=== PATIENT | female | born 1935 | race Hispanic/Latino ===

== ENCOUNTER 2020-07-29 17:46 | Emergency (ER) | payer MEDICARE, BC ==
[~2020-07-29] VITALS: Ht 172.7 cm; Wt 98.9 kg
[~2020-07-29 17:46] MED LIST: AMLODIPINE; ASPIR 8181 MG PO; AVALIDE 300-121 EACH PO; AVAPRO; CALTRATE 600 +1 EACH PO; CARAFATE1 GM PO; CLONIDINE HCL0.1 MG PO; HUMULIN 70-30 V10 ML; HUMULIN 70100 UNIT/2 SQ; LASIX40 MG PO; LIPITOR40 MG PO; METOPROLOL PO; METOPROLOL TART50 MG PO; NIFEDIPINE ER60 MG PO; PANTOPRAZOLE SO40 MG; TYLENOL; VITAMIN D3 1,01 EACH PO; VYTORIN; Z.0.CENTRUM COMPLE1
--- OUTSIDE RECORDS SUMMARY | 2020-07-29 17:56 | XMS REPORT | Clinical Summary ---
Author Author TATIANA [employer] [facility] Center[facility]anch[facility] CallahanPhysicians Reference LaboratoryLeg[facility] Address Unknown Phone Unavailable Care Team Providers Care Group Insurance Specialist Name Role Phone Pcp, No PCP Unavailable Allergies No Known Allergies Medications End Date Status Medication Sig Dispensed Refills Start Date Active aspirin 81 MG EC tablet Take 81 mg by 0 mouth daily. Active carvedilol (COREG) 25 MG Take 25 mg by 0 tablet mouth 2 (two) times daily with breakfast and dinner. Active losartan (COZAAR) 50 MG Take 50 mg by 0 tablet mouth 2 (two) times daily. Active atorvastatin (LIPITOR) 40 Take 40 mg by 0 MG tablet mouth daily. Active pantoprazole (PROTONIX) Take 40 mg by 0 40 MG tablet mouth daily. Active insulin glargine (LANTUS) Inject 10 0 100 unit/mL injection Units subcutaneousl y nightly Use as directed . Active Problems Problem Noted Date ESRD (end stage renal disease) on dialysis 8 Social History Date Tobacco Use Types Packs/Day Years Used Never Smoker Smokeless Tobacco: Never Used Drinks/Week oz/Week Comments Alcohol Use No Sex Assigned at Date Recorded Not on file Last Filed Vital Signs Not on file Plan of Treatment Health Maintenance Due Date Last Done Comments MEDICARE ANNUAL WELLNESS 06/29/2002 (YEAR 2 or FIRST YEAR if no IPPE) INFLUENZA VACCINE (#1) 2020 06/09/2016, 06/23/2015 PNEUMOCOCCAL 65+ YRS Completed 07/26/2016, 04/07/2015, 08/28/2006 Results Not on fileafter 07/29/2019 Insurance Type Payer Benefit Subscriber ID Effective Phone Address Plan / Dates Group Medicare MEDICARE MEDICARE A [id number] 2001- B Present PPO BLUE CROSS/BLUE SHIELD BCBS [id number] 2012-P [phone] [id number] [place] [phone] Advance Directives For more information, please contact: [phone] Date Inactivated Comments Code Status Date Activated 02/27/2018 1:53 PM Full Code 02/27/2018 6:10 AM This code status was determined by: Patient
--- OUTSIDE RECORDS SUMMARY | 2020-07-29 17:56 | XMS REPORT | Clinical Summary ---
Author Author [facility] Address Unknown Phone Unavailable Care Team Providers Care Rehabilitation Services Coordinator Name Role Phone Marcie Lara MD PCP Allergies Comments Active Allergy Reactions Severity Noted Date Told to not take ibuprofen containing medication per kidney specialist Ibuprofen 11/12/2016 HYPERKALEMIA- STOPPED BY RENAL Irbesartan-Hydrochlorothi Other (See 10/03/2015 azide Comments) Medications End Date Status Medication Sig Dispensed Refills Start Date Active insulin GLARGINE (LANTUS) Inject 10 0 100 unit/mL injection Units under (vial) the skin every morning. May use lower dose per sliding scale Active MULTIVIT-MIN/IRON/FOLIC/L Take by 0 UTEIN (CENTRUM SILVER mouth. WOMEN ORAL) Active CALCIUM CARBONATE Take by 0 (CALTRATE 600 ORAL) mouth. 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 10/03/2015 Mixed hyperlipidemia 10/03/2015 Morbid obesity 10/03/2015 Multiple pulmonary nodules 10/03/2015 Overview: 3mm RLL, 5 mm LLL- ground glass- 3-15 C T chest w/o contrast Multiple-type hyperlipidemia 10/03/2015 Kidney stone 07/08/2014 Retinopathy due to secondary diabetes sabrina ortiz 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 aman itus Osteoporosis Obesity Insomnia Hepatic abscess Coronary artery disease Overview: NSTEMI ON 09/16/15 CHF (congestive heart failure) Overview: diastolic Rheumatoid arthritis Overview: RA Adrenal mass Overview: benign adrenal myelolipoma- CT 2014- un changed on imaging since 2004 Alopecia Visual impairment Overview: diabetic retinopathy and vitreal hemorr tiffany right eye- last optho exam 2015 Immunizations Name Administration Dates Next Due FLUZONE HIGH-DOSE PF 06/09/2016, 06/23/2015 Pneumococcal Conjugate 04/07/2015 13-Valent Pneumococcal 07/26/2016, 08/28/2006 Polysaccharide Surgical History Surgery Date Site/Laterality Comments BACK SURGERY 08/28/2013 - and 2011 - discecto my and fusion- has metal 08/27/2014 CORRECTION HAMMER TOE Right R d/t infection ; hammertoe surgery TOTAL KNEE ARTHROPLASTY Right COLONOSCOPY 08/28/2005 - normal except polyp s 08/27/2006 APPENDECTOMY SPINE SURGERY 2003, 2011 discectomy, fusi on- has metal hardware EYE SURGERY Bilateral B retina repair- di abetic retinopathy, cataract extraction HYSTERECTOMY INSERTION, TUNNELED 11/14/2016 Chest/Right Procedure: Insertion right IJ tunneled CENTRAL VENOUS CATHETER hemodialysis catheter unde r c-arm; Surgeon: WITH PORT, WITHOUT Helene Stiles MD; L ocation: [facility] OR; FLUOROSCOPIC GUIDANCE Service: Cardiovascular; L aterality: Right; Medical devices from this surgery are i n the Implants section. ARTHROPLASTY, HIP, TOTAL 11/28/2016 Hip/Right Proce dure: ARTHROPLASTY, HIP, TOTAL; Surgeon: Jeff Mosher MD; Location: [facility] OR; Service: Orthopedics; Laterality: Righ t; Medical devices from this surgery are i n the Implants section. JOINT REPLACEMENT Right TKR JOINT REPLACEMENT Bilateral hips AMPUTATION, TOE 01/09/2019 Toes/Right Procedure: AMP UTATION, TOE RIGHT FOOT 2ND TOE; Surgeon: Lakhwinder Sorenson DPM; Locatio n: [facility] OR; Service: Podiatry; Laterality: Ri ght; Medical History Medical History Date Comments Essential hypertension 10/03/2015 Multiple pulmonary nodules 10/03/2015 3mm RLL, 5 mm LLL- ground glass- 3- CT chest w/o contrast-subcentimeter- followed by Dr Chaudhary Diabetes mellitus (HCC) 10/03/2015 A1C 5.6% 06/12 Diabetic neuropathy (HCC) 10/03/2015 Multiple-type hyperlipidemia 10/03/2015 Anemia Retinopathy due to secondary diabetes mellitus (HCC) CHF (congestive heart failure) (HCC) diastolic Obesity Osteoporosis Insomnia Visual impairment diabetic retinopathy and vi treal hemorrhage right eye- last optho exam 2015 Adrenal mass (HCC) benign adrenal myelolipoma- CT 2014- unchanged on imaging since 2004 Alopecia Hepatic abscess Rheumatoid arthritis (HCC) RA Coronary artery disease NSTEMI ON 09/16/15 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 on HD after ICU 09/12 dialysis t- th- sat mellitus (HCC) Kidney stone 07/08/2014 Family History Medical History Relation Name Comments Kidney disease Father Cancer Mother breast Relation Name Status Comments Father Mother Social History Date Tobacco Use Types Packs/Day Years Used Never Smoker Smokeless Tobacco: Never Used Drinks/Week oz/Week Comments Alcohol Use No Sex Assigned at Date Recorded Not on file Last Filed Vital Signs Not on file Plan of Treatment Health Maintenance Due Date Last Done Comments DIABETES: RETINAL EYE 1945 EXAM DIABETIC FOOT EXAM 1945 SHINGLES VACCINES (#2) 10/27/2007 08/28/2007 INFLUENZA VACCINE 03/28/2020 06/09/2016, 06/23/2015 65+ PNEUMOCOCCAL VACCINE Completed 07/26/2016, 04/07/2015, 08/28/2006 Implants Device Identifier Shelf Expiration Date Model / Serial / L ot Implanted Type Area Manufactur er 10/13/2026 11 [id number] / / [id number] Head Fml Tpr I Modlr W/O Skirt Hip Joint Right: Hip [employer] Co-Cr 36x-3mm - [id number] Implants Implanted: Qty: 1 on 11/28/2016 by Jeff Mosher MD at [facility] 08/30/2026 [id number] / / [id number] [place] 4 Hole Shell 56mm F - IPM Right: Hip BIOMET, [id number] [employer] Implanted: Qty: 1 on 11/28/2016 by DEVICES Jeff Mosher MD at [facility] 10/08/2021 [id number] / / [id number] Neutral E1 Liner 36mm F - IPM Right: Hip B IOMET, [id number] [employer] Implanted: Qty: 1 on 11/28/2016 by DEVICES Jeff Mosher MD at [facility] 10/04/2026 [id number] / / [id number] Screw G7 6.5x20 - [id number] IPM Right: Hip BI OMET, Implanted: Qty: 1 on 11/28/2016 by [employer] Jeff Mosher MD at [facility] 09/12/2026 [id number] / / [id number] Screw G7 6.5x20 - [id number] IPM Right: Hip BI OMET, Implanted: Qty: 1 on 11/28/2016 by [employer] Jeff Mosher MD at [facility] 09/27/2026 [id number] / / [id number] Screw G7 6.5x15 - [id number] IPM Right: Hip BI OMET, Implanted: Qty: 1 on 11/28/2016 by [employer] Jeff Mosher MD at [facility] 01/22/2026 [id number] / / [id number] Tprlc 133 Type1 Pps Ho 11.0, IPM Right: Hip B IOMET, [place] Complete Stem - [id number] [employer] Implanted: Qty: 1 on 11/28/2016 by Jeff Miramontes MD at [facility] 04/27/2018 [id number] / / [id number] Catheter Dialysis Glidepath Implantabl Right: Chest BA RD [id number] Symmetric Tip - e Infusion PERIPHERAL [id number] Ports or VASCULAR Implanted: 11/14/2016 at [facility] (Quantity not on file) s Results Not on fileafter 07/29/2019 Insurance Type Payer Benefit Subscriber ID Effective Phone Address Plan / Dates Group Medicare MEDICARE MEDICARE [id number] 2001- [place], PART A AND Present [place] B PPO BCBS BCBS [id number] 2012-P CHOICE resent PPO/AMBREEN MENDEZ PPO Advance Directives For more information, please contact: [phone] 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
--- OUTSIDE RECORDS SUMMARY | 2020-07-29 17:57 | XMS REPORT | Continuity of Care Document ---
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 Role Phone [facility] [employer] Information [employer] Unavailable Un available Problems Problem Status Onset Date Classification Date Reported Comments Source OTHER MECHANICAL COMPLICATION OF OTHER I Active 07/18/2019 [facility] FALL Active 07/17/2019 [facility] RIGHT FEMUR FRACTURE Active 07/17/2019 [facility] RIGHT PERUIPROSTHETIC FEMUR FX AND RIGHT Active 07/17/2019 [facility] BROKEN FEMUR Active 07/17/2019 [facility] Unspecified trochanteric fracture of lef t femur, initial encounter for closed fracture 10/28/2017 01/27/2018 [facility] [id number],PERIPROSTHETIC FRACTURE A Active 10/12/2017 [facility] Unilateral post-traumatic osteoarthritis, left hip 10/05/2017 01/03/2018 [facility] [id number]- UNILATERAL POST-TRAUMATIC O Active 09/07/2017 [facility] TRANSFER---FALL Active 06/23/2017 [facility] CLOSED FX OF BOTH ANTERIOR POSTERIOR C Active 06/23/2017 [facility] Fracture of bone of hip region (disorder) Resolved 05/28/2017 Problem 09/18/2019 [facility] [id number] Ac tive 10/29/2014 [facility] APNEA Active 08/28/2000 [facility] End stage renal disease 01/27/2018 [facility] Type 2 diabetes mellitus with diabetic c hronic kidney disease 01/27/2018 [facility] Hypertensive chronic kidney disease with stage 5 chronic kidney disease or end stage renal disease 01/27/2018 [facility] Idiopathic aseptic necrosis of left femur 01/03/2018 [facility] Unspecified fracture of left acetabulum, subsequent encounter for fracture with nonunion 01/03/2018 [facility] Unspecified fall, subsequent encounter 01/03/2018 [facility] Dependence on renal dialysis 01/27/2018 [facility] Hyperlipidemia, unspecified 01/03/2018 [facility] long-term (current) use of insulin 01/03/2018 [facility] Acute kidney failure, unspecified 01/27/2018 [facility] Other hypotension 01/27/2018 [facility] Periprosthetic fracture around internal prosthetic left hip joint, initial encounter 01/27/2018 [facility] Anemia in chronic kidney disease 01/27/2018 [facility] Overexertion from prolonged static or aw kward postures, initial encounter 01/27/2018 [facility] Diabetes mellitus (disorder) A ctive Problem [facility], [facility] End stage renal disease (disorder) Active Problem dialysis Tu,Th, Sat per pt fistula left arm [facility] [place] Hypercholesterolemia (disorder) Active Problem [facility], [facility], [facility] [place] Hypertensive disorder, systemic arterial (disorder) Active Problem 09/18/2019 [facility], [facility], [facility] [place] Arthritis (disorder) Active Problem 09/18/2019 [facility], [facility], [facility] [place] Arthritis of pelvis (disorder) Active Problem left hip [facility], [facility], [facility] [place] Diabetic neuropathy (disorder) Active Problem [facility], [facility], [facility] [place] Disease of cardiovascular system (disorder) Active Problem 09/18/2019 lower extremities [facility], [facility], [facility] [place] Fracture of bone (disorder) Ac tive Problem left femur periprosthetic fracture. [facility], [facility], [facility] [place] Gastroesophageal reflux disease (disorder) Active Problem 09/18/2019 [facility], [facility] OBSTRUCTIVE SLEEP APNEA Active [facility] SHORTNESS OF BREATH Active [facility] DISP FX OF ANTERIOR COLUMN OF UNSP ACETA Active [facility] ILLNESS, UNSPECIFIED Active [facility] UNSP FRACTURE OF UNSP FEMUR, INIT ENCNTR Active [facility] Medications Medication Details Route Status Patient Instructions Ordering Provider Order Date Source carvedilol 25 mg oral tablet 2 5 mg = 1 tab, PO, Q12H, 0 Refill(s) Active 09/16/2019 [facility] Oxycodone Hydrochloride 5 MG Oral Tablet 5 mg = 1 tab, PO, Q4H, PRN Pain Score 7-10, 0 Refill(s) Active 09/16/2019 [facility] heparin sodium, porcine 2500 UNT/ML Injectable Solutio n SUB-Q, Q12H, 0 Refill(s) Activ e 09/16/2019 [facility] Coreg Notes: Give with food. ( Same As: Coreg) Inactive 09/16/2019 [facility] heparin sodium, porcine 2500 UNT/ML Injectable Solutio n Notes: porcine heparin Inactiv e 09/16/2019 [facility] Norvasc Notes: (Same as: Norva sc) No Longer Active 09/15/2019 [facility] Ancef 2 gm, 20 mL, Route: IVP, Drug form: SOLN, [id number], Dosing Weight 80, kg, Start date: 09/13/19 22:00:00 RN REVIEW, Duration: 3 doses or times, Stop date: 09/14/19 14:00:00 RN REVIEW, ABX Indication: Surgical Prophylaxis, 0 No Longer Active 09/14/2019 [facility] Hydralazine Notes: (Same as: A presoline) Push over 5 minutes Inactive 09/13/2019 [facility] Labetalol 10 mg, 2 mL, Route: IVP, Drug form: INJ, Q5Min, Dosing Weight 80, kg, PRN Elevated BP, Start date: 09/13/19 12:48:00 RN REVIEW, Duration: 5 doses or times, Stop date: Limited # of times, 0 Inactive 09/13/2019 [facility] Acetaminophen Notes: Max aceta minophen 4000 mg/day (4 gm/day). (Same as: Tylenol Extra Strength) Inactive 09/13/2019 [facility] Oxycodone Hydrochloride 5 MG Oral Tablet Notes: (Same as: Roxicodone) Inactive 09/13/2019 [facility] Hydromorphone Notes: Same as D ilaudid Inactive 09/13/2019 [facility] Flumazenil Notes: (Same as: Ro mazicon) Inactive 09/13/2019 [facility] Naloxone Notes: Same as Narcan Inactive 09/13/2019 [facility] Ondansetron Notes: (Same as: Ricky mathews) MEDICATION WASTE Product Size: 4 mg Product Wasted: ___ mg Inactive 09/13/2019 [facility] Promethazine Notes: Do not giv e IV push. (Same as: Phenergan) Inactive 09/13/2019 [facility] neostigmine (ANES) Route: IV, Drug form: INJ, ONCE, Stop date: 09/13/19 12:47:00 RN REVIEW Inactive 09/13/2019 [facility] ondansetron (ANES) Route: IV, Drug form: INJ, ONCE, Stop date: 09/13/19 12:41:00 RN REVIEW Inactive 09/13/2019 [facility] dexamethasone (ANES) Route: IV , Drug form: INJ, ONCE, Stop date: 09/13/19 12:29:00 RN REVIEW Inactive 09/13/2019 [facility] glycopyrrolate (ANES) Route: I V, Drug form: INJ, ONCE, Stop date: 09/13/19 12:29:00 RN REVIEW Inactive 09/13/2019 [facility] lidocaine (ANES) Route: IV, Dr ug form: INJ, ONCE, Stop date: 09/13/19 12:19:00 RN REVIEW Inactive 09/13/2019 [facility] propofol (ANES) Route: IV, Cyrus g form: INJ, ONCE, Stop date: 09/13/19 12:19:00 RN REVIEW Inactive 09/13/2019 [facility] fentaNYL (ANES) Route: IV, Cyrus g form: INJ, ONCE, Stop date: 09/13/19 12:19:00 RN REVIEW Inactive 09/13/2019 [facility] ceFAZolin (ANES) Route: IV, Dr madden form: INJ, ONCE, Stop date: 09/13/19 12:19:00 RN REVIEW Inactive 09/13/2019 [facility] phenylephrine (ANES) Route: IV , Drug form: INJ, ONCE, Stop date: 09/13/19 12:19:00 RN REVIEW Inactive 09/13/2019 [facility] ePHEDrine (ANES) Route: IV, Dr madden form: INJ, ONCE, Stop date: 09/13/19 12:19:00 RN REVIEW Inactive 09/13/2019 [facility] cisatracurium (ANES) Route: IV , Drug form: INJ, ONCE, Stop date: 09/13/19 12:19:00 RN REVIEW Inactive 09/13/2019 [facility] Lactated Ringers Injection IV (ANES) 1000 mL Route: IV, Total Volume: 1,000, Start date: 09/13/19 11:04:00 RN REVIEW, Stop date: 09/13/19 12:04:00 RN REVIEW Inactive 09/13/2019 [facility] atorvastatin Notes: (Same as: Lipitor) No Longer Active 09/13/2019 [facility] Dextrose 50% Syringe (D50W) 12 .5 gm, 25 mL, Route: IVP, Drug Form: INJ, Dosing Weight 80, kg, PRN, PRN Blood Glucose Results, Start date: 09/12/19 18:31:00 RN REVIEW, Duration: 30 day, Stop date: 10/12/19 18:30:00 RN REVIEW, 0 No Longer Active 09/13/2019 [facility] Glucagon 1 mg, Route: IM, Drug form: PDR/INJ, PRN, Dosing Weight 80, kg, PRN Blood Glucose Results, Start date: 09/12/19 18:31:00 RN REVIEW, Duration: 30 day, Stop date: 10/12/19 18:30:00 RN REVIEW, 0 No Longer Active 09/13/2019 [facility] Insulin Lispro Notes: (Same as : Humalog) Roll in palms of hands gently; Do not shake vigorously. WASTE: F/P - Black; E - Municipal Trash Bin Stable for 28 days at room temperature. Expires in days from Date No Longer Active 09/13/2019 [facility] Oxycodone Hydrochloride 5 MG Oral Tablet Notes: (Same as: Roxicodone) No Longer Active 09/13/2019 [facility] Norvasc Notes: (Same as: Norva sc) No Longer Active 09/12/2019 [facility] Cetirizine Notes: (Same As: Zy rtec) No Longer Active 09/12/2019 [facility] ferrous sulfate Notes: Give wi th food. "Do Not Crush" No Longer Active 09/12/2019 [facility] Insulin Glargine 100 UNT/ML Injectable Solution 10 unit, 0.1 mL, Route: SUB-Q, Drug form: SOLN, Daily, Dosing Weight 80, kg, Start date: 09/12/19 9:00:00 RN REVIEW, Duration: 30 day, Stop date: 10/11/19 9:00:00 RN REVIEW, 0 No Longer Active 09/12/2019 [facility] POLYETHYLENE GLYCOL 3350 Notes : Dissolve in 8 oz of water or juice. (Same as: Miralax) No Longer Active 09/12/2019 [facility] sennosides, LONGTERM 8.6 MG Oral Tablet Notes: (Same as: Senokot) No Longer Active 09/12/2019 [facility] heparin Notes: porcine heparin No Longer Active 09/12/2019 [facility] gabapentin 100 MG Oral Capsule Notes: (Same as: Neurontin) No Longer Active 09/12/2019 [facility] Clonidine Hydrochloride 0.1 MG Oral Tablet Notes: (Same As: Catapres) No Longer Active 09/12/2019 [facility] Dextrose 50% Syringe (D50W) 12 .5 gm, 25 mL, Route: IVP, Drug Form: INJ, Dosing Weight 80, kg, PRN, PRN Blood Glucose Results, Start date: 09/11/19 23:01:00 RN REVIEW, Duration: 30 day, Stop date: 10/11/19 23:00:00 RN REVIEW, 0 No Longer Active 09/12/2019 [facility] Glucagon 1 mg, Route: IM, Drug form: PDR/INJ, PRN, Dosing Weight 80, kg, PRN Blood Glucose Results, Start date: 09/11/19 23:01:00 RN REVIEW, Duration: 30 day, Stop date: 10/11/19 23:00:00 RN REVIEW, 0 No Longer Active 09/12/2019 [facility] Ondansetron Notes: (Same as: Ricky mathews) MEDICATION WASTE Product Size: 4 mg Product Wasted: ___ mg No Longer Active 09/12/2019 [facility] Melatonin Notes: (Same as: Mildred atonin) No Longer Active 09/12/2019 [facility] Acetaminophen Notes: Do not ex ceed 4 gm/day. (Same as: Tylenol) No Longer Active 09/12/2019 [facility] ceFAZolin Notes: (Same as Ance f) No Longer Active 09/11/2019 [facility] Exparel Notes: (Same as: Expar el) NOT FOR IV use Postoperative analgesia: Infiltration (local): Dose is based on surgical site and volume required to cover the area (in general, the maximum total dose is 266 mg). Bunionectomy: 7 mL into the tissues surrounding the osteotomy and 1 mL into the subcutaneous tissue of the surgical site (total dose = 8 mL [106 mg]) Hemorrhoidectomy: 30 mL (20 mL vial diluted with 10 mL NS) divided and administered as 6 injections of 5 mL each (total dose = 30 mL [266 mg]) Interscalene brachial plexus nerve block: Single dose: Total shoulder arthroplasty or rotator cuff repair: 133 mg (10 mL) Inactive 09/11/2019 [facility] Acetaminophen Notes: Max aceta minophen 4000 mg/day (4 gm/day). (Same as: Tylenol Extra Strength) No Longer Active 09/11/2019 [facility] Tramadol Notes: Not to exceed 400mg/day. (Same As: Ultram) No Longer Active 09/11/2019 [facility] Ondansetron Notes: (Same as: Ricky mathews) MEDICATION WASTE Product Size: 4 mg Product Wasted: ___ mg No Longer Active 09/11/2019 [facility] Magnesium Sulfate Notes: WASTE : F/P - Sink; E - Municipal Trash Bin Inactive 09/11/2019 [facility] labetalol (ANES) Route: IV, Dr maddne form: INJ, ONCE, Stop date: 09/11/19 12:24:00 RN REVIEW Inactive 09/11/2019 [facility] ondansetron (ANES) Route: IV, Drug form: INJ, ONCE, Stop date: 09/11/19 12:08:00 RN REVIEW Inactive 09/11/2019 [facility] neostigmine (ANES) Route: IV, Drug form: INJ, ONCE, Stop date: 09/11/19 12:08:00 RN REVIEW Inactive 09/11/2019 [facility] Cefazolin 2 gm, Route: IVPB, D rug form: INJ, [id number], Dosing Weight 79, kg, (for patients weighing 70kg or greater), Start date: 09/11/19 12:00:00 RN REVIEW, Duration: 3 doses or times, Stop date: 09/12/19 4:00:00 RN REVIEW, ABX Indication: Surgical Prophylaxis Inactive 09/11/2019 [facility] Hydromorphone Notes: Same as D ilaudid Inactive 09/11/2019 [facility] Flumazenil Notes: (Same as: Ro mazicon) Inactive 09/11/2019 [facility] Naloxone Notes: Same as Narcan Inactive 09/11/2019 [facility] Ondansetron Notes: (Same as: Ricky mathews) MEDICATION WASTE Product Size: 4 mg Product Wasted: ___ mg Inactive 09/11/2019 [facility] glycopyrrolate (ANES) Route: I V, Drug form: INJ, ONCE, Stop date: 09/11/19 9:15:00 RN REVIEW Inactive 09/11/2019 [facility] lidocaine (ANES) Route: IV, Dr ug form: INJ, ONCE, Stop date: 09/11/19 9:00:00 RN REVIEW Inactive 09/11/2019 [facility] propofol (ANES) Route: IV, Cyrus g form: INJ, ONCE, Stop date: 09/11/19 9:00:00 RN REVIEW Inactive 09/11/2019 [facility] fentaNYL (ANES) Route: IV, Cyrus g form: INJ, ONCE, Stop date: 09/11/19 9:00:00 RN REVIEW Inactive 09/11/2019 [facility] cisatracurium (ANES) Route: IV , Drug form: INJ, ONCE, Stop date: 09/11/19 9:00:00 RN REVIEW Inactive 09/11/2019 [facility] norepinephrine (ANES) Route: I V, Drug form: INJ, ONCE, Stop date: 09/11/19 9:00:00 RN REVIEW Inactive 09/11/2019 [facility] ceFAZolin (ANES) Route: IV, Dr ug form: INJ, ONCE, Stop date: 09/11/19 8:48:00 RN REVIEW Inactive 09/11/2019 [facility] norepinephrine (ANES) 10 microgram Route: IV, Drug form: INJ, Start date: 09/11/19 8:39:00 RN REVIEW, Stop date: 09/11/19 9:39:00 RN REVIEW Inactive 09/11/2019 [facility] Sodium Chloride 0.9% (titrate) 250 mL 250 mL, Rate: To prime line and flush remaining blood products., Dosing Weight 79, kg, Route: IV, Total Volume: 250, Start Date: 09/11/19 8:23:00 RN REVIEW, Duration: 1 day, Stop date: 09/12/19 8:22:00 RN REVIEW, Replace Every: 24 hr, 0 No Longer Active 09/11/2019 [facility] Sodium Chloride 0.9% IV (ANES) 500 mL Route: IV, Total Volume: 500, Start date: 09/11/19 7:30:00 RN REVIEW, Stop date: 09/11/19 8:30:00 RN REVIEW Inactive 09/11/2019 [facility] ceFAZolin Notes: (Same as Juliano cleaning) No Longer Active 09/11/2019 [facility] Amlodipine 5 MG Oral Tablet [Norvasc] 5 mg = 1 tab, PO, Daily, 0 Refill(s) Active 09/09/2019 [facility] Clonidine Hydrochloride 0.1 MG Oral Tablet 0.1 mg = 1 tab, PO, Q8H, PRN Hypertension, 0 Refill(s) No Longer Active 09/09/2019 [facility] Diphenhydramine Hydrochloride 25 MG Oral Capsule [Benadryl] 25 mg = 1 cap, PO, Q12H, PRN as needed f or allergy symptoms, 0 Refill(s) No Longer Active 09/09/2019 [facility] Menthol 0.04 MG/MG Topical Gel [Biofreeze] TOP, Daily, apply to R shoulder, 0 Refill(s) No Longer Active 09/09/2019 [facility] 3 ML Insulin Glargine 100 UNT/ML Pen Inj mai [Basaglar] 10 unit, SUB-Q, Daily, 0 Refill(s) No Longer Active 09/09/2019 [facility] Insulin Lispro 100 UNT/ML Injectable Solution [Admelog ] SUB-Q, PRN Before Meals, 0 Refill(s) No Longer Active 09/09/2019 [facility] Acetaminophen 500 MG Oral Tablet 1,000 mg = 2 tab, PO, Q6Hnow, 0 Refill(s) Active 07/26/2019 [facility] ferrous sulfate 325 mg oral enteric coated tablet 325 mg = 1 tab, PO, Daily, 0 Refill(s) Active 07/26/2019 [facility] cetirizine 5 mg oral tablet 5 mg = 1 tab, PO, Daily, 0 Refill(s) Active 07/26/2019 [facility] Docusate Sodium 100 MG Oral Capsule 100 mg = 1 cap, PO, BID, 0 Refill(s) Active 07/26/2019 [facility] dronabinol 5 mg oral capsule 5 mg = 1 cap, PO, Q12H, 0 Refill(s) Active 07/26/2019 [facility] gabapentin 100 MG Oral Capsule 100 mg = 1 cap, PO, Q8H- 06, 0 Refill(s) Active 07/26/2019 [facility] heparin 5,000 unit = 1 mL, SUB -Q, Q8H, 0 Refill(s) Active 07/26/2019 [facility] melatonin 3 mg oral tablet 3 m g = 1 tab, PO, Bedtime, PRN Insomnia, 0 Refill(s) Active 07/26/2019 [facility] minocycline 100 mg oral capsule 100 mg = 1 cap, PO, [id number], 0 Refill(s) Active 07/26/2019 [facility] POLYETHYLENE GLYCOL 3350 17 gm = 1 pkt, PO, Daily, 0 Refill(s) Active 07/26/2019 [facility] sennosides, LONGTERM 8.6 MG Oral Tablet 17.2 mg = 2 tab, PO, Daily, 0 Refill(s) Active 07/26/2019 [facility] Sodium Chloride 0.9% (titrate) 250 mL 250 mL, Rate: To prime line and flush remaining blood products., Dosing Weight 75, kg, Route: IV, Total Volume: 250, Priority: Routine, Start Date: 07/25/19 6:41:00 RN REVIEW, Duration: 1 day, Stop date: 07/26/19 6:40:00 RN REVIEW, Replace Every: 24 hr, 0 No Longer Active 07/25/2019 [facility] phenol Notes: Chloraseptic Spr ay (Same as: Chloraseptic, Sore Throat [place]) WASTE: F/P - Black; E - Municipal Trash Bin No Longer Active 07/25/2019 [facility] ceFAZolin Notes: (Same As: Anc ef, Kefzol) MEDICATION WASTE Product Size: 1000 mg Product Wasted: ___ mg Inactive 07/25/2019 [facility] propofol (ANES) Route: IV, Cyrus g form: INJ, ONCE, Stop date: 07/24/19 18:11:00 RN REVIEW Inactive 07/25/2019 [facility] glycopyrrolate (ANES) Route: I V, Drug form: INJ, ONCE, Stop date: 07/24/19 18:06:00 RN REVIEW Inactive 07/25/2019 [facility] neostigmine (ANES) Route: IV, Drug form: INJ, ONCE, Stop date: 07/24/19 18:06:00 RN REVIEW Inactive 07/25/2019 [facility] Cefazolin Notes: (Same As: [facility], Kefzol) MEDICATION WASTE Product Size: 1000 mg Product Wasted: ___ mg Inactive 07/25/2019 [facility] ondansetron (ANES) Route: IV, Drug form: INJ, ONCE, Stop date: 07/24/19 17:35:00 RN REVIEW Inactive 07/24/2019 [facility] esmolol 10 mg, Route: IVP, Q5M in, Dosing Weight 75, kg, PRN Other -See Comment, Start date: 07/24/19 17:23:00 RN REVIEW, Duration: 5 doses or times, Stop date: Limited # of times Inactive 07/24/2019 [facility] Metoprolol 1 mg, Route: IVP, Q 5Min, Dosing Weight 75, kg, PRN Other -See Comment, Start date: 07/24/19 17:23:00 RN REVIEW, Duration: 5 doses or times, Stop date: Limited # of times Inactive 07/24/2019 [facility] fentaNYL (ANES) Route: IV, Cyrus g form: INJ, ONCE, Stop date: 07/24/19 16:44:00 RN REVIEW Inactive 07/24/2019 [facility] ceFAZolin (ANES) Route: IV, Dr ug form: INJ, ONCE, Stop date: 07/24/19 16:14:00 RN REVIEW Inactive 07/24/2019 [facility] norepinephrine (ANES) Route: I V, Drug form: INJ, ONCE, Stop date: 07/24/19 15:07:00 RN REVIEW Inactive 07/24/2019 [facility] Hydralazine Notes: (Same as: A presoline) Push over 5 minutes Inactive 07/24/2019 [facility] Labetalol 10 mg, 2 mL, Route: IVP, Drug form: INJ, Q5Min, Dosing Weight 75, kg, PRN Elevated BP, Start date: 07/24/19 14:50:00 RN REVIEW, Duration: 5 doses or times, Stop date: 07/25/19 0:00:00 RN REVIEW, 0 Inactive 07/24/2019 [facility] Acetaminophen Notes: Max aceta minophen 4000 mg/day (4 gm/day). (Same as: Tylenol Extra Strength) Inactive 07/24/2019 [facility] Oxycodone Hydrochloride 5 MG Oral Tablet Notes: (Same as: Roxicodone) Inactive 07/24/2019 [facility] Hydromorphone Notes: Same as D ilaudid Inactive 07/24/2019 [facility] Flumazenil Notes: (Same as: Ro mazicon) Inactive 07/24/2019 [facility] Naloxone Notes: Same as Narcan Inactive 07/24/2019 [facility] Ondansetron Notes: (Same as: Ricky mathews) MEDICATION WASTE Product Size: 4 mg Product Wasted: ___ mg Inactive 07/24/2019 [facility] dexamethasone (ANES) Route: IV , Drug form: INJ, ONCE, Stop date: 07/24/19 14:37:00 RN REVIEW Inactive 07/24/2019 [facility] lidocaine (ANES) Route: IV, Dr ug form: INJ, ONCE, Stop date: 07/24/19 14:32:00 RN REVIEW Inactive 07/24/2019 [facility] propofol (ANES) Route: IV, Cyrus g form: INJ, ONCE, Stop date: 07/24/19 14:32:00 RN REVIEW Inactive 07/24/2019 [facility] rocuronium (ANES) Route: IV, D rug form: INJ, ONCE, Stop date: 07/24/19 14:32:00 RN REVIEW Inactive 07/24/2019 [facility] fentaNYL (ANES) Route: IV, Cyrus g form: INJ, ONCE, Stop date: 07/24/19 14:32:00 RN REVIEW Inactive 07/24/2019 [facility] ceFAZolin (ANES) Route: IV, Dr ug form: INJ, ONCE, Stop date: 07/24/19 13:45:00 RN REVIEW Inactive 07/24/2019 [facility] norepinephrine (ANES) Route: I V, Drug form: INJ, ONCE, Stop date: 07/24/19 13:40:00 RN REVIEW Inactive 07/24/2019 [facility] norepinephrine (ANES) 10 microgram Route: IV, Drug form: INJ, Start date: 07/24/19 13:31:00 RN REVIEW, Stop date: 07/24/19 14:31:00 RN REVIEW Inactive 07/24/2019 [facility] Sodium Chloride 0.9% IV (ANES) 500 mL Route: IV, Total Volume: 500, Start date: 07/24/19 12:45:00 RN REVIEW, Stop date: 07/24/19 13:45:00 RN REVIEW Inactive 07/24/2019 [facility] Lactated Ringers Injection IV (ANES) 1000 mL Route: IV, Total Volume: 1,000, Start date: 07/24/19 12:17:00 RN REVIEW, Stop date: 07/24/19 13:17:00 RN REVIEW Inactive 07/24/2019 [facility] Bisacodyl Notes: (Same As: Dul colax, Bisco-Lax) No Longer Active 07/22/2019 [facility] Cetirizine Notes: (Same As: Rodrigo rtec) No Longer Active 07/21/2019 [facility] Dextrose 50% Syringe (D50W) 12 .5 gm, 25 mL, Route: IVP, Drug Form: INJ, Dosing Weight 75, kg, PRN, PRN Blood Glucose Results, Start date: 07/21/19 11:24:00 RN REVIEW, Duration: 30 day, Stop date: 08/20/19 11:23:00 RN REVIEW, 0 No Longer Active 07/21/2019 [facility] Glucagon 1 mg, Route: IM, Drug form: PDR/INJ, PRN, Dosing Weight 75, kg, PRN Blood Glucose Results, Start date: 07/21/19 11:24:00 RN REVIEW, Duration: 30 day, Stop date: 08/20/19 11:23:00 RN REVIEW, 0 No Longer Active 07/21/2019 [facility] Insulin Lispro Notes: (Same as : Humalog) Roll in palms of hands gently; Do not shake vigorously. WASTE: F/P - Black; E - Municipal Trash Bin Stable for 28 days at room temperature. Expires in days from Date No Longer Active 07/21/2019 [facility] Tetrahydrocannabinol Notes: (S davon as: Marinol) No Longer Active 07/21/2019 [facility] Allantoin 0.01 MG/MG / Camphor 0.005 MG/ MG / phenol 0.005 MG/MG Topical Ointment [Blistex] Notes: Same as: Blistex No Longer Active 07/20/2019 [facility] remove patch Notes: Remove pat ch 12 hours after application each day. No Longe r Active 07/20/2019 [facility] Albumin Human, LONGTERM 250 MG/ML Injection [Albuked] Notes: Lot #: Mfg: (Same as: Plasbumin-25) "blood product derivative" WASTE: F/P - Red; E -Red MEDICATION WASTE Product Size: 25 gm Product Wasted: ___ gm Inactive 07/20/2019 [facility] Tramadol Notes: (Same As: Ultr am) No Longer Active 07/20/2019 [facility] Midodrine Notes: (Same as:Proa matine) Inactive 07/20/2019 [facility] 250 ML Albumin Human, LONGTERM 50 MG/ML Injection [Albuked] Notes: Lot #: Mfg: (Same as: Plasbumin-25) "blood product derivative" WASTE: F/P - Red; E -Red MEDICATION WASTE Product Size: 25 gm Product Wasted: ___ gm Inactive 07/20/2019 [facility] Lidocaine Hydrochloride 0.05 MG/MG Trans dermal Patch [Lidoderm] 1 patch, Route: TOP, Daily, Start date: 07/20/19 9:00:00 RN REVIEW, Duration: 30 day, Stop date: 08/18/19 9:00:00 RN REVIEW, Remove after 12 hours Inactive 07/20/2019 [facility] pantoprazole Notes: Tablet herber uld not be chewed or crushed. (Same as: Protonix) N o Longer Active 07/20/2019 [facility] sennosides, LONGTERM Notes: (Same a s: Senokot) No Longer Active 07/20/2019 [facility] albumin human 5% intravenous solution Notes: LOT#: Mfg: WASTE: F/P - Red; E -Red (Same as: Albuminar) "blood product derivative" Inactive 07/20/2019 [facility] Lidocaine Hydrochloride 0.05 MG/MG Trans dermal Patch [Lidoderm] Notes: Apply only once for up to 12 hour s in a 24-hour period (12 hours on and 12 hours off). (Same as: Lidoderm) "Remove old patch before application of new patch" No Longer Active 07/20/2019 [facility] ceFAZolin Notes: (Same as Ance f) No Longer Active 07/20/2019 [facility] tramadol hydrochloride 50 MG Oral Tablet 50 mg, 1 tab, Route: PO, Drug form: TAB, Q12H, Dosing Weight 75, kg, Start date: 07/19/19 21:00:00 RN REVIEW, Duration: 30 day, Stop date: 08/18/19 9:00:00 RN REVIEW Inactive 07/20/2019 [facility] gabapentin 100 MG Oral Capsule 100 mg, Route: PO, Drug form: CAP, Q8H, Dosing Weight 75, kg, Start date: 07/19/19 16:00:00 RN REVIEW, Duration: 30 day, Stop date: 08/18/19 8:00:00 RN REVIEW Inactive 07/19/2019 [facility] Robaxin 1,000 mg, Route: IV, Q 8H, Dosing Weight 75, kg, Start date: 07/19/19 16:00:00 RN REVIEW, Duration: 30 day, Stop date: 08/18/19 8:00:00 RN REVIEW Inactive 07/19/2019 [facility] Hydromorphone Notes: Same as D ilaudid Inactive 07/19/2019 [facility] Robaxin Notes: (Same as:Robaxi n) No Longer Active 07/19/2019 [facility] gabapentin 100 MG Oral Capsule Notes: (Same as: Neurontin) No Longer Active 07/19/2019 [facility] tramadol hydrochloride 50 MG Oral Tablet Notes: Not to exceed 400mg/day. (Same As: Ultram) No Longer Active 07/19/2019 [facility] Insulin regular Notes: (Same a s: Humulin R) Roll in palms of hands gently; Do not shake vigorously. WASTE: F/P - Black; E - Municipal Trash Bin Stable for 31 days at room temperature Expires in days from Date No Longer Active 07/19/2019 [facility] Dextrose 50% Syringe (D50W) 12 .5 gm, 25 mL, Route: IVP, Drug Form: INJ, Dosing Weight 75, kg, PRN, PRN Abnormal Lab Result, Start date: 07/19/19 11:16:00 RN REVIEW, Duration: 30 day, Stop date: 08/18/19 11:15:00 RN REVIEW, For FSBG 40 mg/dL - 60 mg/dL, 0 No Longer Active 07/19/2019 [facility] Fentanyl 25 microgram, Route: IV, ONCE, Dosing Weight 75, kg, Start date: 07/19/19 4:16:00 RN REVIEW, Stop date: 07/19/19 4:16:00 RN REVIEW Inactive 07/19/2019 [facility] propofol 10 mg/mL (Titrate.) IV 1,000 mg Notes: If Diprivan - change bottle & tubing every 12 hr Per state nursing law propofol can only be given by a nurse if patient is intubated or being intubated (unless the nurse is a GAS BLENDER). Same as: Diprivan Inactive 07/19/2019 [facility] ondansetron (ANES) Route: IV, Drug form: INJ, ONCE, Stop date: 07/19/19 2:11:00 RN REVIEW Inactive 07/19/2019 [facility] Ancef 2 gm, Route: IVPB, ABXQ8 H, Dosing Weight 75, kg, Start date: 07/19/19 2:00:00 RN REVIEW, Duration: 3 day, Stop date: 07/21/19 18:00:00 RN REVIEW, ABX Indication: Surgical Prophylaxis Inactive 07/19/2019 [facility] Minocycline Notes: (Same as:Bernie cruz) No milk/antacids/iron. No Longer Active 07/19/2019 [facility] norepinephrine (ANES) + Sodium Chloride 0.9% IV (ANES) 99 mL Route: IV, Drug form: INJ, ONCE, Stop da te: 07/19/19 1:36:00 RN REVIEW Inactive 07/19/2019 [facility] vasopressin (ANES) Route: IV, Drug form: INJ, ONCE, Stop date: 07/19/19 1:36:00 RN REVIEW Inactive 07/19/2019 [facility] phenylephrine (ANES) Route: IV , Drug form: INJ, ONCE, Stop date: 07/19/19 1:05:00 RN REVIEW Inactive 07/19/2019 [facility] calcium chloride (ANES) Route: IV, Drug form: INJ, ONCE, Stop date: 07/19/19 1:00:00 RN REVIEW Inactive 07/19/2019 [facility] Fentanyl 25 microgram, Route: IVP, Q5Min, Dosing Weight 75, kg, PRN Pain Score 4-6, Priority: Routine, Start date: 07/19/19 0:29:00 RN REVIEW, Duration: 4 doses or times, Stop date: Limited # of times Inactive 07/19/2019 [facility] Hydromorphone 0.5 mg, Route: I [employer] [employer], Q5Min, Dosing Weight 75, kg, PRN Pain Score 7-10, Start date: 07/19/19 0:29:00 RN REVIEW, Duration: 4 doses or times, Stop date: Limited # of times Inactive 07/19/2019 [facility] Flumazenil 0.2 mg, Route: IVP, PRN, Dosing Weight 75, kg, PRN Benzodiazepine Reversal, Initial dose, Start date: 07/19/19 0:29:00 RN REVIEW, Duration: 30 day, Stop date: 08/18/19 0:28:00 RN REVIEW Inactive 07/19/2019 [facility] Naloxone 0.4 mg, Route: IVP, Q 2MIN, Dosing Weight 75, kg, PRN Narcotic Reversal, Start date: 07/19/19 0:29:00 RN REVIEW, Duration: 8 doses or times, Stop date: Limited # of times Inactive 07/19/2019 [facility] Ondansetron 4 mg, Route: IVP, ONCE, Dosing Weight 75, kg, PRN Nausea & Vomiting, Start date: 07/19/19 0:29:00 RN REVIEW Inactive 07/19/2019 [facility] norepinephrine (ANES) Route: I V, Drug form: INJ, ONCE, Stop date: 07/19/19 0:24:00 RN REVIEW Inactive 07/19/2019 [facility] Sodium Chloride 0.9% IV (ANES) 99 mL + n orepinephrine (ANES) 10 microgram Route: IV, Drug form: INJ, Start date: 09/17/18 23:59:00 RN REVIEW, Stop date: 07/19/19 0:59:00 RN REVIEW No Longer Active 07/19/2019 [facility] nt lidocaine (ANES) Route: IV, Dr ug form: INJ, ONCE, Stop date: 07/18/19 23:54:00 RN REVIEW Inactive 07/19/2019 [facility] propofol (ANES) Route: IV, Cyrus g form: INJ, ONCE, Stop date: 07/18/19 23:54:00 RN REVIEW Inactive 07/19/2019 [facility] fentaNYL (ANES) Route: IV, Cyrus g form: INJ, ONCE, Stop date: 07/18/19 23:54:00 RN REVIEW Inactive 07/19/2019 [facility] cisatracurium (ANES) Route: IV , Drug form: INJ, ONCE, Stop date: 07/18/19 23:49:00 RN REVIEW Inactive 07/19/2019 [facility] dexamethasone (ANES) Route: IV , Drug form: INJ, ONCE, Stop date: 07/18/19 23:43:00 RN REVIEW Inactive 07/19/2019 [facility] nt tranexamic acid (ANES) Route: IV, Drug form: INJ, ONCE, Stop date: 07/18/19 23:38:00 RN REVIEW Inactive 07/19/2019 [facility] nt ceFAZolin (ANES) Route: IV, Dr ug form: INJ, ONCE, Stop date: 07/18/19 23:18:00 RN REVIEW Inactive 07/19/2019 [facility] ketAMINE (ANES) Route: IV, Cyrus g form: INJ, ONCE, Stop date: 07/18/19 22:47:00 RN REVIEW Inactive 07/19/2019 [facility] Sodium Chloride 0.9% IV (ANES) 90 mL + v ancomycin (ANES) 1000 mg Route: IV, Drug form: INJ, Start date: 09/17/18 22:45:00 RN REVIEW, Stop date: 07/18/19 23:45:00 RN REVIEW Inactive 07/19/2019 [facility] Lactated Ringers Injection IV (ANES) 1000 mL Route: IV, Total Volume: 1,000, Start date: 07/18/19 21:30:00 RN REVIEW, Stop date: 07/18/19 22:30:00 RN REVIEW Inactive 07/19/2019 [facility] atorvastatin Notes: (Same as: Lipitor) No Longer Active 07/19/2019 [facility] ropivacaine Notes: NOT FOR IV use Ropivacaine 5 mg/mL (49.25 mL) Epinephrine 1 mg/mL (0.5 mL) Clonidine 0.1 mg/mL (0.8 mL) Ketorolac 30 mg/mL (1 mL) Normal Saline 48.45 mL No Longer Active 07/19/2019 [facility] heparin Notes: porcine heparin No Longer Active 07/18/2019 [facility] 3 ML Insulin Glargine 100 UNT/ML Prefill ed Syringe [Lantus] 10 unit, SUB-Q, Daily, 0 Refill(s) No Longer Active 07/18/2019 [facility] losartan 50 mg oral tablet 50 mg = 1 tab, PO, BID, 0 Refill(s) No Longer Active 07/18/2019 [facility] carvedilol 25 mg oral tablet 2 5 mg = 1 tab, PO, BID, # 180 tab, 0 Refill(s) No Longer Active 07/18/2019 [facility] Dextrose 50% Syringe (D50W) 12 .5 gm, 25 mL, Route: IVP, Drug Form: INJ, Dosing Weight 75, kg, PRN, PRN Blood Glucose Results, Start date: 07/18/19 12:24:00 RN REVIEW, Duration: 30 day, Stop date: 08/17/19 12:23:00 RN REVIEW, 0 No Longer Active 07/18/2019 [facility] Glucagon 1 mg, Route: IM, Drug form: PDR/INJ, PRN, Dosing Weight 75, kg, PRN Blood Glucose Results, Start date: 07/18/19 12:24:00 RN REVIEW, Duration: 30 day, Stop date: 08/17/19 12:23:00 RN REVIEW, 0 No Longer Active 07/18/2019 [facility] Insulin Lispro Notes: (Same as : Humalog) Roll in palms of hands gently; Do not shake vigorously. WASTE: F/P - Black; E - Municipal Trash Bin Stable for 28 days at room temperature. Expires in days from Date No Longer Active 07/18/2019 [facility] Docusate Notes: (Same as: Cola ce) (Do Not Crush) No Longer Active 07/18/2019 [facility] POLYETHYLENE GLYCOL 3350 Notes : Dissolve in 8 oz of water or juice. (Same as: Miralax) No Longer Active 07/18/2019 [facility] carvedilol Notes: Give with fo od. (Same As: Coreg) No Longer Active 07/18/2019 [facility] ferrous sulfate Notes: Give wi th food. "Do Not Crush" No Longer Active 07/18/2019 [facility] Hydroxychloroquine Sulfate 200 MG Oral Tablet Notes: (Same as: Plaquenil) Hydroxychloroquine sulfate 200 mg = 155 mg hydroxychloroquine base. If treating malaria, verify dose as salt vs. base per CDC guideline Inactive 07/18/2019 [facility] Losartan Notes: (Same as: Coza ar) No Longer Active 07/18/2019 [facility] pantoprazole Notes: Tablet herber uld not be chewed or crushed. (Same as: Protonix) N o Longer Active 07/18/2019 [facility] Sodium Chloride 0.9% (titrate) 250 mL 250 mL, Rate: To prime line and flush remaining blood products., Dosing Weight 75, kg, Route: IV, Total Volume: 250, Start Date: 07/18/19 8:39:00 RN REVIEW, Duration: 1 day, Stop date: 07/19/19 8:38:00 RN REVIEW, Replace Every: 24 hr, 0 No Longer Active 07/18/2019 [facility] Acetaminophen Notes: Max aceta minophen 4000 mg/day (4 gm/day). (Same as: Tylenol Extra Strength) No Longer Active 07/18/2019 [facility] Oxycodone Hydrochloride 5 MG Oral Tablet Notes: (Same as: Roxicodone) No Longer Active 07/18/2019 [facility] Morphine Notes: (Same as:MORPh ine Sulfate) No Longer Active 07/18/2019 [facility] tizanidine Notes: (Same As: Za naflex) No Longer Active 07/18/2019 [facility] Dextrose 50% Syringe (D50W) 12 .5 gm, 25 mL, Route: IVP, Drug Form: INJ, Dosing Weight 74.545, kg, PRN, PRN Blood Glucose Results, Start date: 07/18/19 3:09:00 RN REVIEW, Duration: 30 day, Stop date: 08/17/19 3:08:00 RN REVIEW, 0 No Longer Active 07/18/2019 [facility] Glucagon 1 mg, Route: IM, Drug form: PDR/INJ, PRN, Dosing Weight 74.545, kg, PRN Blood Glucose Results, Start date: 07/18/19 3:09:00 RN REVIEW, Duration: 30 day, Stop date: 08/17/19 3:08:00 RN REVIEW, 0 No Longer Active 07/18/2019 [facility] Ondansetron Notes: (Same as: Ricky mathews) MEDICATION WASTE Product Size: 4 mg Product Wasted: ___ mg No Longer Active 07/18/2019 [facility] Melatonin Notes: (Same as: Mildred atonin) No Longer Active 07/18/2019 [facility] Prochlorperazine Notes: (Same as: Compazine) No Longer Active 07/18/2019 [facility] Zofran 4 mg, Route: IVP, Drug form: INJ, ONCE, Dosing Weight 74.545, kg, Priority: STAT, Start date: 07/18/19 1:59:00 RN REVIEW, Stop date: 07/18/19 1:59:00 RN REVIEW Inactive 07/18/2019 [facility] Dilaudid Notes: Same as Dilaud id Inactive 07/18/2019 [facility] Fentanyl 50 microgram, Route: IVP, ONCE, Dosing Weight 74.545, kg, Priority: STAT, Start date: 07/18/19 0:25:00 RN REVIEW, Stop date: 07/18/19 0:25:00 RN REVIEW Inactive 07/18/2019 [facility] Fentanyl Notes: (Same as: Subl imaze) Preservative free. Inactive 07/18/2019 [facility] Morphine Notes: (Same as:MORPh ine Sulfate) Inactive 07/18/2019 [facility] Dilaudid Notes: Same as: Dilau did Inactive 07/18/2019 [facility] Dilaudid Notes: (Same as: Dila udid) Inactive 07/17/2019 [facility] Zofran 4 mg, Route: IVP, Drug form: INJ, ONCE, Dosing Weight 74.545, kg, Priority: STAT, Start date: 07/17/19 16:56:00 RN REVIEW, Stop date: 07/17/19 16:56:00 RN REVIEW Inactiv e 07/17/2019 [facility] Morphine Notes: (Same as:MORPh ine Sulfate) Inactive 07/17/2019 [facility] Sodium Chloride 0.9% (titrate) 250 mL 250 mL, Rate: To prime line and flush remaining blood products., Dosing Weight 77.273, kg, Route: IV, Total Volume: 250, Start Date: 10/21/17 9:01:00 RN REVIEW, Duration: 30 day, Stop date: 11/20/17 9:00:00 CDT, Replace Every: 24 hr Inactive 10/21/2017 [facility] Procrit Notes: (Same as: Procr it) epoetin lisa 45190 unit/1 ml VL. For dialysis use only. (Procrit) WASTE: F/P - Red; E -Red MEDICATION WASTE Product Size: 72760 unit Product Wasted: ___ unit No Longer Active 10/20/2017 [facility] pantoprazole 40 mg, 1 tab, Rou te: PO, Drug form: ECTAB, Before Dinner, Dosing Weight 77.273, kg, Start date: 10/19/17 16:30:00 RN REVIEW, Duration: 30 day, Stop date: 11/17/17 16:30:00 CDT No Longer Active 10/19/2017 [facility] Losartan Notes: (Same as: Coza ar) No Longer Active 10/19/2017 [facility] Hydroxychloroquine Sulfate 200 MG Oral T ablet [Plaquenil] Notes: (Same as: Plaquenil) Hydroxychlor oquine sulfate 200 mg = 155 mg hydroxychloroquine base. If treating malaria, verify dose as salt vs. base per CDC guideline No Longer Active 10/19/2017 [facility] carvedilol Notes: Give with fo od. (Same As: Coreg) No Longer Active 10/19/2017 [facility] ferrous sulfate Notes: Give wi th food. iron elemental [id number] as ferrous sulfate Dose=___mg elemental iron No Longer Active 10/19/2017 [facility] heparin Notes: porcine heparin No Longer Active 10/19/2017 [facility] atorvastatin Notes: (Same as: Lipitor) No Longer Active 10/19/2017 [facility] Insulin Glargine 100 UNT/ML Injectable S olution [Lantus] Notes: (Same as: Lantus) Do not hold ins ulin without contacting prescriber WASTE: F/P - Black; E - Municipal Trash Bin "single patient use only" No Longer Active 10/19/2017 [facility] Zofran Notes: (Same as: Zofran ) MEDICATION WASTE Product Size: 4 mg Product Wasted: ___ mg No Longer Active 10/19/2017 [facility] Tranexamic Acid Notes: (Same A s: Cyklokapron) No Longer Active 10/18/2017 [facility] Docusate 100 mg, 1 cap, Route: PO, Drug form: CAP, BID, Dosing Weight 77.273, kg, Start date: 10/18/17 17:00:00 RN REVIEW, Duration: 30 day, Stop date: 11/17/17 9:00:00 CDT No Longer Active 10/18/2017 [facility] Zofran 4 mg, Route: IV, Q8H, D osing Weight 77.273, kg, Start date: 10/18/17 16:00:00 RN REVIEW, Duration: 3 doses or times, Stop date: 10/19/17 8:00:00 RN REVIEW Inactive 10/18/2017 [facility] acetaminophen-codeine #3 Notes : Do not exceed 4gm/day of acetaminophen. (Same as: Tylenol with Codeine # 3) No Longer Active 10/18/2017 [facility] bupivacaine (ANES) Route: INTR ATHECAL, Drug Form: INJ, ONCE, Stop date: 10/18/17 14:08:00 RN REVIEW Inactive 10/18/2017 [facility] morphine Sulfate (ANES) Route: INTRATHECAL, Drug form: SOLN, ONCE, Stop date: 10/18/17 14:08:00 RN REVIEW Inactive 10/18/2017 [facility] Cefazolin Notes: (Same As: Anc ef, Kefzol) MEDICATION WASTE Product Size: 1000 mg Product Wasted: ___ mg No Longer Active 10/18/2017 [facility] acetaminophen-codeine #3 1 tab , PO, Q6H, PRN pain, # 30 tab, 0 Refill(s) Active 10/18/2017 [facility] losartan 50 mg oral tablet 100 mg = 2 tab, PO, Daily, 0 Refill(s) Active 10/18/2017 [facility] pantoprazole 40 mg, PO, Daily, # 30 tab, 0 Refill(s) Active 10/18/2017 [facility] Ferrousal 325 mg oral tablet 3 25 mg = 1 tab, PO, Daily, 0 Refill(s) Active 10/18/2017 [facility] carvedilol 25 mg oral tablet 5 0 mg = 2 tab, PO, Daily, 0 Refill(s) Active 10/18/2017 [facility] Ondansetron Notes: (Same as: Ricky mathews) MEDICATION WASTE Product Size: 4 mg Product Wasted: ___ mg No Longer Active 10/18/2017 [facility] Bisacodyl Notes: (Same As: Dul colax, Bisco-Lax) No Longer Active 10/18/2017 [facility] Diphenhydramine Notes: (Same a s: Benadryl) No Longer Active 10/18/2017 [facility] POLYETHYLENE GLYCOL 3350 Notes : Dissolve in 8 oz of water or juice. (Same as: Miralax) No Longer Active 10/18/2017 [facility] Oxycodone Hydrochloride 5 MG Oral Tablet Notes: (Same as: Roxicodone) No Longer Active 10/18/2017 [facility] Phenergan Notes: (Same as: Phe nergan) No Longer Active 10/18/2017 [facility] NS 1,000 mL 1,000 mL, Rate: 85 ml/hr, Infuse over: 11.8 hr, Route: IV, Dosing Weight 77.273 kg, Total Volume: 1,000, When PO intake adequate, okay to saline lock, Start date: 10/18/17 11:12:00 RN REVIEW, Duration: 30 day, Stop date: 11/17/17 11:11:00 CDT, 1.94, m2 No Longer Active 10/18/2017 [facility] Famotidine Notes: (Same as: Pe pcid) No Longer Active 10/18/2017 [facility] Tylenol Notes: Do not exceed 4 gm/day. (Same as: Tylenol) No Longer Active 10/18/2017 [facility] Acetaminophen 325 MG / Hydrocodone Live trate 10 MG Oral Tablet Notes: Do not exceed 4gm/day of acetamin ophen. (Same as: Bernice 325/10) No Longer Active 10/18/2017 [facility] neostigmine (ANES) Route: IV, Drug form: INJ, ONCE, Stop date: 10/18/17 11:01:00 RN REVIEW Inactive 10/18/2017 [facility] ondansetron (ANES) Route: IV, Drug form: INJ, ONCE, Stop date: 10/18/17 10:51:00 RN REVIEW Inactive 10/18/2017 [facility] Sodium Chloride 0.9% IV (ANES) 50 mL + t ranexamic acid (ANES) 700 mg Route: IV Central, Drug form: INJ, Start date: 10/18/17 9:58:00 RN REVIEW, Stop date: 10/18/17 10:58:00 RN REVIEW Inactive 10/18/2017 [facility] propofol (ANES) Route: IV, Cyrus g form: INJ, ONCE, Stop date: 10/18/17 9:12:00 RN REVIEW Inactive 10/18/2017 [facility] Ondansetron 4 mg, Route: IVP, ONCE, Dosing Weight 77.273, kg, PRN Nausea & Vomiting, Start date: 10/18/17 8:51:00 RN REVIEW Inactive 10/18/2017 [facility] Glycopyrrolate 0.2 mg, Route: IVP, Q5Min, Dosing Weight 77.273, kg, PRN Bradycardia, Start date: 10/18/17 8:51:00 RN REVIEW, Duration: 3 doses or times, Stop date: Limited # of times Inactive 10/18/2017 [facility] Diphenhydramine 12.5 mg, Route : IVP, Drug form: INJ, Q6H, Dosing Weight 77.273, kg, PRN Itching, Start date: 10/18/17 8:51:00 RN REVIEW, Duration: 30 day, Stop date: 11/17/17 8:50:00 CDT Inactive 10/18/2017 [facility] Atropine 0.2 mg, Route: IVP, Q 5Min, Dosing Weight 77.273, kg, PRN Other -See Comment, as needed; for symptomatic pulse rate < 80% of mean 50 BPM, Start date: 10/18/17 8:51:00 RN REVIEW, Duration: 30 day, Stop date: 11/17/17 9:50:00 CDT Inactive 10/18/2017 [facility] Naloxone 0.4 mg, Route: IVP, Q 2MIN, Dosing Weight 77.273, kg, PRN Narcotic Reversal, Start date: 10/18/17 8:51:00 RN REVIEW, Duration: 8 doses or times, Stop date: Limited # of times Inactive 10/18/2017 [facility] Flumazenil 0.2 mg, Route: IVP, PRN, Dosing Weight 77.273, kg, PRN Benzodiazepine Reversal, Initial dose, Start date: 10/18/17 8:51:00 RN REVIEW, Duration: 30 day, Stop date: 11/17/17 9:50:00 CDT Inactive 10/18/2017 [facility] Hydromorphone 0.2 mg, Route: I SP[place]AL [place]ER, Q5Min, Dosing Weight 77.273, kg, PRN Pain Score 7-10, Start date: 10/18/17 8:51:00 RN REVIEW, Duration: 5 doses or times, Stop date: Limited # of times Inactive 10/18/2017 [facility] Morphine 2 mg, Route: IVP, Q5M in, Dosing Weight 77.273, kg, PRN Pain Score 4-6, Start date: 10/18/17 8:51:00 RN REVIEW, Duration: 5 doses or times, Stop date: Limited # of times Inactive 10/18/2017 [facility] Metoprolol 1 mg, Route: IVP, Q 5Min, Dosing Weight 77.273, kg, PRN Other -See Comment, Start date: 10/18/17 8:51:00 RN REVIEW, Duration: 5 doses or times, Stop date: Limited # of times Inactive 10/18/2017 [facility] Hydralazine 10 mg, Route: IVP, Q20Min, Dosing Weight 77.273, kg, PRN Elevated BP, Start date: 10/18/17 8:51:00 RN REVIEW, Duration: 2 doses or times, Stop date: Limited # of times Inactive 10/18/2017 [facility] Periactin Notes: (Same As: Per iactin) No Longer Active 10/18/2017 [facility] Naloxone Notes: Same as Narcan No Longer Active 10/18/2017 [facility] famotidine (ANES) Route: IV, D rug form: INJ, ONCE, Stop date: 10/18/17 8:32:00 RN REVIEW Inactive 10/18/2017 [facility] cisatracurium (ANES) Route: IV , Drug form: INJ, ONCE, Stop date: 10/18/17 8:22:00 RN REVIEW Inactive 10/18/2017 [facility] ePHEDrine (ANES) Route: IV, Dr ug form: INJ, ONCE, Stop date: 10/18/17 8:22:00 RN REVIEW Inactive 10/18/2017 [facility] glycopyrrolate (ANES) Route: I V, Drug form: INJ, ONCE, Stop date: 10/18/17 8:22:00 RN REVIEW Inactive 10/18/2017 [facility] acetaminophen (ANES) 10 mg Rou te: IV, Drug form: INJ, Start date: 10/18/17 7:54:00 RN REVIEW, Stop date: 10/18/17 8:54:00 RN REVIEW Inactive 10/18/2017 [facility] Sodium Chloride 0.9% IV (ANES) 50 mL + t ranexamic acid (ANES) 700 mg Route: IV, Drug form: INJ, Start date: 0 10/18/17 7:38:00 RN REVIEW, Stop date: 10/18/17 8:38:00 RN REVIEW Inactive 10/18/2017 [facility] ceFAZolin (ANES) 2000 mg Route : IV, Drug form: INJ, Start date: 10/18/17 7:33:00 RN REVIEW, Stop date: 10/18/17 8:33:00 RN REVIEW Inactive 10/18/2017 [facility] fentaNYL (ANES) Route: IV, Cyrus g form: INJ, ONCE, Stop date: 10/18/17 7:32:00 RN REVIEW Inactive 10/18/2017 [facility] propofol (ANES) 10 mg Route: I V, Drug form: INJ, Start date: 10/18/17 7:16:00 RN REVIEW, Stop date: 10/18/17 8:16:00 RN REVIEW Inactive 10/18/2017 [facility] Sodium Chloride 0.9% IV (ANES) 500 mL Route: IV, Total Volume: 500, Start date: 10/18/17 6:58:00 RN REVIEW, Stop date: 10/18/17 7:58:00 RN REVIEW Inactive 10/18/2017 [facility] vancomycin (ANES) 1000 mg Rout e: IV, Drug form: INJ, Start date: 10/18/17 6:58:00 RN REVIEW, Stop date: 10/18/17 7:58:00 RN REVIEW Inactive 10/18/2017 [facility] Vancomycin 2001 mg: infuse ov er 2.5 hours Inactive 10/18/2017 [facility] Ofirmev Notes: Infuse over 15 minutes Do not exceed 4gm/day of acetaminophen MEDICATION WASTE Product Size: 1000 mg Product Wasted: ___ mg Inactive 10/18/2017 [facility] scopolamine Notes: Change patc h every 72 hours (Same as: Transderm-Scop) No Longer Active 10/18/2017 [facility] ceFAZolin + sterile water 20 mL Notes: (Same As: Ancef, Kefzol) MEDICATION WASTE Product Size: 1000 mg Product Wasted: ___ mg Inactive 10/18/2017 [facility] Zofran Notes: (Same as: Zofran ) MEDICATION WASTE Product Size: 4 mg Product Wasted: ___ mg Inactive 10/18/2017 [facility] dexamethasone Notes: Concentra tion: 4mg/ml No Longer Active 10/18/2017 [facility] Phenergan 25 mg oral tablet 25 mg = 1 tab, PO, Q6H, PRN Nausea, # 15 tab, 0 Refill(s) No Longer Active 09/27/2017 [facility] Acetaminophen 300 MG / Codeine Phosphate 30 MG Oral Tablet [Tylenol with Codeine #3] 1 tab, PO, Q6H, PRN Pain, X 15 day, # 60 tab, 0 Refill(s) No Longer Active 09/27/2017 [facility] losartan 50 mg oral tablet 50 mg = 1 tab, PO, Daily, 0 Refill(s) Inactive 09/27/2017 [facility] hydrochlorothiazide 12.5 mg oral tablet 12.5 mg = 1 tab, PO, Daily, 0 Refill(s) Inactiv e 09/27/2017 [facility] Aspirin 81 MG Enteric Coated Tablet 81 mg = 1 tab, PO, BID, # 42 tab, 0 Refill(s) Active 09/27/2017 [facility] Procrit Notes: (Same as: Procr it) epoetin lisa 38121 unit/1 ml VL. For dialysis use only. (Procrit) WASTE: F/P - Red; E -Red MEDICATION WASTE Product Size: 25876 unit Product Wasted: ___ unit No Longer Active 09/26/2017 [facility] heparin 10,000 unit, 10 mL, Ro jasson: DIALYSIS, Drug form: INJ, ONCALL, Dosing Weight 72.727, kg, Start date: 09/26/17 11:00:00 RN REVIEW, Duration: 1 doses or times No Longer Active 09/26/2017 [facility] sodium chloride 0.9% (Priming and Maintenance) 2,000 mL, 0 ml/hr, Infuse Over: 0 hr, Route: IV, 2,000, Drug form: INJ, PRN, Dosing Weight 72.727 kg, Start date: 09/26/17 10:15:00 RN REVIEW, Duration: 24 hr, Stop date: 09/27/17 10:14:00 RN REVIEW, For Use by Dialysis Nurse ONLY, PRN Dialysis No Longer Active 09/26/2017 [facility] Insulin Glargine 100 UNT/ML Injectable S olution [Lantus] Notes: (Same as: Lantus) Do not hold ins ulin without contacting prescriber WASTE: F/P - Black; E - Municipal Trash Bin "single patient use only" No Longer Active 09/26/2017 [facility] hydrochlorothiazide Notes: (Sa me as: Hydrodiuril). Give with food. No Longer Active 09/26/2017 [facility] Cozaar Notes: (Same as: Cozaar) No Longer Active 09/26/2017 [facility] Hydrochlorothiazide 12.5 MG / Losartan P otassium 50 MG Oral Tablet 1 tab, Route: PO, Drug Form: TAB, Dosing Weight 72.727, kg, Daily, Start date: 09/26/17 9:00:00 RN REVIEW, Duration: 30 day, Stop date: 10/25/17 9:00:00 RN REVIEW No Longer Active 09/26/2017 [facility] Celebrex 400 mg, Route: PO, Dr ug form: CAP, Daily, Dosing Weight 72.727, kg, Start date: 09/26/17 9:00:00 RN REVIEW, Duration: 30 day, Stop date: 10/25/17 9:00:00 RN REVIEW No Longer Active 09/26/2017 [facility] heparin Notes: porcine heparin No Longer Active 09/26/2017 [facility] Zofran Notes: (Same as: Zofran ) MEDICATION WASTE Product Size: 4 mg Product Wasted: ___ mg Inactive 09/26/2017 [facility] atorvastatin Notes: (Same as: Lipitor) No Longer Active 09/26/2017 [facility] Acetaminophen 300 MG / Codeine Phosphate 30 MG Oral Tablet [Tylenol with Codeine #3] Notes: Do not exceed 4gm/day of acetamin ophen. (Same as: Tylenol with Codeine # 3) No Longer Active 09/26/2017 [facility] Cefazolin Notes: (Same As: Anc ef, Kefzol) MEDICATION WASTE Product Size: 1000 mg Product Wasted: ___ mg No Longer Active 09/26/2017 [facility] Dextrose 50% Syringe 25 gm, 50 mL, Route: IVP, Drug Form: INJ, Dosing Weight 72.727, kg, PRN, PRN Blood Glucose Results, Start date: 09/25/17 17:17:00 RN REVIEW, Duration: 30 day, Stop date: 10/25/17 17:16:00 RN REVIEW No Longer Active 09/25/2017 [facility] Glucagon 1 mg, Route: IM, Drug form: PDR/INJ, PRN, Dosing Weight 72.727, kg, PRN Blood Glucose Results, Start date: 09/25/17 17:17:00 RN REVIEW, Duration: 30 day, Stop date: 10/25/17 17:16:00 RN REVIEW No Longer Active 09/25/2017 [facility] Insulin Lispro Notes: (Same as : Humalog ) Roll in palms of hands gently; Do not shake `vigorously. "Single Patient Use Only " WASTE: F/P - Black; E - Municipal Trash Bin Stable for 28 days at room temp erature. Expires in days from Date No Longer Active 09/25/2017 [facility] Celebrex 400 mg, Route: PO, Dr ug form: CAP, BID, Dosing Weight 72.727, kg, Start date: 09/25/17 17:00:00 RN REVIEW, Duration: 30 day, Stop date: 10/25/17 9:00:00 RN REVIEW Inactive 09/25/2017 [facility] Docusate Notes: (Same as: Cola ce) (Do Not Crush) No Longer Active 09/25/2017 [facility] ondansetron (ANES) Route: IV, Drug form: INJ, ONCE, Stop date: 09/25/17 15:59:00 RN REVIEW Inactive 09/25/2017 [facility] neostigmine (ANES) Route: IV, Drug form: INJ, ONCE, Stop date: 09/25/17 15:59:00 RN REVIEW Inactive 09/25/2017 [facility] glycopyrrolate (ANES) Route: I V, Drug form: INJ, ONCE, Stop date: 09/25/17 15:59:00 RN REVIEW Inactive 09/25/2017 [facility] Diphenhydramine Notes: (Same a s: Benadryl) No Longer Active 09/25/2017 [facility] Ondansetron Notes: (Same as: Ricky mathews) MEDICATION WASTE Product Size: 4 mg Product Wasted: ___ mg No Longer Active 09/25/2017 [facility] Morphine Notes: (Same as:MORPh ine Sulfate) No Longer Active 09/25/2017 [facility] POLYETHYLENE GLYCOL 3350 Notes : Dissolve in 8 oz of water or juice. (Same as: Miralax) No Longer Active 09/25/2017 [facility] Bisacodyl Notes: (Same As: Dul colax, Bisco-Lax) No Longer Active 09/25/2017 [facility] Acetaminophen 325 MG / Hydrocodone Live trate 10 MG Oral Tablet 1 tab, Route: PO, Drug Form: TAB, Dosing Weight 72.727, kg, Q4H, PRN Pain Score 1-3, Start date: 09/25/17 15:19:00 RN REVIEW, Duration: 30 day, Stop date: 10/25/17 15:18:00 RN REVIEW Inactive 09/25/2017 [facility] NS 1,000 mL 1,000 mL, Rate: 30 ml/hr, Infuse over: 33.3 hr, Route: IV, Dosing Weight 72.727 kg, Total Volume: 1,000, When PO intake adequate, okay to saline lock, Start date: 09/25/17 15:19:00 RN REVIEW, Duration: 30 day, Stop date: 10/25/17 15:18:00 RN REVIEW, 1.88, m2 No Longer Active 09/25/2017 [facility] Tylenol Notes: Do not exceed 4 gm/day. (Same as: Tylenol) No Longer Active 09/25/2017 [facility] Phenergan Notes: (Same as: Phe nergan) No Longer Active 09/25/2017 [facility] Oxycodone Hydrochloride 5 MG Oral Tablet Notes: (Same as: Roxicodone) No Longer Active 09/25/2017 [facility] fentaNYL (ANES) Route: IV, Cyrus g form: INJ, ONCE, Stop date: 09/25/17 13:19:00 RN REVIEW Inactive 09/25/2017 [facility] acetaminophen (ANES) 10 mg Rou te: IV, Drug form: INJ, Start date: 09/25/17 12:55:00 RN REVIEW, Stop date: 09/25/17 13:55:00 RN REVIEW Inactive 09/25/2017 [facility] ePHEDrine (ANES) Route: IV, Dr ug form: INJ, ONCE, Stop date: 09/25/17 12:34:00 RN REVIEW Inactive 09/25/2017 [facility] lidocaine (ANES) Route: IV, Dr ug form: INJ, ONCE, Stop date: 09/25/17 12:24:00 RN REVIEW Inactive 09/25/2017 [facility] rocuronium (ANES) Route: IV, D rug form: INJ, ONCE, Stop date: 09/25/17 12:24:00 RN REVIEW Inactive 09/25/2017 [facility] propofol (ANES) Route: IV, Cyrus g form: INJ, ONCE, Stop date: 09/25/17 12:24:00 RN REVIEW Inactive 09/25/2017 [facility] tranexamic acid (ANES) 100 mg Route: IV, Drug form: INJ, Start date: 09/25/17 12:23:00 RN REVIEW, Stop date: 09/25/17 13:23:00 RN REVIEW Inactive 09/25/2017 [facility] ceFAZolin (ANES) 2000 mg Route : IV, Drug form: INJ, Start date: 09/25/17 11:57:00 RN REVIEW, Stop date: 09/25/17 12:57:00 RN REVIEW Inactive 09/25/2017 [facility] vancomycin (ANES) 1000 mg Rout e: IV, Drug form: INJ, Start date: 09/25/17 11:57:00 RN REVIEW, Stop date: 09/25/17 12:57:00 RN REVIEW Inactive 09/25/2017 [facility] Sodium Chloride 0.9% IV (ANES) 1000 mL Route: IV, Total Volume: 1,000, Start date: 09/25/17 11:41:00 RN REVIEW, Stop date: 09/25/17 12:41:00 RN REVIEW Inactive 09/25/2017 [facility] Ondansetron 4 mg, Route: IVP, ONCE, Dosing Weight 72.727, kg, PRN Nausea & Vomiting, Start date: 09/25/17 11:24:00 RN REVIEW Inactive 09/25/2017 [facility] Sodium Chloride 0.9% IV 1000 mL 1,000 mL, Rate: 125 ml/hr, Infuse over: 8 hr, Route: IV, Dosing Weight 72.727 kg, Total Volume: 1,000, Start date: 09/25/17 11:24:00 RN REVIEW, Duration: 30 day, Stop date: 10/25/17 11:23:00 RN REVIEW, 1.88, m2 Inactiv e 09/25/2017 [facility] Hydralazine 10 mg, Route: IVP, Q20Min, Dosing Weight 72.727, kg, PRN Elevated BP, Start date: 09/25/17 11:24:00 RN REVIEW, Duration: 2 doses or times, Stop date: Limited # of times Inactive 09/25/2017 [facility] Morphine 2 mg, Route: IVP, Q5M in, Dosing Weight 72.727, kg, PRN Pain Score 4-6, Start date: 09/25/17 11:24:00 RN REVIEW, Duration: 5 doses or times, Stop date: Limited # of times Inactive 09/25/2017 [facility] Metoprolol 1 mg, Route: IVP, Q 5Min, Dosing Weight 72.727, kg, PRN Other -See Comment, Start date: 09/25/17 11:24:00 RN REVIEW, Duration: 5 doses or times, Stop date: Limited # of times Inactive 09/25/2017 [facility] Naloxone 0.4 mg, Route: IVP, Q 2MIN, Dosing Weight 72.727, kg, PRN Narcotic Reversal, Start date: 09/25/17 11:24:00 RN REVIEW, Duration: 8 doses or times, Stop date: Limited # of times Inactive 09/25/2017 [facility] Flumazenil 0.2 mg, Route: IVP, PRN, Dosing Weight 72.727, kg, PRN Benzodiazepine Reversal, Initial dose, Start date: 09/25/17 11:24:00 RN REVIEW, Duration: 30 day, Stop date: 10/25/17 11:23:00 RN REVIEW Inactive 09/25/2017 [facility] Celebrex 400 mg, Route: PO, Dr maryanne form: CAP, PRE OP, Dosing Weight 72.727, kg, Start date: 09/25/17 11:00:00 RN REVIEW, Duration: 30 day, Stop date: 10/25/17 10:59:00 RN REVIEW Inactive 09/25/2017 [facility] scopolamine Notes: Change patc h every 72 hours (Same as: Transderm-Scop) No Longer Active 09/25/2017 [facility] Zofran Notes: (Same as: Zofran ) MEDICATION WASTE Product Size: 4 mg Product Wasted: ___ mg Inactive 09/25/2017 [facility] Ofirmev Notes: Infuse over 15 minutes Do not exceed 4gm/day of acetaminophen MEDICATION WASTE Product Size: 1000 mg Product Wasted: ___ mg No Longer Active 09/25/2017 [facility] ceFAZolin + sterile water 20 mL Notes: (Same As: Thomas Campos) MEDICATION WASTE Product Size: 1000 mg Product Wasted: ___ mg No Longer Active 09/25/2017 [facility] vancomycin + Sodium Chloride 0.9% IV 250 mL 2001 mg: infuse over 2.5 hours For adult patients only: Round to nearest 250 mg per Medical Staff approval MEDICATION WASTE Product Size: 1000 mg Product Wasted: ___ mg No Longer Active 09/25/2017 [facility] Hydrochlorothiazide 12.5 MG / Losartan P otassium 50 MG Oral Tablet 1 tab, PO, Daily, 0 Refill(s) No Longer Active 09/20/2017 [facility] Lantus 100 units/mL 10 unit, S UB-Q, QAM, 0 Refill(s) Active 07/03/2017 [facility] acetaminophen-hydrocodone 325 mg-5 mg oral tablet 2 tab, PO, Q4H, PRN Pain Score 7-10, 0 Refill(s) Active 07/03/2017 [facility] nter heparin 5,000 unit = 1 mL, SUB -Q, Q8H, 0 Refill(s) Active 07/03/2017 [facility] acetaminophen 325 mg oral tablet 650 mg = 2 tab, PO, Q6H, PRN Pain Score 1-3, 0 Refill(s) Active 07/03/2017 [facility] nt docusate sodium 100 mg oral capsule 100 mg = 1 cap, PO, BID, 0 Refill(s) Active 07/03/2017 [facility] ergocalciferol 50,000 intl units oral capsule 50,000 IntlUnit = 1 cap, PO, Q7D, 0 Refill(s) Active 07/03/2017 [facility] nt sevelamer 1.6 gm = 2 tab, PO, TID-Meals, 0 Refill(s) Active 07/03/2017 [facility] bisacodyl 10 mg rectal suppository 10 mg = 1 supp, [place], Daily, PRN Constipation, 0 Refill(s) Active 07/03/2017 [facility] nter molasses Notes: (Same as:Molas ses) Inactive 07/03/2017 [facility] sodium chloride 0.9% 500 ml INJ 250 mL 250 mL, Rate: director call for use with blood product administration, Dosing Weight 81.364, kg, Route: IV, Total Volume: 250, Start Date: 07/03/17 8:53:00 RN REVIEW, Duration: 30 day, Stop date: 08/02/17 8:52:00 RN REVIEW, Replace Every: 24 hr Inactive 07/03/2017 [facility] nt mineral oil Notes: (Same as:Fl eet Mineral Oil Enema) Inactive 07/02/2017 [facility] Levaquin 500 mg, 1 tab, Route: PO, Drug form: TAB, [id number], Start date: 06/30/17 16:00:00 CDT, Duration: 3 day, Stop date: 07/02/17 16:00:00 RN REVIEW, ABX Indication: Urinary Tract Infection No Longer Active 06/30/2017 [facility] sodium chloride 0.9% INJ 250 mL 250 mL, Rate: director call for use with blood product administration, Dosing Weight 81.364, kg, Route: IV, Total Volume: 250, Start Date: 06/30/17 7:39:00 CDT, Duration: 30 day, Stop date: 07/30/17 7:38:00 RN REVIEW, Replace Every: 24 hr No Longer Active 06/30/2017 [facility] Lantus 100 units/mL Notes: (Sa me as: Lantus) Do not hold insulin without contacting prescriber WASTE: F/P - Black; E - Municipal Trash Bin "single patient use only" No Longer Active 06/29/2017 [facility] ntdeborah Ancef Notes: Same as: Ancef Inactive 06/29/2017 [facility] nter Levaquin Notes: Do not give w/ antacids, dairy pdt & minerals Take 1 hr before or 2 hr after dairy products No Longer Active 06/28/2017 [facility] calcium (as carbonate)-vitamin D 500 mg- 400 intl units oral tablet Notes: (calcium carbonate-vit D 500mg-40 0unit TAB) Same as: Oyster-D, OsCal-D No Longer Active 06/28/2017 [facility] sevelamer Notes: Non-Formulary Drug Give Renagel (sevelamer) 1 hour before or 3 hours after other meds "Do Not Crush" (Same as: Renagel) No Longer Active 06/28/2017 [facility] sevelamer Notes: Non-Formulary Drug Give Renagel (sevelamer) 1 hour before or 3 hours after other meds "Do Not Crush" (Same as: Renagel) Inactive 06/28/2017 [facility] Tylenol Notes: Do not exceed 4 gm/day. (Same as: Tylenol) No Longer Active 06/28/2017 [facility] NS (Bolus) IV 250 mL, 250 ml/h r, Infuse Over: 1 hr, Route: IV, 250, Drug form: INJ, ONCE, Priority: STAT, Dosing Weight 81.364 kg, Start date: 06/27/17 16:35:00 CDT, Duration: 1 doses or times, Stop date: 06/27/17 16:35:00 CDT Inactive 06/27/2017 [facility] ceFAZolin (SCIP) + sodium chloride 0.9% INJ 100 mL Notes: (Same As: Ancef, Kefzol) MEDICATION WASTE Product Size: 1000 mg Product Wasted: ___ mg Inactive 06/27/2017 [facility] nter ceFAZolin (SCIP) 2 gm, Route: IVPB, Drug form: INJ, Q8H, Dosing Weight 81.364, kg, Start date: 06/27/17 16:00:00 CDT, Duration: 3 doses or times, Stop date: 06/28/17 8:00:00 CDT, ABX Indication: Surgical Prophylaxis Inactive 06/27/2017 [facility] ANES ondansetron 4 mg, Route: IVP, ONCE, Dosing Weight 81.364, kg, PRN Nausea & Vomiting, Start date: 06/27/17 15:31:00 CDT Inactive 06/27/2017 [facility] ANES flumazenil 0.2 mg, Route: IVP, PRN, Dosing Weight 81.364, kg, PRN Benzodiazepine Reversal, Initial dose, Start date: 06/27/17 15:31:00 CDT, Duration: 30 day, Stop date: 07/27/17 14:30:00 RN REVIEW Inactive 06/27/2017 [facility] ANES naloxone 0.4 mg, Route: I SPIRAL [place]ER, Q2MIN, Dosing Weight 81.364, kg, PRN Narcotic Reversal, Start date: 06/27/17 15:31:00 CDT, Duration: 8 doses or times, Stop date: Limited # of times Inactive 06/27/2017 [facility] nt ANEYosvany HYDROmorphone 0.2 mg, Rou te: IVP, Q5Min, Dosing Weight 81.364, kg, PRN Pain Score 7-10, Start date: 06/27/17 15:31:00 CDT, Duration: 4 doses or times, Stop date: Limited # of times Inactive 06/27/2017 [facility] Insulin regular 5 unit, Route: IV, ONCE, Dosing Weight 81.364, kg, Priority: STAT, Start date: 06/27/17 12:15:00 CDT, Stop date: 06/27/17 12:15:00 CDT Inactive 06/27/2017 [facility] glycopyrrolate (ANES) Route: I V, Drug form: INJ, ONCE, Stop date: 06/27/17 11:46:00 CDT Inactive 06/27/2017 [facility] nter ondansetron (ANES) Route: IV, Drug form: INJ, ONCE, Stop date: 06/27/17 11:46:00 CDT Inactive 06/27/2017 [facility] nter dexmedetomidine + sodium chloride 0.9% 1 00 ml INJ (ANES) (ANES) Route: IV, Drug form: INJ, ONCE, Stop da te: 06/27/17 11:46:00 CDT Inactive 06/27/2017 [facility] neostigmine (ANES) Route: IV, Drug form: INJ, ONCE, Stop date: 06/27/17 11:46:00 CDT Inactive 06/27/2017 [facility] nter acetaminophen (ANES) Route: IV , Drug form: INJ, ONCE, Stop date: 06/27/17 11:13:00 CDT Inactive 06/27/2017 [facility] nter calcium chloride (ANES) Route: IV, Drug form: INJ, ONCE, Stop date: 06/27/17 10:28:00 CDT Inactive 06/27/2017 [facility] nter vasopressin (ANES) Route: IV, Drug form: INJ, ONCE, Stop date: 06/27/17 9:33:00 CDT Inactive 06/27/2017 [facility] nter succinylcholine (ANES) Route: IV, Drug form: INJ, ONCE, Stop date: 06/27/17 9:03:00 CDT Inactive 06/27/2017 [facility] nter propofol (ANES) Route: IV, Cyrus g form: INJ, ONCE, Stop date: 06/27/17 8:47:00 CDT Inactive 06/27/2017 [facility] nter fentaNYL (ANES) Route: IV, Cyrus g form: INJ, ONCE, Stop date: 06/27/17 8:47:00 CDT Inactive 06/27/2017 [facility] nter lidocaine (ANES) Route: IV, Dr ug form: INJ, ONCE, Stop date: 06/27/17 8:47:00 CDT Inactive 06/27/2017 [facility] nter cisatracurium (ANES) Route: IV , Drug form: INJ, ONCE, Stop date: 06/27/17 8:41:00 CDT Inactive 06/27/2017 [facility] nter norepinephrine (ANES) Route: I V, Drug form: INJ, ONCE, Stop date: 06/27/17 8:31:00 CDT Inactive 06/27/2017 [facility] nt ceFAZolin (ANES) Route: IV, ug form: INJ, ONCE, Stop date: 06/27/17 8:15:00 CDT Inactive 06/27/2017 [facility] nter ePHEDrine (ANES) Route: IV, ug form: INJ, ONCE, Stop date: 06/27/17 8:10:00 CDT Inactive 06/27/2017 [facility] nter sodium chloride 0.9% 1000 ml INJ (ANES) Route: IV, Total Volume: 1,000, Start date: 06/27/17 7:25:00 CDT, Stop date: 06/27/17 8:25:00 CDT Inactive 06/27/2017 [facility] sevelamer Notes: Same as: Errol hidalgo No Longer Active 06/26/2017 [facility] Coreg Notes: Give with food. ( Same As: Coreg) No Longer Active 06/26/2017 [facility] Lasix 80 mg, Route: IV, Daily, Dosing Weight 81.364, kg, Start date: 06/26/17 9:00:00 CDT, Duration: 30 day, Stop date: 07/25/17 9:00:00 RN REVIEW No Longer Active 06/26/2017 [facility] Electrolyte Solution 1000 mL 1 ,000 mL, Rate: 75 ml/hr, Infuse over: 13.3 hr, Route: IV, Dosing Weight 81.364 kg, Total Volume: 1,000, Start date: 06/26/17 0:01:00 CDT, Duration: 30 day, Stop date: 07/26/17 0:00:00 RN REVIEW No Longer Active 06/26/2017 [facility] ergocalciferol 50,000 intl units oral capsule Notes: (Same as: Vitamin D) "Do Not Crush" No Longer Active 06/25/2017 [facility] nter Lasix Notes: (Same as: Lasix) MEDICATION WASTE Product Size: 40 mg Product Wasted: ___ mg Inactive 06/25/2017 [facility] nter bisacodyl Notes: (Same As: Dul colax, Bisco-Lax) No Longer Active 06/25/2017 [facility] Lantus 100 units/mL Notes: Ramin e as: Lantus) Do not hold insulin without contacting prescriber WASTE: F/P - Black; E - Municipal Trash Bin No Longer Active 06/25/2017 [facility] Plaquenil Sulfate 200 mg oral tablet Notes: (Same as: Plaquenil) Hydroxychloroquine sulfate 200 mg = 155 mg hydroxychloroquine base. If treating malaria, verify dose as salt vs. base per CDC guideline No Longer Active 06/25/2017 [facility] ferrous sulfate Notes: Give wi th food. "Do Not Crush" No Longer Active 06/25/2017 [facility] losartan Notes: (Same as: Jasmin cruz) No Longer Active 06/25/2017 [facility] Dextrose 50% Syringe 25 gm, 50 mL, Route: IVP, Drug Form: INJ, Dosing Weight 81.364, kg, ONCE, Start date: 06/25/17 8:27:00 CDT, Stop date: 06/25/17 8:27:00 CDT Inactive 06/25/2017 [facility] nter Insulin regular 60 units) W ASTE: F/P - Black; E - Municipal Trash Bin Stable for 28 days at room temperature Expires in days from Date Inactive 06/25/2017 [facility] nter pantoprazole Notes: Tablet herber uld not be chewed or crushed. (Same as: Protonix) N o Longer Active 06/25/2017 [facility] nt Dextrose 50% Syringe 25 gm, 50 mL, Route: IVP, Drug Form: INJ, Dosing Weight 81.364, kg, ONCE, Start date: 06/25/17 5:08:00 CDT, Stop date: 06/25/17 5:08:00 CDT Inactive 06/25/2017 [facility] nter Insulin regular 60 units) W ASTE: F/P - Black; E - Municipal Trash Bin Stable for 28 days at room temperature Expires in days from Date Inactive 06/25/2017 [facility] nter Kayexalate Notes: (sodium poly styrene sulfonate 15 gm/60 ml SHARRI) Shake well before use. (Same as: Kayexalate, SPS) Inactive 06/25/2017 [facility] Zocor Notes: (Same as: Zocor) Inactive 06/25/2017 [facility] ezetimibe Notes: (Same as: Zet ia) Inactive 06/25/2017 [facility] ezetimibe-simvastatin 1040 1 tab, Route: PO, Dosing Weight 81, kg, Bedtime, Start date: 06/24/17 21:00:00 CDT, Duration: 30 day, Stop date: 07/23/17 21:00:00 RN REVIEW Inactive 06/25/2017 [facility] nter atorvastatin Notes: (Same as: Lipitor) No Longer Active 06/25/2017 [facility] Coreg Notes: Give with food. ( Same As: Coreg) No Longer Active 06/25/2017 [facility] Decara 50,000 intl units oral capsule 50,000 IntlUnit = 1 cap, PO, QTue, 0 Refill(s) N o Longer Active 06/24/2017 [facility] nter Lantus 100 units/mL 5 unit, [place] B-Q, 0 Refill(s) No Longer Active 06/24/2017 [facility] Plaquenil 200 mg oral tablet 2 00 mg = 1 tab, PO, Daily, 0 Refill(s) Active 06/24/2017 [facility] pantoprazole 40 mg oral enteric coated tablet 40 mg = 1 tab, PO, Daily, 0 Refill(s) Active 06/24/2017 [facility] nter ergocalciferol 50,000 intl units oral capsule 50,000 IntlUnit = 1 cap, PO, Daily, 0 Refill(s) No Longer Active 06/24/2017 [facility] nter ferrous sulfate 325 mg oral enteric coated tablet 325 mg = 1 tab, PO, Daily, 0 Refill(s) Active 06/24/2017 [facility] nter atorvastatin 40 mg oral tablet 40 mg = 1 tab, PO, Daily, 0 Refill(s) Active 06/24/2017 [facility] losartan 50 mg oral tablet 50 mg = 1 tab, PO, BID, 0 Refill(s) No Longer Active 06/24/2017 [facility] Coreg 25 mg, PO, BID, 0 Refill (s) No Longer Active 06/24/2017 [facility] insulin lispro 60 units) WA DANIEL: F/P - Black; E - Municipal Trash Bin Stable for 28 days at room temperature. Expires in days from Date N o Longer Active 06/24/2017 [facility] nt Dextrose 50% Syringe 12.5 gm, 25 mL, Route: IVP, Drug Form: INJ, Dosing Weight 81.364, kg, PRN, PRN Blood Glucose Results, Start date: 06/24/17 12:49:00 CDT, Duration: 30 day, Stop date: 07/24/17 11:48:00 RN REVIEW No Longer Active 06/24/2017 [facility] glucagon 1 mg, Route: IM, Drug form: PDR/INJ, PRN, Dosing Weight 81.364, kg, PRN Blood Glucose Results, Start date: 06/24/17 12:49:00 CDT, Duration: 30 day, Stop date: 07/24/17 11:48:00 RN REVIEW No Longer Active 06/24/2017 [facility] Norvasc Notes: (Same as: Norva sc) Inactive 06/24/2017 [facility] metoprolol tartrate Route: PO, Drug form: TAB, Daily, Dosing Weight 81, kg, Start date: 06/24/17 9:00:00 CDT, Duration: 30 day, Stop date: 07/23/17 9:00:00 RN REVIEW Inactive 06/24/2017 [facility] nter Vitamin D3 1000 intl units oral tablet Notes: Same as : Vitamin D3 Inactive 06/24/2017 [facility] calcium (as carbonate)-vitamin D 500 mg- 400 intl units oral tablet Notes: (calcium carbonate-vit D 500mg-40 0unit TAB) Same as: Oyster-D, OsCal-D Inactive 06/24/2017 [facility] aspirin 81 mg tablet, enteric coated 81 mg, 1 tab, Route: PO, Drug form: ECTAB, Daily, Dosing Weight 81, kg, Start date: 06/24/17 9:00:00 CDT, Duration: 30 day, Stop date: 07/23/17 9:00:00 RN REVIEW No Longer Active 06/24/2017 [facility] docusate Notes: (Same as: Cola ce) (Do Not Crush) No Longer Active 06/24/2017 [facility] Lantus 100 units/mL Notes: Ramin e as: Lantus) Do not hold insulin without contacting prescriber WASTE: F/P - Black; E - Municipal Trash Bin No Longer Active 06/24/2017 [facility] heparin Notes: porcine heparin No Longer Active 06/24/2017 [facility] gabapentin 100 mg oral capsule Notes: (Same as: Neurontin) No Longer Active 06/24/2017 [facility] Zofran Notes: (Same as: Zofrreena ) MEDICATION WASTE Product Size: 4 mg Product Wasted: ___ mg Inactive 06/24/2017 [facility] nter ondansetron Notes: (Same as: Ricky mathews) MEDICATION WASTE Product Size: 4 mg Product Wasted: ___ mg No Longer Active 06/24/2017 [facility] acetaminophen-hydrocodone 325 mg-5 mg oral tablet Notes: (Same as: Bernice 325/5) Do not exceed 4gm/day of acetaminophen. No Longer Active 06/24/2017 [facility] morphine Sulfate 2 mg, Route: IVP, Q4H, Dosing Weight 81, kg, PRN Pain Score 7-10, Start date: 06/24/17 1:51:00 CDT, Duration: 30 day, Stop date: 07/24/17 1:50:00 RN REVIEW Inactive 06/24/2017 [facility] ntdeborah Zofran Notes: (Same as: Zofran ) MEDICATION WASTE Product Size: 4 mg Product Wasted: ___ mg No Longer Active 06/24/2017 [facility] hydromorphone Notes: Same as: Dilaudid No Longer Active 06/24/2017 [facility] Dilaudid 0.5 mg, Route: IVP, O NCE, Dosing Weight 81.364, kg, Priority: STAT, Start date: 06/23/17 19:33:00 CDT, Stop date: 06/23/17 19:33:00 CDT Inactive 06/24/2017 [facility] Sodium Chloride 0.9% (Bolus) IV 500 mL, 500 ml/hr, Infuse Over: 1 hr, Route: IV, 500, Drug form: INJ, ONCE, Priority: STAT, Dosing Weight 81.364 kg, Start date: 06/23/17 17:33:00 CDT, Duration: 1 doses or times, Stop date: 06/23/17 17:33:00 CDT Inactive 06/23/2017 [facility] Zofran Notes: (Same as: Zofran ) MEDICATION WASTE Product Size: 4 mg Product Wasted: ___ mg Inactive 06/23/2017 [facility] morphine Sulfate Notes: (Same as:MORPhine Sulfate) Inactive 06/23/2017 [facility] Allergies, Adverse Reactions, Alerts Substance Category Reaction Severity Reaction type Status Date Reported Comments Source ibuprofen Assertion Drug allergy Active [facility] Immunizations No Data Provided for This Section Results Order Name Results Value Reference Range Date Interpretation Comments Source CHEM PANEL Glucose Lvl 81 70 - 99 09/15/2019 [facility] CHEM PANEL BUN 19 7 - 22 09/15/2019 [facility] CHEM PANEL Creatinine Lvl 2.52 0.50 - 1.40 09/15/2019 [facility] CHEM PANEL Sodium Lvl 137 135 - 145 09/15/2019 [facility] CHEM PANEL Potassium Lvl 4.2 3.5 - 5.1 09/15/2019 [facility] CHEM PANEL Chloride Lvl 105 95 - 109 09/15/2019 [facility] CHEM PANEL CO2 27 24 - 32 09/15/2019 [facility] CHEM PANEL AGAP 9.2 10.0 - 20.0 09/15/2019 [facility] CHEM PANEL Calcium Lvl 8.5 8.5 - 10.5 09/15/2019 [facility] CHEM PANEL eGFR 17 09/15/2019 Result Comment: The eGFR is calculated using the CKD-EPI formula. In most young, healthy individuals the eGFR will be >90 mL/min/1.73m2. The eGFR declines with age. An eGFR of 60-89 may be normal in some populations, particularly the elderly, for whom the CKD-EPI formula has not been extensively validated. Use of the eGFR is not recommended in the following populations:

Individuals with unstable creatinine concentrations, including patients and those with serious co-morbid conditions.

Patients with extremes in muscle mass or diet.

The data above are obtained from the National Kidney Disease Education Program (NKDEP) which additionally recommends that when the eGFR is used in patients with extremes of body mass index for purposes of drug dosing, the eGFR should be multiplied by the estimated BMI. [facility] HEMATOLOGY Segs 62.7 45.0 - 75.0 09/15/2019 [facility] HEMATOLOGY Lymphocytes 19.7 20.0 - 40.0 09/15/2019 [facility] HEMATOLOGY Monocytes 12.8 2.0 - 12.0 09/15/2019 [facility] HEMATOLOGY Eosinophils 3.8 0.0 - 4.0 09/15/2019 [facility] HEMATOLOGY Basophils 1.0 0.0 - 1.0 09/15/2019 [facility] HEMATOLOGY Neutrophils # 3.4 1.5 - 8.1 09/15/2019 [facility] HEMATOLOGY Lymphocytes # 1.1 1.0 - 5.5 09/15/2019 [facility] HEMATOLOGY Monocytes # 0.7 0.0 - 0.8 09/15/2019 [facility] HEMATOLOGY Eosinophils # 0.2 0.0 - 0.5 09/15/2019 [facility] HEMATOLOGY Basophils # 0.1 0.0 - 0.2 09/15/2019 [facility] HEMATOLOGY WBC 5.4 3.7 - 10.4 09/15/2019 [facility] HEMATOLOGY RBC 3.02 4.20 - 5.40 09/15/2019 [facility] HEMATOLOGY Hgb 9.7 12.0 - 16.0 09/15/2019 [facility] HEMATOLOGY Hct 29.7 36.0 - 48.0 09/15/2019 [facility] HEMATOLOGY MCV 98.3 80.0 - 98.0 09/15/2019 [facility] HEMATOLOGY MCH 32.2 27.0 - 31.0 09/15/2019 [facility] HEMATOLOGY MCHC 32.8 32.0 - 36.0 09/15/2019 [facility] HEMATOLOGY RDW 18.9 11.5 - 14.5 09/15/2019 [facility] HEMATOLOGY Platelet 289 133 - 450 09/15/2019 [facility] HEMATOLOGY MPV 7.2 7.4 - 10.4 09/15/2019 [facility] CHEM PANEL Glucose Lvl 98 70 - 99 09/14/2019 [facility] CHEM PANEL BUN 35 7 - 22 09/14/2019 [facility] CHEM PANEL Creatinine Lvl 3.59 0.50 - 1.40 09/14/2019 [facility] CHEM PANEL Sodium Lvl 135 135 - 145 09/14/2019 [facility] CHEM PANEL Potassium Lvl 4.3 3.5 - 5.1 09/14/2019 [facility] CHEM PANEL Chloride Lvl 102 95 - 109 09/14/2019 [facility] CHEM PANEL CO2 25 24 - 32 09/14/2019 [facility] CHEM PANEL Calcium Lvl 8.6 8.5 - 10.5 09/14/2019 [facility] CHEM PANEL AGAP 12.3 10.0 - 20.0 09/14/2019 [facility] CHEM PANEL eGFR 11 09/14/2019 Result Comment: The eGFR is calculated using the CKD-EPI formula. In most young, healthy individuals the eGFR will be >90 mL/min/1.73m2. The eGFR declines with age. An eGFR of 60-89 may be normal in some populations, particularly the elderly, for whom the CKD-EPI formula has not been extensively validated. Use of the eGFR is not recommended in the following populations:

Individuals with unstable creatinine concentrations, including patients and those with serious co-morbid conditions.

Patients with extremes in muscle mass or diet.

The data above are obtained from the National Kidney Disease Education Program (NKDEP) which additionally recommends that when the eGFR is used in patients with extremes of body mass index for purposes of drug dosing, the eGFR should be multiplied by the estimated BMI. [facility] HEMATOLOGY Hgb 9.6 12.0 - 16.0 09/14/2019 [facility] HEMATOLOGY Hct 29.1 36.0 - 48.0 09/14/2019 [facility] CHEM PANEL Glucose Lvl 80 70 - 99 09/13/2019 [facility] CHEM PANEL BUN 18 7 - 22 09/13/2019 [facility] CHEM PANEL Creatinine Lvl 2.55 0.50 - 1.40 09/13/2019 [facility] CHEM PANEL Sodium Lvl 135 135 - 145 09/13/2019 [facility] CHEM PANEL Potassium Lvl 4.4 3.5 - 5.1 09/13/2019 [facility] CHEM PANEL Chloride Lvl 106 95 - 109 09/13/2019 [facility] CHEM PANEL CO2 25 24 - 32 09/13/2019 [facility] CHEM PANEL AGAP 8.4 10.0 - 20.0 09/13/2019 [facility] CHEM PANEL Calcium Lvl 8.4 8.5 - 10.5 09/13/2019 [facility] CHEM PANEL eGFR 17 09/13/2019 Result Comment: The eGFR is calculated using the CKD-EPI formula. In most young, healthy individuals the eGFR will be >90 mL/min/1.73m2. The eGFR declines with age. An eGFR of 60-89 may be normal in some populations, particularly the elderly, for whom the CKD-EPI formula has not been extensively validated. Use of the eGFR is not recommended in the following populations:

Individuals with unstable creatinine concentrations, including patients and those with serious co-morbid conditions.

Patients with extremes in muscle mass or diet.

The data above are obtained from the National Kidney Disease Education Program (NKDEP) which additionally recommends that when the eGFR is used in patients with extremes of body mass index for purposes of drug dosing, the eGFR should be multiplied by the estimated BMI. [facility] HEMATOLOGY WBC 5.8 3.7 - 10.4 09/13/2019 [facility] HEMATOLOGY RBC 2.92 4.20 - 5.40 09/13/2019 [facility] HEMATOLOGY Hgb 9.6 12.0 - 16.0 09/13/2019 [facility] HEMATOLOGY Hct 29.4 36.0 - 48.0 09/13/2019 [facility] HEMATOLOGY MCV 100.8 80.0 - 98.0 09/13/2019 [facility] HEMATOLOGY MCH 32.7 27.0 - 31.0 09/13/2019 [facility] HEMATOLOGY MCHC 32.5 32.0 - 36.0 09/13/2019 [facility] HEMATOLOGY RDW 20.0 11.5 - 14.5 09/13/2019 [facility] HEMATOLOGY Platelet 194 133 - 450 09/13/2019 [facility] HEMATOLOGY MPV 8.2 7.4 - 10.4 09/13/2019 [facility] HEMATOLOGY Segs 66.8 45.0 - 75.0 09/13/2019 [facility] HEMATOLOGY Lymphocytes 14.7 20.0 - 40.0 09/13/2019 [facility] HEMATOLOGY Monocytes 13.7 2.0 - 12.0 09/13/2019 [facility] HEMATOLOGY Eosinophils 3.0 0.0 - 4.0 09/13/2019 [facility] HEMATOLOGY Basophils 1.8 0.0 - 1.0 09/13/2019 [facility] HEMATOLOGY Neutrophils # 3.9 1.5 - 8.1 09/13/2019 [facility] HEMATOLOGY Lymphocytes # 0.9 1.0 - 5.5 09/13/2019 [facility] HEMATOLOGY Monocytes # 0.8 0.0 - 0.8 09/13/2019 [facility] HEMATOLOGY Eosinophils # 0.2 0.0 - 0.5 09/13/2019 [facility] HEMATOLOGY Basophils # 0.1 0.0 - 0.2 09/13/2019 [facility] HEMATOLOGY Macrocyte 1+ *ABN* (09/13/19 4:09 AM) None Seen 09/13/2019 [facility] IMMUNOLOGY Hep Bs Ag Negat sven *NA* (09/12/19 2:47 PM) Negative 09/12/2019 [facility] IMMUNOLOGY Hep B Core Ab Negat sven *NA* (09/12/19 2:47 PM) Negative 09/12/2019 [facility] IMMUNOLOGY Hep B Core IgM Negat sven *NA* (09/12/19 2:47 PM) Negative 09/12/2019 [facility] IMMUNOLOGY Hep Bs Ab 48.4 <=7.4 mIU/mL 09/12/2019 [facility] IMMUNOLOGY Hep C Ab Negat sven *NA* (09/12/19 2:47 PM) Negative 09/12/2019 [facility] HEMATOLOGY WBC 8.0 3.7 - 10.4 09/12/2019 [facility] HEMATOLOGY RBC 3.05 4.20 - 5.40 09/12/2019 [facility] HEMATOLOGY MCV 98.7 80.0 - 98.0 09/12/2019 [facility] HEMATOLOGY MCH 32.4 27.0 - 31.0 09/12/2019 [facility] HEMATOLOGY MCHC 32.9 32.0 - 36.0 09/12/2019 [facility] HEMATOLOGY RDW 19.7 11.5 - 14.5 09/12/2019 [facility] HEMATOLOGY Platelet 288 133 - 450 09/12/2019 [facility] HEMATOLOGY MPV 7.0 7.4 - 10.4 09/12/2019 [facility] HEMATOLOGY Segs 75.5 45.0 - 75.0 09/12/2019 [facility] HEMATOLOGY Lymphocytes 11.8 20.0 - 40.0 09/12/2019 [facility] HEMATOLOGY Monocytes 10.4 2.0 - 12.0 09/12/2019 [facility] HEMATOLOGY Eosinophils 1.1 0.0 - 4.0 09/12/2019 [facility] HEMATOLOGY Basophils 1.2 0.0 - 1.0 09/12/2019 [facility] HEMATOLOGY Neutrophils # 6.0 1.5 - 8.1 09/12/2019 [facility] HEMATOLOGY Lymphocytes # 0.9 1.0 - 5.5 09/12/2019 [facility] HEMATOLOGY Monocytes # 0.8 0.0 - 0.8 09/12/2019 [facility] HEMATOLOGY Eosinophils # 0.1 0.0 - 0.5 09/12/2019 [facility] HEMATOLOGY Basophils # 0.1 0.0 - 0.2 09/12/2019 [facility] CHEM PANEL B/C Ratio 9 6 - 25 09/12/2019 [facility] CHEM PANEL Total Protein 6.2 6.4 - 8.4 09/12/2019 [facility] CHEM PANEL Albumin Lvl 2.9 3.5 - 5.0 09/12/2019 [facility] CHEM PANEL Globulin 3.3 2.7 - 4.2 09/12/2019 [facility] CHEM PANEL A/G Ratio 0.9 0.7 - 1.6 09/12/2019 [facility] CHEM PANEL ALT <6 0 - 65 09/12/2019 [facility] CHEM PANEL AST 18 0 - 37 09/12/2019 [facility] CHEM PANEL Alk Phos 198 39 - 136 09/12/2019 [facility] CHEM PANEL Bili Total 0.3 0.2 - 1.3 09/12/2019 [facility] CHEM PANEL Magnesium Lvl 2.4 1.8 - 2.4 09/12/2019 [facility] CHEM PANEL Phosphorus 3.0 2.5 - 4.5 09/12/2019 [facility] BLOOD BANK RESULTS RBC product Product available (09/11/19 8:23 AM) 09/11/2019 [facility] BLOOD BANK RESULTS FFP product Product available (09/11/19 8:23 AM) 09/11/2019 [facility] BLOOD BANK RESULTS ABO/Rh O POS 09/11/2019 [facility] BLOOD BANK RESULTS Antibody Scrn Negative (09/11/19 8:15 AM) 09/11/2019 [facility] CHEM PANEL Phosphorus 5.3 2.5 - 4.5 07/26/2019 [facility] CHEM PANEL Glucose Lvl 139 70 - 99 07/26/2019 [facility] CHEM PANEL BUN 50 7 - 22 07/26/2019 [facility] CHEM PANEL Creatinine Lvl 3.53 0.50 - 1.40 07/26/2019 [facility] CHEM PANEL Sodium Lvl 138 135 - 145 07/26/2019 [facility] CHEM PANEL Potassium Lvl 4.3 3.5 - 5.1 07/26/2019 [facility] CHEM PANEL Chloride Lvl 106 95 - 109 07/26/2019 [facility] CHEM PANEL CO2 24 24 - 32 07/26/2019 [facility] CHEM PANEL AGAP 12.3 10.0 - 20.0 07/26/2019 [facility] CHEM PANEL Calcium Lvl 7.9 8.5 - 10.5 07/26/2019 [facility] CHEM PANEL eGFR 11 07/26/2019 Result Comment: The eGFR is calculated using the CKD-EPI formula. In most young, healthy individuals the eGFR will be >90 mL/min/1.73m2. The eGFR declines with age. An eGFR of 60-89 may be normal in some populations, particularly the elderly, for whom the CKD-EPI formula has not been extensively validated. Use of the eGFR is not recommended in the following populations:

Individuals with unstable creatinine concentrations, including patients and those with serious co-morbid conditions.

Patients with extremes in muscle mass or diet.

The data above are obtained from the National Kidney Disease Education Program (NKDEP) which additionally recommends that when the eGFR is used in patients with extremes of body mass index for purposes of drug dosing, the eGFR should be multiplied by the estimated BMI. [facility] CHEM PANEL Magnesium Lvl 2.1 1.8 - 2.4 07/26/2019 [facility] HEMATOLOGY Segs 60.2 45.0 - 75.0 07/26/2019 [facility] HEMATOLOGY Lymphocytes 17.8 20.0 - 40.0 07/26/2019 [facility] HEMATOLOGY Monocytes 16.9 2.0 - 12.0 07/26/2019 [facility] HEMATOLOGY Eosinophils 4.1 0.0 - 4.0 07/26/2019 [facility] HEMATOLOGY Basophils 1.0 0.0 - 1.0 07/26/2019 [facility] HEMATOLOGY Neutrophils # 4.3 1.5 - 8.1 07/26/2019 [facility] HEMATOLOGY Lymphocytes # 1.3 1.0 - 5.5 07/26/2019 [facility] HEMATOLOGY Monocytes # 1.2 0.0 - 0.8 07/26/2019 [facility] HEMATOLOGY Eosinophils # 0.3 0.0 - 0.5 07/26/2019 [facility] HEMATOLOGY Basophils # 0.1 0.0 - 0.2 07/26/2019 [facility] HEMATOLOGY WBC 7.2 3.7 - 10.4 07/26/2019 [facility] HEMATOLOGY RBC 2.82 4.20 - 5.40 07/26/2019 [facility] HEMATOLOGY Hgb 9.3 12.0 - 16.0 07/26/2019 [facility] HEMATOLOGY Hct 27.2 36.0 - 48.0 07/26/2019 [facility] HEMATOLOGY MCV 96.5 80.0 - 98.0 07/26/2019 [facility] HEMATOLOGY MCH 33.0 27.0 - 31.0 07/26/2019 [facility] HEMATOLOGY MCHC 34.2 32.0 - 36.0 07/26/2019 [facility] HEMATOLOGY RDW 16.6 11.5 - 14.5 07/26/2019 [facility] HEMATOLOGY Platelet 293 133 - 450 07/26/2019 [facility] HEMATOLOGY MPV 7.8 7.4 - 10.4 07/26/2019 [facility] BLOOD BANK RESULTS RBC product Product available (07/25/19 6:41 AM) 07/25/2019 [facility] CARDIAC ENZYMES Troponin-I 0.02 0.00 - 0.40 07/25/2019 [facility] CHEM PANEL Phosphorus 7.3 2.5 - 4.5 07/25/2019 [facility] CHEM PANEL Magnesium Lvl 2.1 1.8 - 2.4 07/25/2019 [facility] CHEM PANEL Glucose Lvl 109 70 - 99 07/25/2019 [facility] CHEM PANEL BUN 71 7 - 22 07/25/2019 [facility] CHEM PANEL Creatinine Lvl 4.48 0.50 - 1.40 07/25/2019 [facility] CHEM PANEL Sodium Lvl 135 135 - 145 07/25/2019 [facility] CHEM PANEL Potassium Lvl 4.8 3.5 - 5.1 07/25/2019 [facility] CHEM PANEL Chloride Lvl 103 95 - 109 07/25/2019 [facility] CHEM PANEL CO2 19 24 - 32 07/25/2019 [facility] CHEM PANEL Calcium Lvl 7.9 8.5 - 10.5 07/25/2019 [facility] CHEM PANEL eGFR 9 07/25/2019 Result Comment: The eGFR is calculated using the CKD-EPI formula. In most young, healthy individuals the eGFR will be >90 mL/min/1.73m2. The eGFR declines with age. An eGFR of 60-89 may be normal in some populations, particularly the elderly, for whom the CKD-EPI formula has not been extensively validated. Use of the eGFR is not recommended in the following populations:

Individuals with unstable creatinine concentrations, including patients and those with serious co-morbid conditions.

Patients with extremes in muscle mass or diet.

The data above are obtained from the National Kidney Disease Education Program (NKDEP) which additionally recommends that when the eGFR is used in patients with extremes of body mass index for purposes of drug dosing, the eGFR should be multiplied by the estimated BMI. [facility] CHEM PANEL AGAP 17.8 10.0 - 20.0 07/25/2019 [facility] HEMATOLOGY WBC 8.9 3.7 - 10.4 07/25/2019 [facility] HEMATOLOGY RBC 2.27 4.20 - 5.40 07/25/2019 [facility] HEMATOLOGY Hgb 7.4 12.0 - 16.0 07/25/2019 [facility] HEMATOLOGY Hct 22.0 36.0 - 48.0 07/25/2019 [facility] HEMATOLOGY MCV 97.2 80.0 - 98.0 07/25/2019 [facility] HEMATOLOGY MCH 32.7 27.0 - 31.0 07/25/2019 [facility] HEMATOLOGY MCHC 33.6 32.0 - 36.0 07/25/2019 [facility] HEMATOLOGY RDW 16.9 11.5 - 14.5 07/25/2019 [facility] HEMATOLOGY Platelet 277 133 - 450 07/25/2019 [facility] HEMATOLOGY MPV 8.1 7.4 - 10.4 07/25/2019 [facility] HEMATOLOGY Neutrophils # 7.2 1.5 - 8.1 07/25/2019 [facility] HEMATOLOGY Lymphocytes # 0.6 1.0 - 5.5 07/25/2019 [facility] HEMATOLOGY Monocytes # 0.5 0.0 - 0.8 07/25/2019 [facility] HEMATOLOGY Segs 80.0 45.0 - 75.0 07/25/2019 [facility] HEMATOLOGY Bands 1.0 0.0 - 11.0 07/25/2019 [facility] HEMATOLOGY Lymphocytes 7.0 20.0 - 40.0 07/25/2019 [facility] HEMATOLOGY Monocytes 6.0 2.0 - 12.0 07/25/2019 [facility] HEMATOLOGY Metamyelocytes 2.0 0.0 - 1.0 07/25/2019 [facility] HEMATOLOGY Myelocytes 4.0 <=0.0 % 07/25/2019 [facility] HEMATOLOGY Atypical Lymphs 0.0 <=0.0 % 07/25/2019 [facility] CARDIAC ENZYMES Troponin-I 0.02 0.00 - 0.40 07/25/2019 [facility] CARDIAC ENZYMES Troponin-I <0.02 0.00 - 0.40 07/25/2019 [facility] ELECTROLYTES AGAP 19.5 10.0 - 20.0 07/25/2019 [facility] ELECTROLYTES Glucose Lvl 153 70 - 99 07/25/2019 [facility] ELECTROLYTES BUN 66 7 - 22 07/25/2019 [facility] ELECTROLYTES Creatinine Lvl 4.1 4 0.50 - 1.40 07/25/2019 [facility] ELECTROLYTES Sodium Lvl 134 135 - 145 07/25/2019 [facility] ELECTROLYTES Potassium Lvl 4.5 3.5 - 5.1 07/25/2019 [facility] ELECTROLYTES Chloride Lvl 102 95 - 109 07/25/2019 [facility] ELECTROLYTES CO2 17 24 - 32 07/25/2019 [facility] ELECTROLYTES Calcium Lvl 8.4 8.5 - 10.5 07/25/2019 [facility] ELECTROLYTES eGFR 9 07/25/2019 Result Comment: The eGFR is calculated using the CKD-EPI formula. In most young, healthy individuals the eGFR will be >90 mL/min/1.73m2. The eGFR declines with age. An eGFR of 60-89 may be normal in some populations, particularly the elderly, for whom the CKD-EPI formula has not been extensively validated. Use of the eGFR is not recommended in the following populations:

Individuals with unstable creatinine concentrations, including patients and those with serious co-morbid conditions.

Patients with extremes in muscle mass or diet.

The data above are obtained from the National Kidney Disease Education Program (NKDEP) which additionally recommends that when the eGFR is used in patients with extremes of body mass index for purposes of drug dosing, the eGFR should be multiplied by the estimated BMI. [facility] HEMATOLOGY WBC 10.8 3.7 - 10.4 07/25/2019 [facility] HEMATOLOGY RBC 2.62 4.20 - 5.40 07/25/2019 [facility] HEMATOLOGY Hgb 8.6 12.0 - 16.0 07/25/2019 [facility] HEMATOLOGY Hct 25.5 36.0 - 48.0 07/25/2019 [facility] HEMATOLOGY MCV 97.5 80.0 - 98.0 07/25/2019 [facility] HEMATOLOGY MCH 33.0 27.0 - 31.0 07/25/2019 [facility] HEMATOLOGY MCHC 33.9 32.0 - 36.0 07/25/2019 [facility] HEMATOLOGY RDW 17.2 11.5 - 14.5 07/25/2019 [facility] HEMATOLOGY Platelet 289 133 - 450 07/25/2019 [facility] HEMATOLOGY MPV 8.1 7.4 - 10.4 07/25/2019 [facility] HEMATOLOGY Segs 89.0 45.0 - 75.0 07/25/2019 [facility] HEMATOLOGY Lymphocytes 6.2 20.0 - 40.0 07/25/2019 [facility] HEMATOLOGY Monocytes 3.2 2.0 - 12.0 07/25/2019 [facility] HEMATOLOGY Eosinophils 0.9 0.0 - 4.0 07/25/2019 [facility] HEMATOLOGY Basophils 0.7 0.0 - 1.0 07/25/2019 [facility] HEMATOLOGY Neutrophils # 9.6 1.5 - 8.1 07/25/2019 [facility] HEMATOLOGY Lymphocytes # 0.7 1.0 - 5.5 07/25/2019 [facility] HEMATOLOGY Monocytes # 0.4 0.0 - 0.8 07/25/2019 [facility] HEMATOLOGY Eosinophils # 0.1 0.0 - 0.5 07/25/2019 [facility] HEMATOLOGY Basophils # 0.1 0.0 - 0.2 07/25/2019 [facility] CHEM PANEL Phosphorus 5.0 2.5 - 4.5 07/23/2019 [facility] CHEM PANEL Magnesium Lvl 2.2 1.8 - 2.4 07/23/2019 [facility] HEMATOLOGY Eosinophils 4.3 0.0 - 4.0 07/23/2019 [facility] HEMATOLOGY Basophils 0.8 0.0 - 1.0 07/23/2019 [facility] HEMATOLOGY Eosinophils # 0.2 0.0 - 0.5 07/23/2019 [facility] IMMUNOLOGY Hep Bs Ag Negat sven *NA* (07/23/19 7:02 AM) Negative 07/23/2019 [facility] IMMUNOLOGY Hep B Core IgM Negat sven *NA* (07/23/19 7:02 AM) Negative 07/23/2019 [facility] IMMUNOLOGY Hep C Ab Negat svne *NA* (07/23/19 7:02 AM) Negative 07/23/2019 [facility] IMMUNOLOGY Hep A IgM Negat sven *NA* (07/23/19 7:02 AM) Negative 07/23/2019 [facility] CARDIAC ENZYMES Troponin-T 0.032 0.000 - 0.100 07/23/2019 [facility] BLOOD BANK RESULTS ABO/Rh O POS 07/22/2019 [facility] BLOOD BANK RESULTS Antibody Scrn Negative (07/22/19 9:59 AM) 07/22/2019 [facility] CHEM PANEL Total Protein 6.0 6.4 - 8.4 07/21/2019 [facility] CHEM PANEL Albumin Lvl 2.9 3.5 - 5.0 07/21/2019 [facility] CHEM PANEL ALT 9 0 - 65 07/21/2019 [facility] CHEM PANEL AST 53 0 - 37 07/21/2019 [facility] CHEM PANEL Alk Phos 123 39 - 136 07/21/2019 [facility] CHEM PANEL Bili Total 0.6 0.2 - 1.3 07/21/2019 [facility] CHEM PANEL B/C Ratio 11 6 - 25 07/21/2019 [facility] CHEM PANEL Globulin 3.1 2.7 - 4.2 07/21/2019 [facility] CHEM PANEL A/G Ratio 0.9 0.7 - 1.6 07/21/2019 [facility] HEMATOLOGY Basophils # 0.1 0.0 - 0.2 07/20/2019 [facility] CARDIAC ENZYMES Troponin-T 0.035 0.000 - 0.100 07/19/2019 [facility] Culture: Anaerobic No Anaerobes Is olated After 5 Days 07/19/2019 [facility] Culture: Anaerobic No Anaerobes Is olated After 5 Days 07/19/2019 [facility] Gram Stain Report Rare Wbc'S; No Organisms Seen 07/19/2019 [facility] Culture: Aspirate/Body Fluid/Tissue No Growth 07/19/2019 [facility] Gram Stain Report Moderate WBC's No Organisms Seen 07/19/2019 [facility] Culture: Aspirate/Body Fluid/Tissue No Growth 07/19/2019 [facility] CARDIAC ENZYMES Troponin-T 0.026 0.000 - 0.100 07/19/2019 [facility] BLOOD BANK RESULTS RBC product Product available (07/18/19 10:03 AM) 07/18/2019 [facility] BLOOD BANK RESULTS ABO/Rh O POS 07/18/2019 [facility] BLOOD BANK RESULTS Antibody Scrn Negative (07/18/19 9:58 AM) 07/18/2019 [facility] IMMUNOLOGY Hep Bs Ag Negat sven *NA* (07/18/19 9:58 AM) Negative 07/18/2019 [facility] BLOOD BANK RESULTS RBC product Product available (07/18/19 8:39 AM) 07/18/2019 [facility] BLOOD BANK RESULTS ABO/Rh O POS 07/17/2019 [facility] BLOOD BANK RESULTS Antibody Scrn Negative (07/17/19 5:01 PM) 07/17/2019 [facility] CARDIAC ENZYMES Troponin-I <0.02 0.00 - 0.40 07/17/2019 [facility] ELECTROLYTES AGAP 14.3 10.0 - 20.0 07/17/2019 [facility] ELECTROLYTES B/C Ratio 12 6 - 25 07/17/2019 [facility] ELECTROLYTES Globulin 3.0 2.7 - 4.2 07/17/2019 [facility] ELECTROLYTES A/G Ratio 1.1 0.7 - 1.6 07/17/2019 [facility] ELECTROLYTES Glucose Lvl 144 70 - 99 07/17/2019 [facility] ELECTROLYTES BUN 52 7 - 22 07/17/2019 [facility] ELECTROLYTES Creatinine Lvl 4.2 9 0.50 - 1.40 07/17/2019 [facility] ELECTROLYTES Sodium Lvl 139 135 - 145 07/17/2019 [facility] ELECTROLYTES Potassium Lvl 4.3 3.5 - 5.1 07/17/2019 [facility] ELECTROLYTES Chloride Lvl 102 95 - 109 07/17/2019 [facility] ELECTROLYTES CO2 27 24 - 32 07/17/2019 [facility] ELECTROLYTES Calcium Lvl 8.8 8.5 - 10.5 07/17/2019 [facility] ELECTROLYTES Total Protein 6.3 6.4 - 8.4 07/17/2019 [facility] ELECTROLYTES Albumin Lvl 3.3 3.5 - 5.0 07/17/2019 [facility] ELECTROLYTES ALT 22 0 - 65 07/17/2019 [facility] ELECTROLYTES AST 20 0 - 37 07/17/2019 [facility] ELECTROLYTES Alk Phos 140 39 - 136 07/17/2019 [facility] ELECTROLYTES Bili Total 0.4 0.2 - 1.3 07/17/2019 [facility] ELECTROLYTES eGFR 9 07/17/2019 Result Comment: The eGFR is calculated using the CKD-EPI formula. In most young, healthy individuals the eGFR will be >90 mL/min/1.73m2. The eGFR declines with age. An eGFR of 60-89 may be normal in some populations, particularly the elderly, for whom the CKD-EPI formula has not been extensively validated. Use of the eGFR is not recommended in the following populations:

Individuals with unstable creatinine concentrations, including patients and those with serious co-morbid conditions.

Patients with extremes in muscle mass or diet.

The data above are obtained from the National Kidney Disease Education Program (NKDEP) which additionally recommends that when the eGFR is used in patients with extremes of body mass index for purposes of drug dosing, the eGFR should be multiplied by the estimated BMI. [facility] HEMATOLOGY WBC 9.0 3.7 - 10.4 07/17/2019 [facility] HEMATOLOGY RBC 2.67 4.20 - 5.40 07/17/2019 [facility] Hgb 9.4 12.0 - 16.0 07/17/2019 [facility] Hct 27.9 36.0 - 48.0 07/17/2019 [facility] MCV 104.3 80.0 - 98.0 07/17/2019 [facility] MCH 35.3 27.0 - 31.0 07/17/2019 [facility] MCHC 33.8 32.0 - 36.0 07/17/2019 [facility] RDW 13.7 11.5 - 14.5 07/17/2019 [facility] Platelet 220 133 - 450 07/17/2019 [facility] MPV 8.2 7.4 - 10.4 07/17/2019 [facility] INR 1.02 0.85 - 1.17 07/17/2019 [facility] PT 13.2 12.0 - 14.7 07/17/2019 [facility] PTT 33.5 22.9 - 35.8 07/17/2019 [facility] Segs 79.0 45.0 - 75.0 07/17/2019 [facility] Lymphocytes 12.0 20.0 - 40.0 07/17/2019 [facility] Monocytes 7.4 2.0 - 12.0 07/17/2019 [facility] HEMATOLOGY Eosinophils 0.8 0.0 - 4.0 07/17/2019 [facility] HEMATOLOGY Basophils 0.8 0.0 - 1.0 07/17/2019 [facility] HEMATOLOGY Neutrophils # 7.1 1.5 - 8.1 07/17/2019 [facility] Lymphocytes # 1.1 1.0 - 5.5 07/17/2019 [facility] Monocytes # 0.7 0.0 - 0.8 07/17/2019 [facility] HEMATOLOGY Eosinophils # 0.1 0.0 - 0.5 07/17/2019 [facility] HEMATOLOGY Basophils # 0.1 0.0 - 0.2 07/17/2019 [facility] HEMATOLOGY Macrocyte 2+ *ABN* (07/17/19 5:01 PM) None Seen 07/17/2019 [facility] BLOOD BANK RESULTS RBC product Product available (10/21/17 9:01 AM) 10/21/2017 [facility] CHEM PANEL eGFR 13 10/21/2017 Result Comment: The eGFR is calculated using the CKD-EPI formula. In most young, healthy individuals the eGFR will be >90 mL/min/1.73m2. The eGFR declines with age. An eGFR of 60-89 may be normal in some populations, particularly the elderly, for whom the CKD-EPI formula has not been extensively validated. Use of the eGFR is not recommended in the following populations:

Individuals with unstable creatinine concentrations, including patients and those with serious co-morbid conditions.

Patients with extremes in muscle mass or diet.

The data above are obtained from the National Kidney Disease Education Program (NKDEP) which additionally recommends that when the eGFR is used in patients with extremes of body mass index for purposes of drug dosing, the eGFR should be multiplied by the estimated BMI. [facility] CHEM PANEL Sodium Lvl 137 135 - 145 10/21/2017 [facility] CHEM PANEL Calcium Lvl 7.9 8.5 - 10.5 10/21/2017 [facility] CHEM PANEL Potassium Lvl 4.6 3.5 - 5.1 10/21/2017 [facility] CHEM PANEL Chloride Lvl 99 95 - 109 10/21/2017 [facility] CHEM PANEL CO2 29 24 - 32 10/21/2017 [facility] CHEM PANEL Creatinine Lvl 3.18 0.50 - 1.40 10/21/2017 [facility] CHEM PANEL Glucose Lvl 79 70 - 99 10/21/2017 [facility] CHEM PANEL BUN 32 7 - 22 10/21/2017 [facility] CHEM PANEL AGAP 13.6 10.0 - 20.0 10/21/2017 [facility] HEMATOLOGY MPV 8.1 7.4 - 10.4 10/21/2017 [facility] HEMATOLOGY Platelet 237 133 - 450 10/21/2017 [facility] HEMATOLOGY Hgb 7.5 12.0 - 16.0 10/21/2017 [facility] HEMATOLOGY WBC 6.9 3.7 - 10.4 10/21/2017 [facility] HEMATOLOGY RBC 2.23 4.20 - 5.40 10/21/2017 [facility] HEMATOLOGY MCHC 34.0 32.0 - 36.0 10/21/2017 [facility] HEMATOLOGY RDW 18.2 11.5 - 14.5 10/21/2017 [facility] HEMATOLOGY MCV 98.5 80.0 - 98.0 10/21/2017 [facility] HEMATOLOGY MCH 33.4 27.0 - 31.0 10/21/2017 [facility] HEMATOLOGY Hct 21.9 36.0 - 48.0 10/21/2017 [facility] HEMATOLOGY Basophils # 0.1 0.0 - 0.2 10/21/2017 [facility] HEMATOLOGY Monocytes # 0.8 0.0 - 0.8 10/21/2017 [facility] HEMATOLOGY Eosinophils # 0.4 0.0 - 0.5 10/21/2017 [facility] HEMATOLOGY Segs-Bands # 4.4 1.5 - 8.1 10/21/2017 [facility] HEMATOLOGY Lymphocytes # 1.1 1.0 - 5.5 10/21/2017 [facility] HEMATOLOGY Eosinophils 5.8 0.0 - 4.0 10/21/2017 [facility] HEMATOLOGY Lymphocytes 16.4 20.0 - 40.0 10/21/2017 [facility] HEMATOLOGY Monocytes 12.2 2.0 - 12.0 10/21/2017 [facility] HEMATOLOGY Segs 64.7 45.0 - 75.0 10/21/2017 [facility] HEMATOLOGY Basophils 0.9 0.0 - 1.0 10/21/2017 [facility] HEMATOLOGY Hct 23.2 36.0 - 48.0 10/21/2017 [facility] HEMATOLOGY Hgb 7.9 12.0 - 16.0 10/21/2017 [facility] CHEM PANEL Calcium Lvl 8.4 8.5 - 10.5 10/20/2017 [facility] CHEM PANEL Glucose Lvl 124 70 - 99 10/20/2017 [facility] CHEM PANEL BUN 23 7 - 22 10/20/2017 [facility] CHEM PANEL Potassium Lvl 4.2 3.5 - 5.1 10/20/2017 [facility] CHEM PANEL Sodium Lvl 137 135 - 145 10/20/2017 [facility] CHEM PANEL Chloride Lvl 99 95 - 109 10/20/2017 [facility] CHEM PANEL CO2 31 24 - 32 10/20/2017 [facility] CHEM PANEL eGFR 16 10/20/2017 Result Comment: The eGFR is calculated using the CKD-EPI formula. In most young, healthy individuals the eGFR will be >90 mL/min/1.73m2. The eGFR declines with age. An eGFR of 60-89 may be normal in some populations, particularly the elderly, for whom the CKD-EPI formula has not been extensively validated. Use of the eGFR is not recommended in the following populations:

Individuals with unstable creatinine concentrations, including patients and those with serious co-morbid conditions.

Patients with extremes in muscle mass or diet.

The data above are obtained from the National Kidney Disease Education Program (NKDEP) which additionally recommends that when the eGFR is used in patients with extremes of body mass index for purposes of drug dosing, the eGFR should be multiplied by the estimated BMI. [facility] CHEM PANEL Creatinine Lvl 2.67 0.50 - 1.40 10/20/2017 [facility] CHEM PANEL AGAP 11.2 10.0 - 20.0 10/20/2017 [facility] HEMATOLOGY Hgb 8.6 12.0 - 16.0 10/20/2017 [facility] HEMATOLOGY Hct 26.0 36.0 - 48.0 10/20/2017 [facility] ELECTROLYTES AGAP 14.3 10.0 - 20.0 10/19/2017 [facility] ELECTROLYTES Calcium Lvl 7.9 8.5 - 10.5 10/19/2017 [facility] ELECTROLYTES Albumin Lvl 2.4 3.5 - 5.0 10/19/2017 [facility] ELECTROLYTES Potassium Lvl 4.3 3.5 - 5.1 10/19/2017 [facility] ELECTROLYTES CO2 31 24 - 32 10/19/2017 [facility] ELECTROLYTES Chloride Lvl 100 95 - 109 10/19/2017 [facility] ELECTROLYTES Sodium Lvl 141 135 - 145 10/19/2017 [facility] ELECTROLYTES BUN 30 7 - 22 10/19/2017 [facility] ELECTROLYTES Glucose Lvl 75 70 - 99 10/19/2017 [facility] ELECTROLYTES eGFR 13 10/19/2017 Result Comment: The eGFR is calculated using the CKD-EPI formula. In most young, healthy individuals the eGFR will be >90 mL/min/1.73m2. The eGFR declines with age. An eGFR of 60-89 may be normal in some populations, particularly the elderly, for whom the CKD-EPI formula has not been extensively validated. Use of the eGFR is not recommended in the following populations:

Individuals with unstable creatinine concentrations, including patients and those with serious co-morbid conditions.

Patients with extremes in muscle mass or diet.

The data above are obtained from the National Kidney Disease Education Program (NKDEP) which additionally recommends that when the eGFR is used in patients with extremes of body mass index for purposes of drug dosing, the eGFR should be multiplied by the estimated BMI. [facility] ELECTROLYTES Phosphorus 3.5 2.5 - 4.5 10/19/2017 [facility] ELECTROLYTES Creatinine Lvl 3.1 9 0.50 - 1.40 10/19/2017 [facility] HEMATOLOGY Segs-Bands # 5.6 1.5 - 8.1 10/19/2017 [facility] HEMATOLOGY Basophils 1.0 0.0 - 1.0 10/19/2017 [facility] HEMATOLOGY Eosinophils 0.6 0.0 - 4.0 10/19/2017 [facility] HEMATOLOGY Lymphocytes # 0.8 1.0 - 5.5 10/19/2017 [facility] HEMATOLOGY Basophils # 0.1 0.0 - 0.2 10/19/2017 [facility] HEMATOLOGY Monocytes # 0.8 0.0 - 0.8 10/19/2017 [facility] HEMATOLOGY Segs 76.5 45.0 - 75.0 10/19/2017 [facility] HEMATOLOGY Lymphocytes 10.6 20.0 - 40.0 10/19/2017 [facility] HEMATOLOGY Monocytes 11.3 2.0 - 12.0 10/19/2017 [facility] HEMATOLOGY Platelet 243 133 - 450 10/19/2017 [facility] HEMATOLOGY MPV 7.9 7.4 - 10.4 10/19/2017 [facility] HEMATOLOGY WBC 7.4 3.7 - 10.4 10/19/2017 [facility] HEMATOLOGY RBC 2.52 4.20 - 5.40 10/19/2017 [facility] HEMATOLOGY MCV 97.7 80.0 - 98.0 10/19/2017 [facility] HEMATOLOGY MCHC 34.1 32.0 - 36.0 10/19/2017 [facility] HEMATOLOGY RDW 20.2 11.5 - 14.5 10/19/2017 [facility] HEMATOLOGY MCH 33.3 27.0 - 31.0 10/19/2017 [facility] CHEM PANEL POC Creatinine 2.4 0.5 - 1.4 10/18/2017 [facility] CHEM PANEL POC Ion Ca 1.13 1.05 - 1.25 10/18/2017 [facility] CHEM PANEL POC Hemoglobin 7.8 12.0 - 16.0 10/18/2017 [facility] CHEM PANEL POC Glucose 112 70 - 99 10/18/2017 [facility] CHEM PANEL POC AGAP 18.0 10.0 - 20.0 10/18/2017 [facility] CHEM PANEL POC Hematocrit 23.0 36.0 - 48.0 10/18/2017 [facility] CHEM PANEL POC Sodium 138 135 - 145 10/18/2017 [facility] CHEM PANEL POC BUN 25 7 - 22 10/18/2017 [facility] CHEM PANEL POC Potassium 3.6 3.5 - 5.1 10/18/2017 [facility] CHEM PANEL POC Carbon Dioxide 31 24 - 32 10/18/2017 [facility] CHEM PANEL POC Chloride 94 95 - 109 10/18/2017 [facility] BLOOD BANK RESULTS Antibody Scrn Negative (10/18/17 7:16 AM) 10/18/2017 [facility] BLOOD BANK RESULTS ABO/Rh O POS 10/18/2017 [facility] BLOOD BANK RESULTS RBC product Product available 1 (10/18/17 6:54 AM) 10/18/2017 Result Comment: 10/18/2017 0 8:27 [id number]
Blood available, notified shoaib at 10/18/2017 08:26 by pt. [facility] HEMATOLOGY POC Hemoglobin 8.8 12.0 - 16.0 10/18/2017 [facility] HEMATOLOGY POC Creatinine 2.5 0.5 - 1.4 10/18/2017 [facility] HEMATOLOGY POC BUN 25 7 - 22 10/18/2017 [facility] HEMATOLOGY POC Carbon Dioxide 36 24 - 32 10/18/2017 [facility] HEMATOLOGY POC Glucose 129 70 - 99 10/18/2017 [facility] HEMATOLOGY POC AGAP 14.0 10.0 - 20.0 10/18/2017 [facility] HEMATOLOGY POC Hematocrit 26.0 36.0 - 48.0 10/18/2017 [facility] HEMATOLOGY POC Sodium 139 135 - 145 10/18/2017 [facility] HEMATOLOGY POC Chloride 93 95 - 109 10/18/2017 [facility] HEMATOLOGY POC Potassium 3.8 3.5 - 5.1 10/18/2017 [facility] HEMATOLOGY POC Ion Ca 1.13 1.05 - 1.25 10/18/2017 [facility] ELECTROLYTES POC AGAP 12.0 10.0 - 20.0 10/18/2017 [facility] ELECTROLYTES POC Carbon Dioxide 37 24 - 32 10/18/2017 [facility] ELECTROLYTES POC Creatinine 2.4 0.5 - 1.4 10/18/2017 [facility] ELECTROLYTES POC BUN 39 7 - 22 10/18/2017 [facility] ELECTROLYTES POC Chloride 95 95 - 109 10/18/2017 [facility] ELECTROLYTES POC Potassium 5.9 3.5 - 5.1 10/18/2017 [facility] ELECTROLYTES POC Sodium 137 135 - 145 10/18/2017 [facility] ELECTROLYTES POC Ion Ca 1.10 1.05 - 1.25 10/18/2017 [facility] ELECTROLYTES POC Hemoglobin 9.9 12.0 - 16.0 10/18/2017 [facility] ELECTROLYTES POC Hematocrit 29. 0 36.0 - 48.0 10/18/2017 [facility] ELECTROLYTES POC Glucose 134 70 - 99 10/18/2017 [facility] HEMATOLOGY Hgb 8.4 12.0 - 16.0 09/27/2017 [facility] HEMATOLOGY Hct 25.0 36.0 - 48.0 09/27/2017 [facility] IMMUNOLOGY Hep Bs Ag Negat sven *NA* (09/26/17 11:44 AM) Negative 09/26/2017 [facility] IMMUNOLOGY Hep Bs Ab 70.3 <=7.4 mIU/mL 09/26/2017 [facility] CHEM PANEL BUN 41 7 - 22 09/26/2017 [facility] CHEM PANEL CO2 28 24 - 32 09/26/2017 [facility] CHEM PANEL Calcium Lvl 7.9 8.5 - 10.5 09/26/2017 [facility] CHEM PANEL Chloride Lvl 101 95 - 109 09/26/2017 [facility] CHEM PANEL Sodium Lvl 140 135 - 145 09/26/2017 [facility] CHEM PANEL Potassium Lvl 4.4 3.5 - 5.1 09/26/2017 [facility] CHEM PANEL eGFR 8 09/26/2017 Result Comment: The eGFR is calculated using the CKD-EPI formula. In most young, healthy individuals the eGFR will be >90 mL/min/1.73m2. The eGFR declines with age. An eGFR of 60-89 may be normal in some populations, particularly the elderly, for whom the CKD-EPI formula has not been extensively validated. Use of the eGFR is not recommended in the following populations:

Individuals with unstable creatinine concentrations, including patients and those with serious co-morbid conditions.

Patients with extremes in muscle mass or diet.

The data above are obtained from the National Kidney Disease Education Program (NKDEP) which additionally recommends that when the eGFR is used in patients with extremes of body mass index for purposes of drug dosing, the eGFR should be multiplied by the estimated BMI. [employer] CHEM PANEL Creatinine Lvl 4.93 0.50 - 1.40 09/26/2017 [employer] [facility] CHEM PANEL Glucose Lvl 88 70 - 99 09/26/2017 [employer] CHEM PANEL AGAP 15.4 10.0 - 20.0 09/26/2017 [employer] [facility] CHEM PANEL B/C Ratio 8 6 - 25 09/26/2017 [employer] [facility] CHEM PANEL Total Protein 5.4 6.4 - 8.4 09/26/2017 [employer] [facility] CHEM PANEL Alk Phos 91 39 - 136 09/26/2017 [employer] CHEM PANEL Bili Total 1.0 0.2 - 1.3 09/26/2017 [employer] [facility] CHEM PANEL CO2 28 24 - 32 09/26/2017 [employer] [facility] CHEM PANEL Albumin Lvl 3.1 3.5 - 5.0 09/26/2017 [employer] CHEM PANEL Calcium Lvl 7.9 8.5 - 10.5 09/26/2017 [employer] CHEM PANEL Potassium Lvl 4.4 3.5 - 5.1 09/26/2017 [employer] CHEM PANEL Sodium Lvl 140 135 - 145 09/26/2017 [employer] CHEM PANEL BUN 41 7 - 22 09/26/2017 [employer] CHEM PANEL Chloride Lvl 101 95 - 109 09/26/2017 [employer] [facility] CHEM PANEL eGFR 8 09/26/2017 Result Comment: The eGFR is calculated using the CKD-EPI formula. In most young, healthy individuals the eGFR will be >90 mL/min/1.73m2. The eGFR declines with age. An eGFR of 60-89 may be normal in some populations, particularly the elderly, for whom the CKD-EPI formula has not been extensively validated. Use of the eGFR is not recommended in the following populations:

Individuals with unstable creatinine concentrations, including patients and those with serious co-morbid conditions.

Patients with extremes in muscle mass or diet.

The data above are obtained from the National Kidney Disease Education Program (NKDEP) which additionally recommends that when the eGFR is used in patients with extremes of body mass index for purposes of drug dosing, the eGFR should be multiplied by the estimated BMI. [facility] CHEM PANEL ALT 11 0 - 65 09/26/2017 [facility] CHEM PANEL AST 20 0 - 37 09/26/2017 [facility] CHEM PANEL Glucose Lvl 88 70 - 99 09/26/2017 [facility] CHEM PANEL Creatinine Lvl 4.93 0.50 - 1.40 09/26/2017 [facility] CHEM PANEL Globulin 2.3 2.7 - 4.2 09/26/2017 [facility] CHEM PANEL A/G Ratio 1.3 0.7 - 1.6 09/26/2017 [facility] CHEM PANEL AGAP 15.4 10.0 - 20.0 09/26/2017 [facility] HEMATOLOGY Hgb 8.6 12.0 - 16.0 09/26/2017 [facility] HEMATOLOGY Hct 25.7 36.0 - 48.0 09/26/2017 [facility] HEMATOLOGY Hgb 8.6 12.0 - 16.0 09/26/2017 [facility] HEMATOLOGY RBC 2.53 4.20 - 5.40 09/26/2017 [facility] HEMATOLOGY Hct 25.7 36.0 - 48.0 09/26/2017 [facility] HEMATOLOGY MCH 34.0 27.0 - 31.0 09/26/2017 [facility] HEMATOLOGY MCV 101.4 80.0 - 98.0 09/26/2017 [facility] HEMATOLOGY MCHC 33.6 32.0 - 36.0 09/26/2017 [facility] HEMATOLOGY Platelet 224 133 - 450 09/26/2017 [facility] HEMATOLOGY RDW 15.7 11.5 - 14.5 09/26/2017 [facility] HEMATOLOGY MPV 7.9 7.4 - 10.4 09/26/2017 [facility] HEMATOLOGY WBC 9.7 3.7 - 10.4 09/26/2017 [facility] HEMATOLOGY Eosinophils # 0.1 0.0 - 0.5 09/26/2017 [facility] HEMATOLOGY Basophils # 0.1 0.0 - 0.2 09/26/2017 [facility] HEMATOLOGY Segs 84.2 45.0 - 75.0 09/26/2017 [facility] HEMATOLOGY Monocytes # 0.6 0.0 - 0.8 09/26/2017 [facility] HEMATOLOGY Basophils 0.6 0.0 - 1.0 09/26/2017 [facility] HEMATOLOGY Lymphocytes # 0.8 1.0 - 5.5 09/26/2017 [facility] HEMATOLOGY Eosinophils 0.6 0.0 - 4.0 09/26/2017 [facility] Segs-Bands # 8.2 1.5 - 8.1 09/26/2017 [facility] Monocytes 6.2 2.0 - 12.0 09/26/2017 [facility] Lymphocytes 8.4 20.0 - 40.0 09/26/2017 [facility] CHEM PANEL eGFR 9 09/25/2017 Result Comment: The eGFR is calculated using the CKD-EPI formula. In most young, healthy individuals the eGFR will be >90 mL/min/1.73m2. The eGFR declines with age. An eGFR of 60-89 may be normal in some populations, particularly the elderly, for whom the CKD-EPI formula has not been extensively validated. Use of the eGFR is not recommended in the following populations:

Individuals with unstable creatinine concentrations, including patients and those with serious co-morbid conditions.

Patients with extremes in muscle mass or diet.

The data above are obtained from the National Kidney Disease Education Program (NKDEP) which additionally recommends that when the eGFR is used in patients with extremes of body mass index for purposes of drug dosing, the eGFR should be multiplied by the estimated BMI. [facility] CHEM PANEL POC Hematocrit 37.0 36.0 - 48.0 09/25/2017 [facility] CHEM PANEL POC Hemoglobin 12.6 12.0 - 16.0 09/25/2017 [facility] CHEM PANEL POC AGAP 17.0 10.0 - 20.0 09/25/2017 [facility] CHEM PANEL POC Creatinine 4.3 0.5 - 1.4 09/25/2017 [facility] CHEM PANEL POC Ion Ca 1.22 1.05 - 1.25 09/25/2017 [facility] CHEM PANEL POC Glucose 99 70 - 99 09/25/2017 [facility] CHEM PANEL POC Chloride 94 95 - 109 09/25/2017 [facility] CHEM PANEL POC Carbon Dioxide 34 24 - 32 09/25/2017 [facility] CHEM PANEL POC BUN 34 7 - 22 09/25/2017 [facility] CHEM PANEL POC Potassium 4.4 3.5 - 5.1 09/25/2017 [facility] CHEM PANEL POC Sodium 140 135 - 145 09/25/2017 [facility] HEMATOLOGY PT 12.9 12.0 - 14.7 09/25/2017 [facility] HEMATOLOGY INR 0.97 0.85 - 1.17 09/25/2017 [facility] HEMATOLOGY PTT 32.6 22.9 - 35.8 09/25/2017 [facility] BLOOD BANK RESULTS ABO/Rh O POS 09/25/2017 [facility] BLOOD BANK RESULTS Antibody Scrn Negative (09/25/17 10:20 AM) 09/25/2017 [facility] BACTERIAL - SEROLOGY MRSA by PCR Negative (09/20/17 12:20 PM) 09/20/2017 [facility] BLOOD BANK RESULTS RBC product Product available (07/03/17 8:53 AM) 07/03/2017 [facility] ELECTROLYTES AGAP 15.6 10.0 - 20.0 07/03/2017 [facility] ELECTROLYTES eGFR 9 07/03/2017 Result Comment: The eGFR is calculated using the CKD-EPI formula. In most young, healthy individuals the eGFR will be >90 mL/min/1.73m2. The eGFR declines with age. An eGFR of 60-89 may be normal in some populations, particularly the elderly, for whom the CKD-EPI formula has not been extensively validated. Use of the eGFR is not recommended in the following populations:

Individuals with unstable creatinine concentrations, including patients and those with serious co-morbid conditions.

Patients with extremes in muscle mass or diet.

The data above are obtained from the National Kidney Disease Education Program (NKDEP) which additionally recommends that when the eGFR is used in patients with extremes of body mass index for purposes of drug dosing, the eGFR should be multiplied by the estimated BMI. [facility] ELECTROLYTES Potassium Lvl 4.6 3.5 - 5.1 07/03/2017 [facility] ELECTROLYTES CO2 21 24 - 32 07/03/2017 [facility] ELECTROLYTES Chloride Lvl 101 95 - 109 07/03/2017 [facility] ELECTROLYTES Calcium Lvl 8.7 8.5 - 10.5 07/03/2017 [facility] ELECTROLYTES Sodium Lvl 133 135 - 145 07/03/2017 [facility] ELECTROLYTES Creatinine Lvl 4.5 6 0.50 - 1.40 07/03/2017 [facility] ELECTROLYTES BUN 79 7 - 22 07/03/2017 [facility] ELECTROLYTES Glucose Lvl 91 70 - 99 07/03/2017 [facility] HEMATOLOGY Basophils 0.7 0.0 - 1.0 07/03/2017 [facility] HEMATOLOGY Basophils # 0.1 0.0 - 0.2 07/03/2017 [facility] HEMATOLOGY Segs-Bands # 4.9 1.5 - 8.1 07/03/2017 [facility] HEMATOLOGY Monocytes # 0.9 0.0 - 0.8 07/03/2017 [facility] HEMATOLOGY Lymphocytes # 1.1 1.0 - 5.5 07/03/2017 [facility] HEMATOLOGY Eosinophils # 0.3 0.0 - 0.5 07/03/2017 [facility] HEMATOLOGY Lymphocytes 15.2 20.0 - 40.0 07/03/2017 [facility] HEMATOLOGY Segs 67.9 45.0 - 75.0 07/03/2017 [facility] HEMATOLOGY Monocytes 12.5 2.0 - 12.0 07/03/2017 [facility] HEMATOLOGY Eosinophils 3.7 0.0 - 4.0 07/03/2017 [facility] HEMATOLOGY MPV 7.4 7.4 - 10.4 07/03/2017 [facility] HEMATOLOGY Platelet 301 133 - 450 07/03/2017 [facility] HEMATOLOGY MCV 92.0 80.0 - 98.0 07/03/2017 [facility] HEMATOLOGY Hgb 6.9 12.0 - 16.0 07/03/2017 Result Comment: Critical Result(s) archuleta d to Lisa Lund at109/02/2016 08:40 _ by_[email or web address]. Read back OK. [facility] HEMATOLOGY RBC 2.19 4.20 - 5.40 07/03/2017 [facility] HEMATOLOGY WBC 7.3 3.7 - 10.4 07/03/2017 [facility] HEMATOLOGY RDW 18.7 11.5 - 14.5 07/03/2017 [facility] HEMATOLOGY MCHC 34.2 32.0 - 36.0 07/03/2017 [facility] HEMATOLOGY MCH 31.5 27.0 - 31.0 07/03/2017 [facility] HEMATOLOGY Hct 20.2 36.0 - 48.0 07/03/2017 [facility] CHEM PANEL eGFR 9 07/02/2017 Result Comment: The eGFR is calculated using the CKD-EPI formula. In most young, healthy individuals the eGFR will be >90 mL/min/1.73m2. The eGFR declines with age. An eGFR of 60-89 may be normal in some populations, particularly the elderly, for whom the CKD-EPI formula has not been extensively validated. Use of the eGFR is not recommended in the following populations:

Individuals with unstable creatinine concentrations, including patients and those with serious co-morbid conditions.

Patients with extremes in muscle mass or diet.

The data above are obtained from the National Kidney Disease Education Program (NKDEP) which additionally recommends that when the eGFR is used in patients with extremes of body mass index for purposes of drug dosing, the eGFR should be multiplied by the estimated BMI. [facility] CHEM PANEL Calcium Lvl 8.5 8.5 - 10.5 07/02/2017 [facility] CHEM PANEL Potassium Lvl 4.3 3.5 - 5.1 07/02/2017 [facility] CHEM PANEL Sodium Lvl 136 135 - 145 07/02/2017 [facility] CHEM PANEL Creatinine Lvl 4.23 0.50 - 1.40 07/02/2017 [facility] CHEM PANEL BUN 64 7 - 22 07/02/2017 [facility] CHEM PANEL Glucose Lvl 105 70 - 99 07/02/2017 [facility] CHEM PANEL Chloride Lvl 101 95 - 109 07/02/2017 [facility] CHEM PANEL CO2 20 24 - 32 07/02/2017 [facility] CHEM PANEL AGAP 19.3 10.0 - 20.0 07/02/2017 [facility] HEMATOLOGY RDW 19.3 11.5 - 14.5 07/02/2017 [facility] HEMATOLOGY Platelet 259 133 - 450 07/02/2017 [facility] HEMATOLOGY MPV 8.0 7.4 - 10.4 07/02/2017 [facility] HEMATOLOGY MCV 91.7 80.0 - 98.0 07/02/2017 [facility] HEMATOLOGY MCH 31.3 27.0 - 31.0 07/02/2017 [facility] HEMATOLOGY MCHC 34.1 32.0 - 36.0 07/02/2017 [facility] HEMATOLOGY Hct 21.1 36.0 - 48.0 07/02/2017 [facility] HEMATOLOGY WBC 7.8 3.7 - 10.4 07/02/2017 [facility] HEMATOLOGY RBC 2.30 4.20 - 5.40 07/02/2017 [facility] HEMATOLOGY Hgb 7.2 12.0 - 16.0 07/02/2017 [facility] HEMATOLOGY Lymphocytes 15.0 20.0 - 40.0 07/02/2017 [facility] HEMATOLOGY Monocytes 11.9 2.0 - 12.0 07/02/2017 [facility] HEMATOLOGY Eosinophils 3.3 0.0 - 4.0 07/02/2017 [facility] HEMATOLOGY Segs 69.3 45.0 - 75.0 07/02/2017 [facility] HEMATOLOGY Basophils 0.5 0.0 - 1.0 07/02/2017 [facility] HEMATOLOGY Segs-Bands # 5.4 1.5 - 8.1 07/02/2017 [facility] HEMATOLOGY Monocytes # 0.9 0.0 - 0.8 07/02/2017 [facility] HEMATOLOGY Eosinophils # 0.3 0.0 - 0.5 07/02/2017 [facility] HEMATOLOGY Lymphocytes # 1.2 1.0 - 5.5 07/02/2017 [facility] CHEM PANEL eGFR 12 07/01/2017 Result Comment: The eGFR is calculated using the CKD-EPI formula. In most young, healthy individuals the eGFR will be >90 mL/min/1.73m2. The eGFR declines with age. An eGFR of 60-89 may be normal in some populations, particularly the elderly, for whom the CKD-EPI formula has not been extensively validated. Use of the eGFR is not recommended in the following populations:

Individuals with unstable creatinine concentrations, including patients and those with serious co-morbid conditions.

Patients with extremes in muscle mass or diet.

The data above are obtained from the National Kidney Disease Education Program (NKDEP) which additionally recommends that when the eGFR is used in patients with extremes of body mass index for purposes of drug dosing, the eGFR should be multiplied by the estimated BMI. [facility] CHEM PANEL Sodium Lvl 136 135 - 145 07/01/2017 [facility] CHEM PANEL BUN 43 7 - 22 07/01/2017 [facility] CHEM PANEL Glucose Lvl 119 70 - 99 07/01/2017 [facility] CHEM PANEL Potassium Lvl 3.9 3.5 - 5.1 07/01/2017 [facility] CHEM PANEL CO2 26 24 - 32 07/01/2017 [facility] CHEM PANEL AGAP 11.9 10.0 - 20.0 07/01/2017 [facility] CHEM PANEL Chloride Lvl 102 95 - 109 07/01/2017 [facility] CHEM PANEL Calcium Lvl 8.6 8.5 - 10.5 07/01/2017 [facility] CHEM PANEL Creatinine Lvl 3.32 0.50 - 1.40 07/01/2017 [facility] HEMATOLOGY Segs-Bands # 4.5 1.5 - 8.1 07/01/2017 [facility] HEMATOLOGY Monocytes # 1.0 0.0 - 0.8 07/01/2017 [facility] HEMATOLOGY Eosinophils # 0.2 0.0 - 0.5 07/01/2017 [facility] HEMATOLOGY Basophils 0.7 0.0 - 1.0 07/01/2017 [facility] HEMATOLOGY Lymphocytes # 1.2 1.0 - 5.5 07/01/2017 [facility] HEMATOLOGY Lymphocytes 17.2 20.0 - 40.0 07/01/2017 [facility] HEMATOLOGY Eosinophils 3.1 0.0 - 4.0 07/01/2017 [facility] HEMATOLOGY Segs 64.3 45.0 - 75.0 07/01/2017 [facility] HEMATOLOGY Monocytes 14.7 2.0 - 12.0 07/01/2017 [facility] HEMATOLOGY Basophils # 0.1 0.0 - 0.2 07/01/2017 [facility] HEMATOLOGY RDW 20.6 11.5 - 14.5 07/01/2017 [facility] HEMATOLOGY Platelet 212 133 - 450 07/01/2017 [facility] HEMATOLOGY MPV 8.4 7.4 - 10.4 07/01/2017 [facility] HEMATOLOGY MCHC 34.7 32.0 - 36.0 07/01/2017 [facility] HEMATOLOGY MCH 32.0 27.0 - 31.0 07/01/2017 [facility] HEMATOLOGY MCV 92.0 80.0 - 98.0 07/01/2017 [facility] HEMATOLOGY Hct 22.8 36.0 - 48.0 07/01/2017 [facility] HEMATOLOGY WBC 6.9 3.7 - 10.4 07/01/2017 [facility] HEMATOLOGY RBC 2.47 4.20 - 5.40 07/01/2017 [facility] HEMATOLOGY Hgb 7.9 12.0 - 16.0 07/01/2017 [facility] BLOOD BANK RESULTS Antibody Scrn Negative (06/30/17 7:53 AM) 06/30/2017 [facility] BLOOD BANK RESULTS ABO/Rh O POS 06/30/2017 [facility] BLOOD BANK RESULTS RBC product Product available (06/30/17 7:39 AM) 06/30/2017 [facility] BLOOD BANK RESULTS Antibody Scrn Negative (06/30/17 6:20 AM) 06/30/2017 [facility] BLOOD BANK RESULTS ABO/Rh O POS 06/30/2017 [facility] ANEMIA STUDY % [place] 31 12 - 57 06/29/2017 [facility] ANEMIA STUDY UIBC 57 110 - 370 06/29/2017 [facility] ANEMIA STUDY TIBC 83 228 - 428 06/29/2017 [facility] ANEMIA STUDY Iron 26 30 - 160 06/29/2017 [facility] ANEMIA STUDY Ferritin Lvl 1448 5 - 204 06/29/2017 [facility] CHEM PANEL Phosphorus 7.1 2.5 - 4.5 06/28/2017 [facility] CHEM PANEL Magnesium Lvl 2.0 1.8 - 2.4 06/28/2017 [facility] CHEM PANEL Phosphorus 5.6 2.5 - 4.5 06/27/2017 [facility] CHEM PANEL Magnesium Lvl 2.1 1.8 - 2.4 06/27/2017 [facility] HEMATOLOGY INR 1.06 0.85 - 1.17 06/27/2017 [facility] HEMATOLOGY PT 13.8 12.0 - 14.7 06/27/2017 [facility] HEMATOLOGY PTT 49.6 22.9 - 35.8 06/27/2017 [facility] HEMATOLOGY Macrocyte 1+ *ABN* (06/27/17 1:26 AM) None Seen 06/27/2017 [facility] HEMATOLOGY Basophils # 0.1 0.0 - 0.2 06/27/2017 [facility] PARATHYROID PROFILE Ca Ion WB 0.98 1.05 - 1.25 06/27/2017 [facility] PARATHYROID PROFILE Ca Norm WB 0.98 1.05 - 1.25 06/27/2017 [facility] BLOOD BANK RESULTS RBC product Product available (06/26/17 10:14 AM) 06/26/2017 [facility] BLOOD BANK RESULTS FFP product Product available (06/26/17 10:14 AM) 06/26/2017 [facility] BLOOD BANK RESULTS Antibody Scrn Negative (06/26/17 1:23 AM) 06/26/2017 [facility] BLOOD BANK RESULTS ABO/Rh O POS 06/26/2017 [facility] CHEM PANEL Phosphorus 5.6 2.5 - 4.5 06/26/2017 [facility] CHEM PANEL Magnesium Lvl 2.2 1.8 - 2.4 06/26/2017 [facility] CHEM PANEL A/G Ratio 0.9 0.7 - 1.6 06/26/2017 [facility] CHEM PANEL AST 21 0 - 37 06/26/2017 [facility] CHEM PANEL ALT 20 0 - 65 06/26/2017 [facility] CHEM PANEL Bili Total 0.5 0.2 - 1.3 06/26/2017 [facility] CHEM PANEL Alk Phos 88 39 - 136 06/26/2017 [facility] CHEM PANEL Globulin 3.2 2.7 - 4.2 06/26/2017 [facility] CHEM PANEL B/C Ratio 10 6 - 25 06/26/2017 [facility] CHEM PANEL Albumin Lvl 2.8 3.5 - 5.0 06/26/2017 [facility] CHEM PANEL Total Protein 6.0 6.4 - 8.4 06/26/2017 [facility] HEMATOLOGY Macrocyte 1+ *ABN* (06/26/17 1:23 AM) None Seen 06/26/2017 [facility] HEMATOLOGY PTT 45.8 22.9 - 35.8 06/26/2017 [facility] HEMATOLOGY INR 1.09 0.85 - 1.17 06/26/2017 [facility] HEMATOLOGY PT 14.1 12.0 - 14.7 06/26/2017 [facility] PARATHYROID PROFILE Ca Norm WB 1.05 1.05 - 1.25 06/26/2017 [facility] PARATHYROID PROFILE Ca Ion WB 1.09 1.05 - 1.25 06/26/2017 [facility] BLOOD BANK RESULTS FFP product Product available (06/25/17 7:31 AM) 06/25/2017 [facility] HEMATOLOGY Macrocyte 1+ *ABN* (06/25/17 3:00 AM) None Seen 06/25/2017 [facility] IMMUNOLOGY Hep C Ab Negat sven *NA* (06/24/17 9:21 AM) 06/24/2017 [facility] IMMUNOLOGY Hep B Core IgM Negat sven *NA* (06/24/17 9:21 AM) Negative 06/24/2017 [facility] IMMUNOLOGY Hep Bs Ab 111.8 <=7.4 mIU/mL 06/24/2017 [facility] IMMUNOLOGY Hep B Core Ab Negat sven *NA* (06/24/17 9:21 AM) Negative 06/24/2017 [facility] IMMUNOLOGY Hep Bs Ag Negat sven *NA* (06/24/17 9:21 AM) Negative 06/24/2017 [facility] IMMUNOLOGY Hep C Ab Negat sven *NA* (06/24/17 9:21 AM) 06/24/2017 [facility] IMMUNOLOGY Hep A IgM Negat sven *NA* (06/24/17 9:21 AM) Negative 06/24/2017 [facility] IMMUNOLOGY Hep B Core IgM Negat sven *NA* (06/24/17 9:21 AM) Negative 06/24/2017 [facility] IMMUNOLOGY Hep Bs Ag Negat sven *NA* (06/24/17 9:21 AM) Negative 06/24/2017 [facility] SPECIAL CHEMISTRY Hgb A1C 5.5 <=5.6 % 06/24/2017 [facility] BLOOD BANK RESULTS Antibody Scrn Negative (06/23/17 5:47 PM) 06/23/2017 [facility] BLOOD BANK RESULTS ABO/Rh O POS 06/23/2017 [facility] CHEM PANEL eGFR 10 06/23/2017 Result Comment: The eGFR is calculated using the CKD-EPI formula. In most young, healthy individuals the eGFR will be >90 mL/min/1.73m2. The eGFR declines with age. An eGFR of 60-89 may be normal in some populations, particularly the elderly, for whom the CKD-EPI formula has not been extensively validated. Use of the eGFR is not recommended in the following populations:

Individuals with unstable creatinine concentrations, including patients and those with serious co-morbid conditions.

Patients with extremes in muscle mass or diet.

The data above are obtained from the National Kid[employer] Disease Education Program (NKDEP) which additionally recommends that when the eGFR is used in patients with extremes of body mass index for purposes of drug dosing, the eGFR should be multiplied by the estimated BMI. [facility] CHEM PANEL Chloride Lvl 98 95 - 109 06/23/2017 [facility] CHEM PANEL CO2 33 24 - 32 06/23/2017 [facility] CHEM PANEL Bili Total 0.5 0.2 - 1.3 06/23/2017 [facility] CHEM PANEL Alk Phos 143 39 - 136 06/23/2017 [facility] CHEM PANEL ALT 30 0 - 65 06/23/2017 [facility] CHEM PANEL AST 29 0 - 37 06/23/2017 [facility] CHEM PANEL Sodium Lvl 138 135 - 145 06/23/2017 [facility] CHEM PANEL Potassium Lvl 4.6 3.5 - 5.1 06/23/2017 [facility] CHEM PANEL Albumin Lvl 4.2 3.5 - 5.0 06/23/2017 [facility] CHEM PANEL Calcium Lvl 9.2 8.5 - 10.5 06/23/2017 [facility] CHEM PANEL Total Protein 8.1 6.4 - 8.4 06/23/2017 [facility] CHEM PANEL Glucose Lvl 162 70 - 99 06/23/2017 [facility] CHEM PANEL Creatinine Lvl 4.12 0.50 - 1.40 06/23/2017 [facility] CHEM PANEL BUN 45 7 - 22 06/23/2017 [facility] CHEM PANEL Globulin 3.9 2.7 - 4.2 06/23/2017 [facility] CHEM PANEL B/C Ratio 11 6 - 25 06/23/2017 [facility] CHEM PANEL A/G Ratio 1.1 0.7 - 1.6 06/23/2017 [facility] CHEM PANEL AGAP 11.6 10.0 - 20.0 06/23/2017 [facility] HEMATOLOGY Monocytes # 0.9 0.0 - 0.8 06/23/2017 [facility] HEMATOLOGY Segs-Bands # 13.2 1.5 - 8.1 06/23/2017 [facility] HEMATOLOGY Lymphocytes # 1.3 1.0 - 5.5 06/23/2017 [facility] HEMATOLOGY Monocytes 5.9 2.0 - 12.0 06/23/2017 [facility] HEMATOLOGY Eosinophils 0.6 0.0 - 4.0 06/23/2017 [facility] HEMATOLOGY Basophils 0.5 0.0 - 1.0 06/23/2017 [facility] HEMATOLOGY Segs 84.6 45.0 - 75.0 06/23/2017 [facility] HEMATOLOGY Lymphocytes 8.4 20.0 - 40.0 06/23/2017 [facility] HEMATOLOGY Macrocyte 2+ *ABN* (06/23/17 5:47 PM) None Seen 06/23/2017 [facility] HEMATOLOGY Eosinophils # 0.1 0.0 - 0.5 06/23/2017 [facility] HEMATOLOGY Basophils # 0.1 0.0 - 0.2 06/23/2017 [facility] HEMATOLOGY PT 13.4 12.0 - 14.7 06/23/2017 [facility] HEMATOLOGY PTT 32.9 22.9 - 35.8 06/23/2017 [facility] HEMATOLOGY INR 1.02 0.85 - 1.17 06/23/2017 [facility] HEMATOLOGY Platelet 235 133 - 450 06/23/2017 [facility] HEMATOLOGY RDW 15.2 11.5 - 14.5 06/23/2017 [facility] HEMATOLOGY MCH 36.0 27.0 - 31.0 06/23/2017 [facility] HEMATOLOGY MCV 105.7 80.0 - 98.0 06/23/2017 [facility] HEMATOLOGY MCHC 34.0 32.0 - 36.0 06/23/2017 [facility] HEMATOLOGY Hct 34.9 36.0 - 48.0 06/23/2017 [facility] HEMATOLOGY Hgb 11.9 12.0 - 16.0 06/23/2017 [facility] HEMATOLOGY WBC 15.7 3.7 - 10.4 06/23/2017 [facility] HEMATOLOGY RBC 3.31 4.20 - 5.40 06/23/2017 [facility] HEMATOLOGY MPV 8.1 7.4 - 10.4 06/23/2017 [facility] URINE AND STOOL UA Color Tomasa 06/23/2017 [facility] URINE AND STOOL UA Urobilinogen <=1.0 mg/dL 0.1 - 1.0 06/23/2017 [facility] URINE AND STOOL UA Bacteria Many /HPF None Seen /HPF 06/23/2017 [facility] URINE AND STOOL UA RBC 146 0 - 2 06/23/2017 [facility] URINE AND STOOL UA WBC >182 0 - 5 06/23/2017 [facility] URINE AND STOOL UA Sq Epi Occasional /LPF Few /LPF 06/23/2017 [facility] URINE AND STOOL UA Leuk Est Large *ABN* (06/23/17 5:47 PM) Negative 06/23/2017 [facility] URINE AND STOOL UA Blood Moderate *ABN* (06/23/17 5:47 PM) Negative 06/23/2017 [facility] URINE AND STOOL UA Nitrite Negative (06/23/17 5:47 PM) Negative 06/23/2017 [facility] URINE AND STOOL UA Protein 100 mg/dL Negative mg/dL 06/23/2017 [facility] URINE AND STOOL UA pH 7.0 5.0 - 8.0 06/23/2017 [facility] URINE AND STOOL UA Ketones Negative mg/dL Negative mg/dL 06/23/2017 [facility] URINE AND STOOL UA Glucose Negative mg/dL Negative mg/dL 06/23/2017 [facility] URINE AND STOOL UA Bili Negative *NA* (06/23/17 5:47 PM) Negative 06/23/2017 [facility] URINE AND STOOL UA Spec Grav 1.013 <=1.030 06/23/2017 [facility] URINE AND STOOL UA Turbidity Marked *ABN* (06/23/17 5:47 PM) Clear 06/23/2017 [facility] Pathology Reports No Data Provided for This Section Diagnostic Reports Report Value Date Source Humerus wo contrast CT EXAM: C T RIGHT HUMERUS WITHOUT CONTRAST DATE: 09/13/2019 5:58 RN REVIEW INDICATION: - acute RUE weakness postop, r/o hematoma, please get from shoulder to elbow COMPARISON: Right shoulder radiographs 09/11/2019 TECHNIQUE: Noncontrast helical CT imaging of the right humerus with multiplanar reformats. Additional 3-D volume rendered images were obtained scanner workstation. DLP: 605 mGy*cm DISCUSSION: Clavicle: Visualized portion of the clavicles intact. Scapula: Visualized portion of scapula is intact. Humerus: Open reduction internal fixation of comminuted humeral head fracture using long lateral locking plate and screws and intramedullary fibular bone graft is again noted. Satisfactory alignment of fracture fragments. No hardware malalignment identified. No additional fracture identified. Satisfactory alignment of the glenohumeral joint. Soft tissues: Soft tissue swelling throughout the right arm. Mild soft tissue gas from recent surgery noted in the lateral shoulder. No large hematoma identified. IMPRESSION: Expected postsurgical changes from open reduction and internal fixation of comminuted humeral head fracture. Mild soft tissue gas and hemorrhage along the lateral arm. No large hematoma. 09/13/2019 [facility] Shoulder series DX EXAM: XR RI T SHOULDER 3 VIEWS DATE: 09/11/2019 8:38 RN REVIEW INDICATION: POST OP - ALIGNMENT COMPARISON: Right shoulder radiograph dated 09/04/2019. TECHNIQUE: AP views in internal and external rotation, and an axillary view of the shoulder FINDINGS: Status post open reduction and internal fixation of comminuted proximal humeral metadiaphyseal fracture using lateral locking plate and screws and intramedullary bone graft. There is satisfactory alignment of the reduced fracture. The previously reduced humeral head fracture also is in satisfactory alignment. Diffuse osteopenia noted. The glenohumeral and acromioclavicular joints are in satisfactory alignment. Soft tissue emphysema is noted in the arm. The imaged right hemithorax is unremarkable. IMPRESSION: 1. Status post open reduction and inter nal fixation of comminuted proximal humeral metadiaphyseal fracture using lateral locking plate and screws and intramedullary bone graft. There is satisfactory alignment of the reduced fracture. 2. The previously reduced humeral head fracture also is in satisfactory alignment. 3. Diffuse osteopenia noted 09/11/2019 [facility] Shoulder series DX EXAM: XR SH OULDER 2 VIEWS DATE: 07/24/2019 11:18 RN REVIEW INDICATION: Post-Reduction - POST OP COMPARISON: Right shoulder series 07/18/2019 TECHNIQUE: 2 views of the shoulder Laterality: Right FINDINGS: Generalized diminished bone mineral density. Satisfactory alignment of the comminuted humeral head fracture post open reduction and internal fixation using lateral locking plate and screws as well as intramedullary bone graft. Satisfactory alignment of glenohumeral joint. Shoulder soft tissue swelling and gas. IMPRESSION: Satisfactory appearance of comminuted humeral head fracture post internal fixation. 07/24/2019 [facility] Chest 1view DX EXAM: XR CHEST 1 VIEW DATE: 07/19/2019 4:20 RN REVIEW INDICATION: - intubated in OR COMPARISON: 07/17/2019 TECHNIQUE: AP chest IMPRESSION: 1. Endotracheal tube placement with tip terminates approximately 3 cm above the shereen. 2. Interval development of small to mod erate layering left pleural effusion with compression of the related lung segments. Otherwise, lungs are clear. 3. Cardiomediastinal silhouette is norm al for technique. Aortic atherosclerotic disease. 4. Osseous structures are stable. 07/19/2019 [facility] Femur series DX EXAM: XR RIGHT FEMUR 2 VIEWS DATE: 07/19/2019 2:31 RN REVIEW INDICATION: - POST OP COMPARISON: Radiograph right femur on 07/18/2019. TECHNIQUE: AP and lateral radiographs of the femur FINDINGS: Interval right proximal femoral hook plate placement in satisfactory anatomic alignment. Improved alignment of the periprosthetic fracture of the proximal shaft of the right femur. Right total hip arthroplasty and right medial knee arthroplasty. No dafne-hardware fracture, lucency, or loosening at the right femoral mid shaft. Expected postsurgical subcutaneous emphysema. Prominent peripheral vascular calcifications. IMPRESSION: Postsurgical right proximal femoral hook plate placement with improved alignment of the periprosthetic fracture of the proximal shaft of the right femur. 07/19/2019 [facility] Pelvis AP DX EXAM: XR PELVIS 1 VIEW DATE: 07/19/2019 2:30 RN REVIEW INDICATION: - POST OP COMPARISON: Pelvic radiographs on July 18, 2019 and July 19, 2019. TECHNIQUE: Frontal pelvis FINDINGS: There has been revision of a right proximal femoral periprosthetic fracture realignment with hook plate placement and cerclage wires, which is in satisfactory anatomical alignment on this frontal view. Multiple radiodense antibiotic beads are seen at the right hip. No complication is identified. Expected post-operative subcutaneous emphysema is present. IMPRESSION: Satisfactory appearance following right proximal femoral periprosthetic fracture realignment and hook plate placement. No complication identified. 07/19/2019 [facility] Pelvis AP DX EXAM: XR PELVIS 1 VIEW DATE: 07/19/2019 0:40 RN REVIEW INDICATION: - Hardware placement COMPARISON: Radiograph of pelvis on July 18, 2019. TECHNIQUE: Frontal pelvis FINDINGS: The examination is limited by portable technique and overlying artifact. There has been right proximal femoral hook plate placement with satisfactory periprosthetic fracture realignment. No complication is identified. Expected ongoing operative changes such as subcutaneous emphysema is present. IMPRESSION: Intraoperative radiograph of right proximal femoral hook plate placement and realignment of the right femoral periprosthetic fracture in satisfactory anatomical alignment. 07/19/2019 [facility] Pelvis AP DX EXAM: XR PELVIS 1 VIEW DATE: 07/19/2019 0:01 RN REVIEW INDICATION: HARDWARE PLACEMENT - ALIGNMENT COMPARISON: None. TECHNIQUE: Frontal pelvis FINDINGS: The examination is limited by portable technique and overlying artifact. There has been realignment of the right femoral periprosthetic fracture with cerclage wires encircling the proximal femoral shaft component. No complication is identified. Expected postoperative changes from ongoing revision of right hip periprosthetic fracture. IMPRESSION: Intraoperative radiograph demonstrating ongoing right femoral periprosthetic fracture realignment with cerclage wire encircling the proximal femoral shaft component. 07/19/2019 [facility] Femur 1 View uni DX EXAM: RIGH T Femur 1 View uni DX DATE: 07/18/2019 1:25 RN REVIEW INDICATION: - traction view with ORS ADDITIONAL INFORMATION: None. COMPARISON: Right femur 07/17/2019 at 1704 hours TECHNIQUE: A single AP supine view of the right femur labeled 'with traction 'that excludes the extreme distal aspect. FINDINGS: There has been improved alignment of the periprosthetic fracture of the proximal shaft of the right femur with improvement in angulation and fracture overriding. The appearance of the right hip prosthesis is unchanged. IMPRESSION: 1. Improved alignment of the periprosth etic fracture of the proximal right femoral shaft with traction. 07/18/2019 [facility] Shoulder wo contrast w/3D CT E XAM: CT LEFT SHOULDER WITHOUT CONTRAST DATE: 07/18/2019 0:42 RN REVIEW INDICATION: - s/p ortho reduction COMPARISON: Shoulder radiographs 07/17/2019 TECHNIQUE: Volumetric CT of the left shoulder is acquired without contrast. Axial, sagittal and coronal images are provided. IV contrast: None. DLP: 297 mGy-cm FINDINGS: There is generalized bony demineralization. CLAVICLE: No acute fracture in the visualized clavicle. SCAPULA: No acute fracture or malalignment. No acromioclavicular injury. HUMERUS: Markedly comminuted and medially displaced fracture at the surgical neck of humerus, extensive comminuted fracture within the humeral head extending to glenohumeral articular surface. Multiple minimally displaced fracture fragments originate from the humeral head, without bony fragments within the glenohumeral joint space. The humeral diaphysis is displaced medially one full shaft width and cephalad up to the inferior aspect of the glenoid. VISUALIZED THORAX AND MEDIASTINUM: Small dependent pleural effusion, without consolidation or other acute abnormality. Soft tissues: Hemarthrosis in the glenohumeral joint. Soft tissue swelling surrounding the proximal humerus and shoulder, nonorganized fluid collection in the retropectoral space extending into the right axilla likely comminution of edema and blood. No radiopaque foreign body or pneumarthrosis identified. IMPRESSION: 1. Comminuted four-part greater tuberos ity and surgical neck humerus fracture. 2. The dominant distal humerus fragment is displaced medially by one full shaft width and is also cephalad displaced by several centimeters. 3. The scapula is intact. 4. Glenohumeral joint hemarthrosis. 5. Moderate amount of soft tissue swell ing and blood in the retropectoral space extending into the right axilla. 6. Pleural fluid collection. 07/18/2019 [facility] Pelvis wo IV contrast/w 3D CT EXAM: CT PELVIS WITHOUT CONTRAST DATE: 07/18/2019 0:08 RN REVIEW INDICATION: - preop planning, please inlude entire R femur implant stem COMPARISON: Radiograph performed earlier same day TECHNIQUE: Volumetric CT acquisition of the pelvis without contrast. Axial, sagittal and coronal reformats. 3-D volume rendered images were reconstr ucted and sent to PACS IV contrast: None. DLP: 631 mGy-cm FINDINGS: There is evidence of bilateral hip arthroplasties as well as fixation hardware placed across the left pelvic ring and left acetabulum. There is comminuted perihilar fracture on the right femoral rasp with one shaft width lateral displacement. Fracture extends from the intratrochanteric region to the subtrochanteric region as well as another oblique diaphyseal fracture seen along the distal margin of the femoral rasp . There is secondary foreshortening of the right femur. Left hip hardware as well as a left pelvic ring and left acetabulum hardware showing no complications with good alignment. Hardware in the lower lumbar spine also visualized without complications. Severe facet arthropathy seen at L5-S1. SI joints are intact and normal. 3-D volume rendered images again show th e displaced dfane-hardware fracture with anterolateral displacement and foreshortening. Soft tissue swelling along the upper thigh visualized with hematomas in the vastus lateralis and vastus intermedius muscles. IMPRESSION: Displaced right dafne-hardware fracture with foreshortening of the right femur. 07/18/2019 [facility] Shoulder 1 view DX EXAM: RIGHT Shoulder 1 view DX DATE: 07/18/2019 at 0116 hours INDICATION: - AP shoulder with traction by ORS ADDITIONAL INFORMATION: Humerus fracture. COMPARISON: Right shoulder 07/17/2019 at 2311 hours TECHNIQUE: AP views of the right shoulder obtained during application of traction with a total of 4 images. FINDINGS: There has been improvement in fracture overriding at the surgical neck of the distal humerus component with respect to the humeral head with gross alignment of the humeral head. There is improved alignment of the humeral head with respect to the adjacent glenoid. Again seen is a comminuted fracture of the humeral head extending to the tuberosities. IMPRESSION: 1. Improved alignment of the right henry ral surgical neck fracture and comminuted humeral head fracture during application of traction. 07/18/2019 [facility] Shoulder series DX EXAM: XR RI GHT ELBOW 3 VIEWS EXAM: XR RIGHT HUMERUS 2 VIEWS EXAM: XR RIGHT SHOULDER 3 VIEWS DATE: 07/17/2019 at 2311 hours INDICATION: - pain ADDITIONAL INFORMATION: 'pt transfer from [facility] for right femur fx s/p fall, accepted Dr Laura. Hx ESRD, angel hip replacement' COMPARISON: Shoulder radiographs from earlier today. TECHNIQUE: 3 views of the elbow, 2 views of the humerus, 3 views of the shoulder FINDINGS: There is a complete, transverse fracture through the surgical neck of the right humerus. There is also a comminuted fracture of the humeral head with fracture planes extending into the greater tuberosity. The humeral head is dislocated inferiorly. The distal humeral fracture component is displaced inferiorly and demonstrates apex medial angulation and at least 5 cm of foreshortening. The right elbow is grossly aligned on these nonstandard views. Diffuse soft tissue swelling surrounds the right shoulder. IMPRESSION: 1. Complete, transverse fracture throug h surgical neck of the right humerus with inferior displacement and apex medial angulation. 2. Comminuted fractures of the humeral head with fracture planes extending into the greater tuberosity. 3. Inferiorly dislocated humeral head. 4. Intact right elbow. [place] SECTION: ER 07/17/2019 [facility] Humerus 2 views DX EXAM: XR RI GHT ELBOW 3 VIEWS EXAM: XR RIGHT HUMERUS 2 VIEWS EXAM: XR RIGHT SHOULDER 3 VIEWS DATE: 07/17/2019 at 2311 hours INDICATION: - pain ADDITIONAL INFORMATION: 'pt transfer from [facility] for right femur fx s/p fall, accepted Dr Laura. Hx ESRD, angel hip replacement' COMPARISON: Shoulder radiographs from earlier today. TECHNIQUE: 3 views of the elbow, 2 views of the humerus, 3 views of the shoulder FINDINGS: There is a complete, transverse fracture through the surgical neck of the right humerus. There is also a comminuted fracture of the humeral head with fracture planes extending into the greater tuberosity. The humeral head is dislocated inferiorly. The distal humeral fracture component is displaced inferiorly and demonstrates apex medial angulation and at least 5 cm of foreshortening. The right elbow is grossly aligned on these nonstandard views. Diffuse soft tissue swelling surrounds the right shoulder. IMPRESSION: 1. Complete, transverse fracture throug h surgical neck of the right humerus with inferior displacement and apex medial angulation. 2. Comminuted fractures of the humeral head with fracture planes extending into the greater tuberosity. 3. Inferiorly dislocated humeral head. 4. Intact right elbow. [place] SECTION: ER 07/17/2019 [facility] Elbow 3 views DX EXAM: XR RIGH T ELBOW 3 VIEWS EXAM: XR RIGHT HUMERUS 2 VIEWS EXAM: XR RIGHT SHOULDER 3 VIEWS DATE: 07/17/2019 at 2311 hours INDICATION: - pain ADDITIONAL INFORMATION: 'pt transfer from [facility] for right femur fx s/p fall, accepted Dr Laura. Hx ESRD, angel hip replacement' COMPARISON: Shoulder radiographs from earlier today. TECHNIQUE: 3 views of the elbow, 2 views of the humerus, 3 views of the shoulder FINDINGS: There is a complete, transverse fracture through the surgical neck of the right humerus. There is also a comminuted fracture of the humeral head with fracture planes extending into the greater tuberosity. The humeral head is dislocated inferiorly. The distal humeral fracture component is displaced inferiorly and demonstrates apex medial angulation and at least 5 cm of foreshortening. The right elbow is grossly aligned on these nonstandard views. Diffuse soft tissue swelling surrounds the right shoulder. IMPRESSION: 1. Complete, transverse fracture throug h surgical neck of the right humerus with inferior displacement and apex medial angulation. 2. Comminuted fractures of the humeral head with fracture planes extending into the greater tuberosity. 3. Inferiorly dislocated humeral head. 4. Intact right elbow. UT SECTION: ER 07/17/2019 [facility] Knee 3 views DX EXAM: XR RIGHT KNEE 3 VIEWS DATE: 07/17/2019 at 2311 hours INDICATION: - fracture ADDITIONAL INFORMATION: 'pt transfer from [facility] for right femur fx s/p fall, accepted Dr Laura. Hx ESRD, angel hip replacement' COMPARISON: Right femur 07/17/2019 at 1704 hours TECHNIQUE: 3 views of the knee FINDINGS: There are postoperative changes of a hemiarthroplasty in the medial tibiofemoral compartment. The hardware appears intact without abnormal perihardware lucency. Overlying casting/splinting material is noted. No acute fracture is identified. No knee joint effusion is present. Vascular calcifications noted. IMPRESSION: 1. Intact postoperative changes of a he miarthroplasty in the right knee medial tibiofemoral compartment. 2. No acute fractures. UT SECTION: ER 07/17/2019 [facility] Femur series DX PROCEDURE INFO RMATION: Exam: XR Right Femur Exam date and time: 07/17/2019 5:09 PM Age: 84 years old Clinical history: Injury or trauma; Fall; Additional info: /fall TECHNIQUE: Imaging protocol: XR Right femur. Views: 2 views. COMPARISON: No relevant prior studies available. FINDINGS: Oblique fracture of the proximal femoral metaphysis alongside existing right hip prosthesis. The distal femur appears intact without a fracture. IMPRESSION: Proximal femur fracture Steven Bean MD On 07/17/2019 17:33:50; [id number] 07/17/2019 [facility] Shoulder series DX PROCEDURE I NFORMATION: Exam: XR Right Shoulder Exam date and time: 07/17/2019 5:16 PM Age: 84 years old Clinical history: Injury or trauma; Fall; Additional info: /fall TECHNIQUE: Imaging protocol: XR Right shoulder. Views: 2 or more views. AP INT/ EXT ROTATION, SCAPULAR Y COMPARISON: No relevant prior studies available. FINDINGS: Complete, displaced fracture of the right humeral neck with comminuted fracture of the humeral head. Normal alignment of glenohumeral joint is maintained. IMPRESSION: Fracture right humeral head and proximal humeral neck Steven Bean MD On 07/17/2019 17:34:58; [id number] 07/17/2019 [facility] Hip 2/3 views uni w pelvis DX PROCEDURE INFORMATION: Exam: XR Right Hip with Pelvis when Performed Exam date and time: 07/17/2019 5:03 PM Age: 84 years old Clinical history: Injury or trauma; Fall; Additional info: /fall TECHNIQUE: Imaging protocol: XR Right hip with pelvis when performed. Views: 2 or 3 views. AP 1 view pelvis with 2 views hip COMPARISON: CR PELVIS AP DX 06/23/2017 4:42 PM FINDINGS: The patient has undergone left hip replacement and ORIF of a comminuted left acetabular fracture since prior study. There is a new fracture through the proximal right femur around the femoral stem component of existing right hip prosthesis. Hardware in the lower lumbar spine appears stable. No other acute pelvic fracture is seen. IMPRESSION: Proximal right femur fracture Steven Bean MD On 07/17/2019 17:46:40; [id number] 07/17/2019 [facility] Chest 1view DX PROCEDURE INFOR MATION: Exam: XR Chest, 1 View Exam date and time: 07/17/2019 5:15 PM Age: 84 years old Clinical history: Injury or trauma; Fall; Additional info: /fall TECHNIQUE: Imaging protocol: XR of the chest Views: 1 view. Portable AP view COMPARISON: CR CHEST 1VIEW DX 06/27/2017 6:13 PM FINDINGS: Lungs: Mild decreased lung volumes. No consolidation. Pleural space: Unremarkable. No pleural effusion. No pneumothorax. Heart/Mediastinum: Heart size is within normal limits. Vasculature is unremarkable. Bones/joints: Comminuted fracture right humeral head and proximal humerus. IMPRESSION: No acute cardiopulmonary findings. Steven Bean MD On 07/17/2019 17:48:17; [id number] 07/17/2019 [facility] Hand 3 views Bilateral DX EXAM : XR BILATERAL HAND 3 VIEWS DATE: 06/24/2019 14:09 CDT INDICATION: - hand arthritis COMPARISON: None TECHNIQUE: PA, lateral and oblique radiographs of the bilateral hands. FINDINGS: No acute fracture or malalignment is identified. Generalized diminished bone mineral density. Joint space narrowing throughout the interphalangeal joints with central erosions and osteophytes of the DIP joints, greatest at the right second, left fourth, and bilateral fifth DIP joints. Small osteophytes throughout the MCP joints with minimal joint space narrowing. Joint space narrowing and osteophytes of the left first CMC joint. Moderate arterial calcification. IMPRESSION: 1. 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 2. Additional osteoarthrosis of the bila teral PIP, MCP, and left first CMC joints. 06/24/2019 [facility] Pelvis AP DX CLINICAL HISTORY: - post op AGE: 82 years GENDER: Female TECHNIQUE: Pelvis radiograph, 1 views. COMPARISON: 10/18/2017 FINDINGS: Postoperative changes from revised left total hip arthroplasty are noted. The femoral stem and acetabular components are in place. The femoral head component is now in place. A side plate is seen along the proximal femur with cerclage wires encircling the proximal femur and sideplate. There is up to 5 mm of lucency between the lateral femoral cortex and this sideplate. There is no evidence of periprosthetic fracture.. IMPRESSION: Postoperative changes from revised left total hip arthroplasty as described above. 10/18/2017 [facility] Pelvis AP DX CLINICAL HISTORY: - left total hip revision replacement-intra op AGE: 82 years GENDER: Female TECHNIQUE: Pelvis radiograph, 1 views. COMPARISON: None FINDINGS: Postoperative changes from ongoing revision left hip arthroplasty is noted with femoral and acetabular components in place. Femoral head component is not in place at this time. Cerclage wires encircle the proximal femoral component. No evidence of periprosthetic fracture or lucency. Postoperative changes from right hip arthroplasty with stable horizontal orientation of the acetabular cup. Postoperative changes from internal fixation of left acetabular fracture again noted. IMPRESSION: Postoperative changes from ongoing revision left total hip arthroplasty without evidence of complication. 10/18/2017 [facility] Pelvis AP DX Pelvis AP DX , 09/25/2017 3:19 PM RN REVIEW. CLINICAL INDICATION: 82 years Female - post operative Comparison: Intraoperative exam from today at 13:42. FINDINGS: AP view of the pelvis demonstrate, a new left hip arthroplasty with trial femoral fitting component in place. Intra-articular and soft tissue gas is in keeping with the patient's intraoperative status. Open reduction and internal fixation of a comminuted anterior and posterior column left acetabular fracture is redemonstrated transfixed with reconstruction plates and multiple screws. A right total hip arthroplasty projects in expected position. Partially visualized fixation of normal lower lumbar spine. IMPRESSION: 1. Interval placement of final hardware for left total hip arthroplasty. Otherwise, no significant change. 09/25/2017 [facility] Pelvis AP DX EXAMINATION: Pelv is AP HISTORY: Left acetabular fracture FINDINGS: Single portable intraoperative frontal view of the pelvis excluding the iliac crests is performed and compared to radiographs dated 06/24/[address] dated 09/23/2017. There is ongoing placement of a new left hip arthroplasty with trial femoral fitting component in place. Intra-articular and soft tissue gas is in keeping with the patient's intraoperative status. Open reduction and internal fixation of a comminuted anterior and posterior column left acetabular fracture is redemonstrated transfixed with reconstruction plates and multiple screws. A right total hip arthroplasty projects in expected position. IMPRESSION: 1. Intraoperative radiograph demonstrati ng ongoing placement of a new left hip arthroplasty with trial femoral fitting component in place. 2. Open reduction and internal fixation of a comminuted anterior and posterior column left acetabular fracture. 3. Right total hip arthroplasty projecti ng in expected position. 09/25/2017 [facility] Pelvis wo IV contrast/w 3D CT EXAM: CT PELVIS WITHOUT CONTRAST DATE: 06/27/2017 12:25 PM CDT INDICATION: eval post op hardware placement. COMPARISON: CT pelvis without contrast on 06/24/2017. TECHNIQUE: Volumetric CT acquisition of the pelvis without contrast. Axial, sagittal and coronal reconstructions. 3D reconstructions are created at the acquisition workstation. IV contrast: None. DLP: 743 mGy-cm. UT SECTION: MSK FINDINGS: Postsurgical changes are present following open reduction and internal fixation of a comminuted fracture of the left anterior and posterior acetabular columns. Two reconstruction plates are seen along the left half of the pelvic ring along the anterior column and iliopectineal line. Two left posterior column screws are also present (sagittal image 161). Alignment has improved since the previous surgical CT and is now satisfactory. There is a moderate amount of soft tissue hemorrhage near the postsurgical site, particularly within the left retroperitoneal region located deep to the psoas muscle. There is also extrapelvic hemorrhage along proximal rectus femoris. Few foci of soft tissue gas are seen within these regions, also, and are likely postsurgical in nature. Asymmetric fullness is seen within the left obturator internus, obturator externus, and adductor musculature and likely represents mild intramuscular edema/hemorrhage. Posterior spinal fixation hardware is partially imaged within the lumbar spine. There is minimal (grade 1) anterolisthesis of L5 on S1 with degenerative disc disease. A right total hip arthroplasty is present. Alignment is satisfactory and has not significantly changed since the prior CT. Surgical malinda overlie the superficial soft tissues of the anterior abdominal wall. There are two surgical drains in place that course from the right lower anterior abdominal/pelvic wall. One drain approaches the left anterolateral aspect of the pelvis and appears to terminate about the left pelvic inlet. However, its tip is not clearly visible due to overlying streak artifact from the metallic hardware within the pelvis. The second drain courses toward the left lateral hip soft ti ssues and terminates about the left lower anterior abdominal wall (axial image 13). A third drain enters from the left anterolateral region, courses medially and appears to enter the intrapelvic soft tissues anterior to the acetabular roof terminating along left pelvic wall. A Lawrence catheter is present within a contracted urinary bladder. Evaluation of this region is severely limited due to overlying artifact. Sigmoid diverticula are present. There are moderate atherosclerotic calcifications seen within the distal abdominal aorta and its major iliac branches. IMPRESSION: 1. Satisfactory postsurgical appearance following plate and screw fixation of comminuted left acetabular anterior and posterior column fractures. 2. Status post remote right total hip ar throplasty in satisfactory alignment without hardware complications. 06/28/2017 [facility] Chest 1view DX EXAM: XR CHEST 1 VIEW DATE: 06/27/2017 1:31 PM CDT INDICATION: - bradycardic hypotensive COMPARISON: 06/23/2017 TECHNIQUE: AP chest IMPRESSION: 1. Diminished lung volumes bilaterally with few platelike atelectasis in both lungs. Otherwise, lungs are clear. 2. Cardiomediastinal silhouette is norm al for technique. Aortic atherosclerotic disease. 3. Costophrenic sulci are sharp. 4. Osseous structures are stable. 5. Right IJV dialysis catheter again se en with tip deep within the right atrium. 06/27/2017 [facility] Pelvis AP DX EXAM: XR PELVIS 1 VIEW DATE: 06/24/2017 at 0255 hours INDICATION: Post reduction COMPARISON: Pelvic CT from the same day TECHNIQUE: Frontal AP pelvis UT SECTION: ER FINDINGS: Total right hip prosthesis. Bilateral transpedicular screw fixation of L4 and L5. Highly comminuted left acetabular fracture involving both the anterior and posterior motta with fracture component extending to the base of the left superior pubic ramus. Nondisplaced mid inferior pubic ramus body fracture is also present. IMPRESSION: 1. Highly comminuted fracture involving the left acetabulum, most consistent with anterior with posterior hemitransverse pattern. 06/24/2017 [facility] Knee 3 views DX EXAM: XR LEFT KNEE 3 VIEWS DATE: 06/24/2017 2:55 AM CDT INDICATION: - post splint COMPARISON: Left knee radiographs 06/23/2017 TECHNIQUE: 3 views of the knee UT SECTION: ER FINDINGS: Traction pin overlies the upper portion of the left tibia and fibula. No acute fracture or malalignment is identified. No knee joint effusion is present. Vascular calcifications are present. IMPRESSION: No acute osseous abnormality of the left knee. 06/24/2017 [facility] Pelvis wo IV contrast CT EXAM: CT PELVIS WITHOUT CONTRAST DATE: 06/24/2017 2:29 AM CDT INDICATION: Postreduction COMPARISON: Radiographs from 06/23/2017 TECHNIQUE: Volumetric CT acquisition of the pelvis without contrast. Axial, sagittal and coronal reconstructions. IV contrast: None. DLP: 535 mGy-cm UT SECTION: ER FINDINGS: Total right hip arthroplasty is present. No evidence of hardware failure or loosening. Bilateral pedicle screws and short spinal rods at L4 and L5. Posterior element fixation hardware seen over the lumbosacral junction. Bones: Comminuted left acetabular fracture which extends transversely through the anterior and posterior columns and through the left iliac wing. There is a 2.9 cm articular surface gap within the mid acetabulum (series 5, image 67). In addition, along the anterior acetabulum, a 1.4 cm articular surface gap also exists. The fracture line extends through the base of the superior pubic ramus. Nondisplaced left inferior pubic ramus fracture present. Intrapelvic soft tissues: Minimal amount of simple appearing free fluid is seen within the pelvis. A small to moderate sized left iliac and obturator hematoma is present. Moderate diverticulosis coli without evidence of diverticulitis. Diffuse vascular calcifications are present. Surrounding soft tissues: Small left hip hemarthrosis and adjacent soft tissue edema. IMPRESSION: Anterior and posterior column left acetabular fracture with a nondisplaced left inferior pubic ramus fracture. The main fracture line extends through the base of the superior pubic ramus. 06/24/2017 [facility] Chest 1view DX Patient Name: Salena SMITH : 1935; Age: 81 years Female MR: [id number] Study: Chest 1view DX Order Time: 06/23/2017 5:51 PM CDT Clinical Indication: - fall. COMPARISON: None FINDINGS: Views: 1 SUPPORT LINES: Right IJ line tip is in the right atrium. LUNGS: There is normal lung volume. There are no suspicious interstitial/airspace opacities. There are no pleural effusions. There is no pneumothorax. The pulmonary vasculature is normal. MEDIASTINUM: The cardiac silhouette is enlarged. The trachea is midline. BONES: There are no clinically significant osseous abnormalities noted. IMPRESSION: No radiographic evidence of acute pulmonary disease. Enlarged cardiac silhouette. SL: [email or web address] 06/23/2017 [facility] Femur series DX Patient Name: MEGAN SMITH : 1935; Age: 81 years y/o Female MR: [id number] * LEFT FEMUR, 2 views History: Injury, trauma pelvis, hip, and left thigh region -left lower extremity, status post fall Technique: Frontal and lateral radiographs of the left femur were obtained. IMPRESSION: 1. Please refer to the radiographic repo rt of the pelvis and left hip regarding the pelvis and left hip. 2. The remainder the left femur is intac t. 3. Mild vascular calcifications. SL: [id number] 06/23/2017 [facility] Pelvis AP DX Patient Name: SHERI SMITH : 1935; Age: 81 years y/o Female MR: [id number] * PELVIS, 1 view HISTORY: Trauma, injury to pelvis, pelvic pain. Status post fall TECHNIQUE: A single frontal view of the pelvis was obtained. IMPRESSION: 1. Extensive fractures involving the nazanin tabulum and adjacent lower ilium and ischium with marked post traumatic protrusio acetabuli. 2. The superior aspect of the femoral he ad appears to be flattened, suspect traumatic compression fracture and injury to the femoral head. 3. The remainder the visualized proximal femur is unremarkable. 4. Postoperative changes are noted in th e lower lumbosacral spine. 5. Would suggest a computed tomography s can of the pelvis/left hip be obtained for further evaluation. 6. A right total hip prosthesis is noted . SL: [id number] 06/23/2017 [facility] Hip 2/3 views uni DX Patient N davon: MEGAN SMITH : 1935; Age: 81 years y/o Female MR: [id number] * LEFT HIP, 2 views History: Injury, trauma to left hip. Status post fall Technique: Frontal neutral and frog-leg images of the left hip were obtained. IMPRESSION: 1. Extensive fractures involving the nazanin tabulum and adjacent lower ilium and ischium with marked post traumatic protrusio acetabuli. 2. The superior aspect of the femoral he ad appears to be flattened, suspect traumatic compression fracture and injury to the femoral head. 3. The remainder the visualized proximal femur is unremarkable. 4. Postoperative changes are noted in th e lower lumbosacral spine. 5. Would suggest a computed tomography s can of the pelvis/left hip be obtained for further evaluation. SL: [id number] 06/23/2017 [facility] Knee 3 views DX Patient Name: MEGAN SMITH : 1935; Age: 81 years y/o Female MR: [id number] Study: Knee 3 views DX 06/23/2017 3:46 PM CDT Ordering Physician: Clinical Indication: Left knee pain; Comparison: None FINDINGS: The 3 views of the left knee show normal alignment without fractures or dislocations. The medial and lateral tibiofemoral compartments and patellofemoral compartment show narrowing. There is no knee region soft tissue swelling. Hoffa's fat pad region is unremarkable. There are no joint bodies. There is no joint effusion. There are no radiopaque foreign bodies. If there is further concern, recommend follow-up radiographs or MRI for complete assessment. IMPRESSION: 1. No fractures or dislocation of the le ft knee. 2. Tricompartmental osteoarthritis SL: CANDICE 06/23/2017 [facility] Chest wo contrast CT Chest CT without contrast, November 05, 2014. HISTORY: 79-year-old female with shortness of breath. TECHNIQUE: Continuous 1.5 mm thin axial noncontrast CT images were obtained through the chest, with coronal and sagittal reformatted images provided. No prior chest CT is available for comparison. FINDINGS: The cardiothoracic ratio is 13.7/26.1 cm. Note is made of a trivial dependent pericardial effusion. Abundant calcifications are seen in the thoracic aorta and throughout the left main, left anterior descending, and right coronary arteries. The mitral annulus is partially calcified. The ascending aorta and pulmonary trunk do not measure enlarged. Macrocalcifications are identified within both the right and left lobes of the thyroid gland. Note is made of subcentimeter mediastinal lymph nodes. No definite hilar or mediastinal adenopathy is otherwise identified on this noncontrast study. There is a borderline enlarged 1 cm lower paraspinal lymph node on axial image 124. Limited imaging through the upper abdomen shows dependent cholelithiasis within the neck of the gallbladder. There is a tiny hiatal hernia. Splenic artery calcifications are seen diffusely along with abdominal aortic calcifications. There is a heterogeneous soft tissue density mass in the left retroperitoneum measuring 5 x 4.6 cm on axial image 166. It contains mild scattered peripheral calcifications. This could be related to the adrenal gland but is of unclear etiology. A remote abdominal CT performed back in April 2005 at [facility] describes a 'heterogeneous enhancing left adrenal mass approximately 3.6 x 2 x 1 cm'. Those images are not available for review. Based upon the prior radiology report measurements from back in 2004, this mass has grown. A 3 mm groundglass nodule is identified in the right lower lobe on image 78. There is another groundglass nodule in the left lower lobe on image 118 measuring 5 mm. Scarring or subsegmental atelectasis is noted in the left apex medially. No pleural effusions are present. Mild osteophytes are scattered in the thoracic spine. IMPRESSION: 1. A couple of small groundglass nodules are identified, measuring 3 mm in the right lower lobe on image 78 and measuring 5 mm in the left lower lobe on image 118. According to the Fleischner Society guidelines, pure ground-glass nodules of this size should be followed with a repeat chest CT in 3 months to confirm persistence and, if persistent, should be followed annually with CT surveillance for a minimum of 3 years. 2. Borderline enlarged paraspinal lymph node measuring 1 cm. This lymph node can be reassessed at followup imaging. 3. Borderline sized heart. Abundant aort ic, coronary artery, and mitral annular calcifications. 4. Macrocalcifications with the thyroid gland bilaterally. Consider further evaluation with ultrasound. 5. Cholelithiasis 6. There is a heterogeneous soft tissue mass in the left retroperitoneum measuring 5 x 4.6 cm. This could be a left adrenal mass but is of unclear etiology. A dedicated abdominal CT or MR adrenal protocol is recommended for further evaluation. (The above pertinent findings were relay ed to Dr. Braon at 11:20 a.m. on November 05, 2014.) 11/05/2014 [facility] Lung ventilation/perfusion scan NM EXAM: Pulmonary ventilation and perfusion imaging DATE: Nov 05, 2014 09:09:00 AM CLINICAL DIAGNOSIS: Shortness of breath, evaluate for acute pulmonary embolism COMPARISON: CT chest without contrast 01/05/2015 TECHNIQUES: After inhalation of the 20 mCi of Xe-133 gas, posterior images of the lungs were obtained. Subsequently the patient was injected with 5 mCi of Tc 99m MAA and multiple static images around the lungs were obtained. FINDINGS: Ventilation images demonstrate heterogeneous tracer distribution on inspiratory images with rapid washout or xenon gas. There is no evidence of air trapping to suggest airways obstruction. Perfusion images demonstrates fine heterogeneous distribution in both lungs suggestive of very mild underlying parenchymal lung disease. There are no segmental or subsegmental perfusion defects to suggest acute pulmonary embolism. IMPRESSION: Low probability for acute pulmonary embolism. 11/05/2014 [facility] Consultation Notes No Data Provided for This Section Discharge Summaries No Data Provided for This Section History and Physicals No Data Provided for This Section Vital Signs Vital Sign Value Date Comments Source Temperature Oral (F) 98.4 F 09/17/2019 [facility] Heart Rate 57 09/17/2019 [facility] Respitory Rate 19 09/17/2019 [facility] Systolic (mm Hg) 160 09/17/2019 [facility] Diastolic (mm Hg) 50 09/17/2019 [facility] Temperature Oral (F) 98.3 F 09/16/2019 [facility] Heart Rate 64 09/16/2019 [facility] Respitory Rate 18 09/16/2019 [facility] Systolic (mm Hg) 133 09/16/2019 [facility] Diastolic (mm Hg) 52 09/16/2019 [facility] Temperature Oral (F) 98.8 F 09/16/2019 [facility] [facility] Heart Rate 64 09/16/2019 [facility] Respitory Rate 18 09/16/2019 [facility] Systolic (mm Hg) 156 09/16/2019 [facility] Diastolic (mm Hg) 67 09/16/2019 [facility] Height 170.18 cm 09/11/2019 [facility] Weight 80 0 09/11/2019 [facility] BMI Calculated 27.62 09/11/2019 [facility] Height 167.64 cm 09/11/2019 [facility] Weight 79 0 09/11/2019 [facility] BMI Calculated 28.11 09/11/2019 [facility] Height 170.18 cm 09/09/2019 [facility] Weight 81.182 09/09/2019 [facility] BMI Calculated 28.03 09/09/2019 [facility] Temperature Oral (F) 98.6 F 07/26/2019 [facility] Heart Rate 64 07/26/2019 [facility] Respitory Rate 18 07/26/2019 [facility] Systolic (mm Hg) 129 07/26/2019 [facility] Diastolic (mm Hg) 65 07/26/2019 [facility] Temperature Oral (F) 98.3 F 07/26/2019 [facility] Heart Rate 65 07/26/2019 [facility] Respitory Rate 20 07/26/2019 [facility] Systolic (mm Hg) 156 07/26/2019 [facility] Diastolic (mm Hg) 70 07/26/2019 [facility] Respitory Rate 21 07/26/2019 [facility] Systolic (mm Hg) 149 07/26/2019 [facility] Diastolic (mm Hg) 65 07/26/2019 [facility] Temperature Oral (F) 98.2 F 07/26/2019 [facility] Heart Rate 71 07/24/2019 [facility] Height 172.72 cm 07/19/2019 [facility] Height 172.72 cm 07/19/2019 [facility] Height 172.72 cm 07/18/2019 [facility] Weight 75 1 09/17/2018 [facility] BMI Calculated 25.14 07/18/2019 [facility] Heart Rate 75 07/18/2019 [facility] Resp[facility] Rate 18 07/18/2019 [facility] Systolic (mm Hg) 132 07/18/2019 [facility] Diastolic (mm Hg) 45 07/18/2019 [facility] Systolic (mm Hg) 130 07/17/2019 [facility] Diastolic (mm Hg) 82 07/17/2019 [facility] Heart Rate 85 07/17/2019 [facility] Respitory Rate 16 07/17/2019 [facility] Height 170.18 cm 07/17/2019 [facility] BMI Calculated 25.74 07/17/2019 [facility] Weight 74.545 07/17/2019 [facility] Systolic (mm Hg) 155 10/21/2017 [facility] Diastolic (mm Hg) 64 10/21/2017 [facility] Temperature Oral (F) 98.1 F 10/21/2017 [facility] Heart Rate 72 10/21/2017 [facility] Respitory Rate 20 10/21/2017 [facility] Temperature Oral (F) 98.3 F 10/21/2017 [facility] Respitory Rate 20 10/21/2017 [facility] Systolic (mm Hg) 129 10/21/2017 [facility] Diastolic (mm Hg) 52 10/21/2017 [facility] Heart Rate 59 10/21/2017 [facility] Systolic (mm Hg) 120 10/21/2017 [facility] Diastolic (mm Hg) 53 10/21/2017 [facility] Respitory Rate 18 10/21/2017 [facility] Heart Rate 61 10/21/2017 [facility] Temperature Oral (F) 98.5 F 10/21/2017 [facility] Height 167.64 cm 10/18/2017 [facility] Weight 77.273 10/18/2017 [facility] BMI Calculated 27.5 10/18/2017 [facility] Weight 77.273 10/16/2017 [facility] Height 172.72 cm 10/16/2017 [facility] BMI Calculated 25.9 10/16/2017 [facility] Systolic (mm Hg) 124 09/27/2017 [facility] Diastolic (mm Hg) 54 09/27/2017 [facility] Respitory Rate 16 09/27/2017 [facility] Heart Rate 68 09/27/2017 [facility] Temperature Oral (F) 97.9 F 09/27/2017 [facility] Heart Rate 73 09/27/2017 [facility] Systolic (mm Hg) 117 09/27/2017 [facility] Diastolic (mm Hg) 55 09/27/2017 [facility] Respitory Rate 16 09/27/2017 [facility] Systolic (mm Hg) 147 09/27/2017 [facility] Diastolic (mm Hg) 50 09/27/2017 [facility] Respitory Rate 16 09/27/2017 [facility] Heart Rate 69 09/27/2017 [facility] Temperature Oral (F) 98.0 F 09/26/2017 [facility] Temperature Oral (F) 97.4 F 09/26/2017 [facility] Height 172.72 cm 09/20/2017 [facility] BMI Calculated 24.38 09/20/2017 [facility] Weight 72.727 09/20/2017 [facility] Systolic (mm Hg) 135 07/03/2017 [facility] Diastolic (mm Hg) 62 07/03/2017 [facility] Heart Rate 72 07/03/2017 [facility] Respitory Rate 18 07/03/2017 [facility] Temperature Oral (F) 98.2 F 07/03/2017 [facility] Respitory Rate 18 07/03/2017 [facility] Systolic (mm Hg) 126 07/03/2017 [facility] Diastolic (mm Hg) 61 07/03/2017 [facility] Systolic (mm Hg) 128 07/03/2017 [facility] Diastolic (mm Hg) 67 07/03/2017 [facility] Respitory Rate 18 07/03/2017 [facility] Temperature Oral (F) 98.6 F 07/03/2017 [facility] Temperature Oral (F) 98.5 F 07/03/2017 [facility] Heart Rate 66 07/03/2017 [facility] Heart Rate 66 07/03/2017 [facility] Weight 81.364 06/24/2017 [facility] BMI Calculated 27.27 06/24/2017 [facility] Height 172.72 cm 06/24/2017 [facility] Height 172.72 cm 06/24/2017 [facility] Weight 81 1 [facility] BMI Calculated 27.15 06/24/2017 [facility] Respitory Rate 14 06/24/2017 [facility] Systolic (mm Hg) 168 06/24/2017 [facility] Diastolic (mm Hg) 53 06/24/2017 [facility] Respitory Rate 25 06/23/2017 [facility] Systolic (mm Hg) 174 06/23/2017 [facility] Diastolic (mm Hg) 57 06/23/2017 [facility] Systolic (mm Hg) 185 06/23/2017 [facility] Diastolic (mm Hg) 56 06/23/2017 [facility] Respitory Rate 23 06/23/2017 [facility] Height 172.72 cm 06/23/2017 [facility] BMI Calculated 27.27 06/23/2017 [facility] Weight 81.364 06/23/2017 [facility] Temperature Oral (F) 98.6 F 06/23/2017 [facility] Heart Rate 74 06/23/2017 [facility] Encounters Location Location Details Encounter Type Encounter Number Reason For Visit Attending Provider ADM Date DC Date Status Source [facility] Outpatient [id number] Agus Baron 09/08/2014 09/08/2014 [facility] Outpatient [id number] Agus Baron 11/05/2014 11/06/2014 [facility] Emergency [id number] Olu Moss 06/23/2017 06/24/2017 [facility] Inpatient [id number] Norm Albrightcheko 06/24/2017 07/03/2017 [facility] Outpatient Imaging [facility] Diag Services [id number] 00 Manjinder Mary 09/23/2017 09/24/2017 [facility] Inpatient [id number] Manjinder Mary 09/25/2017 09/27/2017 [facility] Inpatient [id number] Manjinder Mary 10/18/2017 10/21/2017 [facility] [place] [facility] Diag Services [id number] Leonor Mott 06/24/2019 06/25/2019 [facility] Emergency [id number] Brando Gongora 07/17/2019 07/18/2019 [facility] Inpatient [id number] Jacob Ayers 07/18/2019 07/26/2019 [facility] Inpatient [id number] Arnulfo Mckeon 09/13/2019 09/17/2019 [facility] Procedures Procedure Code Date Perfomer Comments Source Total replacement of left hip joint<sup>1</sup> [id number] 09/25/2017 conversion from ORIF [facility] Appendectomy [id number] [facility] Hip replacement [id number] [facility] Hysterectomy [id number] [facility] Knee replacement [id number] [facility] Procedure on back [id number] [facility] Examination of great toe [id number] [facility] Hip replacement<sup>2</sup> 39 [id number] right [facility] Knee replacement<sup>3</sup> 1 [id number] right part ial [facility] Tonsillectomy [id number] 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 Pham along with HWR 09/13 I&D and evacuation of deep hematoma (done due to acute change in RUE neurologic exam - weakness and paresthesias) PT/OT neurologic exam is markedly improved hemovac removed see Dr. 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 4.HTN (hypertension)(I10) Continue Norvasc, received PRN clonidineat home, available scds 09/17/2019 [facility] Extracted from:Title: Cardiology Consult Note Author: Carola Rollins MD Date: 07/25/19 84 year old woman with hx of DM, HTN, ES RD whowas admitted after a fall and was found to have a periprosthetic femoral fracture and humeral fracture. She is now D7 post femoral repair and had a humeral repairyesterday, and was found to have a new LBBB post surgery- cardiology consulted for LBBB. #LBBB-new - likely 2/2 to underlying structural he art disease, Pt currently chest pain free, Troponin negative X3, echo on 07/18 shows LVEF 65-70 with grade 1 diastolic dysfunction, dense post mitral anulus calcification, RVSP 31, EKG/tele reviewed with attending. - Pt endorses she has had a stress test 10 years ago, it was normal - She will benefit from a stress test ou t patient given new LBBB, not urgent. Pt will follow with Dr Jackson in [place] (her husbands manager delivery). - No further workup needed in patient at this time Pt staffed with Dr Addison. We will sign off at this time, please call us back with further questions. Carola Rollins, PGY3 Resident [facility] Department of Internal Medicine Cardiology Attending I have seen and examined the patient with the resident/fellow. I agree with the assessment and plan. Hope Addison MD Extracted from:Title: History and Physical Author: Meron Rollins MD Date: 07/18/19 1.Broken femur(S72.90XA) OR in a.m. 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 fordialysis 6.Humerus fracture(S42.309A) Nonweightbearing to the right upper extremity PT OT consult 7.preoperative exam RCRI High Risk Sx? No Hx of Ischemic disease? Possibly, partial RBBB Hx of CHF? no Hx of CVA? No Pre op insulin? yes Cr > 2? no Class III risk, 10 % risk of major cardiac event will get Echocardiogram, no active signs of chest pain ordecompensated heart failure Notably Plaquenil is on EMR, unclear why, will hold at this time Lovenox Pending OR in a.m. after dialysis 07/26/2019 [facility] Extracted from:Title: Orthopedic surgery Author: Manjinder Mary MD Date: 11/14/17 Orthopedic Joints Discharge Summary: The patient was admitted on the same day as elective revision left total hip replacement, which was performed without complication on 10/18/2017.Dx. Left femur periprosthetic fracture. Postoperatively the patient has done well and has been cleared by physical therapy as well as satisfied all necessary milestones for safe discharge. The patient's pain is well managed with oral medi cations and there has not been significant nausea or vomiting. There is no contraindication for discharge upon review of the patient's blood work including complete blood count and basic metabolic panel. Appropriate home health and physical therapy have been arranged. At the preoperative office visit, the patient was given prescriptions for medications for pain, anti-emetic and deep venous thrombosis prophylaxis. Postoperative exercise and wound care instructions were also provided. The first postoperative appointment in three weeks was scheduled and the patient was instructed to call the office at with any questions or concerns. She will continue her HD outpatient ASA bid x 28 days DVT prophylaxis Pain control, norco as needed. [facility] Manjinder Mary MD Electronically Signed: 11/14/17 13:09 Extracted from:Title: Clinical Document Author: Binh Richardson MD Date: 10/19/17 [facility] Consultation Note Reason for Consultation: Evaluation management of ESRD Referring Physician: Max Pena MD HPI: 82-year-old female who had underwent rev ision of left total hip replacement as well as open reduction internal fixation of left femur trochanteric fracture. She has end-stage renal disease on maintenance hemodialysis. Renal consultation is requested for management of hemodialysis. Past medical history: Hip fracture, left: 05/2017 ESRD (end stage renal disease) HTN (hypertension) Diabetes High blood cholesterol Past Surgical History: Total replacement of left hip joint: 09/25/17 Hip replacement Knee replacement Hysterectomy Appendectomy Tonsillectomy Medication List Active Medications Ordered acetaminophen: 650 mg, 2 tab, PO, Q6H, PRN: Pain Score 1-3. acetaminophen-codeine: 1 tab, PO, Q6H, PRN: Pain Score 4-6. acetaminophen-hydrocodone: 1 tab, PO, Q4H, PRN: Pain Score 1-3. acetaminophen-hydrocodone: 2 tab, PO, Q4H, PRN: Pain Score 4-6. atorvastatin: 40 mg, 1 tab, PO, Bedtime. bisacodyl: 10 mg, 1 supp, [place], Daily, PRN: Constipation. carvedilol: 50 mg, 2 tab, PO, Daily. cyproheptadine: 4 mg, 1 tab, PO, TID, PRN: Allergic reaction. dexamethasone: 4 mg, 1 mL, IVP, ONCALL. diphenhydrAMINE: 25 mg, 1 cap, PO, Bedtime, PRN: Insomnia. diphenhydrAMINE: 12.5 mg, 5 mL, PO, Q6H, PRN: Itching. docusate: 100 mg, 1 cap, PO, BID. famotidine: 20 mg, 1 tab, PO, Bedtime, PRN: Indigestion. ferrous sulfate: 325 mg, 1 tab, PO, Daily. heparin: 5,000 unit, 1 mL, SUB-Q, Q8H. hydroxychloroquine: 200 mg, 1 tab, PO, Daily. insulin glargine: 10 unit, 0.1 mL, SUB-Q, QAM. losartan: 100 mg, 1 tab, PO, Daily. naloxone: 0.1 mg, 0.25 mL, IVP, Q2MIN, PRN: Narcotic Reversal. ondansetron: 4 mg, 2 mL, IVP, Q6H, PRN: Nausea and Vomiting. oxyCODONE: 5 mg, 1 tab, PO, Q4H, PRN: Pain Score 4-6. pantoprazole: 40 mg, 1 tab, PO, Before Dinner. polyethylene glycol 3350: 17 gm, 1 pkt, PO, Daily, PRN: Constipation. promethazine: 25 mg, 1 tab, PO, Q6H, PRN: Nausea and Vomiting. scopolamine: 1 patch, TOP, ONCALL. Sodium Chloride 0.9% IV 1,000 mL: 85 ml/hr, IV, Stop: 11/17/17 11:11:00 CDT. tranexamic acid + Sodium Chloride 0.9% IV 100 mL: 1.95 gm, 19.5 mL, 478 ml/hr, IV, ONCE. Documented calcium-vitamin D: 1 tab, PO, TID, 60 tab. Suspended acetaminophen: 650 mg, 2 tab, PO, Q6H, PRN: Pain Score 1-3, 0 Refill(s). acetaminophen-codeine: 1 tab, PO, Q6H, for 7 day, PRN: pain, 30 tab, 0 Refill(s). aspirin: 81 mg, 1 tab, PO, BID, for 21 day, 42 tab, 0 Refill(s). atorvastatin: 40 mg, 1 tab, PO, Bedtime, 0 Refill(s). carvedilol: 50 mg, 2 tab, PO, Daily, 0 Refill(s). ferrous sulfate: 325 mg, 1 tab, PO, Daily, 0 Refill(s). hydroxychloroquine: 200 mg, 1 tab, PO, Daily, 0 Refill(s). insulin glargine: 10 unit, SUB-Q, QAM, 0 Refill(s). losartan: 100 mg, 2 tab, PO, Daily, 0 Refill(s). multivitamin: 1 tab, PO, Daily, 30 tab. pantoprazole: 40 mg, PO, Daily, for 30 day, 30 tab, 0 Refill(s). promethazine: 25 mg, 1 tab, PO, Q6H, for 4 day, PRN: Nausea, 15 tab, 0 Refill(s). Medications Inactivated in the Last 72 Hours acetaminophen: 1,000 mg, 100 mL, 400 ml/hr, IV, ONCALL. acetaminophen 10 mg: IV, Stop: 10/18/17 8:54:00 RN REVIEW. atropine: 0.2 mg, IVP, Q5Min, PRN: Other -See Comment. bacitracin: 50,000 unit, PYXIS, ONCE. bupivacaine: INTRATHECAL, ONCE. ceFAZolin: 2 gm, PYXIS, ONCE. ceFAZolin: 1 gm, PYXIS, ONCE. ceFAZolin: 2 gm, PYXIS, ONCE. ceFAZolin: 2 gm, PYXIS, ONCE. ceFAZolin: 2 gm, PYXIS, ONCE. ceFAZolin 2000 mg: IV, Stop: 10/18/17 8:33:00 RN REVIEW. ceFAZolin + sterile water 20 mL: 2 gm, 200 ml/hr, IV, ONCALL. ceFAZolin + sterile water 20 mL: 2 gm, 200 ml/hr, IVPB, Q6H. celecoxib: 400 mg, 2 cap, PYXIS, ONCE. cisatracurium: 20 mg, 10 mL, PYXIS, ONCE. cisatracurium: IV, ONCE. diphenhydrAMINE: 12.5 mg, IVP, Q6H, PRN: Itching. ePHEDrine: 25 mg, 5 mL, PYXIS, ONCE. ePHEDrine: IV, ONCE. ePHEDrine: 25 mg, 5 mL, PYXIS, ONCE. famotidine: 20 mg, 2 mL, PYXIS, ONCE. famotidine: IV, ONCE. fentaNYL: 100 microgram, 2 mL, PYXIS, ONCE. fentaNYL: IV, ONCE. flumazenil: 0.2 mg, IVP, PRN, PRN: Benzodiazepine Reversal. glycopyrrolate: 1 mg, 5 mL, PYXIS, ONCE. glycopyrrolate: IV, ONCE. glycopyrrolate: 0.2 mg, IVP, Q5Min, PRN: Bradycardia. heparin: 30,000 unit, 30 mL, PYXIS, ONCE. hydrALAZINE: 10 mg, IVP, Q20Min, PRN: Elevated BP. hydrochlorothiazide-losartan: 1 tab, PO, Daily, 0 Refill(s). hydromorphone: 0.2 mg, IVP, Q5Min, PRN: Pain Score 7-10. lidocaine: 5 mL, PYXIS, ONCE. metoprolol: 1 mg, IVP, Q5Min, PRN: Other -See Comment. morphine Sulfate: 0.2 mg, 1 mL, PYXIS, ONCE. morphine Sulfate: 2 mg, IVP, Q5Min, PRN: Pain Score 4-6. morphine Sulfate: INTRATHECAL, ONCE. naloxone: 0.4 mg, IVP, Q2MIN, PRN: Narcotic Reversal. neostigmine: 5 mg, 5 mL, PYXIS, ONCE. neostigmine: IV, ONCE. ondansetron: 4 mg, 2 mL, IVP, ONCALL. ondansetron: 4 mg, 2 mL, PYXIS, ONCE. ondansetron: 4 mg, IVP, ONCE, PRN: Nausea and Vomiting. ondansetron: IV, ONCE. ondansetron: 4 mg, IV, Q8H. ondansetron: 4 mg, 2 mL, IV, Q8H. phenylephrine: 1,000 microgram, 10 mL, PYXIS, ONCE. povidone iodine ophthalmic: 1 drp, PYXIS, ONCE. propofol: 1,000 mg, 100 mL, PYXIS, ONCE. propofol: 200 mg, 20 mL, PYXIS, ONCE. propofol: 1,000 mg, 100 mL, PYXIS, ONCE. propofol: IV, ONCE. propofol 10 mg: IV, Stop: 10/18/17 8:16:00 RN REVIEW. rocuronium: 50 mg, 5 mL, PYXIS, ONCE. ropivacaine: 100 mL, PYXIS, ONCE. Sodium Chloride 0.45% IV: 1,000 mL, PYXIS, ONCE. Sodium Chloride 0.9% IV: 500 mL, PYXIS, ONCE. Sodium Chloride 0.9% IV: 100 mL, PYXIS, ONCE. Sodium Chloride 0.9% IV: 500 mL, PYXIS, ONCE. Sodium Chloride 0.9% IV: 50 mL, PYXIS, ONCE. Sodium Chloride 0.9% IV: 2,000 mL, PYXIS, ONCE. Sodium Chloride 0.9% IV: 1,000 mL, PYXIS, ONCE. Sodium Chloride 0.9% IV: 2,000 mL, PYXIS, ONCE. Sodium Chloride 0.9% IV 500 mL: IV, Stop: 10/18/17 7:58:00 RN REVIEW. Sodium Chloride 0.9% IV 50 mL + tranexamic acid 700 mg: IV, Stop: 10/18/17 8:38:00 RN REVIEW. Sodium Chloride 0.9% IV 50 mL + tranexamic acid 700 mg: IV Central, Stop: 10/18/17 10:58:00 RN REVIEW. sterile water: 20 mL, PYXIS, ONCE. sterile water: 20 mL, PYXIS, ONCE. sterile water: 20 mL, PYXIS, ONCE. tranexamic acid: 1,000 mg, 10 mL, PYXIS, ONCE. tranexamic acid: 1,000 mg, 10 mL, PYXIS, ONCE. vancomycin: 1,250 mg, 250 mL, 166.67 ml/hr, IV, ONCALL. vancomycin: 1 gm, PYXIS, ONCE. vancomycin 1000 mg: IV, Stop: 10/18/17 7:58:00 RN REVIEW. Review of Systems: General : no weight loss CVS : no chest pain , no palpitation RS : no cough GI : No nausea, no vomiting, no diarrhea : No dysuria, no polyuria, Skin: no rashes Hematology : no bleeding Neuro: no weakness, no headache Family History: Mother: Breast cancer Brother: Bone cancer.. Social History: Alcohol Details: Never Tobacco Details: Use: Never smoker. Tobacco smoke exposure: None. Did the Patient Smoke Cigarettes Anytime During the Last 365 Days? No. Cessation Counseling Provided? No. Details: Use: Never smoker. Ready to change: No. Household tobacco concerns: No. Tobacco smoke exposure: None. Did the Patient Smoke Cigarettes Anytime During the Last 365 Days? No. Cessation Counseling Provided? No. Physical Examination: HEENT: Neck: Chest/Lungs: Heart: Abdomen: Extremities: Neuro: Vitals Tmp(F) Pulse BP RR SpO2 FIO2 10/19 09:29 ---- --- ----- - - 97 21% 10/19 08:00 98.5 71 111/58 1 8 98 --- 10/19 04:00 98.3 75 128/72 1 6 98 --- 10/19 00:00 98.4 64 115/42 1 6 94 --- 10/18 23:39 ---- --- ----- - - 100 --- 24 Hr Tmax: 98.8F (37.11c) at 10/18 11:0 4 Vital Signs are the last 5 in the past 48 hours. I&O Record In Out Bal 10/19 24hr Tot 0 0 0 10/18 24hr Tot [phone] Labs (Last four charted values) WBC 7.4 (OCT 19) Hgb L 8.4 (OCT 19) Hct L 24.6 (OCT 19) Plt 243 (OCT 19) Na 141 (OCT 19) K 4.3 (OCT 19) CO2 31 (OCT 19) Cl 100 (OCT 19) Cr H 3.19 (OCT 19) BUN H 30 (OCT 19) Glucose Random 75 (OCT 19) Phos 3.5 (OCT 19) Ca L 7.9 (OCT 19) Imaging: Impression/Plan: 1. ESRD, will provide hemodialysis meredith tment today 2. Diabetes mellitus, stable 3. Hypertension, controlled 4. Anemia of chronic kidney disease, wi ll restart erythrocyte stimulating agent Thank you for involving me in the care of your patient. Addendum by Binh Richardson MD on 10/20/2017 13:12 Physical examination: HEENT : pupils are reactive, Neck : supple, tunneled dialysis catheter in the right chest, no discharge or erythema on the exit site C/L : bilateral air entry Heart : Reg Rythm Abdomen: soft non tender Ext : no edema Extracted from:Title: Orthopedic surgery Author: Manjinder Mary MD Date: 10/18/17 Operative Report Patient Name: Megan Smith Facility: [facility] : 1935 DATE OF PROCEDURE: 10/18/2017 SURGEON: Manjinder Mary MD Geophysical Data Technician: Mariia Hanson LSA PREOPERATIVE DIAGNOSIS: 1. Periprosthetic femur fracture kailash und left total hip replacement POSTOPERATIVE DIAGNOSIS: 1. Periprosthetic femur fracture arou nd left total hip replacement [place] B2 2. Left trochanteric femur fracture SURGICAL PROCEDURES: 1. Revision of left total hip replacemen t femoral component 2. Open reduction and internal fixation of left femur trochanteric fracture ANESTHESIA: GETA + pericapsular pain blockade ESTIMATED BLOOD LOSS: 450cc as quantified by cell saver, no return IV FLUIDS: Anesthesia report URINE OUTPUT: 350 cc output during surgery Blood products: none given COMPLICATIONS: trochanteric fracture noted and not identified preoperatively SPECIMENS: loose and subsided femoral component FINDINGS: 1. Loose femoral component subsided 2. Medial calcar femur fracture with ext ension distal to prevoiu femoral component 3. Non displaced trochanteric fracture, unstable, line proximal to VL insertion, fixed with trochanteric plate. IMPLANTS USED: 1. Biomet Josephine 150 x 16mm stem with a 6 0mm size B high offset proximal body 2. Dual mobility component 46 mm with 28 mm +3 metal head 3-Cables x 7 total ---2mm each 4. GTR plate - 4 cables INDICATIONS: Mrs. Smith is a very pleasant 82 year old female patient with history of ESRD and previous recent fall with acetabular fracture, who about 2 weeks ago underwent a successful but complicated conversion to left THR. She initially did well but noticed increased pain while getting in the car. She felt a pop with immediate moderate leg pain and left leg swelling. Evaluation in her first post operative visit showed painful gait and shortened left LE. Radiographs confirmed a [place] B2 periprosthetic fracture with a loose femoral component. Given these findings, Mrs. Aggarwal was felt to be indicated for immediate revision arthroplasty and open reduction internal fixation of the femur fracture. Preoperatively, the nature of the quite complex revision procedure and its significant complexity, risks, benefits, and alternatives were discussed in great detail with the patient. Possible complications include stroke, heart attack, were discussed. Further fracture of the femur and acetabulum during the procedure was discussed. Other possible complications discussed included, excessive bleeding and need for transfusion, stem failure or re fracture, chronic hip pain, implant dislocations, which is always a possibility given the complex condition and she understands that dislocation risk increases without keeping discussed posterior hip precautions. DIslocation risk is also incrased given her low back fusion and post traumatic fracture. Changes in leg length, sciatic nerve damage and foot drop, deep vein thrombosis, pulmonary embolism, stroke, heart attack, were all discussed preoperatively. Mr. Smith appeared to understand these many issues, and the patient desired to proceed with surgery. All of Mrs. Smith questions were answered preoperatively prior to obtaining informed consent. I took consent at that time and have documented all in previous note. She will require hemodyalysis in POD 1. PROCEDURE IN DETAIL: On the morning of October 18, 2017, the patient was brought to the operating room and following administration of general endotracheal anesthesia by the anesthesiology service, the patient was given 2 g of Ancef and Vancomycin IV as antibiotic prophylaxis and tranexamic acid preoperatively. She was placed on the operating table in the right lateral decubitus position with the left side up and was held in position using hip positioners. An axillary roll was placed in adequate position. Care was taken to pad all bony prominences including the ulnar and peroneal nerves. Following sterile prepping and drape, a proper timeout was done to again identify the appropriate operative site, which had been previously marked. Her previous posterolateral incision and approach was done extending it distally to a lateral approach to the femur utilizing his previous "shorter" posterolateral approach used two weeks ago. Proximally, the dissection was carried through the skin and subcutaneous tissues down to the gluteus fascia. After placement of a Charnley retractor the gluteus medius was protected and the capsular repair was maintained and opened at this time. The capsule was safely mobilized for later closure. Care was taken to coagulate all bleeders around this area. Distally, the fascia of iliotibial band was divided in line with the incision. Once the fascia was opened, dissection as carried down towards the femur utilizing the posterior border of the vastus lateralis as reference. Caution was taken to cauterize all perforating vessels. An approach was taken down to approximately the mid femur to allow for visualization of the fracture extension. The hip was safely dislocated and the head desimpacted. The loose femoral stem was safely removed at this time. After successful stem removal I identified the distal extension of the fracture and placed prophylactic cables distally to prevent fracture propagation and one cable around the distal fracture extent with excellent fracture reduction. Attention was placed at this time in exposure of the acetabulum which was excellent. After extensive debridement of the fibrous capsular tissue all anterior impingement tissue was removed. The cup had very adequate positioning and fit with no evidence of loosening. The dual mobility liner was maintained. With an adequate and stable acetabular component in place attention was placed on the safe reaming of the femur. With the medial calcar fragment reduced, I was able to bypass the distal extent of the fracture by 3 cortical diameters at least with a 150mm stem. A good distal femur tube was present and used for STS stem fixation. A stem length of 150 was prepared up to a 16mm STS reamer. This gave excellent scratch fit and stability/both axial and rotationally. An 60mm proximal body was prepared for and placed on the adequate version, Size B. A neutral head was selected and the hip was successfully reduced. Prior to proximal body fixation the medial calcar fracture was reduced anatomically and the proximal body was prepared to a size B with no fracture reduction compromise. The final stem was then opened and impacted into place. Then, a proximal body of 60mm and size B was prepared by reaming over the placed stem. The proximal body was placed with regular offset option and a +3 head. The hip was reduced and trialed for component position and stability. Attention was then turned to trialing and evaluation of stability after reduction of the hip joint with a neutral femoral head. Ranawat coupling showed apex posterior orientation. The hip was stable 90 deg of flexion 75 deg of internal rotation and maximal adduction. This was felt to be very acceptable stability and leg lengths were restored to near equal length with about 3mm lengthening. Radiographs were taken and confirmed above findings and the stem was felt to be adequate size/fit. During careful impaction of the stem attention was kept on the lateral femur defect to identify any fracture. Stem fit was excellent without further fracture. The trochanter was noticed to have a non displaced fracture but given its location, proximal to the vastus lateralis insertion I decided to fixs the fracture with two temporary K wires and with a GTR plate with 4 cables. The fracture reduction was excellent. The plate was placed through a rent on the VL. The márquez was secured only after the final components were placed safely and the proximal body was secured and impacted into place with adequate version of the modular component. The final construct was of 210 mm that allowed bypassing the fracture as described. A final +3 head was selected and placed with a 46mm dual mobility component. The hip was reduced. All previous findings of positioning, leg lengths, and stability were noted after final component placement and hip reduction. Final check of hip stability, leg lengths, and fracture reduction under stress was acceptable. Both the femur and trochanteric fractures were fixed and reduced anatomically. After final irrigation with 6L NSS, attention was then turned to wound closure. Vancomycin powder was placed on the incision with a 1/8th HV drain was placed. The deep fascia was closed with #1 Vicryl suture. Subcutaneous tissues were closed with 0 and 2-0 Monocryl. The skin was closed with MOnocryl 3-0 in subcuticular fashion and sterile dressing were applied. Post operative radiographs ordered to confirm reduction. The patient was awakened, extubated and taken to the recovery room in stable condition. She tolerated this procedure very well. Disposition -WBAT precautions and posterior hip prec autions -Sitting tolerance, transferring as tole rated -PT to focus on Gluteus strengthening, h ip flexor strengthening, ambulation tolerance/understanding her expected deconditioning. -Upon discharge, she can return home wit h follow up in clinic as long as PT goals are met in the post operative period. -Will need hemodialysis tomorrow am. Extracted from:Title: Orthopedic surgery Author: Manjinder Mary MD Date: 10/17/17 Orthopedic surgery History and Physical Pt. Name: Megan Smith Chief Complaint S/P complicated left total hip replacement DOS: 09/25/2016 History of Present Illness The patient reports to this office for her first post operative visit S/P complicated left total hip replacement. The patient is 2 weeks out today and she states she is doing very well, slowly improving. She states walking becomes very painful and she also states she has been very nauseous since she was discharged from the hospital. She has noticed some leg shortening after a twisting injury getting into the car about one week ago. Review of Systems Const: no fever,no chills,no weight loss,no weight gainanddoes not tire easily. HENT: no headache,no earache,no difficulty swallowing,no nosebleedsandno ringing in the ears. CV: no chest pain,no palpitations,no faintingandno murmurs. Resp: no cough,no wheezing,not short of breath,no painful inspirationsandno chest tightness. GI: no heartburn,no diarrhea,no nausea,no black or tarry stools,no vomitingandno constipation. Musc: per HPIandjoint pain. Skin: no skin changes,no erythema,no signs of poor healing,no rashandno itching. Neuro: no numbness,no tremors,no tingling,no seizures,steady gaitandno dizziness. Psych: not feeling nervous,no anxiety,no depressionandno hallucinations. Heme/Lymph: no easy bleeding,no easy bruisingandno swollen glands. Active Problems 1. Left acetabular fracture (808.0) (S32.402A) 2. Left hip pain (719.45) (M25.552) 3. Painful orthopaedic hardware (996.78) (T84.84XA) 4. 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 History of Diabetes (250.00) (E11.9) 2. History of Diabetes mellitus, type 2 (250.00) (E11.9) 3. History of Diabetic nephropathy associated with type 2 diabetes mellitus (250.40,583.81) (E11.21) 4. History of End stage renal disease on dialysis (585.6,V45.11) (N18.6,Z99.2) 5. History of High blood pressure (401.9) (I10) 6. History of Kidney disease (593.9) (N28.9) Surgical History 1. History of hip replacement 2. History of open reduction-internal fixation Physical Exam Hip Exam Incision is healing well with no signs of infection. No signs of erythema. No ecchymosis. Well approximated wound edges.No visible wound drainage. Painless hip range of motion, Leg is shortened about 1cm, not present post op. MOderate tenderness to palpation in surgical area. Flexion is 95 degrees. Extension is 20 degrees. External rotation is 25 degrees. Internal rotation is 20 degrees. Abduction is 30 degrees. Adduction is 20 degrees. SLR negative. Strength is improving and still lacking compared to opposite side. Neurovascular exam is intact. No evidence of DVT. Leg lengths unequal, left short by 1cm. AMbulates with thigh pain. Constitutional No acute distress, well nourished. Cardiovascular: Palpable radial and ulnar pulses in the upper extremities. Palpable dorsalis pedis and posterior tibial pulses in the lower extremities. No pitting edema or varicosities in the lower extremities. Maneuvers demonstrated a negative Valentine's sign. No palpable cords in calf noted. Respiratory No respiratory distress, normal respiratory rhythm and effort Musculoskeletal Appropriate gait and station upon examination. Muscle strength and sensation normal in all upper extremities. No pain, tingling or swelling in the upper extremities. Patient is ambidexrous. Lymphatic no popliteal nodes palpable Skin Appropriate skin color and pigmentation. No erythema, warmth or evidence of infection. Neurologic Deep tendon reflexes intact, primitive reflects were absent. Sensory exam intact to light touch, pain and temperature sensation. Upper extremity perpheral neurological exam demonstrated light touch intact for both upper arms, forearms, and hands, bilateral upper extremity nerve motor function, and intact bilateral distal pulses. Psychiatric Orientation to person, place and time. Appropriate mood and affect. Radiological Data AP Pelvis, AP left hip and lateral of left hip were ordered, obtained and interpreted from an orthopedic standpoint. Radiographs AP and lateral of the left hip demonstrate excellent alignment of acetabular component components with no signs of loosening or other abnormalities.The femoral component has subsided and there is evidence of a medial femur/calcar fracture not visible on immediate post operative radiographs. There are non-cemented screws in place. No lucency noted. Stem has subsided and is loose. Assessment 1. Left hip pain (719.45) (M25.552) 2. 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 Status post left hip replacement (V43.64) (Z96.642) 4. Periprosthetic fracture of femur following total replacement of hip, initial encounter (996.44,V43.64) (M97.8XXA,Z96.649) 5. Fracture of femur following insertion of orthopedic implant, joint prosthesis, or bone plate, left leg (996.49) (M96.662) Mrs. smith is a very pleasant 82 year old female patient who is 2 weeks status post left THR complicated conversion from acetabular fx failure. She had a twist of the leg getting into the car in which she noticed a pop and immediate pain/swelling/this was one week ago. She has a calcar fracture with stem loosening/subsidence. Today I have recommended revision of her femoral component to a diaphyseal fixating STS stem. I have oriented her about my findings today and about the need for further surgical management. This fracture will not heal adequately without surgery. Plan Schedule revision of left THR - femur component Next available date Monday as Mrs. Smith has HD on , Sat Will need dialysis on if surgery is next Mon. The risks and benefits of revision surgery were discussed with the patient including but not limited to: infection, anesthesia complications, bleeding, deep venous clotting and pulmonary embolus, chronic hip stiffness, leg swelling, hardware failure or symptoms, incomplete or worsening of symptoms, and the possible need for further surgery in the future. The procedure has been explained and all of her questions have been answered at the present time. The patient may call or come in if she has any other concerns or questions. The patient also understands the post-operative rehabilitation process and the need for cooperation and participation, and that their results may be compromised by lack of compliance. The patient would like to proceed. She is encouraged to seek additional opinions if she~ desires. We had a lengthy discussion with the patient regarding the potential options for treatment of her femur fracture. Based on current presentation and radiographic exam, the patient has post operative femur periprosthetic fracture. I do not feel that any additional conservative management will provide additional relief. It is recommended that the patient undergo a left TIFFANIE revision of her femur component with ORIF of her femur fracture. The potential risks and benefits were discussed in detail. Based on the patients severe limitations and progressively increasing pain, as well as failures of desired improvement from other non-operative or operative treatments, I recommended the patient consider revision left total hip arthroplasty and orif of femur component. We reviewed the surgery in detail and the risks including infection, bleeding, nerve damage/foot drop, and re fracture of the femur. Incomplete relief of pain, deep venous thrombosis, and mechanical failure of the device, possible leg length change and dislocation were all discussed.. We also discussed the potential longevity of the implant, and possible need for revision in the future. We also reviewed the risks of anesthesia. The patient understands that should infection occur, multiple operative procedures may be necessary including the use of long-term antibiotics through a central line. We also discussed the risks of pulmonary embolism secondary to DVT formation and the possible need for short-term anticoagulation or aspirin or other medications postoperatively. The patient was shown total hip booklets, diagrams and/or models and all of ~her~ questions have been answered at the present time. The patient also understands the post-operative rehabilitation process and the need for their cooperation and participation, and that their results may be compromised by their lack of compliance. The patient would like to proceed. he~ is encouraged to seek additional opinions if she~ desires. 10/21/2017 [facility] Extracted from:Title: Orthopedic surgery Author: Manjinder Mary MD Date: 09/27/17 Progress Note - Daily [facility] Completed: Aug, 12:24 by Manjinder Mary MD RM: [id number], [id number] XIAO MEGAN PEREZ 82y (: 1935) F Attending: Manjinder Mary MD Service: Orthopedic Reason for Admission: [id number]- UNILATERAL POST-TRAUMATIC OSTEOARTHRITIS, Working DRG: Other factors influencing health status Code status: None Specified=FULL CODE Current diet: Isolation: None Documented Allergies: ibuprofen, NKDA SUBJECTIVE Improved nausea, vomiting Pain well controlled Ambulated this morning with PT OBJECTIVE Painless left hip ROM Leg lengths, left longer about 3mm as expected No foot drop EHL/TA 5/5 Sitting comfortably in chair, ambulated without pain DP and PT +2 symmetric left LE Bandages are dry 24hr Labs 09/27 1126 POC Performing Locatio See Note Glucose POC 94 09/27 0410 Hgb 8.4 L Hct 25.0 L 09/26 2125 POC Performing Locatio See Note Glucose POC 103 H 09/26 1144 Hep Bs Ag Negative Hep Bs Ab 70.3 H Lawrence still necessary (Yes/No): Line still necessary (Yes/No): Vitals Tmp(F) Pulse BP RR SpO2 FIO2 09/27 12:00 97.9 68 124/54 1 6 91 --- 09/27 08:31 98.8 73 117/55 1 6 90 --- 09/27 04:45 98.4 69 147/50 1 6 91 --- 09/27 00:51 98.5 63 110/58 1 6 96 --- 09/26 19:40 98.2 71 143/52 1 6 98 --- 24 Hr Tmax: 98.8F (37.11c) at 09/27 08:3 1 Vital Signs are the last 5 in the past 48 hours. Date Wt(kg) Wt(lb) Ht(cm) Ht(in) Method 09/20 (initial) 72.73 160.00 Estimated 09/20 172.72 68.00 Stated I&O Record In Out Bal 09/27 24hr Tot 240 0 240 09/26 24hr Tot 474 3000 - 2526 Medications (32) Active Scheduled Meds (7): 09/25/17 atorvastatin 40 mg PO Bedtime 09/25/17 docusate 100 mg PO BID 09/26/17 epoetin lisa (Procrit (ESRD)) 1 0,000 unit SUB-Q Q---Sa 09/26/17 heparin 5,000 unit SUB-Q Q8H 09/26/17 hydrochlorothiazide 12.5 mg PO Daily 09/26/17 insulin glargine (Lantus 100 un its/mL) 10 unit SUB-Q QAM 09/26/17 losartan (Cozaar) 50 mg PO Abby y Unscheduled Meds (5): 09/25/17 acetaminophen (Ofirmev) 1,000 m g IV PRE OP 400 ml/hr 09/25/17 ceFAZolin + sterile water 20 mL 2 gm IV PRE OP 200 ml/hr 09/26/17 heparin 10,000 unit DIALYSIS [employer] 09/25/17 scopolamine 1 patch TOP PRE OP 09/25/17 vancomycin + Sodium Chloride 0. 9% IV 250 mL 1,000 mg IVPB PRE OP 250 ml/hr PRN Meds (19): 09/25/17 Dextrose 50% in Water IV (Dextr ose 50% Syringe) 12.5 gm IVP PRN 09/25/17 Dextrose 50% in Water IV (Dextr ose 50% Syringe) 25 gm IVP PRN 09/25/17 acetaminophen-codeine (Tylenol with Codeine #3 oral tablet) 1 tab PO Q4H 09/25/17 acetaminophen-codeine (Tylenol with Codeine #3 oral tablet) 2 tab PO Q4H 09/25/17 acetaminophen (Tylenol) 650 mg PO Q6H 09/25/17 bisacodyl 10 mg [place] Daily 09/25/17 diphenhydrAMINE 25 mg PO Bedtim e 09/25/17 diphenhydrAMINE 12.5 mg PO Q6H 09/25/17 glucagon 1 mg IM PRN 09/25/17 insulin lispro 2 unit SUB-Q TID -Before Meals 09/25/17 insulin lispro 4 unit SUB-Q TID -Before Meals 09/25/17 insulin lispro 6 unit SUB-Q TID -Before Meals 09/25/17 insulin lispro 8 unit SUB-Q TID -Before Meals 09/25/17 insulin lispro 10 unit SUB-Q TI D-Before Meals 09/25/17 morphine Sulfate 5 mg IVP Q4H 09/25/17 ondansetron 4 mg IVP Q6H 09/25/17 oxyCODONE (oxyCODONE 5 mg immed iate release) 5 mg PO Q4H 09/25/17 polyethylene glycol 3350 17 gm PO Daily 09/25/17 promethazine (Phenergan) 25 mg PO Q6H One Time Meds: None Continuous Infusions (1): 09/25/17 Sodium Chloride 0.9% IV 1,000 m L (NS 1,000 mL) 1,000 mL 30 ml/hr ASSESSMENT and EXAM POD #2 following complicated conversion to THR, deep implant removal, ADD release. Doing very well again this morning, tolerated HD yesterday well. Was ambulating well this morning with PT, quite independent. Important given her deconditioning. Both her Hgb and stable VS, had some difficulty with vomiting post op but now markedly improved. She can be safely discharged home today as she has met goals and can perform WBAT during PT maintaining posterior hip precautions that will mostly need to be avoiding low chairs. Pain control is optimal on current regimen. PLAN and TREATMENT DH today, clinic in 2 weks, no bandage changes needed PT bid today, no restrictions, WBAT Posterior hip precautions ASA bid DVTprophylaxis NV management Anticipated DH today after PT goals met Pain control Tyl 3 prn pain Extracted from:Title: Orthopedic surgery Author: Manjinder Mary MD Date: 09/27/17 Orthopedic Joints Discharge Summary: The patient was admitted on the same day as elective complicated conversion of previous hip surgery/failed acetabular orif to left total hip replacement, which was performed without complication.𗁍 Postoperatively the patient has done well and has been cleared by physical therapy as well as satisfied all necessary milestones for safe discharge.She was succesfully dialyzed yesterday and is stable, stable VS. The patient's pain is well managed with oral medications and there has not been significant nausea or vomiting. There is no contraindication for discharge upon review of the patient's blood work including complete blood count and basic metabolic panel. Appropriate home health and physical therapy have been arranged. At the preoperative office visit, the patient was given prescriptions for medications for pain, anti-emetic and deep venous thrombosis prophylaxis. Postoperative exercise and wound care instructions were also provided. The first postoperative appointment in three weeks was scheduled and the patient was instructed to call the office at with any questions or concerns. 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 Conversion of previous hip surgery to left total hip arthroplasty with computer assisted navigation 2. Femoral head autograft of the acet abular bone loss 3. Percutaneous left adductor tenotom y 4. Deep implant removal of left aceta bular screws Anesthesia: Spinal + GETA Drains: None Estimated blood loss: 250ml Urine output: 300 cc on [place] IV fluids: Anesthesia Report Complications: none identified intraoperatively Blood products: none given Specimens: left femoral head, synovial/reactive tissue Findings: 1. Collapse and non union of both col umn acetabulal fracture with 4 screws and plate visible intra-articularly due to fracture collapse. Removed three screws and bured one plate to allow for safe reaming. There was an uncontained superior acetabular bone defect encompasing about 25% of the circumference of the acetabulum. Adequate anterior wall, column, superior done, and posterior wall. Medial wall defixity/Paprosky C noted bone grafted. There was severe femoral head collapse and extensive arthrosis. 2. Extensive bony and scar tissue wit hin the acetabulum 3. Preoperative right leg shortening 8 mm with tight adductors - decision made for percutaneous adductor tenotomy to facilitate reduction and balance. 4. Adequate acetabular component fit obtained with PW, AW and superior dome, about 75% contact but decision still made for femoral head autograft. IMPLANTS: [place] 1. Femoral component: - Accolade II p ressfit size #6 - 127 deg 2. Acetabular component: 58mm Trident Trident II cup - 2 screws in PS quadrant 3. MDM Liner: 46MM mm MDM liner 4. Head 28mm +8 mm Biolox Delta V40 M etal head 5. Two (2) acetabular screws 6.5mm (4 0 and 25mm into PS quadrant) Indications Mrs. Smith is a very pleasant 82year-old female patient with severe left hip post traumatic arthritis and femoral head avascular necrosis following a severe both column acetabular fracture and femoral head dislocation treated with ORIF last May. She is an independent ambulator before her fall last May. The patient has comorbidities including DM2 and will need hemodialysis tomorrow post op. She has had rapid progression of pain to the point where it does not allow her to ambulate anymore without severe pain. Given the above findings which include patients age and activity level, I have recommended a conversion of previous open reduction and internal fixation into a left total hip arthroplasty utilizing robotic assistance due to severity of arthrosis, expected acetabular bone loss which will be addressed with autograft. Her hardware will most likely be retained if possible. This surgery, although complex, will be to alleviate her severe pain and hopefully achieve immediate post-operative mobilization. Mrs. Smith understands the indications and possible complications of surgery. Preoperatively, the nature of the procedure, its complexity, risks and benefits, as well as alternatives including nonsurgical management were discussed in detail with Mrs. smith and her very supportive family. They patient appeared to understand the indications for surgery and all possible complications due to the complexity of her problem and together we have decided to proceed with surgery. All questions were answered preoperatively at which time informed consent was taken. Possible complications of complex total hip replacement discussed were previously documented but include infection, implant/hip dislocation, implant loosening especially given her large amount of bone loss, implant wear or fracture of her femur bone or acetabular bone during its preparation for implantation during surgery, need for reoperation at any time for above mentioned reasons, chronic hip/thigh pain, stiffness of the operated joint, painful arc of motion, difficult ambulation, post-operative leg length discrepancy/apparent or actual (especially in Mrs. Smith case given her preoperative LLD), and foot drop. The possibility of intraoperative and post- operative medical complications including stroke, heart attack, were also discussed. Anesthesia complications and reactions, allergy to implanted components, blood clots/swelling of the limb and pulmonary embolism were also discussed. In case of infection of his joint, he understands that he will require prolonged IV antibiotic therapy and possible multiple operative procedures in the future. Procedure in detail. After proper identification of the patient including verification and marking of the surgical site, the patient was brought to the operating room and placed in supine position. All bony prominences were well padded. General anesthesia was induced without complications and prophylactic IV antibiotics were administered 30 minutes before incision. Tranexamic acid at 10mg/kg given. FIrst, her inguinal area was cleansed, prepped and draped in usual sterile fashion. Percutaneously, utilizing an 11 blade his adductor tendon was released. Wash and sterile dressing was applied. Mrs. Smith was then placed on the operating table in the right lateral decubitus position with the left side up. Patient was held in position using hip positioners. An axillary roll was placed under the axilla and care was taken to pad all bony prominences including the ulnar and peroneal nerves. An area in the left iliac crest was also prepped and draped for pin placement utilized by Twila. A timeout was done utilizing protocol to again identify the operative site which was marked appropriately. Following sterile prepping and drape, a timeout was done to again identify the appropriate operative site, which had been previously marked, a posterolateral approach was made and dissection was carried down the skin and subcutaneous tissues taking great care with hemostasis given the abundant granulation tissue present. Proximally, the dissection was carried through the skin and subcutaneous tissues down to the gluteus fascia. Distally, the fascia of iliotibial band was divided in line with the incision. Once the fascia was opened, dissection was carried down towards the femur utilizing the posterior border of the vastus lateralis as reference. Caution was taken to cauterize all perforating vessels. After placement of a Charnley retractor the gluteus medius was noted to have some minimal damage but it was completely scarred to the ilium. After dissection of the scar tissue, the gluteus medius muscle was retracted and protected throughout the procedure. The gluteus minimus was noted to be quite contused and it was debrided to healthy muscle to avoid HO formation. Attention was turned to exploration of the sciatic nerve which was ID and protected throughout the procedure. It was identified proximally and ran distally so I could protect it during the procedure. The approach was continued with elevation of the capsular and residual external rotator remnants from the trochanter. The dissection was difficult at this time but I was able to locate the obturator foramen and posterior wall which was preserved and a Ranawat type retractor was placed in the obturator foramen and over the ischium. This allowed identification of the inferior margin of the acetabulum which was completely filled with scar tissue and bony/femoral head remnants. At this time, with the femoral neck and remnant head in the way, decision was made to ream the femoral head to prepare it for autograft down to a size 36mm. After this, the femoral neck was cut successfully allowing for better exposure of the acetabulum. The femoral head with excellent cancellous bone was saved in the back table for better use. Prior to femoral head cut, three tracking pins were placed in the patients iliac crest as well as tracking markers in the superior acetabulum, trochanter, and knee for navigation purposes including leg length measuring. The femoral neck cut was done as templated, 7mm from the LT. Acetabular exposure was achieved after extensive removal of scar tissue both in the acetabulum and along the anterior wall as well as anterior to the femoral neck. This extensive scar tissue resection allowed also for better mobilization of the femur for future reduction. The posterior wall fragments were scared but there was still adequate PW support. The large medial wall and posterior superior uncontained defect was identified as described above. The acetabular defect was identified and devoid of scar tissue. Curette and price elevator as well as a metal feroz were used to prepare the defect impaction bone grafting which was done succesfully. Bone graft from the femoral head was obtained by reaming into its cancellous bone with a 36mm acetabular reaming and bone graft was packed into the defect. The medial wall defect was also packed with bone graft. Attention was then turned to acetabular reaming. CAMMY mapping was done to correlate preoperative CT findings with intraoperative findings. All points were confirmed. Multiple bone fragments were present posteriorly and were removed to better visualize cup placement. Anterior and posteroinferior retractors were placed with excellent exposure. Acetabular preparation was started as templated with a 57mm reamer. Adequate medial bone was present for medialization. Sequential reaming was done until a size 57mm reamer, which gave good peripheral fit. Fit was achieved with the anterior, anterosuperior and posteroinferior bone which gave excellent reamer fit and shell trial stability. This was felt to be acceptable and a 58mm cup was opened and impacted into place. Prior to impaction bone graft was impacted into place into the defect which was previously prepared. After cup impaction, postero superior uncoverage was noted and found to be ideal given the new position achieved and the previous bone loss. Given the anatomic disturbance but adequate good cup fit and stability, two screws were placed at first and a trial regular neutral liner was placed for trialing purposes. Attention then turned to reaming and preparation of the femur for stem insertion. Sequential broaching was done of the femur until excellent fit was achieved. This was achieved with a size 6 stem. Trialing was done of the femoral broach with a 127 deg neck and a neutral 28/46mm head. The hip was reduced and examined clinically. The leg lengths were restored and slightly increased, IT band had adequate tightness. Stability check showed stability on extension and ER as well as max adduction and flexion and IR to 80 deg without impingement. The cup was noted to be on adequate position and Ranawat coupling test showed an adequate apex posterior orientation. All impinging anterior tissue was removed with osteotomes and bovie. An intraoperative xray was done and attention was then turned reevaluation of component coupling, positioning and leg length status. Ranawat test with the components in place showed apex posterior orientation and stability evaluation showed that the hip was stable up to 80 deg of internal rotation and maximal adduction/flexion 90 deg. After all required changes in stem size and version were done. Leg lengths and offset appeared adequate and this was confirmed with navigation. Ablout 3mm increse in leg length was accepted due to her hip stability. I also confirmed this by intraoperative evaluation and this was confirmed with intraoperative xray. Given these findings, decision was made to proceed with final implant placement. After satisfactory evaluation, all trials were removed and after irrigation with 3L of NSS, one more acetabular screw was placed in the PS quadrant and the final DM liner was impacted into the cup. This was done after two total acetabular screws had been placed in the posterosuperior quadrant with good purchase. The femoral stem was placed in adequate version and it sat to the same level as the trial component so the same femoral head +8 was opened and impacted into place after thorough cleaning and drying of the trunnion. The hip was reduced at this time without any change on intraoperative stability and LL findings. REC was used for a thorough pericapsular pain blockade into the anterior capsule, vastus lateralis, gluteus musculature and subcutaneous tissues. Final check of hip stability, leg lengths, was acceptable. After final irrigation with 3L NSS, attention was then turned to wound closure. Vancomycin powder 1 gram was placed in the wound. The posterior capsular tissue remnants were repaired to the trochanter through drill holes with PDS +2 suture. The deep fascia was closed with #1 PDS suture. Subcutaneous tissues were closed with 0 and 2-0 Monocryl. The skin was closed with 3-0 monocryl. Sterile dressings were applied over the sterile wound. The patient was awakened, extubated and taken to the recovery room in stable condition. Shetolerated this procedure very well and will be allowed to perform weight bearing as tolerated during immediate post-operative PT. He will maintain posterior hip precautions. She has been deconditioned due to prolonged sitting after her trauma and has much stretching and strengthening work to do given chronic shortening. She will follow up with me upon discharge in no more than 2 weeks for her first post-operative visit. Extracted from:Title: Orthopedic surgery Author: Manjinder Mary MD Date: 09/24/17 History and Phyical Orthopedic surgery Pt. Name: Megan Smith Chief Complaint Left hip pain/following fracdture History of Present Illness Mrs. Smith is a pleasant 82-year-old female, who has had multiple comorbidities and mild obesity and is also on dialysis. She was injured on or about June 24, 2017, fall from standing height, sustaining a displaced unstable left-sided associated both-column acetabulum fracture. She then underwent ORIF of her fracture by Dr. Durbin and did quite well for a bit.. She presents today, referred by Dr. Durbin coplaning of groin pain and inability to bear weight to the left LE. She had been doing very well up to a point, but now states that she has had significant amount of pain recently. Pain reaches 6-10 on intensity. Her dialysis are Monday, and Monday. Review of Systems Const: no fever,no chills,no weight loss,no weight gainanddoes not tire easily. HENT: no headache,no earache,no difficulty swallowing,no nosebleedsandno ringing in the ears. CV: no chest pain,no palpitations,no faintingandno murmurs. Resp: no cough,no wheezing,not short of breath,no painful inspirationsandno chest tightness. GI: no heartburn,no diarrhea,no nausea,no black or tarry stools,no vomitingandno constipation. Musc: per HPIandjoint pain. Skin: no skin changes,no erythema,no signs of poor healing,no rashandno itching. Neuro: no numbness,no tremors,no tingling,no seizures,steady gaitandno dizziness. Psych: not feeling nervous,no anxiety,no depressionandno hallucinations. Heme/Lymph: no easy bleeding,no easy bruisingandno swollen glands. Active Problems 1. Left acetabular fracture (808.0) (S32.402A) 2. Left hip pain (719.45) (M25.552) 3. Painful orthopaedic hardware (996.78) (T84.84XA) 4. 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 History of Diabetes (250.00) (E11.9) 2. History of Diabetes mellitus, type 2 (250.00) (E11.9) 3. History of Diabetic nephropathy associated with type 2 diabetes mellitus (250.40,583.81) (E11.21) 4. History of End stage renal disease on dialysis (585.6,V45.11) (N18.6,Z99.2) 5. History of High blood pressure (401.9) (I10) 6. History of Kidney disease (593.9) (N28.9) Surgical History 1. History of hip replacement 2. History of open reduction-internal fixation End of Encounter Meds 1. Acetaminophen-Codeine #3 300-30 MG Oral Tablet (Tylenol with Codeine #3); TAKE 1 TABLET EVERY 4 TO 6 HOURS NEEDED FOR PAIN; Therapy: 01Sep2017 to (Evaluate:08Sep2017); Last Rx:01Sep2017 Ordered Physical Exam Left Hip Exam No erythema present. No ecchymosis. Surgical incision is healed. No swelling. No muscle atrophy. No palpable masses. Groin pain upon any attempted rotation. No pain to palpation over greater trochanter. Hip flexion 100 degrees. External Rotation 10 degrees. Internal Rotation neutral degrees. Abduction 30 degrees. Adduction 10 degrees. SLR negative. Groin pain on motion that recreates her symptoms.. Flexion contracture is not present. Hip Abduction strengths is rated 4/5. Hip Adductors strength is rated 4/5. Hip Flexors strength rate 4/5. Hip Extensors strength 5/5. Quad strength rated 5/5. Foot dorsiflexors strength rated 5/5. Plantar flexors strength rated 5/5. Sensation are intact and symmetrical. EHL/TA 5/5 on MMT. Examination of the lower back does not show any tenderness, deformity or injury. Trendelenburg's sign is not present. Leg lengths are clinically unequal, left leg shorter by about 1.5 cm. Constitutional No acute distress, well nourished. Cardiovascular: Palpable radial and ulnar pulses in the upper extremities. Palpable dorsalis pedis and posterior tibial pulses in the lower extremities. No pitting edema or varicosities in the lower extremities. Maneuvers demonstrated a negative Valentine's sign. No palpable cords in calf noted. Respiratory No respiratory distress, normal respiratory rhythm and effort Musculoskeletal Muscle strength and sensation normal in all upper extremities. No pain, tingling or swelling in the upper extremities. Patient is ambidexrous. Lymphatic no popliteal nodes palpable Skin Appropriate skin color and pigmentation. No erythema, warmth or evidence of infection. Neurologic Deep tendon reflexes intact, primitive reflects were absent. Sensory exam intact to light touch, pain and temperature sensation. Upper extremity perpheral neurological exam demonstrated light touch intact for both upper arms, forearms, and hands, bilateral upper extremity nerve motor function, and intact bilateral distal pulses. Psychiatric Orientation to person, place and time. Appropriate mood and affect. Radiological Data AP Pelvis, AP left hip and lateral of left hip were ordered, obtained and interpreted from an orthopedic standpoint. Radiographs of the left hip reveal severe DJD of the hip. Medial collapse of the femoral head. There is 100% joint loss in the involved hip superiorly. The radiographs also show subchondral sclerosis, circumferential osteophytes, and cystic changes in the acetabulum and femoral head. There is bone on bone articulation evident. Shortening of left leg about 2cm. [place] B quality bone Assessment 1. Left hip pain (719.45) (M25.552) 2. Painful orthopaedic hardware (996.78) (T84.84XA) 3. 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 History of Diabetic nephropathy associated with type 2 diabetes mellitus (250.40,583.81) (E11.21) 5. History of End stage renal disease on dialysis (585.6,V45.11) (N18.6,Z99.2) 6. History of hip replacement 7. History of open reduction-internal fixation Dx. Severe left hip post traumatic arthritis following a both column left acetabular fracture. She has been unable to ambulate due to her severe pain. Given her need for dialysis TIW, we will need to coordinate with hospitalist to have her dialyzed after surgery. If surgery is able to be done on Monday, we can dialyze her on before possible discharge Monday. Her conversion from her failed acetabular fracture ORIF to total hip replacement is a quite complex procedure for someone her age and with her comorbidities and risks were all discussed including , heart attack stroke during the procedure or even fracture of her femur or acetabulum during the procedure and she understands these risks. she wishes to have an opportunity at improvement of her pain and wishes to proceed with surgery. Plan Conversion of prevoius left hip surgery to left total hip replacement - 09/25/2017 The risks and benefits of surgery were discussed with the patient including but not limited to: infection, anesthesia complications, bleeding and need for blood transfusion, deep venous clotting and pulmonary embolus, chronic hip pain and stiffness, swelling, hardware failure or symptoms, femur or acetabular fx, incomplete or worsening of her current symptoms, and the possible need for further surgery in the future. The procedure has been explained and all of her questions have been answered at the present time. The patient may call or come in if she has any other concerns or questions. The patient also understands the post-operative rehabilitation process and the need for their cooperation and participation, and that results may be compromised by their lack of compliance. The patient would like to proceed. She is encouraged to seek additional opinions if ~she~ desires. We had a lengthy discussion with the patient regarding the potential options for treatment. Based on current presentation and radiographic exam, the patient has advanced DJD of the left hip post tramatic. The patient has had an extensive conservative management course up until this time including NSAIDs and therapeutic exercise. They have not provided significant relief and the symptoms have started to affect the patient's daily activities and quality of life. Therefore I do not feel that any additional conservative management will provide additional relief. It is recommended that the patient undergo a left TIFFANIE conversion. The potential risks and benefits were discussed in detail. Based on the patients severe limitations and progressively increasing pain, as well as failures of desired improvement from other non-operative or operative treatments, I recommended the patient consider total hip arthroplasty. We reviewed the surgery in detail and the risks including infection, bleeding, nerve damage, and fracture, incomplete relief of pain, deep venous thrombosis, and mechanical failure of the device, possible leg length change and dislocation. We also discussed the potential longevity of the implant, and possible need for revision in the future. We also reviewed the risks of anesthesia. The patient understands that should infection occur, multiple operative procedures may be necessary including the use of long-term antibiotics through a central line. We also discussed the risks of pulmonary embolism secondary to DVT formation and the possible need for short-term anticoagulation or aspirin or other medications postoperatively. The patient was shown total hip booklets, diagrams and models and all of ~her~ questions have been answered at the present time. The patient also understands the post-operative rehabilitation process and the need for their cooperation and participation, and that their results may be compromised by their lack of compliance. The patient would like to proceed. he~ is encouraged to seek additional opinions if she~ desires. Schedule Conversion of previous hip surgery to left total hip replacement utilizing MAKKOPlasty due to deformity and previous hardware in place - 09/25/2017 will coordinate with Hospitalist Dr. Mendez for dialysis post op DVT prophylaxis will be Lovenox Preoperative cardiac risks assessment and eval by her central office repairer All questions regarding her procedure were answered today 09/27/2017 [facility] Extracted from:Title: [place] Renal Author: Ria Ling MD Date: 07/03/17 Patient: MEGAN SMITH Age: 81 years Sex: Female : 1935 Associated Diagnoses: None Author: Ria Ling MD Review of Systems Constitutional: Decreased activity, No fever, No chills, No weakness, No fatigue. Eye: No blurring, No double vision. Ear/Nose/Mouth/Throat: No sore throat. Respiratory: No shortness of breath, No cough. Cardiovascular: No bradycardia, No tachycardia. Gastrointestinal: No nausea, No vomiting, No diarrhea. Genitourinary: No hematuria. Hematology/Lymphatics: No bleeding tendency. Endocrine: No cold intolerance, No heat intolerance. Immunologic: No recurrent fevers. Musculoskeletal: Joint pain, Muscle pain, Claudication, Decreased range of motion, Trauma. Integumentary: No rash, No pruritus. Neurologic: Alert and oriented X4. Psychiatric: No anxiety, No depression. Health Status Allergies: Allergic Reactions (All) Severity Not Documented Ibuprofen- No reactions were documented. NKDA- No reactions were documented., Allergies (2) Active Reaction ibuprofen None Documented NKDA None Documented Current medications: (Selected) Inpatient Medications Ordered Dextrose 50% Syringe: 12.5 gm, 25 mL, IVP, PRN, PRN: Blood Glucose Results Dextrose 50% Syringe: 25 gm, 50 mL, IVP, PRN, PRN: Blood Glucose Results Lantus 100 units/mL: 10 unit, 0.1 mL, 0 ml/hr, SUB-Q, QAM Plaquenil Sulfate 200 mg oral tablet: 200 mg, 1 tab, PO, Daily Tylenol: 650 mg, 2 tab, PO, Q6H, PRN: Pain Score 1-3 acetaminophen-hydrocodone 325 mg-5 mg oral tablet: 2 tab, PO, Q4H, PRN: Pain Score 7-10 aspirin 81 mg tablet, enteric coated: 81 mg, 1 tab, PO, Daily atorvastatin: 40 mg, 1 tab, PO, Bedtime bisacodyl: 10 mg, 1 supp, [place], Daily, PRN: Constipation calcium (as carbonate)-vitamin D 500 mg-400 intl units oral tablet: 1 tab, PO, TID docusate: 100 mg, 1 cap, PO, BID ergocalciferol 50,000 intl units oral capsule: 50,000 IntlUnit, 1 cap, PO, Q7D ferrous sulfate: 325 mg, 1 tab, PO, Daily glucagon: 1 mg, IM, PRN, PRN: Blood Glucose Results heparin: 5,000 unit, 1 mL, SUB-Q, Q8H insulin lispro: 1 unit, 0.01 mL, SUB-Q, TID-Before Meals, PRN: Blood Glucose Results insulin lispro: 2 unit, 0.02 mL, SUB-Q, TID-Before Meals, PRN: Blood Glucose Results insulin lispro: 3 unit, 0.03 mL, SUB-Q, TID-Before Meals, PRN: Blood Glucose Results insulin lispro: 4 unit, 0.04 mL, SUB-Q, TID-Before Meals, PRN: Blood Glucose Results insulin lispro: 5 unit, 0.05 mL, SUB-Q, TID-Before Meals, PRN: Blood Glucose Results molasses: 240 mL, [place], ONCE ondansetron: 4 mg, 2 mL, IVP, Q6H, PRN: Nausea and Vomiting pantoprazole: 40 mg, 1 tab, PO, Before Breakfast sevelamer: 1.6 gm, 2 tab, PO, TID-Meals sodium chloride 0.9% 500 ml INJ 250 mL: director call for use with blood product administration, IV, Stop: 08/02/17 8:52:00 RN REVIEW sodium chloride 0.9% INJ 250 mL: director call for use with blood product administration, IV, Stop: 07/30/17 7:38:00 RN REVIEW Suspended Core mg, 1 tab, PO, Q12H gabapentin 100 mg oral capsule: 100 mg, 1 cap, PO, Q8H losartan: 50 mg, 1 tab, PO, Daily Documented Medications Documented Caltrate 600 with D 600 mg-400 intl units oral tablet: 1 tab, PO, TID, 60 tab Suspended Core mg, PO, BID, 0 Refill(s) Lantus 100 units/mL: 5 unit, SUB-Q, 0 Refill(s) Multiple Vitamins oral tablet: 1 tab, PO, Daily, 30 tab Plaquenil 200 mg oral tablet: 200 mg, 1 tab, PO, Daily, 0 Refill(s) aspirin 81 mg tablet, enteric coated: 1 tab, PO, Daily, 0 tab atorvastatin 40 mg oral tablet: 40 mg, 1 tab, PO, Daily, 0 Refill(s) ferrous sulfate 325 mg oral enteric coated tablet: 325 mg, 1 tab, PO, Daily, 0 Refill(s) losartan 50 mg oral tablet: 50 mg, 1 tab, PO, BID, 0 Refill(s) pantoprazole 40 mg oral enteric coated tablet: 40 mg, 1 tab, PO, Daily, 0 Refill(s), Medications (26) Active Scheduled: (12) aspirin 81 mg ECT 81 mg 1 tab, PO, Daily atorvastatin 40mg tab 40 mg 1 tab, PO, Bedtime calcium-vitamin D 500mg-400unit TAB 1 tab, PO, TID docusate sodium 100 mg CAP 100 mg 1 cap, PO, BID ergocalciferol 54450 IntlUnit CAP 50,000 IntlUnit 1 cap, PO, Q7D ferrous sulfate 325 mg ECT 325 mg 1 tab, PO, Daily heparin 5000 unit/1 ml INJ VL 5,000 unit 1 mL, SUB-Q, Q8H hydroxychloroquine sulfate 200 mg TAB 200 mg 1 tab, PO, Daily insulin GLARGINE 1 unit/0.01 mL INJ SYR 10 unit 0.1 mL, SUB-Q, QAM molasses 240 ml bottle 240 mL, [place], ONCE pantoprazole 40 mg ECT 40 mg 1 tab, PO, Before Breakfast sevelamer HCL 800 mg TAB 1.6 gm 2 tab, PO, TID-Meals Continuous: (2) sodium chloride 0.9% 500 ml INJ 250 mL 250 mL, IV sodium chloride 0.9% INJ 250 mL 250 mL, IV PRN: (12) acetaminophen 325 mg TABLET 650 mg 2 tab, PO, Q6H acetaminophen-hydrocodone 325 mg-5 mg tab 2 tab, PO, Q4H bisacodyl 10 mg rect SUPP 10 mg 1 supp, [place], Daily Dextrose 50% 50 ml INJ syringe 12.5 gm 25 mL, IVP, PRN Dextrose 50% 50 ml INJ syringe 25 gm 50 mL, IVP, PRN glucagon recombinant 1 mg PDR 1 mg, IM, PRN insulin lispro 100 unit/ml 3 ml Vial 1 unit 0.01 mL, SUB-Q, TID-Before Meals insulin lispro 100 unit/ml 3 ml Vial 2 unit 0.02 mL, SUB-Q, TID-Before Meals insulin lispro 100 unit/ml 3 ml Vial 3 unit 0.03 mL, SUB-Q, TID-Before Meals insulin lispro 100 unit/ml 3 ml Vial 4 unit 0.04 mL, SUB-Q, TID-Before Meals insulin lispro 100 unit/ml 3 ml Vial 5 unit 0.05 mL, SUB-Q, TID-Before Meals ondansetron 4 mg/2ml INJ VL 4 mg 2 mL, IVP, Q6H Problem list: No qualifying data available Histories Past Medical History: Resolved ESRD (end stage renal disease) (85472025): Resolved. HTN (hypertension) (4688318680): Resolved. Diabetes (515906108): Resolved. High blood cholesterol (21868781): Resolved. Family History: Breast cancer Mother Bone cancer.. Brother Procedure history: Hip replacement (9680790462). Knee replacement (823462246). Appendectomy (307338838). Hysterectomy (906152717). Procedure on back (779645584). Social History Social and Psychosocial Habits Tobacco 06/23/2017 Use: Never smoker Ready to change: No Concerns about tobacco use in household: No Exposure to Tobacco Smoke None Cigarette Smoking Last 365 Days No Reg Smoking Cessation Counseling No . Physical Examination VS/Measurements Measurements from flowsheet : Measurements 06/24/2017 04:30 Heparin Dosing Weight (kg) 70.89 06/24/2017 04:30 Height 172.72 cm Height Collection Method Stated Weight 81.364 kg Dosing Weight Difference Percent 0.449 % Dosing Weight Collection Method Estimated Body Surface Area 1.9758 m2 Body Mass Index 27.27 m2 06/23/2017 20:15 Heparin Dosing Weight (kg) 70.74 06/23/2017 20:11 Height 172.72 cm Height Collection Method Stated Weight 81 kg Dosing Weight Difference Percent -0.447 % Dosing Weight Collection Method Estimated Body Surface Area 1.9713 m2 Body Mass Index 27.15 m2 06/23/2017 15:14 Heparin Dosing Weight (kg) 70.89 06/23/2017 15:10 Height 172.72 cm Height Collection Method Stated Weight 81.364 kg Dosing Weight Difference Percent -20.444 % Dosing Wt Entered is <10% of Previous Wt Confirmed Dosing Weight Collection Method Estimated Body Surface Area 1.9758 m2 Body Mass Index 27.27 m2 , Vital Signs (last 24 hrs) Last Charted Temp Oral 98.2 DegF (JUL 03:40) Heart Rate Peripheral 72 bpm (JUL 03:) Resp Rate 18 BRMIN (JUL 03:) SBP 135 mmHg (JUL 03:) DBP 62 mmHg (JUL 03:) SpO2 98 % (JUL 03:) General: Alert and oriented, No acute distress. Eye: Pupils are equal, round and reactive to light, Normal conjunctiva. HENT: Normocephalic, Normal hearing. Neck: Supple. Respiratory: Lungs are clear to auscultation, Respirations are non-labored, Breath sounds are equal, Symmetrical chest wall expansion. Cardiovascular: Normal rate, Regular rhythm, No murmur, No gallop. Gastrointestinal: Soft, Non-tender, Non-distended. Neurologic: Alert, Oriented, No focal deficits. Cognition and Speech: Oriented, Speech clear and coherent. Psychiatric: Cooperative, Appropriate mood and affect. Review / Management Results review: Labs (Last four charted values) WBC 7.3 (JUL 03) 7.8 (JUL 02) 6.9 (JUL 01) 7.6 (JUN 30) Hgb C 6.9 (JUL 03) L 7.2 (JUL 02) L 7.9 (JUL 01) L 8.3 (JUN 30) Hct L 20.2 (JUL 03) L 21.1 (JUL 02) L 22.8 (JUL 01) L 24.4 (JUN 30) Plt 301 (JUL 03) 259 (JUL 02) 212 (JUL 01) 182 (JUN 30) Na L 133 (JUL 03) 136 (JUL 02) 136 (JUL 01) L 133 (JUN 30) K 4.6 (JUL 03) 4.3 (JUL 02) 3.9 (JUL 01) 4.5 (JUN 30) CO2 L 21 (JUL 03) L 20 (JUL 02) 26 (JUL 01) L 21 (JUN 30) Cl 101 (JUL 03) 101 (JUL 02) 102 (JUL 01) 99 (JUN 30) Cr H 4.56 (JUL 03) H 4.23 (JUL 02) H 3.32 (JUL 01) H 5.27 (JUN 30) BUN H 79 (JUL 03) H 64 (JUL 02) H 43 (JUL 01) H 62 (JUN 30) Glucose Random 91 (JUL 03) H 105 (JUL 02) H 119 (JUL 01) H 140 (JUN 30) Mg 2.0 (JUN 28) 2.1 (JUN 27) 2.2 (JUN 26) 2.1 (JUN 25) Phos H 7.1 (JUN 28) H 5.6 (JUN 27) H 5.6 (JUN 26) H 4.6 (JUN 25) Ca 8.7 (JUL 03) 8.5 (JUL 02) 8.6 (JUL 01) 8.7 (JUN 30) PT 13.8 (JUN 27) 14.1 (JUN 26) INR 1.06 (JUN 27) 1.09 (JUN 26) PTT H 49.6 (JUN 27) H 45.8 (JUN 26) . Impression and Plan ESRD on intermittent hemodialysis, TTS in the outpateint setting, but is on MWF inpatient. HD today. Dialysis access; RT IJ TDC Electrolytes; normal sodium and potassium Acid-base; within normal limits BMD; check phosphorus level. Volume status; mildly overloaded will adjust with dialysis Blood pressure; controlled to current regimen Anemia; due to ESRD hemoglobin is at goal. Addendum by Celina Hoang MD on 07/03/2017 14:14 DC NEPHROLOGY STAFF ATTESTATION I saw this medically complex patient on 07/03/17 while on hemodialysis. I have reviewed the labs and radiographic data, discussed the plans with the fellow, and agree with this note. Indication - metabolic acidosis, hypervolemia, hyponatremia Access - R IJ TDC Flows - QB 300 mL/min, QD 700 mL/min VS - BP 132/63, P 63 Tolerating procedure. Extracted from:Title: Clinical Document Author: Juanis Boone MD Date: 06/27/17 Orthopaedic Trauma Brief Op Note Pre op dx: Left acetabular fracture Post op dx: Same Procedure: ORIF left anterior column posterior hemitransverse acetabular fracture Surgeons: Dr Ramakrishna MD Assistants: Juanis Boone MD fellow Anesthesia: GETA Fluids: 3u PRBC, 1L albumin, crystalloid, 250cc cell saver EBL: 750cc UOP: 250cc Findings: Severely comminuted medial dome with impaction, poor bone quality Implants: Malena 10 hole reconstruction plates x2; synthes 3.5 mm screws Complications: none Plan: - PACU --> 8 miranda - Weight bearing status: TTWB LLE - Antibiotics: Ancef per scip protocol - Pain control: prn multimodal - Dressings: keep c/d/i ortho will do fi rst change - DVT PPx: chemical DVT ppx x3 weeks on DC, TEDS/SCD - acute blood loss anemia expected, danielle tor hemoglobin - Bowel Regimen: softeners, laxatives pr n - PT: consult when appropriate - Dispo: will continue to follow in hous e Extracted from:Title: UT Renal Author: Ria Ling MD Date: 06/24/17 Patient: MEGAN SMITH Age: 81 years Sex: Female : 1935 Associated Diagnoses: None Author: Ria Ling MD Chief Complaint 06/23/2017 20:11 Transfer from [facility] [place] for L acetabular fracture s/p mechanical fall from standing, accepted by Dr. Pham. L foot extewrnally rotated with shortened extremity, PMS intact. PMH: HTN, ESRD (TThSa) 06/23/2017 15:10 trip and fall at 1430 today. pt aox 3. c/o left hip upper leg pain. pt aox 3. denies headache or neck pain. History of Present Illness Nephrology consult requested by Dr. Gomez for management of ESRD. Patient is 81-year-old female with ESRD on intermittent hemodialysis TTS is admitted for left knee fracture after mechanical fall. Patient is scheduled for surgery on Monday. She has been on Dialysis via right IJ TDC.She has been on HD since October 2016, at [facility]. She had worsening CKD, unknown whether it was due to HTN. Review of Systems Constitutional: Decreased activity, No fever, No chills, No weakness, No fatigue. Eye: No blurring, No double vision. Ear/Nose/Mouth/Throat: No sore throat. Respiratory: No shortness of breath, No cough. Cardiovascular: No bradycardia, No tachycardia. Gastrointestinal: No nausea, No vomiting, No diarrhea. Genitourinary: No hematuria. Hematology/Lymphatics: No bleeding tendency. Endocrine: No cold intolerance, No heat intolerance. Immunologic: No recurrent fevers. Musculoskeletal: Joint pain, Muscle pain, Claudication, Decreased range of motion, Trauma. Integumentary: No rash, No pruritus. Neurologic: Alert and oriented X4. Psychiatric: No anxiety, No depression. Health Status Allergies: Allergic Reactions (All) Severity Not Documented NKDA- No reactions were documented., Allergies (1) Active Reaction NKDA None Documented Current medications: (Selected) Inpatient Medications Ordered Lantus 100 units/mL: 5 unit, 0.05 mL, 0 ml/hr, SUB-Q, QAM Norvasc: 10 mg, 1 tab, PO, Daily Vitamin D3 1000 intl units oral tablet: 1,000 IntlUnit, 1 tab, PO, BID Zocor: 40 mg, 1 tab, PO, Bedtime acetaminophen-hydrocodone 325 mg-5 mg oral tablet: 2 tab, PO, Q4H, PRN: Pain Score 7-10 aspirin 81 mg tablet, enteric coated: 81 mg, 1 tab, PO, Daily calcium (as carbonate)-vitamin D 500 mg-400 intl units oral tablet: 1 tab, PO, TID docusate: 100 mg, 1 cap, PO, BID ezetimibe: 10 mg, 1 tab, PO, Bedtime gabapentin 100 mg oral capsule: 100 mg, 1 cap, PO, Q8H heparin: 5,000 unit, 1 mL, SUB-Q, Q8H metoprolol tartrate: 300 mg/25 mg, PO, Daily ondansetron: 4 mg, 2 mL, IVP, Q6H, PRN: Nausea and Vomiting Documented Medications Documented Avalide 300 mg-25 mg oral tablet: 1 tab, PO, Daily, 30 tab Caltrate 600 with D 600 mg-400 intl units oral tablet: 1 tab, PO, TID, 60 tab guanfacine 1 mg oral tablet: 1 tab, PO, 30 tab Suspended Multiple Vitamins oral tablet: 1 tab, PO, Daily, 30 tab Vitamin D3 1000 intl units oral capsule: 1 cap, PO, BID, 100 cap Vytorin 10 mg-40 mg oral tablet: 1 tab, PO, Daily, 30 tab amlodipine besylate: 1 tab, PO, Daily aspirin 81 mg tablet, enteric coated: 1 tab, PO, Daily, 0 tab furosemide 20 mg oral tablet: 1 tab, PO, Daily, 30 tab metoprolol tartrate: 300 mg/25 mg, PO, Daily, Medications (13) Active Scheduled: (11) amLODIPine 10 mg TAB 10 mg 1 tab, PO, Daily aspirin 81 mg ECT 81 mg 1 tab, PO, Daily calcium-vitamin D 500mg-400unit TAB 1 tab, PO, TID cholecalciferol 1000 intl unit tab (vitamin D3) 1,000 IntlUnit 1 tab, PO, BID docusate sodium 100 mg CAP 100 mg 1 cap, PO, BID ezetimibe 10 mg TAB 10 mg 1 tab, PO, Bedtime gabapentin 100 mg CAP 100 mg 1 cap, PO, Q8H heparin 5000 unit/1 ml INJ VL 5,000 unit 1 mL, SUB-Q, Q8H insulin GLARGINE 5 unit/0.05 mL INJ SYR 5 unit 0.05 mL, SUB-Q, QAM metoprolol 300 mg/25 mg, PO, Daily simvastatin 40 mg TAB 40 mg 1 tab, PO, Bedtime Continuous: (0) PRN: (2) acetaminophen-hydrocodone 325 mg-5 mg tab 2 tab, PO, Q4H ondansetron 4 mg/2ml INJ VL 4 mg 2 mL, IVP, Q6H Problem list: No qualifying data available Histories Past Medical History: Resolved ESRD (end stage renal disease) (46354597): Resolved. HTN (hypertension) (7732778868): Resolved. Diabetes (258342522): Resolved. High blood cholesterol (49560406): Resolved. Family History: Breast cancer Mother Bone cancer.. Brother Procedure history: Hip replacement (3777233212). Knee replacement (458949067). Appendectomy (421753174). Hysterectomy (727935559). Procedure on back (030384574). Social History Social and Psychosocial Habits Tobacco 06/23/2017 Use: Never smoker Ready to change: No Concerns about tobacco use in household: No Exposure to Tobacco Smoke None Cigarette Smoking Last 365 Days No Reg Smoking Cessation Counseling No . Physical Examination VS/Measurements Measurements from flowsheet : Measurements 06/24/2017 04:30 Heparin Dosing Weight (kg) 70.89 06/24/2017 04:30 Height 172.72 cm Height Collection Method Stated Weight 81.364 kg Dosing Weight Difference Percent 0.449 % Dosing Weight Collection Method Estimated Body Surface Area 1.9758 m2 Body Mass Index 27.27 m2 06/23/2017 20:15 Heparin Dosing Weight (kg) 70.74 06/23/2017 20:11 Height 172.72 cm Height Collection Method Stated Weight 81 kg Dosing Weight Difference Percent -0.447 % Dosing Weight Collection Method Estimated Body Surface Area 1.9713 m2 Body Mass Index 27.15 m2 06/23/2017 15:14 Heparin Dosing Weight (kg) 70.89 06/23/2017 15:10 Height 172.72 cm Height Collection Method Stated Weight 81.364 kg Dosing Weight Difference Percent -20.444 % Dosing Wt Entered is <10% of Previous Wt Confirmed Dosing Weight Collection Method Estimated Body Surface Area 1.9758 m2 Body Mass Index 27.27 m2 , Vital Signs (last 24 hrs) Last Charted Temp Oral 97.7 DegF (JUN 24 07:) Heart Rate Peripheral 70 bpm (JUN 24:) Resp Rate 20 BRMIN (JUN 24:) SBP H 160mmHg (JUN 24:) DBP 67 mmHg (JUN 24:) SpO2 99 % (JUN 24:) Weight 81.364 kg (JUN 24 04:30) Height 172.72 cm (JUN 24 04:30) BMI 27.27 (JUN 24:30) General: Alert and oriented, No acute distress. Eye: Pupils are equal, round and reactive to light, Normal conjunctiva. HENT: Normocephalic, Normal hearing. Neck: Supple. Respiratory: Lungs are clear to auscultation, Respirations are non-labored, Breath sounds are equal, Symmetrical chest wall expansion. Cardiovascular: Normal rate, Regular rhythm, No murmur, No gallop. Gastrointestinal: Soft, Non-tender, Non-distended. Neurologic: Alert, Oriented, No focal deficits. Cognition and Speech: Oriented, Speech clear and coherent. Psychiatric: Cooperative, Appropriate mood and affect. Review / Management Results review: Labs (Last four charted values) WBC 9.7 (JUN 24) Hgb L 10.5 (JUN 24) Hct L 31.1 (JUN 24) Plt 186 (JUN 24) Na 140 (JUN 24) K H 5.5 (JUN 24) CO2 28 (JUN 24) Cl 103 (JUN 24) Cr H 4.33 (JUN 24) BUN H 51 (JUN 24) Glucose Random H 196 (JUN 24) Ca 9.0 (JUN 24) . Impression and Plan ESRD on intermittent hemodialysis, TTS. Will do HD today 4 hours, 400/800, 2K bath and ultrafiltration 23 L as tolerated. Dialysis access; RT IJ TDC Electrolytes; normal sodium and potassium Acid-base; within normal limits BMD; check phosphorus level. Volume status; mildly overloaded will adjust with dialysis Blood pressure; controlled to current regimen Anemia; due to ESRD hemoglobin is at goal. Addendum by Faith Cox MD on 06/25/2017 11:39 I have seen and examined the patient with the renal consult team and discussed the plan at length. I agree with the note and outlined plan above. Urmila Cox MD Attending Extracted from:Title: History and Physical Author: Prince Lakisha Paredes MD Date: 06/24/17 Assessment/Plan Patient is a 81 year old F currently admitted with acetabular fracture after a traumatic fall 1.Preop examination Patient is a moderate risk for this moderate risk procedure -Her physical exam onlyreflects the abov e trauma. Otherwise, she is euvolemic and well compensated FROM a cardiopulmonarystandpoint without oxygen requirement - Her exercise tolerance and METS have b een > 10 - Preop imaging include CXR ruled out an y pulmonary abnormalities. EKG - However, her co-morbidities which incl ude IDDM and ESRD, places her at 3.6% risks of major adverse cardiac events including (Rate of myocardial infarction, pulmonary edema, ventricular fibrillation, primary cardiac arrest, and complete heart block) - Her blood glucose is controlled, as we ll as her BP -Given she has 2.Closed fracture of both anterior and posterior columns of acetabulum ORS anticipating surgery on Monday a.m - Continue MMP regimen and DVT ppx Ordered: Admit/Condition, 06/24/17 1:51:00 CDT, Status: Inpatient, Acute, Expected LOS: 3 or [facility], Mehrdad Angeles MD, Admit MD Review/Approve Yes, Isolation: No Isolation/Standard Precautions 3.Diabetes mellitus with neuropathy and nephropathy BG is controlled at this time - Will resume home dose of lantus 5 unit s QAM.Follow HbA1c. Ordered gabapentin 4.HTN (hypertension) BP is controlled 5.ESRD on dialysis - on TTS schedule - Currently w/o urgent need for HD -Nephrology will be notified in the surendra Aguirre's session Prophylaxis Heparin Subc Disposition Pending surgical clearance and PT clearance 07/03/2017 [facility] Plan of Care No Data Provided for This Section Social History Social History Date Source Social History TypeResponse Alcohol Never Substance Abuse Use: None. Smoking Status Never smoker; Previous treatment: None; Ready to change: No; Concerns about tobacco use in household: No; Exposure to Tobacco Smoke None; Cigarette Smoking Last 365 Days No; Reg Smoking Cessation Counseling No entered on: 09/11/19 09/12/2019 [facility] Social History TypeResponse Alcohol Never Smoking Status Never smoker; Ready to change: No; Concerns about tobacco use in household: No; Exposure to Tobacco Smoke None; Cigarette Smoking Last 365 Days No; Reg Smoking Cessation Counseling No entered on: 10/18/17 09/25/2017 [facility] Social History TypeResponse Alcohol Never Smoking Status Never smoker; Previous treatment: None; Ready to change: No; Concerns about tobacco use in household: No; Exposure to Tobacco Smoke None; Cigarette Smoking Last 365 Days No; Reg Smoking Cessation Counseling No entered on: 07/17/19 09/25/2017 [facility] Social History TypeResponse Alcohol Never Smoking Status Never smoker; Ready to change: No; Concerns about tobacco use in household: No; Exposure to Tobacco Smoke None; Cigarette Smoking Last 365 Days No; Reg Smoking Cessation Counseling No entered on: 10/18/17 09/25/2017 [facility] Social History TypeResponse Alcohol Never Smoking Status Never smoker; Ready to change: No; Concerns about tobacco use in household: No; Exposure to Tobacco Smoke None; Cigarette Smoking Last 365 Days No; Reg Smoking Cessation Counseling No entered on: 10/18/17 09/25/2017 [facility] Family History No Data Provided for This Section Advance Directives No Data Provided for This Section Functional Status No Data Provided for This Section
--- OUTSIDE RECORDS SUMMARY | 2020-07-29 17:59 | XMS REPORT | Continuity of Care Document ---
Author Author [facility] t Organization [facility] Address [address] [place] [address] Phone Unavailable Care Team Providers Care Patient Account Representative Name Role Phone Pcp, No PCP Unavailable KERVIN SMITH P.A. Attphys Unavailable AMBROSE MACIAS M.D. Attphys Unavailable JAN PADILLA M.D. Attphys Unavailable Harris Mckeon Attphys Yany Kam Attphys Brando Gongora Attphys Elicia Mott Attphys LEONOR MOTT M.D. Attphys Unavailabl e KINDRA CASTANEDA Attphys Unavailable LEVON MARY M.D. Attphys Unavail able Levon Mary Attphys KATIE SALMERON NP Attphys Unavailable Prema Khan Attphys Carlos Alberto Moss Attphys [place] Attphys Salena Martinez Attphys Harris Mckeon Admphys Salena Cuellar Admphys KINDRA CASTANEDA Admphys [facility] Levon Mary Admphys Cindy Watts Admphys Payers Payer Name Policy Type Policy Number Effective Date Expiration Date S ource Problems Condition Name Condition Details Condition Category Status Onset Date Resolution Date Last Treatment Date Treating Clinician Comments Source OTHER MECHANICAL COMPLICATION OF OTHER I OTHER MECHANICAL COMPLICATION OF OTHER I Active 07/18/2019 [facility] Diagnosis Active 2019-07-18 00:00:00 2019-09-16 16:28:00 [facility] FALL FALL Active 07/17/2019 [facility] Active 2019-07-17 00:00:00 2019-07-26 21:45:00 [facility] RIGHT FEMUR FRACTURE RIGH T FEMUR FRACTURE Active 07/17/2019 [facility] Diagnosis Active 2019-07-17 00:00:00 2019-07-17 22:07:00 [facility] RIGHT PERUIPROSTHETIC FEMUR FX AND RIGHT RIGHT PERUIPROSTHETIC FEMUR FX AND RIGHT Active 07/17/2019 [facility] Diagnosis Active 2019-07-17 00:00:00 2019-07-17 22:07:00 [facility] BROKEN FEMUR BROK EN FEMUR Active 07/17/2019 [facility] Diagnosis Active 2019-07-17 00:00:00 2019-08-06 01:41:00 [facility] ESRD (end stage renal disease) on dialysis ESRD (end s tage renal disease) on dialysis Disease Active 2018-02-27 00:00:00 [facility] 73451,M97.8XXA,PERIPROSTHETIC FRACTURE A 56796,M97.8XXA,PERIPROSTHETIC FRACTURE A Active 10/12/2017 [facility] Diagnosis Active 2017-10-12 00:00:00 2017-10-18 12:23:00 [facility] [id number]- UNILATERAL POST-TRAUMATIC O [id number]- UNILATERAL POST-TRAUMATIC O Active 09/07/2017 [facility] Diagnosis Active 2017-09-07 00:00:00 2017-10-18 05:25:00 M yandel Jurgen TRANSFER---FALL PICHARDO SFER---FALL Active 06/23/2017 [facility] Diagnosis Active 2017-06-23 00:00:00 2017-06-23 2 2:09:00 [facility] CLOSED FX OF BOTH ANTERIOR POSTERIOR C CLOSED FX OF BOTH ANTERIOR POSTERIOR C Active 06/23/2017 [facility] Diagnosis Active 2017-06-23 00:00:00 2017-08-01 15:16:00 Greta Seaman Anemia in CKD (chronic kidney disease) Anemia in CKD (chroni c kidney disease) Disease Active 2016-08-11 00:00:00 Jan Benjamin Anemia Anemia Disease Active 2015-10-03 00:00:00 Jan Benjamin Essential hypertension Essential hypertension Disease Active 2015-10-03 00:00:[address] Postlaminectomy syndrome of lumbar region Postlaminect micheline syndrome of lumbar region Disease Active 2015-10-03 00:00:00 Vishal Benjamin 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 Problem Resolved [facility] History of End stage renal disease on dialysis History of End stage renal disease on dialysis Problem Resolved [facility] History of High blood pressure History of High blood pressure Probl em Resolved [facility] History of high cholesterol History of high cholesterol Problem Resolved [facility] ns History of Kidney disease History of Kidney disease Problem Resolved [facility] Left acetabular fracture Left acetabular fracture Problem Active [facility] Painful orthopaedic hardware Painful orthopaedic hardware Problem Active [facility] Post-traumatic osteoarthritis of left hip Post-traumat ic osteoarthritis of left hip Problem Active [facility] Fracture of femur following insertion of orthopedic implant, joint prosthesis, or bone plate, left leg Fracture of femur following insertion of orthopedic implant, joint prosthesis, or bone plate, left leg Problem Active [facility] Left hip pain Left hip pain Problem Active [facility] Status post left hip replacement Status post left hip replacemen t Problem Active [facility] Periprosthetic fracture of femur followi ng total replacement of hip, initial encounter Periprosthetic fracture of femur followi ng total replacement of hip, initial encounter Problem Active [facility] Hand arthritis Hand arthritis Problem Active [facility] Labral tear of long head of right biceps tendon, subse quent encounter Labral tear of long head of right biceps tendon, subsequent encounter Problem A ctive [facility] Hip pain, right Hip pain, right Problem Active [facility] Failed orthopedic implant Failed orthopedic implant Problem Active [facility] Postprocedural hematoma of a musculoskel etal structure following a musculoskeletal system procedure Postprocedural hematoma of a musculoskel etal structure following a musculoskeletal system procedure Problem Active [facility] 4-part fracture of surgical neck of right humerus with routine healing 4-part fracture of surgical neck of right humerus with routine healing Problem Active [facility] Retinopathy due to secondary diabetes mellitus Retinop athy due to secondary diabetes mellitus Disease Active [facility] n [place] 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 mellitus 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 mellitus Disease Active [facility] Osteoporosis Osteoporosis Disease Active [facility] [place] Obesity Obesity Disease Active [facility] [place] Insomnia Insomnia Disease Active Humberto eBnjamin Hepatic abscess Hepatic abscess Disease Active [facility] [place] Coronary artery disease Coronary artery disease Disease Active Overview: NSTEMI ON 09/16/15 Jan Benjamin CHF (congestive heart failure) CHF (congestive heart failure) Disease Active Overview: diastolic Montoya Meth odist Rheumatoid arthritis Rheumatoid arthritis Disease Active Overview: RA Jan Benjamin Adrenal mass Adrenal mass Disease Active Overview: 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 Jan Benjamin Alopecia Alopecia Disease Active [place] jonathan [place] Visual impairment Visual impairment Disease Active Overview: diabetic retinopathy and vitreal hemorrhage right eye- last optho exam 2016 Jan Benjamin Type 2 diabetes mellitus with diabetic chronic kidney disease Type 2 diabetes mellitus with diabetic chronic kidney disease 01/27/2018 [facility] 2018-01-27 11:22:25 Greta Seaman Hypertensive chronic kidney disease with stage 5 chronic kidney disease or end stage renal disease Hypertensive chr onic kidney disease with stage 5 chronic kidney disease or end stage renal disease 01/27/2018 [facility] Marc[facility] 2018-01-27 11:22:25 Greta Seaman 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 [employer] 2018-01-03 12:14:26 Greta Seaman Unspecified fracture of left acetabulum, subsequent encounter for fracture with nonunion Unspecified frac ture of left acetabulum, subsequent encounter for fracture with nonunion 01/03/2018 [facility] 2018-01-03 12:14:26 Greta Seaman Unspecified fall, subsequent encounter Unspecified fall, subsequent encounter 01/03/2018 [facility] 2018-01-03 12:14:26 Greta Seaman Dependence on renal dialysis D ependence on renal dialysis 01/27/2018 [facility] 2018-01-27 11:22:25 Greta Seaman Hyperlipidemia, unspecified Hy perlipidemia, unspecified 01/03/2018 [facility] 2018-01-03 12: 14:26 Greta Seaman snf (current) use of insulin 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 [employer] 2018-01-27 11:22:25 Greta Seaman Periprosthetic fracture around internal prosthetic left hip joint, initial encounter Periprosthetic f racture around internal prosthetic left hip joint, initial encounter 01/27/2018 [facility] 2018-01-27 11:22:25 [facility] Anemia in chronic kidney disease Anemia in chronic kidney disease 01/27/2018 [facility] Problem 2018-01-27 11:22:25 [facility] Overexertion from prolonged static or awkward postures , initial encounter Overexertion from prolonged static or awkward postures, initial encounter 01/27/2018 [facility] Problem 2018-01-27 11:22:25 [facility] Diabetes mellitus (disorder) D iabetes mellitus (disorder) Active Problem 09/18/2019 [facility], OPI [place] Problem Active 2019-09-18 23:21:16 [facility] End stage renal disease (disorder) End stage renal disease (disorder) Active Problem 09/18/2019 dialysis Tu,Th, Sat per pt fistula left arm [facility], [facility]ID [place] Problem Active 2019-09-18 23:21:16 [facility] Hypercholesterolemia (disorder) Hypercholesterolemia (disorder) Active Problem 09/18/2019 [facility], [facility] [place] Problem Active 2019-09-18 23:21:16 [facility] Hypertensive disorder, systemic arterial (disorder) Hypertensive disorder, systemic arterial (disorder) Active Problem 09/18/2019 [facility], [facility] [place] Problem Active 2019-09-18 23:21:16 [facility] Arthritis (disorder) Arth ritis (disorder) Active Problem 09/18/2019 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, [facility] [place] Problem Active 2019-09-18 23:21:16 [facility] Diabetic neuropathy (disorder) Diabetic neuropathy (disorder) Active Problem 09/18/2019 [facility] Problem Active 2019-09-18 23:21:16 [facility] Disease of cardiovascular system (disorder) Disease of cardiovascular system (disorder) Active Problem 09/18/2019 lower extremities [facility] Problem Active 2019-09-18 23:21:16 Wilfred Seaman Fracture of bone (disorder) Fr acture of bone (disorder) Active Problem 09/18/2019 left femur periprosthetic fracture. [facility] Problem Active 2019-09-18 23:21:16 Wilfred Seaman Gastroesophageal reflux disease (disorder) Gastroesophageal reflux disease (disorder) Active Problem 09/18/2019 [facility] Problem Active 2019-09-18 23:21:16 Wilfred Seaman OBSTRUCTIVE SLEEP APNEA OBST RUCTIVE SLEEP APNEA Active [facility] Diagnosis Active 2014-09-15 11:23:00 [facility] Jurgen SHORTNESS OF BREATH SHOR TNESS OF BREATH Active [facility] Diagnosis Active 2014-11-05 08:56:00 [facility] DISP FX OF ANTERIOR COLUMN OF UNSP ACETA DISP FX OF ANTERIOR COLUMN OF UNSP ACETA Active [facility] Diagnosis Act sven 2017-08-01 15:16:00 [facility] Her rivera ILLNESS, UNSPECIFIED ILLN ESS, UNSPECIFIED Active [facility] Diagnosis Active 2017-10-18 12:23:00 emorisydni Seaman UNSP FRACTURE OF UNSP FEMUR, INIT ENCNTR UNSP FRACTURE OF UNSP FEMUR, INIT ENCNTR Active [facility] Diagnosis Active 2019-08-06 01:41:00 [facility] Jurgen Unspecified trochanteric fracture of lef t femur, initial encounter for closed fracture Unspecified troc hanteric fracture of left femur, initial encounter for closed fracture 10/28/2017 01/27/2018 [facility] Problem 2017-10-28 04:58:14 2018-01-27 11:22:25 2018-01-27 11:22 :25 Greta Seaman History of Past Illness Condition Name Condition Details Condition Category Status Onset Date Resolution Date Last Treatment Date Treating Clinician Comments Source Fracture of bone of hip region (disorder) Fracture of bone of hip region (disorder) Resolved 05/28/2017 Problem 09/18/2019 [facility] Problem Resolved 2017-05-28 00:00:00 2019-09-18 23:21:16 2 23:21:16 Greta Seaman Allergies, Adverse Reactions, Alerts Allergy Name Allergy Type Status Severity Reaction(s) Onset Date Inacti ve Date Treating Clinician Comments Source ibuprofen DA Active [place] 2019-03-20 00:00:00 [facility] ibuprofen DA Active [place] 2017-04-05 00:00:00 [facility] Ibuprofen Propensity to adverse reactions to drug Active 2016-11-12 00:00:00 Told to not take ibuprofen conta ining medication per kidney specialist Jan Benjamin Irbesartan-Hydrochlorothiazide Propensity to adverse reactions to d rug Active Other (See Comments) 2015-10-03 00:00:00 HYPERKALEMIA- STOPPED BY RENAL Jan Benjamin ibuprofen ibuprofen Active Wilfred Seaman Family History Family Member Diagnosis Comments Start Date Stop Date Source Mother Family history of rheumatoid arthritis [facility] Father Family history of renal failure [facility] Natural father Kidney disease Housleanna Benjamin Natural mother Cancer [facility] Social History Social Habit Start Date Stop Date Quantity Comments Source Sex Assigned At Geena Benjamin Tobacco use and exposure 2019-01-09 00:00:00 2019-01-09 00:00:00 Sunil ramires used Jan Benjamin Alcohol intake 2019-01-09 00:00:00 2019-01-09 00:00:00 Current non-drinker of alcohol (finding) Jan Benjamin Social History 2017-09-25 23:32:02 2017-09-25 23:32:02 Greta Seaman Smoking Status Start Date Stop Date Source Never smoker Jan aguilar Medications Ordered Medication Name Filled Medication Name Start Date Stop Da te Current Medication? Ordering Clinician Indication Dosage Frequency Signature (SIG) Comments Components Source carvedilol 25 mg oral tablet 2019-09-16 21:33:00 Yes 25 mg = 1 tab, PO, Q12H, 0 Refill(s) Greta Seaman Oxycodone Hydrochloride 5 MG Oral Tablet 2019-09-16 21:33:00 Yes 5 mg = 1 tab, PO, Q4H, PRN Pain Score 7-10, 0 Refill(s) [facility] heparin sodium, porcine 2500 UNT/ML Injectable Solution 2019-09-16 21:33:00 Yes SUB-Q, Q12H, 0 Refill(s) [facility] Coreg 2019-09-16 15:00:00 No Notes: Give with food. (Same As: Coreg) [facility] heparin sodium, porcine 2500 UNT/ML Injectable Solution 2019-09-16 15:00:00 No Notes: porcine heparin [facility] Norvasc 2019-09-15 15:00:00 No Notes: (Same as: Norvasc) [facility] Ancef 2019-09-14 04:00:00 No 2 gm, 20 mL, Route: IVP, Drug form: SOLN, ABXQ8H, Dosing Weight 80, kg, Start date: 09/13/19 22:00:00 PREFORMS LAMINATOR, Duration: 3 doses or times, Stop date: 09/14/19 14:00:00 PREFORMS LAMINATOR, ABX Indication: Surgical Prophylaxis, 0 [facility] Hydralazine 2019-09-13 18:48:00 No Notes: (Same as: Apresoline) Push over 5 minutes [facility] Labetalol 2019-09-13 18:48:00 No 10 mg, 2 mL, Route: IVP, Drug form: INJ, Q5Min, Dosing Weight 80, kg, PRN Elevated BP, Start date: 09/13/19 12:48:00 PREFORMS LAMINATOR, Duration: 5 doses or times, Stop date: Limited # of times, 0 [facility] Acetaminophen 2019-09-13 18:48:00 No Notes: Max acetaminophen 4000 mg/day (4 gm/day). (Same as: Tylenol Extra Strength) [facility] Oxycodone Hydrochloride 5 MG Oral Tablet 2019-09-13 18:48:00 No Notes: (Same as: Roxicodone) [facility] Hydromorphone 2019-09-13 18:48:00 No Notes: Same as Dilaudid [facility] Flumazenil 2019-09-13 18:48:00 No Notes: (S davon as: Romazicon) [facility] Naloxone 2019-09-13 18:48:00 No Notes: Same as Narcan [facility] Ondansetron 2019-09-13 18:48:00 No Notes: (Same as: Zofran) MEDICATION WASTE Product Size: 4 mg Product Wasted: ___ mg [facility] Jurgen Promethazine 2019-09-13 18:48:00 No Notes: Do not give IV push. (Same as: Phenergan) Greta Seaman neostigmine (EVERETTES) 2019-09-13 18:47:00 No Route: IV, Drug form: INJ, ONCE, Stop date: 09/13/19 12:47:00 PREFORMS LAMINATOR Gen Samann ondansetron ([facility]) 2019-09-13 18:41:00 No Route: IV, Drug form: INJ, ONCE, Stop date: 09/13/19 12:41:00 PREFORMS LAMINATOR Gen Samann dexamethasone ([facility]) 2019-09-13 18:29:00 No Route: IV, Drug form: INJ, ONCE, Stop date: 09/13/19 12:29:00 PREFORMS LAMINATOR Greta Seaman glycopyrrolate ([facility]) 2019-09-13 18:29:00 No Route: IV, Drug form: INJ, ONCE, Stop date: 09/13/19 12:29:00 PREFORMS LAMINATOR [facility] [place] lidocaine ([facility]) 2019-09-13 18:19:00 No Route: IV, Drug form: INJ, ONCE, Stop date: 09/13/19 12:19:00 PREFORMS LAMINATOR Gen Seaman propofol (ANES) 2019-09-13 18:19:00 No Route: IV, Drug form: INJ, ONCE, Stop date: 09/13/19 12:19:00 PREFORMS LAMINATOR [facility] fentaNYL (ANES) 2019-09-13 18:19:00 No Route: IV, Drug form: INJ, ONCE, Stop date: 09/13/19 12:19:00 PREFORMS LAMINATOR [facility] ceFAZolin (ANES) 2019-09-13 18:19:00 No Route: IV, Drug form: INJ, ONCE, Stop date: 09/13/19 12:19:00 PREFORMS LAMINATOR [facility] phenylephrine (ANES) 2019-09-13 18:19:00 No Route: IV, Drug form: INJ, ONCE, Stop date: 09/13/19 12:19:[address] [facility] ePHEDrine (ANES) 2019-09-13 18:19:00 No Route: IV, Drug form: INJ, ONCE, Stop date: 09/13/19 12:19:00 PREFORMS LAMINATOR Gen Seaman cisatracurium (ANES) 2019-09-13 18:19:00 No Route: IV, Drug form: INJ, ONCE, Stop date: 09/13/19 12:19:[address] [facility] Lactated Ringers Injection IV (EVERETTES) 1000 mL 2019-09-13 17:04:00 No Route: IV, Total Volume: 1,000, Start date: 09/13/19 11:04:00 PREFORMS LAMINATOR, Stop date: 09/13/19 12:04:00 PREFORMS LAMINATOR [facility] [place] atorvastatin 2019-09-13 03:00:00 No Notes: (Same as: Lipitor) [facility] Dextrose 50% Syringe (D50W) 2019-09-13 00:31:00 No 12.5 gm, 25 mL, Route: IVP, Drug Form: INJ, Dosing Weight 80, kg, PRN, PRN Blood Glucose Results, Start date: 09/12/19 18:31:00 PREFORMS LAMINATOR, Duration: 30 day, Stop date: 10/12/19 18:30:00 PREFORMS LAMINATOR, 0 [facility] Glucagon 2019-09-13 00:31:00 No 1 mg, Route: IM, Drug form: PDR/INJ, PRN, Dosing Weight 80, kg, PRN Blood Glucose Results, Start date: 09/12/19 18:31:00 PREFORMS LAMINATOR, Duration: 30 day, Stop date: 10/12/19 18:30:00 PREFORMS LAMINATOR, 0 [facility] Insulin Lispro 2019-09-13 00:31:00 No Notes: (Same as: Humalog) Roll in palms of hands gently; Do not shake vigorously. WASTE: F/P - Black; E - Municipal Trash Bin Stable for 28 days at room temperature. Expires in days from Date [facility] Jayjay laura Oxycodone Hydrochloride 5 MG Oral Tablet 2019-09-13 00:30:00 No Notes: (Same as: Roxicodone) [facility] Jayjay laura Norvasc 2019-09-12 15:00:00 No Notes: (Same as: Norvasc) [facility] Cetirizine 2019-09-12 15:00:00 No Notes: (S davon As: Zyrtec) [facility] ferrous sulfate 2019-09-12 15:00:00 No Notes: Give with food. "Do Not Crush" [facility] Insulin Glargine 100 UNT/ML Injectable Solution 2019-09-12 15:00 :00 No 10 unit, 0.1 mL, Route: SUB- Q, Drug form: SOLN, Daily, Dosing Weight 80, kg, Start date: 09/12/19 9:00:00 PREFORMS LAMINATOR, Duration: 30 day, Stop date: 10/11/19 9:00:00 PREFORMS LAMINATOR, 0 [facility] POLYETHYLENE GLYCOL 3350 2019-09-12 15:00:00 No Notes: Dissolve in 8 oz of water or juice. (Same as: Miralax) [facility] sennosides, FDC 8.6 MG Oral Tablet 2019-09-12 15:00:00 No Notes: (Same as: Senokot) [facility] heparin 2019-09-12 14:00:00 No Notes: porci ne heparin [facility] gabapentin 100 MG Oral Capsule 2019-09-12 12:00:00 No Notes: (Same as: Neurontin) [facility] Clonidine Hydrochloride 0.1 MG Oral Tablet 2019-09-12 05:02:00 No Notes: (Same As: Catapres) [facility] Dextrose 50% Syringe (D50W) 2019-09-12 05:01:00 No 12.5 gm, 25 mL, Route: IVP, Drug Form: INJ, Dosing Weight 80, kg, PRN, PRN Blood Glucose Results, Start date: 09/11/19 23:01:00 PREFORMS LAMINATOR, Duration: 30 day, Stop date: 10/11/19 23:00:00 PREFORMS LAMINATOR, 0 [facility] 2019-09-12 05:01:00 No 1 mg, Route: IM, Drug form: PDR/INJ, PRN, Dosing Weight 80, kg, PRN Blood Glucose Results, Start date: 09/11/19 23:01:00 PREFORMS LAMINATOR, Duration: 30 day, Stop date: 10/11/19 23:00:00 PREFORMS LAMINATOR, 0 [facility] Ondansetron 2019-09-12 05:01:00 No Notes: (Same as: Zofran) MEDICATION WASTE Product Size: 4 mg Product Wasted: ___ mg Greta Seaman Melatonin 2019-09-12 05:01:00 No Notes: (Sa la as: Melatonin) Greta Seaman Acetaminophen 2019-09-12 05:01:00 No Notes: Do not exceed 4 gm/day. (Same as: Tylenol) Greta Seaman ceFAZolin 2019-09-11 22:00:00 No Notes: (Sa me as Ancef) Greta Seaman Exparel 2019-09-11 19:00:00 No Notes: (Same as: Exparel) NOT FOR IV use Postoperative analgesia: Infiltration [...] rotator cuff repair: 133 mg (10 mL) Greta Seaman Acetaminophen 2019-09-11 19:00:00 No Notes: Max acetaminophen 4000 mg/day (4 gm/day). (Same as: Tylenol Extra Strength) Greta Seaman Tramadol 2019-09-11 18:45:00 No Notes: Not to exceed 400mg/day. (Same As: Ultram) Greta Seaman Ondansetron 2019-09-11 18:45:00 No Notes: (Same as: Zofran) MEDICATION WASTE Product Size: 4 mg Product Wasted: ___ mg Greta Seaman Magnesium Sulfate 2019-09-11 18:44:00 No Notes: WASTE: F/P - Sink; E - Municipal Trash Bin Greta Seaman labetalol (ANES) 2019-09-11 18:24:00 No Route: IV, Drug form: INJ, ONCE, Stop date: 09/11/19 12:24:00 PREFORMS LAMINATOR [facility] Twisp ondansetron (ANES) 2019-09-11 18:08:00 No Route: IV, Drug form: INJ, ONCE, Stop date: 09/11/19 12:08:00 PREFORMS LAMINATOR Gen Seaman neostigmine ([facility]) 2019-09-11 18:08:00 No Route: IV, Drug form: INJ, ONCE, Stop date: 09/11/19 12:08:00 PREFORMS LAMINATOR [facility] Cefazolin 2019-09-11 18:00:00 No 2 gm, Route: IVPB, Drug form: INJ, ABXQ8H, Dosing Weight 79, kg, (for patients weighing 70kg or greater), Start date: 09/11/19 12:00:00 PREFORMS LAMINATOR, Duration: 3 doses or times, Stop date: 09/12/19 4:00:00 PREFORMS LAMINATOR, ABX Indication: [facility]phylaxis [facility] Hydrom[facility]one 2019-09-11 17:48:00 No Notes: Same as Dilaudid [facility] Flumazenil 2019-09-11 17:48:00 No Notes: (S davon as: Romazicon) [facility] Naloxone 2019-09-11 17:48:00 No Notes: Same as Narcan [facility] Ondansetron 2019-09-11 17:48:00 No Notes: (Same as: Zofran) MEDICATION WASTE Product Size: 4 mg Product Wasted: ___ mg [facility] glycopyrrolate ([facility]) 2019-09-11 15:15:00 No Route: IV, Drug form: INJ, ONCE, Stop date: 09/11/19 9:15:[address] [facility] lidocaine ([facility]) 2019-09-11 15:00:00 No Route: IV, Drug form: INJ, ONCE, Stop date: 09/11/19 9:00:00 PREFORMS LAMINATOR [facility] Jurgen propofol (ANES) 2019-09-11 15:00:00 No Route: IV, Drug form: INJ, ONCE, Stop date: 09/11/19 9:00:00 PREFORMS LAMINATOR [facility] Jurgen fentaNYL (ANES) 2019-09-11 15:00:00 No Route: IV, Drug form: INJ, ONCE, Stop date: 09/11/19 9:00:00 PREFORMS LAMINATOR [place] [facility] Twisp cisatracurium (ANES) 2019-09-11 15:00:00 No Route: IV, Drug form: INJ, ONCE, Stop date: 09/11/19 9:00:00 PREFORMS LAMINATOR Greta Twisp norepinephrine (ANES) 2019-09-11 15:00:00 No Route: IV, Drug form: INJ, ONCE, Stop date: 09/11/19 9:00:00 PREFORMS LAMINATOR Greta Samann ceFAZolin (ANES) 2019-09-11 14:48:00 No Route: IV, Drug form: INJ, ONCE, Stop date: 09/11/19 8:48:00 PREFORMS LAMINATOR [place] Jurgen norepinephrine (ANES) 10 microgram 2019-09-11 14:39:00 No Route: IV, Drug form: INJ, Start date: 09/11/19 8:39:00 PREFORMS LAMINATOR, Stop date: 09/11/19 9:39:00 PREFORMS LAMINATOR Greta Seaman Sodium Chloride 0.9% (titrate) 250 mL 2019-09-11 14:23:00 N o 250 mL, Rate: To prime line and flush remaining blood products., Dosing Weight 79, kg, Route: IV, Total Volume: 250, Start Date: 09/11/19 8:23:00 PREFORMS LAMINATOR, Duration: 1 day, Stop date: 09/12/19 8:22:00 PREFORMS LAMINATOR, Replace Every: 24 hr, 0 Greta Samann Sodium Chloride 0.9% IV (ANES) 500 mL 2019-09-11 13:30:00 N o Route: IV, Total Volume: 500, Start date: 09/11/19 7:30:00 PREFORMS LAMINATOR, Stop date: 09/11/19 8:30:00 PREFORMS LAMINATOR [facility] Jurgen ceFAZolin 2019-09-11 04:00:00 No Notes: (Sa me as Ancef) Greta Seaman Amlodipine 5 MG Oral Tablet [Norvasc] 2019-09-09 16:46:00 Y es 5 mg = 1 tab, PO, Daily, 0 Refill(s) Greta Seaman Clonidine Hydrochloride 0.1 MG Oral Tablet 2019-09-09 16:43:00 No 0.1 mg = 1 tab, PO, Q8H, PRN Hypertension, 0 Refill(s) Greta Seaman Diphenhydramine Hydrochloride 25 MG Oral Capsule [Benadryl] 2019-09-09 16:41:00 No 25 mg = 1 cap, PO, Q12H, PRN as needed for allergy symptoms, 0 Refill(s) Greta Seaman Menthol 0.04 MG/MG Topical Gel [Biofreeze] 2019-09-09 16:41:00 No TOP, Daily, apply to R shoulder, 0 Refill(s) Greta Samann 3 ML Insulin Glargine 100 UNT/ML Pen Injector [Basaglar] 2019-09-09 16:40:00 No 10 unit, SUB-Q, Daily, 0 Refill( s) Greta Samann Insulin Lispro 100 UNT/ML Injectable Solution [Admelog] 2019-09-09 16:35:00 No SUB-Q, PRN Before Meals, 0 Refill(s) Greta Seaman Acetaminophen 500 MG Oral Tablet 2019-07-26 16:26:00 Yes 1,000 mg = 2 tab, PO, Q6Hnow, 0 Refill(s) Greta Jurgen ferrous sulfate 325 mg oral enteric coated tablet 2019-07-26 16:26:00 Yes 325 mg = 1 tab, PO, Daily, 0 Refill(s) Greta Seaman cetirizine 5 mg oral tablet 2019-07-26 16:26:00 Yes 5 mg = 1 tab, PO, Daily, 0 Refill(s) Greta Samann Docusate Sodium 100 MG Oral Capsule 2019-07-26 16:26:00 Yes 100 mg = 1 cap, PO, BID, 0 Refill(s) [facility] Jayjay fagan dronabinol 5 mg oral capsule 2019-07-26 16:26:00 Yes 5 mg = 1 cap, PO, Q12H, 0 Refill(s) Greta Seaman gabapentin 100 MG Oral Capsule 2019-07-26 16:26:00 Yes 100 mg = 1 cap, PO, Q8H-06, 0 Refill(s) [facility] Jayjay rmann heparin 2019-07-26 16:26:00 Yes 5,000 unit = 1 mL, SUB-Q, Q8H, 0 Refill(s) Greta Samann melatonin 3 mg oral tablet 2019-07-26 16:26:00 Yes 3 mg = 1 tab, PO, Bedtime, PRN Insomnia, 0 Refill(s) Wilfred Seaman minocycline 100 mg oral capsule 2019-07-26 16:26:00 Yes 100 mg = 1 cap, PO, HRKE09X, 0 Refill(s) [facility] Ariel riley POLYETHYLENE GLYCOL 3350 2019-07-26 16:26:00 Yes 17 gm = 1 pkt, PO, Daily, 0 Refill(s) [facility] sennosides, FDC 8.6 MG Oral Tablet 2019-07-26 16:26:00 Yes 17.2 mg = 2 tab, PO, Daily, 0 Refill(s) [facility] Sodium Chloride 0.9% (titrate) 250 mL 2019-07-25 12:41:00 N o 250 mL, Rate: To prime line and flush remaining blood products., Dosing Weight 75, kg, Route: IV, Total Volume: 250, Priority: Routine, Start Date: 07/25/19 6:41:00 PREFORMS LAMINATOR, Duration: 1 day, Stop date: 07/26/19 6:40:00 PREFORMS LAMINATOR, Replace Every: 24 hr, 0 [facility] phenol 2019-07-25 08:41:00 No Notes: Chloraseptic [place] (Same as: Chloraseptic, Sore Throat [place]) WASTE: F/P - Black; E - Municipal Trash Bin [facility] ceFAZolin 2019-07-25 06:00:00 No Notes: (Same As: Thomas Campos) MEDICATION WASTE Product Size: 1000 mg Product Wasted: ___ mg [facility] propofol (WALDO) 2019-07-25 00:11:00 No Route: IV, Drug form: INJ, ONCE, Stop date: 07/24/19 18:11:00 PREFORMS LAMINATOR [facility] glycopyrrolate ([facility]ALDO) 2019-07-25 00:06:00 No Route: IV, Drug form: INJ, ONCE, Stop date: 07/24/19 18:06:00 [facility] ne[facility] ([facility] 2019-07-25 00:06:00 No Route: IV, Drug form: INJ, ONCE, Stop date: 07/24/19 18:06:00 [facility] Cefazolin 2019-07-25 00:00:00 No Notes: (Same As: Deidra Camposzol) MEDICATION WASTE Product Size: 1000 mg Product Wasted: ___ mg [facility] ondansetron ([facility]) 2019-07-24 23:35:00 No Route: IV, Drug form: INJ, ONCE, Stop date: 07/24/19 17:35:[address] [facility] esmolol 2019-07-24 23:23:00 No 10 mg, Route: IVP, Q5Min, Dosing Weight 75, kg, PRN Other -See Comment, Start date: 07/24/19 17:23:00 PREFORMS LAMINATOR, Duration: 5 doses or times, Stop date: Limited # of times Grtea Jurgen Metoprolol 2019-07-24 23:23:00 No 1 mg, Route: IVP, Q5Min, Dosing Weight 75, kg, PRN Other -See Comment, Start date: 07/24/19 17:23:00 PREFORMS LAMINATOR, Duration: 5 doses or times, Stop date: Limited # of times [facility] fentaNYL ([facility]) 2019-07-24 22:44:00 No Route: IV, Drug form: INJ, ONCE, Stop date: 07/24/19 16:44:00 PREFORMS LAMINATOR Gen [facility] Jurgen ceFAZolin ([facility]) 2019-07-24 22:14:00 No Route: IV, Drug form: INJ, ONCE, Stop date: 07/24/19 16:14:00 PREFORMS LAMINATOR [facility] 2019-07-24 21:07:00 No Route: IV, Drug form: INJ, ONCE, Stop date: 07/24/19 15:07:00 PREFORMS LAMINATOR [facility] Hydralazine 2019-07-24 20:50:00 No Notes: (Same as: Apresoline) Push over [address] [facility] Labetalol 2019-07-24 20:50:00 No 10 mg, 2 mL, Route: IVP, Drug form: INJ, Q5Min, Dosing Weight 75, kg, PRN Elevated BP, Start date: 07/24/19 14:50:00 PREFORMS LAMINATOR, Duration: 5 doses or times, Stop date: 07/25/19 0:00:00 PREFORMS LAMINATOR, 0 [facility] Acetaminophen 2019-07-24 20:50:00 No Notes: Max acetaminophen 4000 mg/day (4 gm/day). (Same as: Tylenol Extra Strength) [facility] Oxycodone Hydrochloride 5 MG Oral Tablet 2019-07-24 20:50:00 No Notes: (Same as: Roxicodone) [facility] Clare gracia Hydromorphone 2019-07-24 20:50:00 No Notes: Same as Dilaudid [facility] Flumazenil 2019-07-24 20:50:00 No Notes: (S davon as: Romazicon) [facility] Naloxone 2019-07-24 20:50:00 No Notes: Same as Narcan [facility] Ondansetron 2019-07-24 20:50:00 No Notes: (Same as: Zofran) MEDICATION WASTE Product Size: 4 mg Product Wasted: ___ mg [facility] dexamethasone ([facility]) 2019-07-24 20:37:00 No Route: IV, Drug form: INJ, ONCE, Stop date: 07/24/19 14:37:00 PREFORMS LAMINATOR [facility] lidocaine ([facility]) 2019-07-24 20:32:00 No Route: IV, Drug form: INJ, ONCE, Stop date: 07/24/19 14:32:00 [facility]FORMS LAMINATOR [facility] propofol ([facility]) 2019-07-24 20:32:00 No Route: IV, Drug form: INJ, ONCE, Stop date: 07/24/19 14:32:00 PREFORMS LAMINATOR [facility] rocuronium ([facility]) 2019-07-24 20:32:00 No Route: IV, Drug form: INJ, ONCE, Stop date: 07/24/19 14:32:00 PREFORMS LAMINATOR [facility] fentaNYL ([facility]) 2019-07-24 20:32:00 No Route: IV, Drug form: INJ, ONCE, Stop date: 07/24/19 14:32:00 PREFORMS LAMINATOR [facility] ceFAZolin ([facility]) 2019-07-24 19:45:00 No Route: IV, Drug form: INJ, ONCE, Stop date: 07/24/19 13:45:00 PREFORMS LAMINATOR [facility] norepinephrine (ANES) 2019-07-24 19:40:00 No Route: IV, Drug form: INJ, ONCE, Stop date: 07/24/19 13:40:00 PREFORMS LAMINATOR [facility] norepinephrine ([facility]) 10 microgram 2019-07-24 19:31:00 No Route: IV, Drug form: INJ, Start date: 07/24/19 13:31:00 PREFORMS LAMINATOR, Stop date: 07/24/19 14:31:[address] Sodium Chloride 0.9% IV (ANES) 500 mL 2019-07-24 18:45:00 N o Route: IV, Total Volume: 500, Start date: 07/24/19 12:45:00 PREFORMS LAMINATOR, Stop date: 07/24/19 13:45:[address] Lactated Ringers Injection IV (ANES) 1000 mL 2019-07-24 18:17:00 No Route: IV, Total Volume: 1,000, Start date: 07/24/19 12:17:00 PREFORMS LAMINATOR, Stop date: 07/24/19 13:17:[address] [facility] Bisacodyl 2019-07-22 15:32:00 No Notes: (Same As: Dulcolax, Bisco-Lax) [facility] Cetirizine 2019-07-21 17:25:00 No Notes: (S davon As: Zyrtec) [facility] Dextrose 50% Syringe (D50W) 2019-07-21 17:24:00 No 12.5 gm, 25 mL, Route: IVP, Drug Form: INJ, Dosing Weight 75, kg, PRN, PRN Blood Glucose Results, Start date: 07/21/19 11:24:00 PREFORMS LAMINATOR, Duration: 30 day, Stop date: 08/20/19 11:23:00 PREFORMS LAMINATOR, 0 [facility] Glucagon 2019-07-21 17:24:00 No 1 mg, Route: IM, Drug form: PDR/INJ, PRN, Dosing Weight 75, kg, PRN Blood Glucose Results, Start date: 07/21/19 11:24:00 PREFORMS LAMINATOR, Duration: 30 day, Stop date: 08/20/19 11:23:00 PREFORMS LAMINATOR, 0 [facility] Insulin Lispro 2019-07-21 17:24:00 No Notes: (Same as: Humalog) Roll in palms of hands gently; Do not shake vigorously. WASTE: F/P - Black; E - Municipal Trash Bin Stable for 28 days at room temperature. Expires in days from Date [facility] Tetrahydrocannabinol 2019-07-21 03:00:00 No Notes: (Same as: Marinol) Greta Seaman Allantoin 0.01 MG/MG / Camphor 0.005 MG/ MG / phenol 0.005 MG/MG Topical Ointment [Blistex] 2019-07-20 21:34:00 No Notes: Same as: Blistex Greta Seaman remove patch 2019-07-20 19:00:00 No Notes: Remove patch 12 hours after application each day. [facility] Her rivera Albumin Human, FDC 250 MG/ML Injection [Albuked] 2019-07-20 17:1 1:00 No Notes: Lot #: Mfg: (Same as: Plasbumin-25) "blood product derivative" WASTE: F/P - Red; E -Red MEDICATION WASTE Product Size: 25 gm Product Wasted: ___ gm Greta Seaman Tramadol 2019-07-20 15:43:00 No Notes: (Ramin e As: Ultram) Greta Seaman Midodrine 2019-07-20 15:43:00 No Notes: (Sa me as:Proamatine) Greta Seaman 250 ML Albumin Human, FDC 50 MG/ML Injection [Albuked] 2019-07-20 15:43:00 No Notes: Lot #: _ Mfg: (Same as: Plasbumin-25) "blood product derivative" WASTE: F/P - Red; E -Red MEDICATION WASTE Product Size: 25 gm Product Wasted: ___ gm [facility] Jurgen Lidocaine Hydrochloride 0.05 MG/MG Transdermal Patch [Lidode rm] 2019-07-20 15:00:00 No 1 patch, R oute: TOP, Daily, Start date: 07/20/19 9:00:00 PREFORMS LAMINATOR, Duration: 30 day, Stop date: 08/18/19 9:00:00 PREFORMS LAMINATOR, Remove after 12 hours Greta Seaman pantoprazole 2019-07-20 15:00:00 No Notes: Tablet should not be chewed or crushed. (Same as: Protonix) Gen Seaman sennosides, FDC 2019-07-20 15:00:00 No Notes: (Same as: Senokot) Greta Seaman albumin human 5% intravenous solution 2019-07-20 10:18:00 N o Notes: LOT#: Mfg: WASTE: F/P - Red; E -Red (Same as: Albuminar) "blood product derivative" [facility] Jurgen Lidocaine Hydrochloride 0.05 MG/MG Transdermal Patch [Lidode rm] 2019-07-20 06:14:00 No Notes: Kellie ly only once for up to 12 hours in a 24-hour period (12 hours on and 12 hours off). (Same as: Lidoderm) "Remove old patch before application of new patch" Laurita Seaman ceFAZolin 2019-07-20 05:00:00 No Notes: (Sa me as Ancef) [facility] Jurgen tramadol hydrochloride 50 MG Oral Tablet 2019-07-20 03:00:00 No 50 mg, 1 tab, Route: PO, Drug form: TAB, Q12H, Dosing Weight 75, kg, Start date: 07/19/19 21:00:00 PREFORMS LAMINATOR, Duration: 30 day, Stop date: 08/18/19 9:00:00 PREFORMS LAMINATOR [facility] Jurgen gabapentin 100 MG Oral Capsule 2019-07-19 22:00:00 No 100 mg, Route: PO, Drug form: CAP, Q8H, Dosing Weight 75, kg, Start date: 07/19/19 16:00:00 PREFORMS LAMINATOR, Duration: 30 day, Stop date: 08/18/19 8:00:[address] [facility] Robaxin 2019-07-19 22:00:00 No 1,000 mg, Route: IV, Q8H, Dosing Weight 75, kg, Start date: 07/19/19 16:00:00 PREFORMS LAMINATOR, Duration: 30 day, Stop date: 08/18/19 8:00:00 PREFORMS LAMINATOR [facility] Jurgen Hydromorphone 2019-07-19 19:49:00 No Notes: Same as Dilaudid [facility] Robaxin 2019-07-19 17:46:00 No Notes: (Same as:Robaxin) [facility] Jurgen gabapentin 100 MG Oral Capsule 2019-07-19 17:44:00 No Notes: (Same as: Neurontin) Greta Seaman tramadol hydrochloride 50 MG Oral Tablet 2019-07-19 17:44:00 No Notes: Not to exceed 400mg/day. (Same As: Ultram) Greta Samann Insulin regular 2019-07-19 17:16:00 No Notes: (Same as: Humulin R) Roll in palms of hands gently; Do not shake vigorously. WASTE: F/P - Black; E - Municipal Trash Bin Stable for 31 days at room temperature Expires in days from Date [facility] Jurgen Dextrose 50% Syringe (D50W) 2019-07-19 17:16:00 No 12.5 gm, 25 mL, Route: IVP, Drug Form: INJ, Dosing Weight 75, kg, PRN, PRN Abnormal Lab Result, Start date: 07/19/19 11:16:00 PREFORMS LAMINATOR, Duration: 30 day, Stop date: 08/18/19 11:15:00 PREFORMS LAMINATOR, For FSBG 40 mg/dL - 60 mg/dL, 0 [facility] Jurgen Fentanyl 2019-07-19 10:16:00 No 25 microgram, Route: IV, ONCE, Dosing Weight 75, kg, Start date: 07/19/19 4:16:00 PREFORMS LAMINATOR, Stop date: 07/19/19 4:16:00 PREFORMS LAMINATOR Greta Jurgen propofol 10 mg/mL (Titrate.) IV 1,000 mg 2019-07-19 09:31:00 No Notes: If Diprivan - change bottle & tubing every 12 hr Per state nursing law propofol can only be given by a nurse if patient is intubated or being intubated (unless the nurse is a [employer] SAL[employer]ERSON). Same as: Michelle Hernandes Twisp ondansetron (ANES) 2019-07-19 08:11:00 No Route: IV, Drug form: INJ, ONCE, Stop date: 07/19/19 2:11:00 PREFORMS LAMINATOR Gen morrowsydni Jurgen Ancef 2019-07-19 08:00:00 No 2 gm, Route: IVPB, ABXQ8H, Dosing Weight 75, kg, Start date: 07/19/19 2:00:00 PREFORMS LAMINATOR, Duration: 3 day, Stop date: 07/21/19 18:00:00 PREFORMS LAMINATOR, ABX Indication: Surgical Prophylaxis [facility] Jurgen Minocycline 2019-07-19 08:00:00 No Notes: (Same as:Minocin) No milk/antacids/iron. Greta Seaman norepinephrine (ANES) + Sodium Chloride 0.9% IV (ANES) 99 mL 2019-07-19 07:36:00 No Route: IV, Drug form: INJ, ONCE, Stop date: 07/19/19 1:36:00 PREFORMS LAMINATOR [facility] Twisp vasopressin (ANES) 2019-07-19 07:36:00 No Route: IV, Drug form: INJ, ONCE, Stop date: 07/19/19 1:36:00 PREFORMS LAMINATOR [facility] phenylephrine (ANES) 2019-07-19 07:05:00 No Route: IV, Drug form: INJ, ONCE, Stop date: 07/19/19 1:05:[address] [facility] calcium chloride (ANES) 2019-07-19 07:00:00 No Route: IV, Drug form: INJ, ONCE, Stop date: 07/19/19 1:00:00 PREFORMS LAMINATOR [facility] Twisp Fentanyl 2019-07-19 06:29:00 No 25 microgram, Route: IVP, Q5Min, Dosing Weight 75, kg, PRN Pain Score 4-6, Priority: Routine, Start date: 07/19/19 0:29:00 PREFORMS LAMINATOR, Duration: 4 doses or times, Stop date: Limited # of times [facility] Hydrom[facility]one 2019-07-19 06:29:00 No 0.5 mg, Route: IVP, Q5Min, Dosing Weight 75, kg, PRN Pain Score 7-10, Start date: 07/19/19 0:29:00 PREFORMS LAMINATOR, Duration: 4 doses or times, Stop date: Limited # of times [facility] Flumazenil 2019-07-19 06:29:00 No 0.2 mg, Route: IVP, PRN, Dosing Weight 75, kg, PRN Benzodiazepine Reversal, Initial dose, Start date: 07/19/19 0:29:00 PREFORMS LAMINATOR, Duration: 30 day, Stop date: 08/18/19 0:28:00 PREFORMS LAMINATOR [facility] Naloxone 2019-07-19 06:29:00 No 0.4 mg, Route: IVP, Q2MIN, Dosing Weight 75, kg, PRN Narcotic Reversal, Start date: 07/19/19 0:29:00 PREFORMS LAMINATOR, Duration: 8 doses or times, Stop date: Limited # of times [facility] Ondansetron 2019-07-19 06:29:00 No 4 mg, Route: IVP, ONCE, Dosing Weight 75, kg, PRN Nausea & Vomiting, Start date: 07/19/19 0:29:00 PREFORMS LAMINATOR [facility] norepinephrine ([facility]) 2019-07-19 06:24:00 No Route: IV, Drug form: INJ, ONCE, Stop date: 07/19/19 0:24:00 PREFORMS LAMINATOR [facility] Sodium Chloride 0.9% IV ([facility]) 99 mL + norepinephrine ([facility]) 10 microgram 2019-07-19 05:59:00 No Route: IV, Drug form: INJ, Start date: 07/18/19 23:59:00 PREFORMS LAMINATOR, Stop date: 07/19/19 0:59:00 PREFORMS LAMINATOR [facility] lidocaine ([facility]) 2019-07-19 05:54:00 No Route: IV, Drug form: INJ, ONCE, Stop date: 07/18/19 23:54:00 PREFORMS LAMINATOR [facility] propofol ([facility]) 2019-07-19 05:54:00 No Route: IV, Drug form: INJ, ONCE, Stop date: 07/18/19 23:54:00 PREFORMS LAMINATOR [facility] fentaNYL ([facility]) 2019-07-19 05:54:00 No Route: IV, Drug form: INJ, ONCE, Stop date: 07/18/19 23:54:00 PREFORMS LAMINATOR [facility] cisatracurium ([facility]) 2019-07-19 05:49:00 No Route: IV, Drug form: INJ, ONCE, Stop date: 07/18/19 23:49:00 PREFORMS LAMINATOR [facility] dexamethasone ([facility]) 2019-07-19 05:43:00 No Route: IV, Drug form: INJ, ONCE, Stop date: 07/18/19 23:43:00 PREFORMS LAMINATOR [facility] tranexamic acid ([facility]) 2019-07-19 05:38:00 No Route: IV, Drug form: INJ, ONCE, Stop date: 07/18/19 23:38:00 PREFORMS LAMINATOR [facility] ceFAZolin (ANES) 2019-07-19 05:18:00 No Route: IV, Drug form: INJ, ONCE, Stop date: 07/18/19 23:18:00 PREFORMS LAMINATOR Gen Seaman ketAMINE (ANES) 2019-07-19 04:47:00 No Route: IV, Drug form: INJ, ONCE, Stop date: 07/18/19 22:47:00 PREFORMS LAMINATOR Gen Seaman Sodium Chloride 0.9% IV (ANES) 90 mL + vancomycin (ANES) 100 0 mg 2019-07-19 04:45:00 No Route: IV, Drug form: INJ, Start date: 07/18/19 22:45:00 PREFORMS LAMINATOR, Stop date: 07/18/19 23:45:00 PREFORMS LAMINATOR La yue Seaman Lactated Ringers Injection IV (ANES) 1000 mL 2019-07-19 03:30:00 No Route: IV, Total Volume: 1,000, Start date: 07/18/19 21:30:00 PREFORMS LAMINATOR, Stop date: 07/18/19 22:30:[address] 2019-07-19 03:00:00 No Notes: (Same as: Lipitor) [facility] ropivacaine 2019-07-19 03:00:00 No Notes: NOT FOR IV use Ropivacaine 5 mg/mL (49.25 mL) Epinephrine 1 mg/mL (0.5 mL) Clonidine 0.1 mg/mL (0.8 mL) Ketorolac 30 mg/mL (1 mL) Normal Saline 48.45 mL [facility] heparin 2019-07-18 21:09:00 No Notes: porci ne heparin [facility] 3 ML Insulin Glargine 100 UNT/ML Prefilled Syringe [Lantus] 2019-07-18 19:24:00 No 10 unit, SUB-Q, Daily, 0 Refi ll(s) [facility] losartan 50 mg oral tablet 2019-07-18 19:24:00 No 50 mg = 1 tab, PO, BID, 0 Refill(s) [facility] carvedilol 25 mg oral tablet 2019-07-18 19:24:00 No 25 mg = 1 tab, PO, BID, # 180 tab, 0 Refill(s) [facility] Dextrose 50% Syringe (D50W) 2019-07-18 18:24:00 No 12.5 gm, 25 mL, Route: IVP, Drug Form: INJ, Dosing Weight 75, kg, PRN, PRN Blood Glucose Results, Start date: 07/18/19 12:24:00 PREFORMS LAMINATOR, Duration: 30 day, Stop date: 08/17/19 12:23:00 PREFORMS LAMINATOR, 0 Greta Davenport n Glucagon 2019-07-18 18:24:00 No 1 mg, Route: IM, Drug form: PDR/INJ, PRN, Dosing Weight 75, kg, PRN Blood Glucose Results, Start date: 07/18/19 12:24:00 PREFORMS LAMINATOR, Duration: 30 day, Stop date: 08/17/19 12:23:00 PREFORMS LAMINATOR, 0 Greta Seaman Insulin Lispro 2019-07-18 18:24:00 No Notes: (Same as: Humalog) Roll in palms of hands gently; Do not shake vigorously. WASTE: F/P - Black; E - Municipal Trash Bin Stable for 28 days at room temperature. Expires in days from Date [facility] Jayjay fagan Docusate 2019-07-18 15:00:00 No Notes: (Same as: Colace) (Do Not Crush) [facility] Jurgen POLYETHYLENE GLYCOL 3350 2019-07-18 15:00:00 No Notes: Dissolve in 8 oz of water or juice. (Same as: Miralax) [facility] Jurgen carvedilol 2019-07-18 15:00:00 No Notes: Give with food. (Same As: Coreg) [facility] Jurgen ferrous sulfate 2019-07-18 15:00:00 No Notes: Give with food. "Do Not Crush" [facility] Jurgen Hydroxychloroquine Sulfate 200 MG Oral Tablet 2019-07-18 15:00:0 0 No Notes: (Same as: Plaquenil) Hydroxychlor oquine sulfate 200 mg = 155 mg hydroxychloroquine base. If treating malaria, verify dose as salt vs. base per CDC guideline Greta Twisp Losartan 2019-07-18 15:00:00 No Notes: (Ramin e as: Cozaar) [facility] pant[facility]razole 2019-07-18 15:00:00 No Notes: Tablet should not be chewed or crushed. (Same as: Protonix) Gen Seaman Sodium Chloride 0.9% (titrate) 250 mL 2019-07-18 14:39:00 N o 250 mL, Rate: To prime line and flush remaining blood products., Dosing Weight 75, kg, Route: IV, Total Volume: 250, Start Date: 07/18/19 8:39:00 PREFORMS LAMINATOR, Duration: 1 day, Stop date: 07/19/19 8:38:00 PREFORMS LAMINATOR, Replace Every: 24 hr, 0 [facility] Jurgen Acetaminophen 2019-07-18 14:00:00 No Notes: Max acetaminophen 4000 mg/day (4 gm/day). (Same as: Tylenol Extra Strength) [facility] Jurgen Oxycodone Hydrochloride 5 MG Oral Tablet 2019-07-18 13:54:00 No Notes: (Same as: Roxicodone) [facility] Clare gracia Morphine 2019-07-18 13:54:00 No Not es: (Same as:MORPhine Sulfate) [facility] tizanidine 2019-07-18 13:54:00 No Notes: (S davon As: Zanaflex) [facility] Jurgen Dextrose 50% Syringe (D50W) 2019-07-18 09:09:00 No 12.5 gm, 25 mL, Route: IVP, Drug Form: INJ, Dosing Weight 74.545, kg, PRN, PRN Blood Glucose Results, Start date: 07/18/19 3:09:00 PREFORMS LAMINATOR, Duration: 30 day, Stop date: 08/17/19 3:08:00 PREFORMS LAMINATOR, 0 [facility] Jurgen Glucagon 2019-07-18 09:09:00 No 1 mg, Route: IM, Drug form: PDR/INJ, PRN, Dosing Weight 74.545, kg, PRN Blood Glucose Results, Start date: 07/18/19 3:09:00 PREFORMS LAMINATOR, Duration: 30 day, Stop date: 08/17/19 3:08:00 PREFORMS LAMINATOR, 0 [facility] Jurgen Ondansetron 2019-07-18 09:09:00 No Notes: (Same as: Bhavana) MEDICATION WASTE Product Size: 4 mg Product Wasted: ___ mg [facility] Jurgen Melatonin 2019-07-18 09:09:00 No Notes: (Sa me as: Melatonin) [facility] Jurgen Prochlorperazine 2019-07-18 08:49:00 No Notes: (Same as: Compazine) Greta Seaman Zofran 2019-07-18 07:59:00 No 4 mg, Route: IVP, Drug form: INJ, ONCE, Dosing Weight 74.545, kg, Priority: STAT, Start date: 07/18/19 1:59:00 PREFORMS LAMINATOR, Stop date: 07/18/19 1:59:00 [facility]aud[facility] 2019-07-18 06:43:00 No Notes: Same as Dilaudid [facility] Fentanyl 2019-07-18 06:25:00 No 50 microgram, Route: IVP, ONCE, Dosing Weight 74.545, kg, Priority: STAT, Start date: 07/18/19 0:25:00 PREFORMS LAMINATOR, Stop date: 07/18/19 0:25:00 PREFORMS LAMINATOR [facility] rivera Fentanyl 2019-07-18 04:29:00 No Notes: (Same as: Sublimaze) Preservative free. [facility] Morphine 2019-07-18 04:08:00 No Not es: (Same as:MORPhine Sulfate) [facility] Dilaudid 2019-07-18 00:59:00 No Notes: Same as: Dilaudid [facility] Dilaudid 2019-07-17 23:33:00 No Notes: (Ramin e as: Dilaudid) [facility] Jurgen Dentan 2019-07-17 22:56:00 No 4 mg, Route: IVP, Drug form: INJ, ONCE, Dosing Weight 74.545, kg, Priority: STAT, Start date: 07/17/19 16:56:00 PREFORMS LAMINATOR, Stop date: 07/17/19 16:56:00 PREFORMS LAMINATOR [facility] Morph[facility] 2019-07-17 22:08:00 No Not es: (Same as:MORPhine Sulfate) [facility] Diclofenac Sodium 1 % Transdermal Gel Diclofenac Sodium 1 % Transdermal Gel 2019-06-24 00:00:00 Yes LEONOR MOTT M.D. Apply 2g to area twice daily as needed for pain [facility] insulin GLARGINE (LANTUS) 100 unit/mL injection (vial) 2019-01-09 08:52:53 Yes 10U QD Inject 10 Units under the skin every morning. May use lower dose per sliding scale Jan Benjamin MULTIVIT-MIN/IRON/FOLIC/LUTEIN (CENTRUM SILVER WOMEN ORAL) 2019-01-09 08:52:53 Yes Take by mouth. Mitchell Benjamin CALCIUM CARBONATE (CALTRATE 600 ORAL) 2019-01-09 08:52:53 Y es Take by mouth. Jan Mosque aspirin 81 MG EC tablet 2018-02-27 11:53:28 Yes 81mg QD Take 81 mg by mouth daily. [facility] carvedilol (COREG) 25 MG tablet 2018-02-27 11:53:28 Yes 25mg Take 25 mg by mouth 2 (two) times daily with breakfast and dinner. [facility] losartan (COZAAR) 50 MG tablet 2018-02-27 11:53:28 Yes 50mg Q.5D Take 50 mg by mouth 2 (two) times daily. [facility] atorvastatin (LIPITOR) 40 MG tablet 2018-02-27 11:53:28 Yes 40mg QD Take 40 mg by mouth daily. [facility] pantoprazole (PROTONIX) 40 MG tablet 2018-02-27 11:53:28 Ye s 40mg QD Take 40 mg by mouth daily. [facility] insulin glargine (LANTUS) 100 unit/mL injection 2018-02-27 11:53 :28 Yes 10U QD Inject 10 Units subcutaneously nightly Use as directed . [facility] Sodium Chloride 0.9% (titrate) 250 mL 2017-10-21 15:01:00 N o 250 mL, Rate: To prime line and flush remaining blood products., Dosing Weight 77.273, kg, Route: IV, Total Volume: 250, Start Date: 10/21/17 9:01:00 PREFORMS LAMINATOR, Duration: 30 day, Stop date: 11/20/17 9:00:00 CDT, Replace Every: 24 hr [facility] Procrit 2017-10-20 02:00:00 No Notes: (Same as: Procrit) epoetin lisa 19146 unit/1 ml VL. For dialysis use only. (Procrit) WASTE: F/P - Red; E -Red MEDICATION WASTE Product Size: 99978 unit Product Wasted: ___ unit [facility] pantoprazole 2017-10-19 22:30:00 No 40 mg, 1 tab, Route: PO, Drug form: ECTAB, Before Dinner, Dosing Weight 77.273, kg, Start date: 10/19/17 16:30:00 PREFORMS LAMINATOR, Duration: 30 day, Stop date: 11/17/17 16:30:[address] [facility] Losartan 2017-10-19 15:00:00 No Notes: (Ramin e as: Amarilys) [facility] Hydroxychloroquine Sulfate 200 MG Oral Tablet [Plaquenil] 2017-10-19 15:00:00 No Notes: (Same a s: Plaquenil) Hydroxychloroquine sulfate 200 mg = 155 mg hydroxychloroquine base. If treating malaria, verify dose as salt vs. base per CDC guideline [facility] carvedilol 2017-10-19 15:00:00 No Notes: Give with food. (Same As: Coreg) [facility] ferrous sulfate 2017-10-19 15:00:00 No Notes: Give with food. iron elemental [id number] as ferrous sulfate Dose=___mg elemental iron [facility] heparin 2017-10-19 05:00:00 No Notes: porci ne heparin [facility] atorvastatin 2017-10-19 03:00:00 No Notes: (Same as: Lipitor) [facility] Insulin Glargine 100 UNT/ML Injectable Solution [Lantus] 2017-10-19 00:00:00 No Notes: (Same a s: Lantus) Do not hold insulin without contacting prescriber WASTE: F/P - Black; E - Municipal Trash Bin "single patient use only" [facility] Zofran 2017-10-19 00:00:00 No Notes: (Same as: Zofran) MEDICATION WASTE Product Size: 4 mg Product Wasted: ___ mg [facility] Tranexamic Acid 2017-10-18 23:12:00 No Notes: (Same As: Cyklokapron) [facility] Docusate 2017-10-18 23:00:00 No 100 mg, 1 cap, Route: PO, Drug form: CAP, BID, Dosing Weight 77.273, kg, Start date: 10/18/17 17:00:00 PREFORMS LAMINATOR, Duration: 30 day, Stop date: 11/17/17 9:00:00 CDT [facility] Zofran 2017-10-18 22:00:00 No 4 mg, Route: IV, Q8H, Dosing Weight 77.273, kg, Start date: 10/18/17 16:00:00 PREFORMS LAMINATOR, Duration: 3 doses or times, Stop date: 10/19/17 8:00:[address] [facility] laura acetaminophen-codeine #3 2017-10-18 20:32:00 No Notes: Do not exceed 4gm/day of acetaminophen. (Same as: Tylenol with Codeine # 3) [facility] bupivacaine (ANES) 2017-10-18 20:08:00 No Route: INTRATHECAL, Drug Form: INJ, ONCE, Stop date: 10/18/17 14:08:00 PREFORMS LAMINATOR [facility] morphine Sulfate (ANES) 2017-10-18 20:08:00 No Route: INTRATHECAL, Drug form: SOLN, ONCE, Stop date: 10/18/17 14:08:00 PREFORMS LAMINATOR [facility] Cefazolin 2017-10-18 20:00:00 No Notes: (Same As: Thomas Campos) MEDICATION WASTE Product Size: 1000 mg Product Wasted: ___ mg [facility] acetaminophen-codeine #3 2017-10-18 19:26:00 Yes 1 tab, PO, Q6H, PRN pain, # 30 tab, 0 Refill(s) [facility] losartan 50 mg oral tablet 2017-10-18 19:16:00 Yes 100 mg = 2 tab, PO, Daily, 0 Refill(s) [facility] pantoprazole 2017-10-18 19:16:00 Yes 40 mg, PO, Daily, # 30 tab, 0 Refill(s) [facility] Ferrousal 325 mg oral tablet 2017-10-18 19:16:00 Yes 325 mg = 1 tab, PO, Daily, 0 Refill(s) [facility] carvedilol 25 mg oral tablet 2017-10-18 19:16:00 Yes 50 mg = 2 tab, PO, Daily, 0 Refill(s) [facility] Ondansetron 2017-10-18 17:12:00 No Notes: (Same as: Zofran) MEDICATION WASTE Product Size: 4 mg Product Wasted: ___ mg [facility] Bisacodyl 2017-10-18 17:12:00 No Notes: (Same As: Dulcolax, Bisco-Lax) Greta Seaman Diphenhydramine 2017-10-18 17:12:00 No Notes: (Same as: Benadryl) Greta Seaman POLYETHYLENE GLYCOL 3350 2017-10-18 17:12:00 No Notes: Dissolve in 8 oz of water or juice. (Same as: Miralax) Greta Seaman Oxycodone Hydrochloride 5 MG Oral Tablet 2017-10-18 17:12:00 No Notes: (Same as: Roxicodone) [facility] Jayjay fagan Phenergan 2017-10-18 17:12:00 No Notes: (Sa me as: Phenergan) Greta Seaman NS 1,000 mL 2017-10-18 17:12:00 No 1,000 mL, Rate: 85 ml/hr, Infuse over: 11.8 hr, Route: IV, Dosing Weight 77.273 kg, Total Volume: 1,000, When PO intake adequate, okay to saline lock, Start date: 10/18/17 11:12:00 PREFORMS LAMINATOR, Duration: 30 day, Stop date: 11/17/17 11:11:00 CDT, 1.94, m2 [facility] Jurgen Famotidine 2017-10-18 17:12:00 No Notes: (S davon as: Pepcid) Greta Seaman Tylenol 2017-10-18 17:12:00 No Notes: Do not exceed 4 gm/day. (Same as: Tylenol) Greta Seaman Acetaminophen 325 MG / Hydrocodone Bitartrate 10 MG Oral Tab let 2017-10-18 17:12:00 No Notes: Do not exceed 4gm/day of acetaminophen. (Same as: [place] 325/10) [facility] Jurgen neostigmine (ANES) 2017-10-18 17:01:00 No Route: IV, Drug form: INJ, ONCE, Stop date: 10/18/17 11:01:00 PREFORMS LAMINATOR Greta Seaman ondansetron (ANES) 2017-10-18 16:51:00 No Route: IV, Drug form: INJ, ONCE, Stop date: 10/18/17 10:51:00 PREFORMS LAMINATOR Greta Seaman Sodium Chloride 0.9% IV (ANES) 50 mL + tranexamic acid (ANES ) 700 mg 2017-10-18 15:58:00 No Route: IV Central, Drug form: INJ, Start date: 10/18/17 9:58:00 PREFORMS LAMINATOR, Stop date: 10/18/17 10:58:00 PREFORMS LAMINATOR [facility] propofol (ANES) 2017-10-18 15:12:00 No Route: IV, Drug form: INJ, ONCE, Stop date: 10/18/17 9:12:00 PREFORMS LAMINATOR [facility] Ondansetron 2017-10-18 14:51:00 No 4 mg, Route: IVP, ONCE, Dosing Weight 77.273, kg, PRN Nausea & Vomiting, Start date: 10/18/17 8:51:00 PREFORMS LAMINATOR [facility] Glycopyrrolate 2017-10-18 14:51:00 No 0.2 mg, Route: IVP, Q5Min, Dosing Weight 77.273, kg, PRN Bradycardia, Start date: 10/18/17 8:51:00 PREFORMS LAMINATOR, Duration: 3 doses or times, Stop date: Limited # of times [facility] Diphenhydramine 2017-10-18 14:51:00 No 12.5 mg, Route: IVP, Drug form: INJ, Q6H, Dosing Weight 77.273, kg, PRN Itching, Start date: 10/18/17 8:51:00 PREFORMS LAMINATOR, Duration: 30 day, Stop date: 11/17/17 8:50:00 T [facility] Atropine 2017-10-18 14:51:00 No 0.2 mg, Route: IVP, Q5Min, Dosing Weight 77.273, kg, PRN Other -See Comment, as needed; for symptomatic pulse rate < 80% of mean 50 BPM, Start date: 10/18/17 8:51:00 PREFORMS LAMINATOR, Duration: 30 day, Stop date: 11/17/17 9:50:00 [facility] Naloxone 2017-10-18 14:51:00 No 0.4 mg, Route: IVP, Q2MIN, Dosing Weight 77.273, kg, PRN Narcotic Reversal, Start date: 10/18/17 8:51:00 PREFORMS LAMINATOR, Duration: 8 doses or times, Stop date: Limited # of times [facility] Flumazenil 2017-10-18 14:51:00 No 0.2 mg, Route: IVP, PRN, Dosing Weight 77.273, kg, PRN Benzodiazepine Reversal, Initial dose, Start date: 10/18/17 8:51:00 PREFORMS LAMINATOR, Duration: 30 day, Stop date: 11/17/17 9:50:00 CDT [facility] Hydromorphone 2017-10-18 14:51:00 No 0.2 mg, Route: IVP, Q5Min, Dosing Weight 77.273, kg, PRN Pain Score 7-10, Start date: 10/18/17 8:51:00 PREFORMS LAMINATOR, Duration: 5 doses or times, Stop date: Limited # of times [facility] Morphine 2017-10-18 14:51:00 No 2 mg, Route: IVP, Q5Min, Dosing Weight 77.273, kg, PRN Pain Score 4-6, Start date: 10/18/17 8:51:00 PREFORMS LAMINATOR, Duration: 5 doses or times, Stop date: Limited # of times [facility] Metoprolol 2017-10-18 14:51:00 No 1 mg, Route: IVP, Q5Min, Dosing Weight 77.273, kg, PRN Other -See Comment, Start date: 10/18/17 8:51:00 PREFORMS LAMINATOR, Duration: 5 doses or times, Stop date: Limited # of times [facility] Hydralazine 2017-10-18 14:51:00 No 10 mg, Route: IVP, Q20Min, Dosing Weight 77.273, kg, PRN Elevated BP, Start date: 10/18/17 8:51:00 PREFORMS LAMINATOR, Duration: 2 doses or times, Stop date: Limited # of times [facility] Periactin 2017-10-18 14:50:00 No Notes: (Sa me As: Periactin) [facility] Naloxone 2017-10-18 14:50:00 No Notes: Same as Narcan [facility] famotidine (ANES) 2017-10-18 14:32:00 No Route: IV, Drug form: INJ, ONCE, Stop date: 10/18/17 8:32:00 PREFORMS LAMINATOR [facility] cisatracurium (ANES) 2017-10-18 14:22:00 No Route: IV, Drug form: INJ, ONCE, Stop date: 10/18/17 8:22:00 PREFORMS LAMINATOR [facility] ePHEDrine (ANES) 2017-10-18 14:22:00 No Route: IV, Drug form: INJ, ONCE, Stop date: 10/18/17 8:22:00 PREFORMS LAMINATOR [facility] glycopyrrolate (ANES) 2017-10-18 14:22:00 No Route: IV, Drug form: INJ, ONCE, Stop date: 10/18/17 8:22:00 PREFORMS LAMINATOR [facility] Jurgen acetaminophen (ANES) 10 mg 2017-10-18 13:54:00 No Route: IV, Drug form: INJ, Start date: 10/18/17 7:54:00 PREFORMS LAMINATOR, Stop date: 10/18/17 8:54:[address] [facility] Sodium Chloride 0.9% IV (ANES) 50 mL + tranexamic acid (ANES ) 700 mg 2017-10-18 13:38:00 No Route: IV, Drug form: INJ, Start date: 10/18/17 7:38:00 PREFORMS LAMINATOR, Stop date: 10/18/17 8:38:[address] [facility] ceFAZolin (ANES) 2000 mg 2017-10-18 13:33:00 No Route: IV, Drug form: INJ, Start date: 10/18/17 7:33:00 PREFORMS LAMINATOR, Stop date: 10/18/17 8:33:[address] [facility] fentaNYL (ANES) 2017-10-18 13:32:00 No Route: IV, Drug form: INJ, ONCE, Stop date: 10/18/17 7:32:00 PREFORMS LAMINATOR [facility] propofol (ANES) 10 mg 2017-10-18 13:16:00 No Route: IV, Drug form: INJ, Start date: 10/18/17 7:16:00 PREFORMS LAMINATOR, Stop date: 10/18/17 8:16:[address] [facility] Sodium Chloride 0.9% IV (ANES) 500 mL 2017-10-18 12:58:00 N o Route: IV, Total Volume: 500, Start date: 10/18/17 6:58:00 PREFORMS LAMINATOR, Stop date: 10/18/17 7:58:[address] [facility] vancomycin (ANES) 1000 mg 2017-10-18 12:58:00 No Route: IV, Drug form: INJ, Start date: 10/18/17 6:58:00 PREFORMS LAMINATOR, Stop date: 10/18/17 7:58:00 PREFORMS LAMINATOR Greta Seaman Vancomycin 2017-10-18 12:00:00 No 2001 mg: infuse over 2.5 hours Greta Seaman Ofirmev 2017-10-18 06:00:00 No Notes: Infuse over 15 minutes Do not exceed 4gm/day of acetaminophen MEDICATION WASTE Product Size: 1000 mg Product Wasted: ___ mg Greta rivera scopolamine 2017-10-18 06:00:00 No Notes: Change patch every 72 hours (Same as: Transderm-Scop) Andree Villela ceFAZolin + sterile water 20 mL 2017-10-18 06:00:00 No Notes: (Same As: Thomas Campos) MEDICATION WASTE Product Size: 1000 mg Product Wasted: ___ mg Greta Seaman Zofran 2017-10-18 06:00:00 No Notes: (Same as: Zofran) MEDICATION WASTE Product Size: 4 mg Product Wasted: ___ mg [facility] Jurgen dexamethasone 2017-10-18 06:00:00 No Notes: Concentration: 4mg/ml [facility] Phenergan 25 mg oral tablet 2017-09-27 12:28:00 No 25 mg = 1 tab, PO, Q6H, PRN Nausea, # 15 tab, 0 Refill(s) Greta Twisp Acetaminophen 300 MG / Codeine Phosphate 30 MG Oral Tablet [Tylenol with Codeine #3] 2017-09-27 12:26:00 No 1 tab, PO, Q6H, PRN Pain, X 15 day, # 60 tab, 0 Refill(s) Greta Seaman losartan 50 mg oral tablet 2017-09-27 12:23:00 No 50 mg = 1 tab, PO, Daily, 0 Refill(s) [facility] hydrochlorothiazide 12.5 mg oral tablet 2017-09-27 12:23:00 No 12.5 mg = 1 tab, PO, Daily, 0 Refill(s) Татьяна Seaman Aspirin 81 MG Enteric Coated Tablet 2017-09-27 12:23:00 Yes 81 mg = 1 tab, PO, BID, # 42 tab, 0 Refill(s) Me yue Seaman Procrit 2017-09-26 23:00:00 No Notes: (Same as: Procrit) epoetin lisa 36832 unit/1 ml VL. For dialysis use only. (Procrit) WASTE: F/P - Red; E -Red MEDICATION WASTE Product Size: 48689 unit Product Wasted: ___ unit Greta Seaman heparin 2017-09-26 17:00:00 No 10,000 unit, 10 mL, Route: DIALYSIS, Drug form: INJ, ONCALL, Dosing Weight 72.727, kg, Start date: 09/26/17 11:00:00 PREFORMS LAMINATOR, Duration: [address] [facility] sodium chloride 0.9% (Priming and Maintenance) 2017-09-26 16:15: 00 No 2,000 mL, 0 ml/hr, Infuse Over: 0 hr, Ro [place]: IV, 2,000, Drug form: INJ, PRN, Dosing Weight 72.727 kg, Start date: 09/26/17 10:15:00 PREFORMS LAMINATOR, Duration: 24 hr, Stop date: 09/27/17 10:14:00 PREFORMS LAMINATOR, For Use by Dialysis Nurse ONLY, PRN Dialysis [facility] Insulin Glargine 100 UNT/ML Injectable Solution [Lantus] 2017-09-26 16:00:00 No Notes: (Same a s: Lantus) Do not hold insulin without contacting prescriber WASTE: F/P - Black; E - Municipal Trash Bin "single patient use only" [facility] Jurgen hydrochlorothiazide 2017-09-26 15:00:00 No Notes: (Same as: Hydrodiuril). Give with food. [facility] osvaldo Cozaar 2017-09-26 15:00:00 No Notes: (Same as: Amarilys) [facility] Hydrochlorothiazide 12.5 MG / Losartan Potassium 50 MG Oral Tablet 2017-09-26 15:00:00 No 1 tab, Rou te: PO, Drug Form: TAB, Dosing Weight 72.727, kg, Daily, Start date: 09/26/17 9:00:00 PREFORMS LAMINATOR, Duration: 30 day, Stop date: 10/25/17 9:00:[address] [facility] Celebrex 2017-09-26 15:00:00 No 400 mg, Route: PO, Drug form: CAP, Daily, Dosing Weight 72.727, kg, Start date: 09/26/17 9:00:00 PREFORMS LAMINATOR, Duration: 30 day, Stop date: 10/25/17 9:00:00 PREFORMS LAMINATOR Mem [facility] Twisp heparin 2017-09-26 11:00:00 No Notes: porci ne heparin [facility] Zofran 2017-09-26 06:00:00 No Notes: (Same as: Zofran) MEDICATION WASTE Product Size: 4 mg Product Wasted: ___ mg [facility] atorvastatin 2017-09-26 03:00:00 No Notes: (Same as: Lipitor) [facility] Acetaminophen 300 MG / Codeine Phosphate 30 MG Oral Tablet [Tylenol with Codeine #3] 2017-09-26 01:35:00 No Notes: Do not exceed 4gm/day of acetaminophen. (Same as: Tylenol with Codeine # 3) [facility] Cefazolin 2017-09-26 00:00:00 No Notes: (Same As: AncThomas carbajal) MEDICATION WASTE Product Size: 1000 mg Product Wasted: ___ mg [facility] Dextrose 50% Syringe 2017-09-25 23:17:00 No 25 gm, 50 mL, Route: IVP, Drug Form: INJ, Dosing Weight 72.727, kg, PRN, PRN Blood Glucose Results, Start date: 09/25/17 17:17:00 PREFORMS LAMINATOR, Duration: 30 day, Stop date: 10/25/17 17:16:00 PREFORMS LAMINATOR [facility] Glucagon 2017-09-25 23:17:00 No 1 mg, Route: IM, Drug form: PDR/INJ, PRN, Dosing Weight 72.727, kg, PRN Blood Glucose Results, Start date: 09/25/17 17:17:00 PREFORMS LAMINATOR, Duration: 30 day, Stop date: 10/25/17 17:16:00 PREFORMS LAMINATOR [facility] Insulin Lispro 2017-09-25 23:17:00 No Notes: (Same as: Humalog ) Roll in palms of hands gently; Do not shake `vigorously. "Single Patient Use Only " WASTE: F/P - Black; E - Municipal Trash Bin Stable for 28 days at room temperature. Expires in days from Date [facility] Celebrex 2017-09-25 23:00:00 No 400 mg, Route: PO, Drug form: CAP, BID, Dosing Weight 72.727, kg, Start date: 09/25/17 17:00:00 PREFORMS LAMINATOR, Duration: 30 day, Stop date: 10/25/17 9:00:00 [facility] D[facility] 2017-09-25 23:00:00 No Notes: (Same as: Colace) (Do Not Crush) [facility] ondansetron (ANES) 2017-09-25 21:59:00 No Route: IV, Drug form: INJ, ONCE, Stop date: 09/25/17 15:59:00 PREFORMS LAMINATOR [facility] ne[facility] ([facility]) 2017-09-25 21:59:00 No Route: IV, Drug form: INJ, ONCE, Stop date: 09/25/17 15:59:00 PREFORMS LAMINATOR [facility] glycopy[facility]ate ([facility]) 2017-09-25 21:59:00 No Route: IV, Drug form: INJ, ONCE, Stop date: 09/25/17 15:59:[address] [facility] Diphenhydramine 2017-09-25 21:19:00 No Notes: (Same as: Benadryl) [facility] Ondansetron 2017-09-25 21:19:00 No Notes: (Same as: Zofran) MEDICATION WASTE Product Size: 4 mg Product Wasted: ___ mg [facility] Morphine 2017-09-25 21:19:00 No Not es: (Same as:MORPhine Sulfate) [facility] POLYETHYLENE GLYCOL 3350 2017-09-25 21:19:00 No Notes: Dissolve in 8 oz of water or juice. (Same as: Miralax) [facility] Bisacodyl 2017-09-25 21:19:00 No Notes: (Same As: Dulcolax, Bisco-Lax) [facility] Acetaminophen 325 MG / Hydrocodone Bitartrate 10 MG Oral Tab let 2017-09-25 21:19:00 No 1 tab, Rou te: PO, Drug Form: TAB, Dosing Weight 72.727, kg, Q4H, PRN Pain Score 1-3, Start date: 09/25/17 15:19:00 PREFORMS LAMINATOR, Duration: 30 day, Stop date: 10/25/17 15:18:00 PREFORMS LAMINATOR La yue Seaman NS 1,000 mL 2017-09-25 21:19:00 No 1,000 mL, Rate: 30 ml/hr, Infuse over: 33.3 hr, Route: IV, Dosing Weight 72.727 kg, Total Volume: 1,000, When PO intake adequate, okay to saline lock, Start date: 09/25/17 15:19:00 PREFORMS LAMINATOR, Duration: 30 day, Stop date: 10/25/17 15:18:00 PREFORMS LAMINATOR, 1.88, m2 Greta Seaman Tylenol 2017-09-25 21:19:00 No Notes: Do not exceed 4 gm/day. (Same as: Tylenol) Greta Seaman Phenergan 2017-09-25 21:19:00 No Notes: (Sa me as: Phenergan) Greta Seaman Oxycodone Hydrochloride 5 MG Oral Tablet 2017-09-25 21:19:00 No Notes: (Same as: Roxicodone) [facility] Jayjay fagan fentaNYL (ANES) 2017-09-25 19:19:00 No Route: IV, Drug form: INJ, ONCE, Stop date: 09/25/17 13:19:00 PREFORMS LAMINATOR Gen Seaman acetaminophen (ANES) 10 mg 2017-09-25 18:55:00 No Route: IV, Drug form: INJ, Start date: 09/25/17 12:55:00 PREFORMS LAMINATOR, Stop date: 09/25/17 13:55:00 PREFORMS LAMINATOR Greta Seaman ePHEDrine (ANES) 2017-09-25 18:34:00 No Route: IV, Drug form: INJ, ONCE, Stop date: 09/25/17 12:34:00 PREFORMS LAMINATOR Gen Seaman lidocaine (ANES) 2017-09-25 18:24:00 No Route: IV, Drug form: INJ, ONCE, Stop date: 09/25/17 12:24:00 PREFORMS LAMINATOR Gen Seaman rocuronium (ANES) 2017-09-25 18:24:00 No Route: IV, Drug form: INJ, ONCE, Stop date: 09/25/17 12:24:00 PREFORMS LAMINATOR jillianrisydni Seaman propofol (ANES) 2017-09-25 18:24:00 No Route: IV, Drug form: INJ, ONCE, Stop date: 09/25/17 12:24:00 PREFORMS LAMINATOR [facility] tranexamic acid (ANES) 100 mg 2017-09-25 18:23:00 No Route: IV, Drug form: INJ, Start date: 09/25/17 12:23:00 PREFORMS LAMINATOR, Stop date: 09/25/17 13:23:00 PREFORMS LAMINATOR [facility] ceFAZolin (ANES) 2000 mg 2017-09-25 17:57:00 No Route: IV, Drug form: INJ, Start date: 09/25/17 11:57:00 PREFORMS LAMINATOR, Stop date: 09/25/17 12:57:00 PREFORMS LAMINATOR [facility] vancomycin (ANES) 1000 mg 2017-09-25 17:57:00 No Route: IV, Drug form: INJ, Start date: 09/25/17 11:57:00 PREFORMS LAMINATOR, Stop date: 09/25/17 12:57:00 PREFORMS LAMINATOR [facility] Sodium Chloride 0.9% IV (ANES) 1000 mL 2017-09-25 17:41:00 No Route: IV, Total Volume: 1,000, Start date: 09/25/17 11:41:00 PREFORMS LAMINATOR, Stop date: 09/25/17 12:41:00 PREFORMS LAMINATOR [facility] Ondansetron 2017-09-25 17:24:00 No 4 mg, Route: IVP, ONCE, Dosing Weight 72.727, kg, PRN Nausea & Vomiting, Start date: 09/25/17 11:24:00 PREFORMS LAMINATOR [facility] Sodium Chloride 0.9% IV 1000 mL 2017-09-25 17:24:00 No 1,000 mL, Rate: 125 ml/hr, Infuse over: 8 hr, Route: IV, Dosing Weight 72.727 kg, Total Volume: 1,000, Start date: 09/25/17 11:24:00 PREFORMS LAMINATOR, Duration: 30 day, Stop date: 10/25/17 11:23:00 PREFORMS LAMINATOR, 1.88, m2 [facility] Hydralazine 2017-09-25 17:24:00 No 10 mg, Route: IVP, Q20Min, Dosing Weight 72.727, kg, PRN Elevated BP, Start date: 09/25/17 11:24:00 PREFORMS LAMINATOR, Duration: 2 doses or times, Stop date: Limited # of times [facility] Morphine 2017-09-25 17:24:00 No 2 mg, Route: IVP, Q5Min, Dosing Weight 72.727, kg, PRN Pain Score 4-6, Start date: 09/25/17 11:24:00 PREFORMS LAMINATOR, Duration: 5 doses or times, Stop date: Limited # of times [facility] Metoprolol 2017-09-25 17:24:00 No 1 mg, Route: IVP, Q5Min, Dosing Weight 72.727, kg, PRN Other -See Comment, Start date: 09/25/17 11:24:00 PREFORMS LAMINATOR, Duration: 5 doses or times, Stop date: Limited # of times [facility] Naloxone 2017-09-25 17:24:00 No 0.4 mg, Route: IVP, Q2MIN, Dosing Weight 72.727, kg, PRN Narcotic Reversal, Start date: 09/25/17 11:24:00 PREFORMS LAMINATOR, Duration: 8 doses or times, Stop date: Limited # of times [facility] Flumazenil 2017-09-25 17:24:00 No 0.2 mg, Route: IVP, PRN, Dosing Weight 72.727, kg, PRN Benzodiazepine Reversal, Initial dose, Start date: 09/25/17 11:24:00 PREFORMS LAMINATOR, Duration: 30 day, Stop date: 10/25/17 11:23:00 PREFORMS LAMINATOR [facility] Celebrex 2017-09-25 17:00:00 No 400 mg, Route: PO, Drug form: CAP, PRE OP, Dosing Weight 72.727, kg, Start date: 09/25/17 11:00:00 PREFORMS LAMINATOR, Duration: 30 day, Stop date: 10/25/17 10:59:00 PREFORMS LAMINATOR [facility] scopolamine 2017-09-25 06:00:00 No Notes: Change patch every 72 hours (Same as: Transderm-Scop) Andree troy Jurgen Zofran 2017-09-25 06:00:00 No Notes: (Same as: Zofrreena) MEDICATION WASTE Product Size: 4 mg Product Wasted: ___ mg [facility] 2017-09-25 06:00:00 No Notes: Infuse over 15 minutes Do not exceed 4gm/day of acetaminophen MEDICATION WASTE Product Size: 1000 mg Product Wasted: ___ mg Greta sanchez ceFAZolin + sterile water 20 mL 2017-09-25 06:00:00 No Notes: (Same As: Thomas Campos) MEDICATION WASTE Product Size: 1000 mg Product Wasted: ___ mg Greta Seaman vancomycin + Sodium Chloride 0.9% IV 250 mL 2017-09-25 06:00:00 No 2001 mg: infuse over 2.5 hours For adult patients only: Round to nearest 250 mg per Medical Staff approval MEDICATION WASTE Product Size: 1000 mg Product Wasted: ___ mg Greta Seaman Hydrochlorothiazide 12.5 MG / Losartan Potassium 50 MG Oral Tablet 2017-09-20 17:49:00 No 1 tab, PO, Daily, 0 Refill(s) Greta Seaman atorvastatin (LIPITOR) 40 MG tablet 2017-09-18 00:00:00 Yes TAKE 1 TABLET BY MOUTH DAILY Jan Benjamin Lantus 100 units/mL 2017-07-03 21:08:00 Yes 10 unit, SUB-Q, QAM, 0 Refill(s) [facility] acetamin[facility]-hydrocodone 325 mg-5 mg oral tablet 2017-07-03 21:08:00 Yes 2 tab, PO, Q4H, PRN Pain Score 7-10, 0 Refill(s ) Greta Seaman heparin 2017-07-03 21:08:00 Yes 5,000 unit = 1 mL, SUB-Q, Q8H, 0 Refill(s) [facility] acetaminophen 325 mg oral tablet 2017-07-03 21:08:00 Yes 650 mg = 2 tab, PO, Q6H, PRN Pain Score 1-3, 0 Refill(s) [facility] docusate sodium 100 mg oral capsule 2017-07-03 21:08:00 Yes 100 mg = 1 cap, PO, BID, 0 Refill(s) [facility] Her rivera ergocalciferol 50,000 intl units oral capsule 2017-07-03 21:08:0 0 Yes 50,000 IntlUnit = 1 cap, PO, Q7D, 0 Refill(s) [facility] Jurgen sevelamer 2017-07-03 21:08:00 Yes 1.6 gm = 2 tab, PO, TID-Meals, 0 Refill(s) Greta Seaman bisacodyl 10 mg rectal suppository 2017-07-03 21:08:00 Yes 10 mg = 1 supp, MA, Daily, PRN Constipation, 0 Refill(s) Greta Seaman molasses 2017-07-03 18:46:00 No Notes: (Ramin e as:Molassloretta) Greta Seaman sodium chloride 0.9% 500 ml INJ 250 mL 2017-07-03 14:53:00 No 250 mL, Rate: coronary clinical specialist for use with blood product administration, Dosing Weight 81.364, kg, Route: IV, Total Volume: 250, Start Date: 07/03/17 8:53:00 PREFORMS LAMINATOR, Duration: 30 day, Stop date: 08/02/17 8:52:00 PREFORMS LAMINATOR, Replace Every: [address] [facility] mineral oil 2017-07-02 14:35:00 No Notes: (Same as:Fleet Mineral Oil Enema) [facility] 2017-06-30 21:00:00 No 500 mg, 1 tab, Route: PO, Drug form: TAB, [id number], Start date: 06/30/17 16:00:00 CDT, Duration: 3 day, Stop date: 07/02/17 16:00:00 PREFORMS LAMINATOR, ABX Indication: Urinary Tract Infection Greta Seaman sodium chloride 0.9% INJ 250 mL 2017-06-30 12:39:00 No 250 mL, Rate: coronary clinical specialist for use with blood product administration, Dosing Weight 81.364, kg, Route: IV, Total Volume: 250, Start Date: 06/30/17 7:39:00 CDT, Duration: 30 day, Stop date: 07/30/17 7:38:00 PREFORMS LAMINATOR, Replace Every: 24 hr Greta Seaman Lantus 100 units/mL 2017-06-29 14:00:00 No Notes: (Same as: Lantus) Do not hold insulin without contacting prescriber WASTE: F/P - Black; E - Municipal Trash Bin "single patient use only" Greta Seaman [facility] 2017-06-29 01:00:00 No Notes: [facility] as : [facility] 2017-06-28 22:00:00 No Notes: Do not give w/antacids, dairy pdt & minerals Take 1 hr before or 2 hr after dairy products Greta Seaman calcium (as carbonate)-vitamin D 500 mg-400 intl units oral tablet 2017-06-28 22:00:00 No Notes: (ca lcium carbonate-vit D 500mg-400unit TAB) Same as: Oyster-D, OsCal-D Greta Seaman sevelamer 2017-06-28 22:00:00 No Notes: Non-Formulary Drug Give Renagel (sevelamer) 1 hour before or 3 hours after other meds "Do Not Crush" (Same as: Renagel) Greta Seaman sevelamer 2017-06-28 17:00:00 No Notes: Non-Formulary Drug Give Renagel (sevelamer) 1 hour before or 3 hours after other meds "Do Not Crush" (Same as: Renagel) Greta Seaman Tylenol 2017-06-28 00:43:00 No Notes: Do not exceed 4 gm/day. (Same as: Tylenol) Greta Jurgen NS (Bolus) IV 2017-06-27 21:35:00 No 250 mL, 250 ml/hr, Infuse Over: 1 hr, Route: IV, 250, Drug form: INJ, ONCE, Priority: STAT, Dosing Weight 81.364 kg, Start date: 06/27/17 16:35:00 CDT, Duration: 1 doses or times, Stop date: 06/27/17 16:35:00 CDT Greta Samann ceFAZolin (SCIP) + sodium chloride 0.9% INJ 100 mL 2017-05-30 1 21:00:00 No Notes: (Same As: Anc ef, Kefzol) MEDICATION WASTE Product Size: 1000 mg Product Wasted: ___ mg [facility] ceFAZolin (SCIP) 2017-06-27 21:00:00 No 2 gm, Route: IVPB, Drug form: INJ, Q8H, Dosing Weight 81.364, kg, Start date: 06/27/17 16:00:00 CDT, Duration: 3 doses or times, Stop date: 06/28/17 8:00:00 CDT, ABX Indication: Surgical Prophylaxis Greta Jurgen ANES ondansetron 2017-06-27 20:31:00 No 4 mg, Route: IVP, ONCE, Dosing Weight 81.364, kg, PRN Nausea & Vomiting, Start date: 06/27/17 15:31:00 CDT [facility] WALDO flumazenil 2017-06-27 20:31:00 No 0.2 mg, Route: IVP, PRN, Dosing Weight 81.364, kg, PRN Benzodiazepine Reversal, Initial dose, Start date: 06/27/17 15:31:00 CDT, Duration: 30 day, Stop date: 07/27/17 14:30:00 [facility]MS [facility] 2017-06-27 20:31:00 No 0.4 mg, Route: IVP, Q2MIN, Dosing Weight 81.364, kg, PRN Narcotic Reversal, Start date: 06/27/17 15:31:00 CDT, Duration: 8 doses or times, Stop date: Limited # of times [facility] HYDROmorphone 2017-06-27 20:31:00 No 0.2 mg, Route: IVP, Q5Min, Dosing Weight 81.364, kg, PRN Pain Score 7-10, Start date: 06/27/17 15:31:00 CDT, Duration: 4 doses or times, Stop date: Limited # of times [facility] Insulin regular 2017-06-27 17:15:00 No 5 unit, Route: IV, ONCE, Dosing Weight 81.364, kg, Priority: STAT, Start date: 06/27/17 12:15:00 CDT, Stop date: 06/27/17 12:15:00 CDT Laurita Seaman glycopyrrolate (EVERETTES) 2017-06-27 16:46:00 No Route: IV, Drug form: INJ, ONCE, Stop date: 06/27/17 11:46:00 CDT Greta Seaman ondansetron (EVERETTES) 2017-06-27 16:46:00 No Route: IV, Drug form: INJ, ONCE, Stop date: 06/27/17 11:46:00 CDT Gen Seaman dexmedetomidine + sodium chloride 0.9% 100 ml INJ (EVERETTES) (AN ES) 2017-06-27 16:46:00 No Route: IV, Drug form: INJ, ONCE, Stop date: 06/27/17 11:46:[address] [facility] neostigmine (ANES) 2017-06-27 16:46:00 No Route: IV, Drug form: INJ, ONCE, Stop date: 06/27/17 11:46:00 CDT Gen Seaman acetaminophen (ANES) 2017-06-27 16:13:00 No Route: IV, Drug form: INJ, ONCE, Stop date: 06/27/17 11:13:[address] [facility] calcium chloride (ANES) 2017-06-27 15:28:00 No Route: IV, Drug form: INJ, ONCE, Stop date: 06/27/17 10:28:[address] [facility] vasopressin (ANES) 2017-06-27 14:33:00 No Route: IV, Drug form: INJ, ONCE, Stop date: 06/27/17 9:33:00 CDT La yue Seaman succinylcholine (ANES) 2017-06-27 14:03:00 No Route: IV, Drug form: INJ, ONCE, Stop date: 06/27/17 9:03:[address] [facility] propofol (ANES) 2017-06-27 13:47:00 No Route: IV, Drug form: INJ, ONCE, Stop date: 06/27/17 8:47:00 [facility] fentaNYL (ANES) 2017-06-27 13:47:00 No Route: IV, Drug form: INJ, ONCE, Stop date: 06/27/17 8:47:00 CDT [facility] lidocaine (ANES) 2017-06-27 13:47:00 No Route: IV, Drug form: INJ, ONCE, Stop date: 06/27/17 8:47:00 CDT [facility] cisatracurium (ANES) 2017-06-27 13:41:00 No Route: IV, Drug form: INJ, ONCE, Stop date: 06/27/17 8:41:[address] [facility] norepinephrine (ANES) 2017-06-27 13:31:00 No Route: IV, Drug form: INJ, ONCE, Stop date: 06/27/17 8:31:[address] [facility] ceFAZolin (ANES) 2017-06-27 13:15:00 No Route: IV, Drug form: INJ, ONCE, Stop date: 06/27/17 8:15:00 CDT Me yue Seaman ePHEDrine (ANES) 2017-06-27 13:10:00 No Route: IV, Drug form: INJ, ONCE, Stop date: 06/27/17 8:10:00 CDT La yue Seaman sodium chloride 0.9% 1000 ml INJ (ANES) 2017-06-27 12:25:00 No Route: IV, Total Volume: 1,000, Start date: 06/27/17 7:25:00 CDT, Stop date: 06/27/17 8:25:00 CDT [facility] Jurgen sevelamer 2017-06-26 22:00:00 No Notes: Ramin beasley as: Peggy Greta Seaman Coreg 2017-06-26 18:30:00 No Notes: Give with food. (Same As: Coreg) [facility] Jurgen Lasix 2017-06-26 14:00:00 No 80 mg, Route: IV, Daily, Dosing Weight 81.364, kg, Start date: 06/26/17 9:00:00 CDT, Duration: 30 day, Stop date: 07/25/17 9:00:00 PREFORMS LAMINATOR [facility] Jurgen Electrolyte Solution 1000 mL 2017-06-26 05:01:00 No 1,000 mL, Rate: 75 ml/hr, Infuse over: 13.3 hr, Route: IV, Dosing Weight 81.364 kg, Total Volume: 1,000, Start date: 06/26/17 0:01:00 CDT, Duration: 30 day, Stop date: 07/26/17 0:00:00 PREFORMS LAMINATOR [facility]gen ergocalciferol 50,000 intl units oral capsule 2017-06-25 21:00:0 0 No Notes: (Same as: Vitamin D) "Do Not Crush" Greta Seaman Lasix 2017-06-25 15:49:00 No Notes: (Same as: Lasix) MEDICATION WASTE Product Size: 40 mg Product Wasted: ___ mg [facility] Jurgen bisacodyl 2017-06-25 15:43:00 No Notes: (Same As: Dulcolax, Bisco-Lax) [facility] Lantus 100 units/mL 2017-06-25 14:00:00 No Notes: Same as: Lantus) Do not hold insulin without contacting prescriber WASTE: F/P - Black; E - Municipal Trash Bin Greta Seaman Plaquenil Sulfate 200 mg oral tablet 2017-06-25 14:00:00 No Notes: (Same as: Plaquenil) Hydroxychloroquine sulfate 200 mg = 155 mg hydroxychloroquine base. If treating malaria, verify dose as salt vs. base per CDC guideline [facility] Jurgen ferrous sulfate 2017-06-25 14:00:00 No Notes: Give with food. "Do Not Crush" [facility] losartan 2017-06-25 14:00:00 No Notes: (Ramin beasley as: Amarilys) Greta Seaman Dextrose 50% Syringe 2017-06-25 13:27:00 No 25 gm, 50 mL, Route: IVP, Drug Form: INJ, Dosing Weight 81.364, kg, ONCE, Start date: 06/25/17 8:27:00 CDT, Stop date: 06/25/17 8:27:00 CDT [facility] Insulin regular 2017-06-25 13:26:00 No 60 units) WASTE: F/P - Black; E - Municipal Trash Bin Stable for 28 days at room temperature Expires in days from Date Gen Seaman pantoprazole 2017-06-25 12:30:00 No Notes: Tablet should not be chewed or crushed. (Same as: Protonix) Gen Seaman Dextrose 50% Syringe 2017-06-25 10:08:00 No 25 gm, 50 mL, Route: IVP, Drug Form: INJ, Dosing Weight 81.364, kg, ONCE, Start date: 06/25/17 5:08:00 CDT, Stop date: 06/25/17 5:08:[address] [facility] Ins[facility] regular 2017-06-25 10:08:00 No 60 units) WASTE: F/P - Black; E - Municipal Trash Bin Stable for 28 days at room temperature Expires in days from Date Gen Seaman Kayexalate 2017-06-25 10:07:00 No Notes: (sodium polystyrene sulfonate 15 gm/60 ml SHARRI) Shake well before use. (Same as: Kayexalate, SPS) Greta Seaman Zocor 2017-06-25 02:00:00 No Notes: (Same a s: Zocor) Greta Seaman ezetimibe 2017-06-25 02:00:00 No Notes: (Sa me as: Zetia) Greta Seaman ezetimibe-simvastatin 2017-06-25 02:00:00 No 1 tab, Route: PO, Dosing Weight 81, kg, Bedtime, Start date: 06/24/17 21:00:00 CDT, Duration: 30 day, Stop date: 07/23/17 21:00:00 PREFORMS LAMINATOR Me morial Twisp atorvastatin 2017-06-25 02:00:00 No Notes: (Same as: Lipitor) Greta Seaman Coreg 2017-06-25 02:00:00 No Notes: Give with food. (Same As: Coreg) Greta Seaman Decara 50,000 intl units oral capsule 2017-06-24 22:18:00 N o 50,000 IntlUnit = 1 cap, PO, QTue, 0 Refill(s) Greta Seaman Lantus 100 units/mL 2017-06-24 20:39:00 No 5 unit, SUB-Q, 0 Refill(s) Greta Seaman Plaquenil 200 mg oral tablet 2017-06-24 20:39:00 Yes 200 mg = 1 tab, PO, Daily, 0 Refill(s) [facility] Jurgen pantoprazole 40 mg oral enteric coated tablet 2017-06-24 20:39:0 0 Yes 40 mg = 1 tab, PO, Daily, 0 Refill(s) Greta Seaman ergocalciferol 50,000 intl units oral capsule 2017-06-24 20:39:0 0 No 50,000 IntlUnit = 1 cap, PO, Daily, 0 Refill(s) [facility] ferrous sulfate 325 mg oral enteric coated tablet 2017-06-24 20:39:00 Yes 325 mg = 1 tab, PO, Daily, 0 Refill(s) [facility] Jurgen atorvastatin 40 mg oral tablet 2017-06-24 20:39:00 Yes 40 mg = 1 tab, PO, Daily, 0 Refill(s) [facility] Her rivera losartan 50 mg oral tablet 2017-06-24 20:39:00 No 50 mg = 1 tab, PO, BID, 0 Refill(s) Greta Seaman Coreg 2017-06-24 20:39:00 No 25 mg, PO, BID , 0 Refill(s) [facility] Jur[facility] insulin lispro 2017-06-24 17:49:00 No 60 units) WASTE: F/P - Black; E - Municipal Trash Bin Stable for 28 days at room temperature. Expires in days from Date [facility] Jurgen Dextrose 50% Syringe 2017-06-24 17:49:00 No 12.5 gm, 25 mL, Route: IVP, Drug Form: INJ, Dosing Weight 81.364, kg, PRN, PRN Blood Glucose Results, Start date: 06/24/17 12:49:00 CDT, Duration: 30 day, Stop date: 07/24/17 11:48:00 PREFORMS LAMINATOR [facility] Jurgen glucagon 2017-06-24 17:49:00 No 1 mg, Route: IM, Drug form: PDR/INJ, PRN, Dosing Weight 81.364, kg, PRN Blood Glucose Results, Start date: 06/24/17 12:49:00 CDT, Duration: 30 day, Stop date: 07/24/17 11:48:00 PREFORMS LAMINATOR [facility] Jurgen Norvasc 2017-06-24 14:00:00 No Notes: (Same as: Phuong) [facility] tartrate 2017-06-24 14:00:00 No Route: PO, Drug form: TAB, Daily, Dosing Weight 81, kg, Start date: 06/24/17 9:00:00 CDT, Duration: 30 day, Stop date: 07/23/17 9:00:00 PREFORMS LAMINATOR [facility]3 1000 intl units oral tablet 2017-06-24 14:00:00 No Notes: Same as : Vitamin D3 [facility] calcium (as carbonate)-vitamin D 500 mg-400 intl units oral tablet 2017-06-24 14:00:00 No Notes: (ca lcium carbonate-vit D 500mg-400unit TAB) Same as: Oyster-D, OsCal-D [facility] aspirin 81 mg tablet, enteric coated 2017-06-24 14:00:00 No 81 mg, 1 tab, Route: PO, Drug form: ECTAB, Daily, Dosing Weight 81, kg, Start date: 06/24/17 9:00:00 CDT, Duration: 30 day, Stop date: 07/23/17 9:00:[address] [facility] docusate 2017-06-24 14:00:00 No Notes: (Same as: Colace) (Do Not Crush) [facility] Lantus 100 units/mL 2017-06-24 14:00:00 No Notes: Same as: Lantus) Do not hold insulin without contacting prescriber WASTE: F/P - Black; E - Municipal Trash Bin [facility] heparin 2017-06-24 13:00:00 No Notes: porci ne heparin [facility] gabapentin 100 mg oral capsule 2017-06-24 13:00:00 No Notes: (Same as: Neurontin) [facility] Zofran 2017-06-24 07:25:00 No Notes: (Same as: Zofran) MEDICATION WASTE Product Size: 4 mg Product Wasted: ___ mg [facility] ondansetron 2017-06-24 06:51:00 No Notes: (Same as: Zofran) MEDICATION WASTE Product Size: 4 mg Product Wasted: ___ mg [facility] acetaminophen-hydrocodone 325 mg-5 mg oral tablet 2017-06-24 06:51:00 No Notes: (Same as: [place] 325/5) Do not exceed 4g m/day of acetaminophen. [facility] morphine Sulfate 2017-06-24 06:51:00 No 2 mg, Route: IVP, Q4H, Dosing Weight 81, kg, PRN Pain Score 7-10, Start date: 06/24/17 1:51:00 CDT, Duration: 30 day, Stop date: 07/24/17 1:50:00 PREFORMS LAMINATOR [facility] Zofran 2017-06-24 04:51:00 No Notes: (Same as: Zofran) MEDICATION WASTE Product Size: 4 mg Product Wasted: ___ mg [facility] hydromorphone 2017-06-24 04:51:00 No Notes: Same as: Dilaudid [facility] Dilaudid 2017-06-24 00:33:00 No 0.5 mg, Route: IVP, ONCE, Dosing Weight 81.364, kg, Priority: STAT, Start date: 06/23/17 19:33:00 CDT, Stop date: 06/23/17 19:33:00 CDT Greta Seaman Sodium Chloride 0.9% (Bolus) IV 2017-06-23 22:33:00 No 500 mL, 500 ml/hr, Infuse Over: 1 hr, Route: IV, 500, Drug form: INJ, ONCE, Priority: STAT, Dosing Weight 81.364 kg, Start date: 06/23/17 17:33:00 CDT, Duration: 1 doses or times, Stop date: 06/23/17 17:33:00 CDT Greta Seaman Zofran 2017-06-23 22:32:00 No Notes: (Same as: Bhavana) MEDICATION WASTE Product Size: 4 mg Product Wasted: ___ mg Greta Seaman morphine Sulfate 2017-06-23 22:22:00 No Notes: (Same as:MORPhine Sulfate) Greta Seaman carvedilol (COREG) 25 MG tablet 2017-06-05 00:00:00 Yes TK 1 T PO Q 12 HOURS Jan Benjamin Losartan Potassium 50 MG Oral Tablet Losartan Potassium 50 MG Oral Tablet Yes [facility] Atorvastatin Calcium 40 MG Oral Tablet Atorvastatin Calcium 40 M G Oral Tablet Yes [facility] Lantus 100 UNIT/ML Subcutaneous Solution Lantus 100 UN IT/ML Subcutaneous Solution Yes [facility] Pantoprazole Sodium 40 MG Oral Tablet Delayed Release Pantoprazole Sodium 40 MG Oral Tablet Delayed Release Yes [facility] Carvedilol 25 MG Oral Tablet Carvedilol 25 MG Oral Tablet Yes [facility] Tradjenta 5 MG Oral Tablet Tradjenta 5 MG Oral Tablet Yes [facility] Multi-Vitamin TABS Multi-Vitamin TABS Yes [facility] Caltrate 600+D3 TABS Caltrate 600+D3 TABS Yes [facility] Immunizations Ordered Immunization Name Filled Immunization Name Date Status Comments Source Pneumococcal Polysaccharide 2016-07-26 00:00:00 Completed Jan Benjamin FLUZONE HIGH-DOSE PF 2016-06-09 00:00:00 Completed Jan Benjamin FLUZONE HIGH-DOSE PF 2015-06-23 00:00:00 Completed Jan Benjamin Pneumococcal Conjugate 13-Valent 2015-04-07 00:00:00 Compl eted [facility] Pneumococcal Polysaccharide 2006-08-28 00:00:[address] [facility] [place] [place] Vital Signs Vital Name Observation Time Observation Value Comments Source Temperature Oral (F) 2019-09-17 01:31:00 98.4 F [facility] Heart Rate 2019-09-17 01:31:00 [facility] Respitory Rate 2019-09-17 01:31:00 [facility] Systolic (mm Hg) 2019-09-17 01:31:00 Wilfred rial [facility] Diastolic (mm Hg) 2019-09-17 01:31:00 Mem [facility] [place] Temperature Oral (F) 2019-09-16 21:12:00 98.3 F [facility] Heart Rate 2019-09-16 21:12:00 [facility] Respitory Rate 2019-09-16 21:12:00 [facility] Systolic (mm Hg) 2019-09-16 21:12:00 Wilfred rial Jur[facility] Diastolic (mm Hg) 2019-09-16 21:12:00 Mem o[facility] [place] Temperature Oral (F) 2019-09-16 17:07:00 98.8 F [facility] Heart Rate 2019-09-16 17:07:00 [facility] Respitory Rate 2019-09-16 17:07:00 [facility] Systolic (mm Hg) 2019-09-16 17:07:00 Wilfred rial [place] Diastolic (mm Hg) 2019-09-16 17:07:00 Mem [facility] Height 2019-09-11 23:39:00 170.18 cm [facility] Weight 2019-09-11 23:39:00 [facility] BMI Calculated 2019-09-11 23:39:00 [facility] Height 2019-09-11 12:00:00 167.64 cm [facility] Weight 2019-09-11 12:00:00 [facility] BMI Calculated 2019-09-11 12:00:00 [facility] Height 2019-09-09 16:32:00 170.18 cm [facility] Weight 2019-09-09 16:32:00 [facility] BMI Calculated 2019-09-09 16:32:00 [facility] Temperature Oral (F) 2019-07-26 17:31:00 98.6 F [facility] Heart Rate 2019-07-26 17:31:00 [facility] Respitory Rate 2019-07-26 17:31:00 [facility] Systolic (mm Hg) 2019-07-26 17:31:00 [facility]fred [facility] Diastolic (mm Hg) 2019-07-26 17:31:00 [facility] Temperature Oral (F) 2019-07-26 15:14:00 98.3 F [facility] Heart Rate 2019-07-26 15:14:00 [facility] Respitory Rate 2019-07-26 15:14:00 [facility] Systolic (mm Hg) 2019-07-26 15:14:00 [facility] Diastolic (mm Hg) 2019-07-26 15:14:00 [facility] Respitory Rate 2019-07-26 13:00:00 [facility] Systolic (mm Hg) 2019-07-26 13:00:00 [facility] Diastolic (mm Hg) 2019-07-26 13:00:00 [facility] Temperature Oral (F) 2019-07-26 09:00:00 98.2 F [facility] Heart Rate 2019-07-24 13:40:00 [facility] Height 2019-07-19 15:30:00 172.72 cm [facility] Height 2019-07-19 09:20:00 172.72 cm [facility] Height 2019-07-18 12:44:00 172.72 cm [facility] Weight 2019-07-18 12:44:00 [facility] BMI Calculated 2019-07-18 12:44:00 [facility] Heart Rate 2019-07-18 01:17:00 [facility] Respitory Rate 2019-07-18 01:17:00 [facility] Systolic (mm Hg) 2019-07-18 01:17:00 [facility] Diastolic (mm Hg) 2019-07-18 01:17:00 [facility] Systolic (mm Hg) 2019-07-17 23:56:00 [facility] Diastolic (mm Hg) 2019-07-17 23:56:00 [facility] Heart Rate 2019-07-17 23:56:00 [facility] Respitory Rate 2019-07-17 23:56:00 [facility] Height 2019-07-17 21:45:00 170.18 cm [facility] BMI Calculated 2019-07-17 21:45:00 [facility] Weight 2019-07-17 21:45:00 [facility] BP Systolic 2019-06-24 13:02:00 169 mm[Hg] Location: RUE; Positi on: Sitting [facility] BP Diastolic 2019-06-24 13:02:00 61 mm[Hg] Location: RUE; Positi on: Sitting [facility] Height 2019-06-24 13:02:00 67 [in_us] [facility] Weight 2019-06-24 13:02:00 165 [lb_av] [facility] Body Mass Index Calculated 2019-06-24 13:02:00 25.84 kg/m2 [facility] Heart Rate 2019-06-24 13:02:00 64 /min [facility] Systolic (mm Hg) 2017-10-21 19:19:00 [facility] Diastolic (mm Hg) 2017-10-21 19:19:00 [facility] Temperature Oral (F) 2017-10-21 19:19:00 98.1 F [facility] Heart Rate 2017-10-21 19:19:00 [facility] Respitory Rate 2017-10-21 19:19:00 [facility] Temperature Oral (F) 2017-10-21 13:50:00 98.3 F [facility] Respitory Rate 2017-10-21 13:50:00 [facility] Systolic (mm Hg) 2017-10-21 13:50:00 [facility] Diastolic (mm Hg) 2017-10-21 13:50:00 [facility] Heart Rate 2017-10-21 13:50:00 [facility] Systolic (mm Hg) 2017-10-21 10:00:00 [facility] Diastolic (mm Hg) 2017-10-21 10:00:00 [facility] Respitory Rate 2017-10-21 10:00:00 [facility] Heart Rate 2017-10-21 10:00:00 [facility] Temperature Oral (F) 2017-10-21 10:00:00 98.5 F [facility] Height 2017-10-18 18:32:00 167.64 cm [facility] Weight 2017-10-18 18:32:00 [facility] BMI Calculated 2017-10-18 18:32:00 [facility] Weight 2017-10-16 20:55:00 [facility] Height 2017-10-16 20:55:00 172.72 cm [facility] BMI Calculated 2017-10-16 20:55:00 [facility] Systolic (mm Hg) 2017-09-27 18:00:00 [facility] Diastolic (mm Hg) 2017-09-27 18:00:00 [facility] Respitory Rate 2017-09-27 18:00:00 [facility] Heart Rate 2017-09-27 18:00:00 [facility] Temperature Oral (F) 2017-09-27 18:00:00 97.9 F [facility] Heart Rate 2017-09-27 14:31:00 [facility] Systolic (mm Hg) 2017-09-27 14:31:00 [facility] Diastolic (mm Hg) 2017-09-27 14:31:00 [facility] Respitory Rate 2017-09-27 14:31:00 [facility] Systolic (mm Hg) 2017-09-27 10:45:00 [facility] Diastolic (mm Hg) 2017-09-27 10:45:00 [facility] Respitory Rate 2017-09-27 10:45:00 [facility] Heart Rate 2017-09-27 10:45:00 [facility] Temperature Oral (F) 2017-09-26 18:00:00 98.0 F [facility] Temperature Oral (F) 2017-09-26 14:22:00 97.4 F [facility] Height 2017-09-20 17:40:00 172.72 cm [facility] BMI Calculated 2017-09-20 17:40:00 [facility] Weight 2017-09-20 17:40:00 [facility] Systolic (mm Hg) 2017-07-03 18:40:00 [facility] Diastolic (mm Hg) 2017-07-03 18:40:00 [facility] Heart Rate 2017-07-03 18:40:00 [facility] Respitory Rate 2017-07-03 18:40:00 [facility] Temperature Oral (F) 2017-07-03 18:40:00 98.2 F [facility] Respitory Rate 2017-07-03 18:05:00 [facility] Systolic (mm Hg) 2017-07-03 18:05:00 [facility] Diastolic (mm Hg) 2017-07-03 18:05:00 [facility] Systolic (mm Hg) 2017-07-03 18:00:00 [facility] Diastolic (mm Hg) 2017-07-03 18:00:00 [facility] Respitory Rate 2017-07-03 18:00:00 [facility] Temperature Oral (F) 2017-07-03 16:00:00 98.6 F [facility] Temperature Oral (F) 2017-07-03 15:45:00 98.5 F [facility] Heart Rate 2017-07-03 11:15:00 [facility] Heart Rate 2017-07-03 06:20:00 [facility] Weight 2017-06-24 09:30:00 [facility] BMI Calculated 2017-06-24 09:30:00 [facility] Height 2017-06-24 09:30:00 172.72 cm [facility] Height 2017-06-24 01:11:00 172.72 cm [facility] Weight 2017-06-24 01:11:00 [facility] BMI Calculated 2017-06-24 01:11:00 [facility] Respitory Rate 2017-06-24 00:16:00 [facility] Systolic (mm Hg) 2017-06-24 00:16:00 [facility] Diastolic (mm Hg) 2017-06-24 00:16:00 [facility] Respitory Rate 2017-06-23 23:30:00 [facility] Systolic (mm Hg) 2017-06-23 23:30:00 [facility] Diastolic (mm Hg) 2017-06-23 23:30:00 [facility] Systolic (mm Hg) 2017-06-23 22:51:00 [facility] Diastolic (mm Hg) 2017-06-23 22:51:00 [facility] Respitory Rate 2017-06-23 22:51:00 [facility] Height 2017-06-23 20:10:00 172.72 cm [facility] BMI Calculated 2017-06-23 20:10:00 Andree [place] Weight 2017-06-23 20:10:00 [facility] Temperature Oral (F) 2017-06-23 20:10:00 98.6 F [facility] Heart Rate 2017-06-23 20:10:00 [facility] Procedures Procedure Date / Time Performed Performing Clinician Sour e XRAY Shoulder series [id number] 2020-04-03 [facility] SHOULDER MIN 2 VWS RIGHT [id number] 2020-03-30 00:00:00 [facility] [U] XRAY HIP UNILATERAL MIN 2 VWS RIGHT [id number] 2020-01-08 00:00:0 0 [facility] XRAY Shoulder series [id number] 2019-12-18 00:00[facility] SHOULDER MIN 2 VWS RIGHT [id number] 2019-12-16 00:00:00 [facility] [U] XRAY HIP UNILATERAL MIN 2 VWS RIGHT [id number] 2019-10-25 00:00:0 0 [facility] [U] XRAY SHOULDER MIN 2 VWS RIGHT [id number] 2019-10-21 00:00:00 [facility] [U] XRAY HIP UNILATERAL MIN 2 VWS RIGHT [id number] 2019-09-27 00:00:0 0 [facility] [id number] 2019-09-17 00:00:00 ENCPL 6L0O03F 2019-09-17 00:00:00 ENCPL [id number] 2019-09-17 00:00:00 ENCPL 2J1S07D 2019-09-17 00:00:00 ENCPL [id number] 2019-09-17 00:00:00 ENCPL 7F3H59P 2019-09-17 00:00:00 ENCPL [id number] 2019-09-17 00:00:00 ENCPL 2T1S54O 2019-09-17 00:00:00 ENCPL [id number] 2019-09-17 00:00:00 ENCPL [id number] 2019-09-17 00:00:00 ENCPL [U] XRAY SHOULDER MIN 2 VWS RIGHT [id number] 2019-09-17 00:00:00 [facility] [U] XRAY HIP UNILATERAL MIN 2 VWS RIGHT [id number] 2019-08-29 00:00:0 0 [facility] [U] XRAY SHOULDER MIN 2 VWS RIGHT [id number] 2019-08-29 00:00:00 [facility] Post Op Promis 29 Survey 2019-08-02 00:00:00 [facility] [U] XRAY SHOULDER MIN 2 VWS RIGHT [id number] 2019-07-31 00:00:00 [facility] [Q] CYCLIC CITRULLINATED PEPTIDE (CCP) AB (IGG) 2019-06-24 00:0 0:00 [facility] [[facility]] HLA-B27, DNA TYPING 2019-06-24 00:00:00 [facility] RHEUMATOID FACTOR 2019-06-24 00:00:00 [facility] [[facility]] URIC ACID 2019-06-24 00:00:00 [facility] [[facility]] PTH, INTACT (WITHOUT CALCIUM) 2019-06-24 00:00:00 [facility] Total replacement of left hip joint<sup>1</sup> 2017-09-25 06:00 :00 [facility] [U] XRAY PELVIS MIN 3 VWS [id number] 2017-08-10 00:00:00 [facility] [U] XRAY PELVIS MIN 3 VWS [id number] 2017-08-07 00:00:00 [facility] History of Hip replacement [facility] History of Open reduction-internal fixation [facility] History of Appendectomy [facility] History of Foot surgery [facility] History of Knee replacement [facility] History of Toe amputation [facility] History of Hysterectomy [facility] History of Back surgery [facility] Appendectomy [facility] Examination of great toe Laurita [facility] Tonsillectomy [facility] Assess fracture care<sup>2</sup> [facility] Plan of Care Planned Activity Planned Date Details Comments Source Future Scheduled Test 2020-04-28 00:00:00 INFLUENZA VACCINE (#1) [code = INFLUENZA VACCINE (#1)] [facility] Future Scheduled Test 2020-03-28 00:00:00 INFLUENZA VACCINE [code = INFLUENZA VACCINE] [facility] [place] Diagnostic Test Pending 2017-08-09 00:00:00 [U] XRAY PELVIS MIN 3 VWS [id number] [code = 55527] [facility] Future Scheduled Test 2007-10-27 00:00:00 SHINGLES VACCINES (#2) [code = SHINGLES VACCINES (#2)] [facility] [place] Future Scheduled Test 2002-06-29 00:00:00 MEDICARE ANNUAL WE LLNESS (YEAR 2 or FIRST YEAR if no IPPE) [code = MEDICARE ANNUAL WELLNESS (YEAR 2 or FIRST YEAR if no IPPE)] [facility] Future Scheduled Test 1946 00:00:00 DIABETES: RETINAL EYE EXAM [code = DIABETES: RETINAL EYE EXAM] [facility] [place] [place] Future Scheduled Test 1946 00:00:00 DIABETIC FOOT EXAM [code = DIABETIC FOOT EXAM] [facility] [place] [place] Encounters Start Date/Time End Date/Time Encounter Type Admission Type Attendi [facility] Care Department Encounter ID Source 2020-04-15 12:00:00 2020-04-15 12:00:00 Appointment; JAMIE SMITH P.A. GONZALES, JOANNAH P.A. [facility] [id number] [facility] 2020-01-29 08:00:00 2020-01-29 08:00:00 Appointment; JAMIE SMITH P.A. GONZALES, JOANNAH, P.A. [facility] [id number] [facility] 2019-12-18 14:45:00 2019-12-18 14:45:00 Appointment; JAMIE SMITH P.A. GONZALES, JOANNAH, P.AGrzegorz [facility] Orthopedics Trauma [facility] [id number] [facility] 2019-12-18 10:30:00 2019-12-18 10:30:00 Appointment; AMBROSE MACIAS M.D. CHOO, ANDREW, M.D. [facility] Orthopedics Trauma [facility] [id number] [facility] 2019-11-06 13:15:00 2019-11-06 13:15:00 Appointment; JAMIE SMITH P.A. GONZALES, JOANNAH PGrzegorzAGrzegorz [facility] Orthopedics Trauma [facility] [id number] [facility] 2019-10-25 10:30:00 2019-10-25 10:30:00 Appointment; JAN PADILLA M.D. BRALY, HOUSTON, M.D. [facility] Orthopedics at [facility] Orthopedic [facility] [id number] [facility] 2019-10-09 12:45:00 2019-10-09 12:45:00 Appointment; JAMIE SMITH P.A. GONZALES, JOANNAH, P.A. [facility] [id number] [facility] 2019-09-27 10:45:00 2019-09-27 10:45:00 Appointment; JAN PADILLA M.D. BRALY, [place]ST[place], M.D. [facility] Orthopedics at [facility] Orthopedic [facility] [id number] [facility] 2019-09-25 10:30:00 2019-09-25 10:30:00 Appointment; AMBROSE MACIAS M.D. CHOO, ANDREW, M.D. [facility] Orthopedics Trauma [facility] [id number] [facility] 2019-09-13 08:04:00 2019-09-16 20:20:00 Outpatient Sharan Mckeon agnesmayank Iglesias [facility] [id number] 2019-09-13 09:00:00 2019-09-13 09:00:00 Appointment; AMBROSE MACIAS M.D. CHOO, ANDREW, M.D. [facility] [id number] [facility] 2019-09-13 08:04:00 2019-09-11 12:17:00 Inpatient U [facility] MED [id number] [facility] 2019-09-11 07:00:00 2019-09-11 07:00:00 Appointment; AMBROSE MACIAS M.D. CHOO, ANDREW, M.D. [facility] [id number] [facility] 2019-09-04 10:15:00 2019-09-04 10:15:00 Appointment; AMBROSE MACIAS M.D. CHOO, ANDREW, M.D. [facility] Orthopedics Trauma [facility] [id number] [facility] 2019-08-30 09:00:2019-08-30 09:00:00 Appointment; JAN PADILLA M.D. BRALY, [place]ST[place], M.D. [facility] Orthopedics at [facility] Orthopedic [facility] [id number] [facility] 2019-08-07 09:00:00 2019-08-07 09:00:00 Appointment; AMBROSE MACIAS M.D. CHOO, ANDREW, M.D. [facility] Orthopedics Trauma Clinic [facility] [id number] [facility] 2019-08-01 15:00:00 2019-08-01 15:00:00 Appointment; JAN PADILLA M.D. BRALY, HOUSTON, M.D. [facility] Orthopedics at [facility] Orthopedic [facility] [id number] [facility] 2019-07-17 20:22:00 2019-07-26 12:30:00 Outpatient Negin Tarunkaylynn Slade [facility] [id number] 2019-07-24 07:00:00 2019-07-24 07:00:00 Appointment; AMBROSE MACIAS M.D. CHOO, ANDREW, M.D. [facility] [id number] [facility] 2019-07-17 15:37:31 2019-07-17 20:20:00 Outpatient Talia Gongora [facility] [id number] 2019-06-24 14:02:00 2019-06-24 23:59:00 Outpatient Leonor Mott [facility] [id number] 2019-06-24 13:00:00 2019-06-24 13:00:00 Appointment; LEONOR MOTT M.D. GIBSON, MARY CATHERINE, M.D. [facility] [id number] [facility] 2017-11-15 09:45:00 2017-11-15 09:45:00 Appointment; LEVON SOMERS M.D. RODRIGUEZ-QUINTANA, DAVID, M.D. [facility] Orthopedics [id number] [facility] 2017-11-08 09:45:00 2017-11-08 09:45:00 Appointment; LEVON SOMERS M.D. RODRIGUEZ-QUINTANA, DAVID, M.D. [facility] Orthopedics [id number] [facility] 2017-10-31 15:00:00 2017-10-31 15:00:00 Appointment; LEVON SOMERS M.D. RODRIGUEZ-QUINTANA, DAVID, M.D. [facility] Orthopedics [id number] [facility] 2017-10-18 05:23:00 2017-10-21 16:30:00 Outpatient Levon Somers [facility] [id number] 2017-10-18 07:00:00 2017-10-18 07:00:00 Appointment; LEVON SOMERS M.D. RODRIGUEZ-QUINTANA, DAVID, M.D. [facility] [id number] [facility] 2017-10-11 09:15:00 2017-10-11 09:15:00 Appointment; LEVON SOMERS M.D. RODRIGUEZ-QUINTANA, DAVID, M.D. [facility] Orthopedics [id number] [facility] 2017-09-25 05:29:00 2017-09-27 12:21:00 Outpatient Levon Somers [facility] [id number] 2017-09-25 12:00:00 2017-09-25 12:00:00 Appointment; LEVON SOMERS M.D. RODRIGUEZ-QUINTANA, DAVID, M.D. [facility] [id number] [facility] 2017-09-23 16:35:00 2017-09-23 23:59:00 Outpatient Levon Somers [id number] 2017-09-01 15:15:00 2017-09-01 15:15:00 Appointment; LEVON SOMERS M.D. RODRIGUEZ-QUINTANA, DAVID, M.D. [facility] Orthopedics [id number] [facility] 2017-08-16 09:15:00 2017-08-16 09:15:00 Appointment; KATIE SALMERON , KATIE TAYLOR NP [facility] Orthopedics [id number] [facility] 2017-07-12 11:00:00 2017-07-12 11:00:00 Appointment; KATIE SALMERON NP C[place]ER[place]AM, AMY, NP [facility] [id number] [facility] 2017-06-23 20:10:00 2017-07-03 16:25:00 Outpatient Rosa Lin [facility] [id number] 2017-06-23 15:04:00 2017-06-23 20:10:00 Outpatient Olu Moss [facility] [id number] 2014-11-05 08:53:00 2014-11-05 23:59:00 Outpatient Mitchell Baron [place] [id number] 2014-09-07 18:00:00 2014-09-08 06:00:00 [id number] Results Test Description Test Time Test Comments Results Result Comments Source Post Op Promis 29 Survey 2019-10-20 10:59:39 Test Item Pain Interference: (test code = Pain Interference:) 50.3 1 N Pain Intensity: (test code = Pain Intensity:) 30.7 1 N Physical Function: (test code = Physical Function:) 23.9 1 N Satisfaction Role: (test code = Satisfaction Role:) 39.4 1 N [facility][U] XRAY SHOULDER MIN 2 VWS RIGHT [id number] 12:42:00Images acquired, not reported on this accession number.[facility][U] XRAY HIP UNILATERAL MIN 2 VWS RIGHT [id number] 12:04:00 Images acquired, not reported on this accession number.[facility][U] XRAY SHOULDER MIN 2 VWS RIGHT [id number] 10:04:00Images acquired, not reported on this accession number.[facility] CHEM NRMXN3531-01-56 12:08:0081[facility] RECZA4573-61-63 12:08:0019 [facility] AZYYE0821-95-80 12:08:002.52[facility]annCHEM PANEL 2019-09-15 12:08:79656Behnfitu HermannCHEM QWHYG0738-57-22 12:08:004.2[facility]annCHEM UWDYQ2909-96-24 12:08:25982Ampmhmmg HermannCHEM MZDLB2370-62-90 12:08:0027[facility]annCHEM TDQDA3968-17-83 12:08:009.2[facility]annCHE[facility] VVWKL4374-44-29 12:08:008.5[facility]annCHEM AKTQP3832-84-63 12:08:0017 [facility] DfemcxfOPAKLGRSBO3192-90-22 12:08:0062.7[facility]annHEMATOLOGY 2019-09-15 12:08:0019.7[facility] AgkupibBLRTKZVVDL8817-26-32 12:08:0012.8[facility] FasgjvcCTMQZSTMXF0751-17-71 12:08:003.8[facility] WflgnnoCBBUDSABYQ0980-16-48 12:08:001.0[facility] XpwjacmBBVLXGZCBN8662-59-89 12:08:003.4[facility] EMWKYOBBVG9181-65-25 12:08:001.1[facility] IfthfeiRSRKZKFMEA8740-00-60 12:08:000.7 [facility] HyhvfdvDNUJPGFIZJ1247-02-89 12:08:000.2[facility]annHEMATOLOGY 2019-09-15 12:08:000.1[facility] LysyfeaRLHSDSIVLE0031-44-81 12:08:005.4[facility] MxclsngFDFETFCKQZ9476-42-59 12:08:003.02[facility] QslrrvtGMBJBUSWBH7002-82-65 12:08:009.7[facility] FvrzhbwTUCSXPHSNA0421-98-83 12:08:0029.7[facility] DRWFHJCFKK5879-55-62 12:08:0098.3[facility] OluvjbaHDXVDJKGCJ0633-66-91 12:08:00* Test Item Value Reference Range Interpretation Comments MCH (test code = MCH) 32.2 pg 27.0-31.0 [facility] PcfwasrYOCMCZCDJN3817-19-87 12:08:0032.8[facility] HermannHEMATOLOGY 2019-09-15 12:08:0018.9[facility] BogtzgbNWLEIOVXYI8147-38-11 12:08:68984Onxymhtt IpzrkeeAPETHDMPOV2016-38-80 12:08:007.2[facility] HermannCHEM PTAGF1700-86-56 15:47:0098[facility]annCHEM ZXZEA4019-13-84 15:47:0035[facility] HermannCHEM OFBPZ8062-39-69 15:47:003.59[facility]annCHEM GSGXP0601-27-65 15:47:54210 [facility] DGLOQ4078-17-43 15:47:004.3[facility]annCHEM PANEL 2019-09-14 15:47:06015Ffhlzirb HermannCHEM EIRRC0870-61-65 15:47:0025[facility]annCHEM ZCVAG2664-88-41 15:47:008.6[facility]annCHEM LQUIX4330-48-22 15:47:0012.3[facility]annCHEM SEEXX2925-64-03 15:47:0011[facility] JIDTEGZAAJ0313-37-03 15:47:009.6[facility] NqxmcxcXWDJGDJPNM3900-42-83 15:47:00 29.1[facility]annCHEM ZGBOL7685-79-99 10:09:0080[facility]annCHEM PANEL 2019-09-13 10:09:0018[facility] HermannCHEM IMYNV7233-83-80 10:09:002.55[facility]annCHEM FXQAT9150-01-12 10:09:00470Bvqzmbid HermannCHEM VBDPD5395-13-28 10:09:004.4[facility]annCHEM XHXIS7179-01-94 10:09:16346Isjndgef HermannCHEM LDVIK4216-51-00 10:09:0025[facility]annCHEM FYLUW6946-47-09 10:09:008.4 [facility]annCHE[facility] OQAGI5934-45-60 10:09:008.4[facility] HermannCHEM PANEL 2019-09-13 10:09:0017[facility] GjednpbFENZJEYHHU5325-69-19 10:09:005.8[facility] OqiwyehGMCQNPVCRA1270-18-29 10:09:002.92[facility] OirkjzeZJEJSQBWOW2327-89-57 10:09:009.6[facility] NuyzhxxZUFBGXMMVB3929-60-54 10:09:0029.4[facility] NQAPDTSPAR2240-20-86 10:09:86053.8[facility] WujneukQESXHZLXYY7325-93-53 10:09:00 * Test Item Value Reference Range Interpretation Comments MCH (test code = MCH) 32.7 pg 27.0-31.0 [facility] LlfhkggFYCSTRZTTN8512-99-70 10:09:0032.5[facility] HermannHEMATOLOGY 2019-09-13 10:09:0020.0[facility] FsyytidJSXEOUXNCZ4997-09-87 10:09:77810Cbvsivyt LssknfiVOXUOLXTCB9510-64-92 10:09:008.2[facility] UebabooMWMKSSUKFH2634-36-30 10:09:0066.8[facility] ZcrtyihHTBOYRDQMU3227-10-77 10:09:0014.7[facility] WZIVHJIOEC3676-20-22 10:09:0013.7[facility] ZevcvmuLVVILLHFVQ4334-83-25 10:09:00 3.0[facility] MzcluunURUBNZSPFT9728-09-67 10:09:001.8[facility] HermannHEMATOLOGY 2019-09-13 10:09:003.9[facility] OykdpmhOQUBHEYKNZ1703-54-20 10:09:000.9[facility] UfgfkgjYLGKODXENY6152-90-43 10:09:000.8[facility] XiqxsasANPNLMNBOF5752-14-60 10:09:000.2[facility] LunjcxxOAXBTEZIYR0110-59-62 10:09:000.1[facility] NDYLSBCCQV4657-81-12 10:09:001+ *ABN*(09/13/19 4:09 AM)[facility] HermannIMMUNOLOGY 2019-09-12 20:47:00Negative *NA*(09/12/19 2:47 PM)[facility]annIMMUNOLOGY 2019-09-12 20:47:00Negative *NA*(09/12/19 2:47 PM)[facility]annIMMUNOLOGY 2019-09-12 20:47:00Negative *NA*(09/12/19 2:47 PM)[facility]annIMMUNOLOGY 2019-09-12 20:47:0048.4[facility] JwitigbGQNDXCRUZD3226-96-04 20:47:00Negative *NA*(09/12/19 2:47 PM)[facility] GikifgtYNRJXVDPSB2823-47-20 11:51:008.0[facility] NxndxyuRGTVVBVGDL3753-60-07 11:51:003.05[facility] HpzlvwpAACAAAVVDB7671-37-84 11:51:0098.7[facility] IenfmhmMANQYWHHWY0972-25-22 11:51:00* Test Item Value Reference Range Interpretation Comments MCH (test code = MCH) 32.4 pg 27.0-31.0 [facility] DaftgnfGOKNYJMLUQ9386-79-01 11:51:0032.9[facility]annHEMATOLOGY 2019-09-12 11:51:0019.7[facility] ErnwjxrFULCCLAVBG9441-48-57 11:51:67117Fqgiyled LccldwgJUSXBNMBWJ8248-29-93 11:51:007.0[facility] EftmtskYQVNONAMCY8502-10-41 11:51:0075.5[facility] TuqgdhmDWBVMLIACE6704-80-22 11:51:0011.8[facility]gen EOYJJGZXNF0746-96-97 11:51:0010.4[facility] EquteteNSGLMLSKKS6612-91-34 11:51:00 1.1[facility] LfpcicjNEXEDUITSF8899-17-13 11:51:001.2[facility]annHEMATOLOGY 2019-09-12 11:51:006.0[facility] XgcmwfzSAYOAEZTEB2154-06-38 11:51:000.9[facility] YvpuvuwARRDXGCUTC8397-35-41 11:51:000.8[facility] DuvoltxETKDXBUNDU5289-03-02 11:51:000.1[facility] JmwwlqvPJQQNFGSZF6201-65-80 11:51:000.1[facility] HermannCHEM UFKYB3132-18-87 10:15:00* Test Item Value Reference Range Interpretation Comments B/C Ratio (test code = B/C Ratio) 9 1 6-25 [facility]annCHEM XRBWC0896-81-45 10:15:006.2[facility]annCHEM PANEL 2019-09-12 10:15:002.9[facility]annCHEM BJOGO9254-78-44 10:15:003.3[facility]annCHEM TWNQJ3299-25-98 10:15:00* Test Item Value Reference Range Interpretation Comments A/G Ratio (test code = A/G Ratio) 0.9 1 0.7-1.6 [facility]annCHEM YOEQE8002-20-29 10:15:00<6[facility]annCHEM PANEL 2019-09-12 10:15:0018[facility]annCHEM WMEPD8622-27-73 10:15:31677Hqznbduy HermannCHEM MBIKA5383-16-24 10:15:000.3[facility]annCHEM OKLGE1494-33-46 10:15:002.4[facility]annCHEM AIPGL4412-26-82 10:15:003.0[facility]annBLOOD BANK HOXUBJU9492-31-63 14:23:00Product available (09/11/19 8:23 AM)[facility] ZYLGMIZ0925-04-40 14:23:00Product available (09/11/19 8:23 AM) [facility] ZUNWMJL8295-75-93 14:15:00Negative (09/11/19 8:15 AM) [facility][U] XRAY SHOULDER MIN 2 VWS RIGHT [id number] 10:15:00Images acquired, not reported on this accession number.[facility] [U] XRAY HIP UNILATERAL MIN 2 VWS RIGHT [id number] 08:12:00Images acquired, not reported on this accession number.[facility][U] XRAY SHOULDER MIN 2 VWS RIGHT [id number] 10:13:00Images acquired, not reported on this accession number.[facility] PhysiciansCHEM NFBLT0365-59-31 09:03:005.3[facility]annCHEM BEGQR9718-23-46 09:03:68834Mqirppta HermannCHEM UJMOA3571-99-19 09:03:0050[facility]annCHEM KWIET0283-97-37 09:03:003.53 [facility]annCHE[facility] CWDLD6386-34-50 09:03:73157Bekhipuq HermannCHEM PANEL 2019-07-26 09:03:004.3[facility] HermannCHEM ONQXX5842-14-13 09:03:07829Nslaesnn HermannCHEM GIUED0246-64-40 09:03:0024[facility]annCHEM XKZBU8953-23-51 09:03:0012.3[facility] HermannCHEM CTKDF5070-94-00 09:03:007.9[facility] HermannCHEM OASFV1481-12-47 09:03:0011[facility] HermannCHEM OFNEL7634-18-43 09:03:002.1 [facility] NkafljnRAILTXEVWF6476-72-93 09:03:0060.2[facility] HermannHEMATOLOGY 2019-07-26 09:03:0017.8[facility] LgliuakIKFSQYWUSY5553-07-86 09:03:0016.9[facility] CdamsfwNRKCCNPYDZ8571-66-34 09:03:004.1[facility] EkwzomrOQLLOTESUQ4610-38-51 09:03:001.0[facility] NjsmrxdWDHQSDTAVT1435-64-88 09:03:004.3[facility] DBRRNAXGLY8643-81-50 09:03:001.3[facility] KksfzekZVEGEAZTFE6976-00-74 09:03:001.2 [facility] EvrzrxcXANYGGPMZU6225-21-44 09:03:000.3[facility] HermannHEMATOLOGY 2019-07-26 09:03:000.1[facility] SirncibLVKFGSMDQX2128-39-45 09:03:007.2[facility] MzmntloOUEFIFGTWZ3496-27-09 09:03:002.82[facility] AagcqyyBFKDNCKYHQ5905-75-02 09:03:009.3[facility] LvlebdmMSRCHVNHPU0483-09-92 09:03:0027.2[facility] ENYFBOIPVA0052-43-37 09:03:0096.5[facility] OfqwhpsFZGNHOIRTH7467-84-99 09:03:00* Test Item Value Reference Range Interpretation Comments MCH (test code = MCH) 33.0 pg 27.0-31.0 [facility] NefzhrtWWCRAGEGCI7831-41-76 09:03:0034.2[facility] HermannHEMATOLOGY 2019-07-26 09:03:0016.6[facility] XexxqjiGLMYNPGADH9585-44-39 09:03:93826Byusuqdy PjzlntvWKJQSTTZBE1019-53-50 09:03:007.8[facility] HermannBLOOD BANK RESULTS 2019-07-25 12:41:00Product available (07/25/19 6:41 AM)[facility] HermannCARDIAC SVMPRMT7104-10-53 09:06:000.02[facility] HermannCHEM AFYPJ3369-44-74 09:06:007.3 [facility]annCHEM ZXISG2203-54-23 09:06:002.1[facility] HermannCHEM PANEL 2019-07-25 09:06:96967Jtuxoqbe HermannCHEM MJBCP2378-89-68 09:06:0071[facility]annCHEM LUZQJ9122-88-40 09:06:004.48[facility]annCHEM TYDOS4923-54-47 09:06:14013Enauirrk HermannCHEM BWFDR3993-09-60 09:06:004.8[facility] HermannCHEM OVWQV5664-29-21 09:06:39123Alivzqyx HermannCHEM EWASO6181-73-30 09:06:0019 [facility]annCHEM ZVGIO3757-41-13 09:06:007.9[facility] HermannCHEM PANEL 2019-07-25 09:06:009[facility] HermannCHEM USJFK3021-04-41 09:06:0017.8[facility] KpcbzfrDNICPQENOW2993-04-63 09:06:008.9[facility] SmykwvvNJTCWSMTRF7525-70-41 09:06:002.27[facility] QqsptghENRGZJWZVP5056-07-10 09:06:007.4[facility] GFXYDYIIJG1916-04-94 09:06:0022.0[facility] MccuzpyEVEGMWVTVZ8049-65-14 09:06:00 97.2[facility] PpfmkoiLBMGBZZCPJ5660-92-82 09:06:00* Test Item Value Reference Range Interpretation Comments MCH (test code = MCH) 32.7 pg 27.0-31.0 [facility] JfqcessBHRGWWZDXJ2920-29-70 09:06:0033.6[facility] HermannHEMATOLOGY 2019-07-25 09:06:0016.9[facility] IiigsojHJKNITXTYG7635-87-91 09:06:36756Fcoidreo KmhhzdyZPZVWHHTDC8667-79-39 09:06:008.1[facility] NezskmaMEGGTIUSBO5935-08-28 09:06:007.2[facility] QstfkylETLDDXBAMB7805-75-03 09:06:000.6[facility] ENGJSIASTN5821-67-48 09:06:000.5[facility] ArhyslhZPCUPMLMOJ7448-81-39 09:06:00 80.0[facility] YlqjjmsDDXDQECHSR1381-45-14 09:06:001.0[facility] HermannHEMATOLOGY 2019-07-25 09:06:007.0[facility] ItnvbvnZBQHKRBYTB0600-35-03 09:06:006.0[facility] UbioozgAQXUKXVZMO8483-50-45 09:06:002.0[facility] RgxkvlrOOWVZJVKJD4108-35-79 09:06:004.0[facility] OrwwtmyJINLSJUPRZ2634-18-58 09:06:000.0[facility] CARDIAC OCWCKUC7918-22-13 04:34:000.02[facility] HermannCARDIAC JALRKDC3814-84-21 00:52:00<0.02[facility] QdpgqlzYEYSFMTRISLT0166-71-56 00:52:0019.5[facility] RIDRUSZDYHBD1055-23-92 00:52:04445Khqbfbiq OrmfrmiDVLVXJJNCIFK1805-37-94 00:52:0066[facility] GkfliywWOSJLEORZCXA4308-70-42 00:52:004.14[facility] DUBYRHFOXXLF5503-07-20 00:52:35743Bnrroqbm BjotzlcICRZUFFEZSDQ6514-94-05 00:52:004.5[facility] PswjikhCUVPVARIBIVT1993-24-52 00:52:47764Ymflxqcz Twisp TSZZIHJLIREZ4290-74-45 00:52:0017[facility] QwcqpozOAMLSQFRQMPB1514-95-73 00:52:00 8.4[facility] NwninozBDRSIFWCZZTR3212-58-69 00:52:009[facility] HermannHEMATOLOGY 2019-07-25 00:52:0010.8[facility] IjronseRGSMRFHCIP4544-89-93 00:52:002.62[facility] HuuelgkWBPGCTJUFW4286-62-32 00:52:008.6[facility] PhmwbrdMQVZYUFQZS4354-02-08 00:52:0025.5[facility] JdzckfoVLJOEUBIFQ8467-88-22 00:52:0097.5[facility] FUSNSAHFLX1175-98-57 00:52:00* Test Item Value Reference Range Interpretation Comments MCH (test code = MCH) 33.0 pg 27.0-31.0 [facility] IexazieGYAWKEXQAP3704-00-27 00:52:0033.9[facility] HermannHEMATOLOGY 2019-07-25 00:52:0017.2[facility] CrhvpeyXOUMNUTYWC2451-68-49 00:52:90864Hcsgobak YqtqxmoIJHCSTEEFM9572-05-67 00:52:008.1[facility] OcqxfbeBYGMNXTWXF8068-76-97 00:52:0089.0[facility] DhzrhsnJFAZNPHBPF6127-22-79 00:52:006.2[facility] NIDBJISURB6131-54-40 00:52:003.2[facility] SbkttxhEHUYUCBJRO4808-89-29 00:52:000.9 [facility] AzggxqvSDTXWDLEIM6065-11-44 00:52:000.7[facility] HermannHEMATOLOGY 2019-07-25 00:52:009.6[facility] BwjqmtmJORNXQBAJN8296-04-87 00:52:000.7[facility] QodzickVBVAQOREDV7546-16-24 00:52:000.4[facility] XxgxsqlQLUTIUWDWM1792-75-37 00:52:000.1[facility] LyiaujcNLEABUTJXB6243-75-67 00:52:000.1[facility] HermannCHEM FXJYB3671-96-85 13:02:005.0[facility] HermannCHEM OHFGZ4171-38-82 13:02:002.2 [facility] PbikkqmQHNKDXKIGH8194-83-64 13:02:004.3[facility] HermannHEMATOLOGY 2019-07-23 13:02:000.8[facility] MgeyajfYOIUZAFKOV8072-09-19 13:02:000.2[facility] KadcgtgZOHETYOHTD8012-07-79 13:02:00Negative *NA*(07/23/19 7:02 AM)[facility] QceidfkKZRGZUKTZX3965-67-90 13:02:00Negative *NA*(07/23/19 7:02 AM)[facility] XiikklrDBLZUKRBUV9262-81-27 13:02:00Negative *NA*(07/23/19 7:02 AM)[facility] BciichiHOMRQTGAPW5530-61-94 13:02:00Negative *NA*(07/23/19 7:02 AM)[facility] HermannCARDIAC ODUJADE5952-39-94 13:00:000.032[facility] HermannBLOOD BANK RESULTS 2019-07-22 15:59:00Negative (07/22/19 9:59 AM)[facility] HermannCHEM PANEL 2019-07-21 12:04:006.0[facility] HermannCHEM AKZRQ8879-32-94 12:04:002.9[facility] HermannCHEM THQKO2946-47-37 12:04:009[facility] HermannCHEM JIWUU2006-29-80 12:04:0053[facility] HermannCHEM YITLJ7123-27-07 12:04:20004Phuuspuz HermannCHEM TPHJZ1951-80-05 12:04:000.6[facility] HermannCHEM YNCTG8941-70-58 12:04:00* Test Item Value Reference Range Interpretation Comments B/C Ratio (test code = B/C Ratio) 11 02-19 [facility] HermannCHEM ADMOP3825-65-01 12:04:003.1[facility] HermannCHEM PANEL 2019-07-21 12:04:00* Test Item Value Reference Range Interpretation Comments A/G Ratio (test code = A/G Ratio) 0.9 1 0.7-1.6 [facility] ImfydxsCXAQXWRBKS4962-91-74 07:12:000.1[facility] HermannCARDIAC ENZYMES 2019-07-19 11:14:000.035[facility] HermannCARDIAC ACXZLIF6746-29-99 06:09:000.026 [facility]annBLOOD BANK BOIWWYZ6673-60-51 16:03:00Product available (07/18/19 10:03 AM)[facility]annBLOOD BANK ABTYOQX4965-31-83 15:58:00Negative (07/18/19 9:58 AM)[facility] TatftwdXPNKDOBTDO5047-59-41 15:58:00Negative *NA*(07/18/19 9:58 AM)[facility]BL[facility]OD BANK IMGNUTG1219-99-88 14:39:00 Product available (07/18/19 8:39 AM)[facility]BL[facility] BANK QAVWAEO3770-17-25 23:01:00Negative (07/17/19 5:01 PM)[facility] HermannCARDIAC NLUPWBY5772-77-32 23:01:00<0.02[facility] ZkjqoxuZHBEOPFEUTSC9518-18-87 23:01:0014.3[facility] JCFQJIVHCMRF1329-26-44 23:01:00* Test Item Value Reference Range Interpretation Comments B/C Ratio (test code = B/C Ratio) 12 1 6-25 [facility] DadggjqBOADZSEJVAGC5011-06-50 23:01:003.0[facility] HermannELECTROLYTES 2019-07-17 23:01:00* Test Item Value Reference Range Interpretation Comments A/G Ratio (test code = A/G Ratio) 1.1 1 0.7-1.6 [facility] XofcavbJXRNJCTFANFO5259-28-50 23:01:48071Qdlsijrg HermannELECTROLYTES 2019-07-17 23:01:0052[facility] SpgzurkRQKMXRXYFQBR5681-28-02 23:01:004.29[facility] XxnlcykDNFTZZZJXJJD7871-99-09 23:01:81807Gvjpsjuv KvajcqxKUMZHWMEOIJS1227-14-49 23:01:004.3[facility] ThjuwjeBOQZJDLILTVT3805-09-33 23:01:24974Gxcvwjxw Twisp IRBYSQPVEQXA6037-27-93 23:01:0027[facility] KlhcjfiGNXDFZUXFFLA7428-80-33 23:01:00 8.8[facility] UqkeeibAKWHWPTQBGAE7372-35-67 23:01:006.3[facility] ZQETDXHCDQPF2812-64-41 23:01:003.3[facility] ByeflogRNEVDWATTVWF0383-40-81 23:01:0022[facility] LogmjvvNQUVMRGFMXNZ5877-70-43 23:01:0020[facility] OVBZPTTUEHIO6144-90-45 23:01:01659Bwghcfzj MvnyzmnILAMCSFKTZJX8218-63-44 23:01:000.4[facility] KvqtzfkODLLNVYPNODA4582-77-39 23:01:009[facility] GYEOFVAIGL2848-67-05 23:01:009.0[facility] EprzzquBGPFOLMOND8358-72-72 23:01:00 2.67[facility] EloscieGVICXJHLNJ2617-78-41 23:01:009.4[facility] HermannHEMATOLOGY 2019-07-17 23:01:0027.9[facility] GzuquvcMZVEDXVUUZ5968-48-59 23:01:50993.3 [facility] EcriqteIQWUVGHMYX0929-17-96 23:01:00* Test Item Value Reference Range Interpretation Comments MCH (test code = MCH) 35.3 pg 27.0-31.0 [facility] NjvrpdiTPFFJLLSMW6459-06-77 23:01:0033.8[facility] HermannHEMATOLOGY 2019-07-17 23:01:0013.7[facility] OxcbbezYNEYSVRORW0739-59-48 23:01:08642Cpijtvhi PhvycqbEMHXWZRAYO8940-55-53 23:01:008.2[facility] MulvdueEGRANZURUU9494-77-44 23:01:00* Test Item Value Reference Range Interpretation Comments INR (test code = INR) 1.02 1 0.85-1.17 [facility] NaptkkaPHIOEUFESF8913-26-14 23:01:00* Test Item Value Reference Range Interpretation Comments PT (test code = PT) 13.2 s 12.0-14.7 [facility] UfjeoeyYORCMLBAIR5877-99-52 23:01:00* Test Item Value Reference Range Interpretation Comments PTT (test code = PTT) 33.5 s 22.9-35.8 [facility] ErxmijyKIRUVJKOCQ3010-96-45 23:01:0079.0[facility] HermannHEMATOLOGY 2019-07-17 23:01:0012.0[facility] BjpfqopKSUFOWQBHD3737-62-52 23:01:007.4[facility] VeseumiEHHVUGBYWL3761-72-41 23:01:000.8[facility] LrprdgeEMPNHBEFWJ4228-60-15 23:01:000.8[facility] LcvblpsGKOVGSGITP3634-91-94 23:01:007.1[facility] WKWLPDLLJI4104-89-33 23:01:001.1[facility] VvivxohKZVOLSBQCR8968-40-21 23:01:000.7 [facility] ZmeiyucDEYPHHYHPJ3985-52-62 23:01:000.1[facility] HermannHEMATOLOGY 2019-07-17 23:01:000.1[facility] VrqwxzvOBUGUFUUWW5525-93-06 23:01:002+ *ABN*(07/17/19 5:01 PM)[facility]] G-AZNXQCJ4115-68UUYSSYF4620-32-42 10:10:00* Test Item Value Reference Range Interpretation Comments C-Peptide, Serum; Above High Threshold (test code = 1986-9) 10.5 ng/mL 1.1-4.4 C-Peptide reference interval is for fast ing patients. [facility]] URIC XYTG6678-87-44 10:10:00* Test Item Value Reference Range Interpretation Comments Uric Acid, Serum (test code = 3084-1) 3.4 mg/dL 2.5-7.1 Therapeutic target for gout patients: <6.0 [facility]] PTH, INTACT (WITHOUT CALCIUM)2019-06-28 10:10:00* Test Item Value Reference Range Interpretation Comments PTH, Intact; Above High Threshold (test code = 2731-8) 220 pg/mL 15-65 [facility]] RHEUMATOID UKORNC0911-19-70 10:10:00* Test Item Value Reference Range Interpretation Comments RA Latex Turbid. (test code = 92856-6) <10.0 0.0-13.9 [facility]] HLA-B27, DNA AWGJTS5571-22-77 10:10:00* Test Item Value Reference Range Interpretation Comments HLA-B27 (test code = HLA-B27) Negative HLA-B*27 JxgszxiuH44 allele interpretation for all loci based on IMGT/HLAdatabase version 3.35This test was developed and its performance characteristicsdetermined by [facility]. It has not been cleared or approvedby the Food and Drug Administration.[facility] CLIA ID Number [id number] .This test was performed using PCR (Polymerase Chain Reaction)/SSOP(Sequence Specific Oligonucleotide Probes) technique. SBT (SequenceBased Typing) and/or SSP (Sequence Specific Primers) may be used assupplemental methods when necessary. Please contact [facility] CustomerService at if you have any questions. . Director of [facility] Laboratory Dr Link Curtis, PhD [facility] PhysiciansXRAY Hand AP lateral oblique Bilateral [id number] 2019-06-24 14:09:00EXAM: XR BILATERAL HAND 3 VIEWSDATE: 06/24/2019 14:09 CDTINDICATION: - hand arthritisCOMPARISON: NoneTECHNIQUE: PA, lateral and oblique radiographs of the bilateral hands.FINDINGS: No acute fracture or malalignment is identified. Generalizeddiminished bone mineral density. Joint space narrowing throughout theinterphalangeal joints with central erosions and osteophytes of the DIP joints,greatest at the right second, left fourth, and bilateral fifth DIP joints.Small osteophytes throughout the MCP joints with minimal joint space narrowing.Joint space narrowing and osteophytes of the left first CMC joint.Moderate arterial calcification.IMPRESSION: 1. Erosive osteoarthrosis of the DIP joints.2. Additional osteoarthrosis of the bilateral PIP, MCP, and left first CMCjoints.--Read by: Mir Vera MDDictated Date/time: 06/24/19 14:25Electronically Signed by: Mir Vera MD 06/24/1914:27[facility]Un[facility] C-SPINE W/O JPBEJDRA0731-81-63 14:58:00 Name: PRATIK SMITH [facility] : 1935 Age/S: 83 / F [address] Unit #: [id number] Loc: [place] [address] Phys: Adriana Hodges MD Acct: [id number] Dis Date: Status: REG PHONE #: [phone] Exam Date: 03/20/2019 1418 FAX #: [phone] Reason: fall, laceration to head EXAMS: CPT CODE: [id number] CT C-SPINE W/O CONTRAST 00860 HISTORY: fall, laceration to head TECHNIQUE: 2.[address] of the cervical spine. Sagittal and coronal reformatted images were generated. Automated exposure control for dose reduction. COMPARISON: None FINDINGS: No acute fracture. There is grade 1 anterolisthesis of C3-C4 and C4-C5 and C5-C6. There is also decreased vertebral body heights at C3-C6. There is marked height loss of the C5-C6 disc space. No prevertebral or paraspinal soft tissue abnormality. Visualized posterior fossa contents are grossly unremarkable. Lung apices are clear. There is cerumen in the bilateral external auditory canals. C2-C3: Facet hypertrophy and vertebral body osteophytes cause foraminal stenosis bilaterally. C3-C4: Facet hypertrophy and vertebral body osteophytes cause foraminal stenosis bilaterally. C4-C5: Facet hypertrophy and vertebral body osteophytes along with mild C4-C5 anterolisthesis causes bilateral foraminal narrowing. C5-C6: Facet hypertrophy as well as vertebral body osteophytes and intervertebral disc height loss causes bilateral foraminal narrowing. C6-C7: Facet hypertrophy with amelie tebral body height loss and C6-C7 anterolisthesis causes mild foraminal na rrowing. C7-T1: No disc bulge or protrusion. No central canal or foraminal stenosis. IMPRESSION: Degenera tive changes throughout the cervical spine, most pronounced at C5-C6, pr oduces multilevel foraminal narrowing. No acute fracture is seen however . PAGE 1 Signed Report (CONTINUED) Name: PRATIK SMITH [facility] : 1935 Age/S: 83 / F [address] Unit #: [id number] Loc: [place] [address] Phys: Adriana Hodges MD Acct: [id number] Dis Date: Status: REG ER PHONE #: [phone] Exam Date: 03/20/2019 1418 FAX #: [phone] Reason: fall, laceration to head EXAMS: CPT CODE: [id number] CT C-SPINE W/O CONTRAST 25357 < Continued> at 1458 Reported and signed by: Sergio Rodriguez MD CC: Adriana Hodges MD Technologist:Bruna Addison,RT(R),CT; Angie CTDI: DLP: Trnscb Date/Time: 03/20/2019 (5063) t.SDR.RR31 Orig Print D/T: S: 03/20/2019 (5682) PAGE 2 Signed Report - CT HEAD/BRAIN W/O [id number] 14:25:00 Name: PRATIK SMIHT [facility] : 1935 Age/S: 83 / F [address] [facility] Unit #: [id number] Loc: [place] [address] Phys: James Hodges MD Acct: [id number] Di s Date: Status: REG ER PHONE #: [phone] Exam Date: 03/20/2019 1418 FAX #: [phone] Reason: fall, laceration to head EXAMS: CPT CODE: [id number] CT HEAD/BRAIN W/O CONT 59256 HISTORY: fall, laceratio n to head TECHNIQUE: Noncontrast 2.[address] of the head. Exam ination acquired within 24 hours of arrival. Automated exposure control fo r dose reduction. COMPARISON: None FINDINGS: No acute hemorrhage. No intracranial mass, mass effect, or midline shift. No CT evidence of acute infarct. Rodriguez-white matter differenti ation is preserved. No hydrocephalus. No extra-axial fluid collection. The re is a calcification in the insula (3/30) that is extra-axial and may rep resent a small calcified meningioma or may represent sequela from a previo us infection. Decreased attenuation of the periventricular white matter li carlos a represents microvascular ischemic changes. There is also cortical atr ophy that is age-appropriate. Visualized paranasal sinuses a re clear. Mastoid air cells and middle ear cavities are clear. There is ce rumen in the bilateral external auditory canals. Prior lens extraction in the bilateral orbits. There is swelling of the soft tissues overly ing the right parietal bone but no fracture of the underlying skull. Kandis rium and skull base are intact. There is extensive atherosclerosis in the vertebral and visualized carotid arteries. IMPRESS ION: Scalp swelling overlying the right parietal bone but no f racture of the underlying bone and no acute intracranial injury. Chronic microvascular ischemic changes of the periventricular white mat ter. at 1420 * * Reported and signed by: Sergio Rodriguez MD PAGE 1 Signed Report (CONTINUED) Name: PRATIK KNIGHT [facility] : 1935 A ge/S: 83 / F [address] Unit #: [id number] Loc : [place] [address] Phys: Adriana Hodges MD Acct: [id number] Dis Date: Status: REG ER PHONE #: [phone] Exam Date: 03/20/2019 1418 FAX #: [phone] Reaso n: fall, laceration to head EXAMS: CPT CODE: [id number] CT HEAD/BRAIN W/O CONT 29527 <Continued> CC: Adriana Hodges MD Technologist:Bruna AddisonRT(R),CT; Angie CTDI: DLP: Trnscb Date/Time: 03/20/2019 (1425) t.SDR.RR31 Orig Print D/T: S: 03/20/2019 (7660) PAGE 2 Signed Report - MRI LOW EXT W/O CONT [id number] 12:33:00 FAX: Noe Dowd MD [phone] [place]: St: REG Name: PRATIK MILLER [facility] : [birth year] Age/S: 83/F [address] [place] [address] Unit #: [id number] Loc: [place] [address] Phys: Noe Simpson MD Acct: [id number] Dis Date: Status: REG CLI PHONE #: [phone] Exam Date: 12/26/2018 1034 FAX #: [phone] Reason: L97.512 RT 2ND TOE ULCER EXAMS: CPT CODE: [id number] MRI LOW EXT W/[place] T 04255 MR RIGHT FOOT WITHOUT IV CONTRAST 12/26/2018 AT 0925 HOURS. INDICATION: Right 2nd toe ulcer. COMPARISON: Right toe series 11/26/2018. ADMINISTERED CONTRAST : None. TECHNIQUE: Multi-planar, multi-sequence MR imaging of the right forefoot was performed using routine protocol without IV gadolinium contrast. FINDINGS: . Bones: Abnormal T2 hyperintense bone marrow signal is seen involving the proximal and middle phalanges of the right 2nd toe with preserved fatty marrow of the distal phalanx. Shana re PIP joint osteoarthritis is noted with mild valgus angulation of the 2n d toe. No fracture or neoplasm. Severe sesamoid osteoarthritis with diffu se T2 hyperintense marrow edema of the tibial sesamoid. No fracture or ne oplasm. Moderate osteoarthritis of the middle cuneonavicular joint with subchondral fibrocystic change. . Joints: Hallux valgus deformity with subchondral fibrocystic change involving the 1st metatarsal head. Modera te degenerative change at the 1st MTP joint and interphalangeal joint with diffuse interphalangeal joint space loss diffusely. Dorsiflexed 2nd MTP joint. No joint effusions. . Tendons/Ligaments: Partially imaged but within normal limits. The Lisfranc ligament is intact. . Soft tissu es: A medial plantar ulcer is seen in the right 2nd toe at the level of th e PIP joint. Circumferential soft tissue edema/cellulitis involving the ri ght 2nd toe with severe soft tissue edema/cellulitis across the dorsum of the right forefoot. No fluid collections. . Other: Partial fatty at rophy of the intrinsic foot musculature, partially imaged. IMPRESSION: 1. 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 Circumferential 2nd toe cellulitis extendin g across the dorsum of the right forefoot. 2. No organized absce ss. 3. 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 Edematous tibial sesamoid. 4. No ligamen tous or tendinous tear. Dorsiflexed 2nd MTP joint. PAGE 1 Signed Report (CONTINUED) FAX: Noe Iniguez MD [phone] [place]: St: REG Name: PRATIK SMITH [facility] : 1935 Age/S: 83/F [address] [place] [address] Unit #: [id number] Loc: [place] [address] Phys: Noe Simpson MD Acct: [id number] Dis Date: Status: R EG CLI PHONE #: [phone] Exam Date: 0 12/26/2018 1034 FAX #: [phone] Reason: L97.512 RT 2ND TOE ULCER EXAMS: CPT CODE: [id number] MRI LOW EXT W/[place] [address] <Continued> SL: ER-H at 1233 Reported and signed by: Yoel Gonzalez M.D. CC: Noe Simpson MD Technologist: Sherry Avalos RT(R)(MR) Trnscrd Date/Time/By: 12/26/2018 (0563) : By: [email or web address] Orig Print D/T: S: 12/26/2018 (5558) PAGE 2 Signed Report - XR TOE(S) 2+V [id number] 13:21:00 FAX: Noe Dowd MD [phone] [place]: St: REG Name: PRATIK MILLER [facility] : [birth year] Age/S: 83/F [address] [place] [address] Unit #: [id number] Loc: [place] [address] Phys: Noe Simpson MD Acct: [id number] Dis Date: Status: REG RCR PHONE #: [phone] Exam Date: 11/26/2018 1244 FAX #: [phone] Reason: L97.512, R 2ND TOE ULCER. E11.621, DM. EXAMS: CPT CODE: [id number] XR TOE(S) 2+[place] [address] CLINICAL HISTORY: L 97.512. Right second toe ulcer. He is 11.6-1, diabetes mellitus. COMPARISO N: None. AP, lateral, and oblique films of the right toes with sp ecific attention to the right second toe demonstrate that the bones are mildly osteopenic. Hallux deformity of great toe is present. Mild dege nerative changes are present at Ryan metatarsophalangeal joint and inte rphalangeal joint. No evidence of fracture or dislocation is seen. No radiographic evidence of osteomyelitis involving the second toe is not ed. IMPRESSION: 1. No evidence of osteomyelitis. 2. Mild osteopenia with hallux deformity of the great toe. Electron ically Signed by Lance Stout on 11/26/2018 at 1321 Reported and signed by: Reynold Stout M.D. CC: Noe blackmon MD Technologist: Izzy Mercado RT(R) Trnscrd Date/Time/By: 11/26/2018 (1321) : By: lauren Garduno Print D/T: S: 11/26/2018 (3597) PAGE 1 Signed Report SED RATE [id number] 12:30:00* Test Item Value Reference Range Interpretation Comments SED RATE MIMI (test code = SEDW) 40 mm/hr 0-20 H C REACTIVE [id number] 12:01:00* Test Item Value Reference Range Interpretation Comments C REACTIVE PROTEIN (test code = CRP) 3.4 MG/L 0.0-2.9 H SCR MAMM BILATERAL ELI CAD [id number] 12:59:33 - SCR MAMM BILATERAL ELI CAD DIGITALBILATERAL DIGITAL SCREENING MAMMOGRAM 3D/2D WITH CAD: 11/12/2018CLINICAL: Asymptomatic. Digital breast tomosynthesis was performed in addition to routine CC and MLO views. Current mammographic images were evaluated by either a [employer] M-Vu or a [email or web address] CAD (computer aided detection system). Comparison is made to exams dated 08/12/2015 mammogram - [facility] [place] and 08/24/2016 mammogram - [facility]. The tissue of both breasts is heterogeneously dense. This may lower the sensitiv ity of mammography. There are benign vascular calcifications and calcifications in both breasts. There also are benign intramammary nodes in the left breast. No suspicious mass, architectural distortion, malignant type calcification, or lymph node abnormality detected. Breast architecture is stable compared to prio r exams.IMPRESSION: BENIGNThere is no mammographic evidence of malignancy. Resum e annual screening mammography in one year. Oneil Amin M.D. ss /penrad:11/12/2018 12:59:33 Housecleaner: Morelia Montero , [facility] sent: BIRADS 1-2 Normal Mammogram BI-RADS: 2 Benign- DOP ART SGL LEVEL [id number] 12:20:00 Name: PRATIK SMITH [facility] : 1935 Age/S: 83 / F [address] [place] [address] Blvd Unit #: [id number] Loc: [facility] [place] [address] Phys: Noe Simpson MD Acct: [id number] Dis Date: Status: REG RCR PHONE #: [phone] Exam Date: 10/26/2018 1022 FAX #: [phone] Reason: L97.524 , L 2ND TOE ULCER. A20196, DM. I73.9 . EXAMS: CPT CODE: [id number] DOP ART SGL LEVEL JOSE MANUEL 09098 Patient: PRATIK SMITH. : 1935; Age: 83 years; Gender: Female. MR: [id number]. Ordering physician: Noe Simpson MD. DOPPLER ARTERIAL ULTRASOUND EXAMINATION OF THE BILATERAL LOWER EXTREMITIES. 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 COMPARISON: None. FINDINGS: Grayscale, color Doppler and pulsed Doppler waveform ultrasound examination of the arterial system of the bilateral lower extremities was performed. Biphasic waveforms noted within the right common femoral, superficial femoral, and dorsalis pedis arteries. Triphasic to biphasic waveforms noted within the right popliteal and posterior tibialis arteries. Triphasic waveforms noted within the left common and possibly popliteal arteries. Biphasic waveforms noted within the left superficial femoral artery. Triphasic to biphasic waveforms noted within left posterior tibialis and dorsalis pedis. ABIs were not obtainable as bilateral posterior tibialis and dorsalis pedis arteries were noncompressible beyond 254 mmHg IMPRESSION: No evidence of hemodynamically sign ificant atherosclerotic disease/stenosis involving the arterial system o f bilateral lower extremities. SL: [id number] G06 at 1220 Reported and signed by: Ramin Bui M.D. PAGE 1 Signed Report (CONTINUED) Name: SHERI SMITH [facility] : 1935 Age/S: 83 / F [address] [place] [address] Unit #: [id number] Loc: [place] [address] Phys: Noe Simpson MD Acct: [id number] Dis Date: Status: REG RCR PHONE #: [phone] Exam Date: 10/26/2018 1022 FAX #: [phone] Reason: L97 .524 , L 2ND TOE ULCER. E09119, DM. I73.9 . EXAMS: CPT CODE: [id number] DOP ART SGL LEVEL JOSE MANUEL 88701 <Continued> CC: Noe Simpson MD Technologist: Chandni Garcia Trnscb Date/Time: 10/26/2018 (1220) t.SDR.SL7 Orig Print D/T: S: 10/26/2018 (1223) Probe: PAGE 2 Signed Report POCT-GLUCOSE KZUJI8721-04-77 05:39:00* Test Item Value Reference Range Interpretation Comments POC-GLUCOSE METER (BEAKER) (test code = 1538) 101 mg/dL 70-[address] [facility] [address] [facility] [address] BASIC METABOLIC WOTJF2428-27-30 06:51:00* Test Item Value Reference Range Interpretation Comments SODIUM (BEAKER) (test code = 381) 138 meq/L 136-145 POTASSIUM (BEAKER) (test code = 379) 4.1 meq/L 3.5-5.1 CHLORIDE (BEAKER) (test code = 382) 97 meq/L 98-107 L CO2 (BEAKER) (test code = 355) 32 meq/L 22-29 H BLOOD UREA NITROGEN (BEAKER) (test code = 354) 29 mg/dL 7-21 H CREATININE (BEAKER) (test code = 358) 2.54 mg/dL 0.57-1.25 H GLUCOSE RANDOM (BEAKER) (test code = 652) 105 mg/dL 70-105 CALCIUM (BEAKER) (test code = 697) 9.3 mg/dL 8.4-10.2 EGFR (BEAKER) (test code = 1092) 18 mL/min/1.73 sq m ESTIMATED GFR IS NOT ACCURATE CREATININE CLEARANCE IN PREDICTING GLOMERULAR FILTRATION RATE. ESTIMATED GFR IS NOT APPLICABLE FOR DIALYSIS PATIENTS. CBC W/PLT COUNT & AUTO CIEXSVXEOJEI9685-60-49 06:45:00* Test Item Value Reference Range Interpretation Comments WHITE BLOOD CELL COUNT (BEAKER) (test code = 775) 5.4 K/ L 3.5- 10.5 RED BLOOD CELL COUNT (BEAKER) (test code = 761) 3.75 M/ L 3.93-5 .22 L HEMOGLOBIN (BEAKER) (test code = 410) 11.8 GM/DL 11.2-15.7 HEMATOCRIT (BEAKER) (test code = 411) 37.9 % 34.1-44.9 MEAN CORPUSCULAR VOLUME (BEAKER) (test code = 753) 101.1 fL 79. 4-94.8 H MEAN CORPUSCULAR HEMOGLOBIN (BEAKER) (test code = 751) 31.5 pg 25.6-32.2 MEAN CORPUSCULAR HEMOGLOBIN CONC (BEAKER) (test code = 752) 31.1 GM/DL 32.2-35.5 L RED CELL DISTRIBUTION WIDTH (BEAKER) (test code = 412) 15.9 % 11.7-14.4 H PLATELET COUNT (BEAKER) (test code = 756) 221 K/CU MM 150-450 MEAN PLATELET VOLUME (BEAKER) (test code = 754) 9.9 fL 9.4-12 .3 NUCLEATED RED BLOOD CELLS (BEAKER) (test code = 413) 0 /100 WBC 0 -0 NEUTROPHILS RELATIVE PERCENT (BEAKER) (test code = 429) 66 % LYMPHOCYTES RELATIVE PERCENT (BEAKER) (test code = 430) 19 % MONOCYTES RELATIVE PERCENT (BEAKER) (test code = 431) 11 % EOSINOPHILS RELATIVE PERCENT (BEAKER) (test code = 432) 2 % BASOPHILS RELATIVE PERCENT (BEAKER) (test code = 437) 1 % NEUTROPHILS ABSOLUTE COUNT (BEAKER) (test code = 670) 3.60 K/ L 1.56-6.13 LYMPHOCYTES ABSOLUTE COUNT (BEAKER) (test code = 414) 1.05 K/ L 1.18-3.74 L MONOCYTES ABSOLUTE COUNT (BEAKER) (test code = 415) 0.60 K/ L 0. 24-0.36 H EOSINOPHILS ABSOLUTE COUNT (BEAKER) (test code = 416) 0.12 K/ L 0.04-0.36 BASOPHILS ABSOLUTE COUNT (BEAKER) (test code = 417) 0.04 K/ L 0. 01-0.08 IMMATURE GRANULOCYTES-RELATIVE PERCENT (BEAKER) (test code = 2801) 0 % 0-1 PROTHROMBIN TIME/DIZ8635-74-66 06:43:00* Test Item Value Reference Range Interpretation Comments PROTIME (BEAKER) (test code = 759) 15.2 seconds 11.7-14.7 H INR (BEAKER) (test code = 370) 1.2 <=5.9 RECOMMENDED COUMADIN/WARFARIN INR THERAPY RANGESSTANDARD DOSE: 2.0 - 3.0 Inclu ed: PROPHYLAXIS for venous thrombosis, systemic embolization; TREATMENT for katelyn ous thrombosis and/or pulmonary embolus.HIGH RISK: Target INR is 2.5-3.5 for pat ients with mechanical heart valves.BLOOD BANK KTLOOGQ9337-19-98 15:01:00Product available (10/21/17 9:01 AM)[facility] VORRX0517-60-19 11:43:0013 [facility] SZKNM1792-63-17 11:43:54714Smgvkfku HermannCHEM PANEL 2017-10-21 11:43:007.9[facility] UZVYK2837-31-01 11:43:004.6[facility] WNUWG0947-48-40 11:43:0099[facility] TQWIF2897-97-49 11:43:0029[facility] UQUMN4106-41-77 11:43:003.18[facility]annCHE[facility] DUVRR9252-97-34 11:43:0079[facility] XUMXU7871-63-12 11:43:0032 [facility] YREAM4788-42-70 11:43:0013.6[facility]annHEMATOLOGY 2017-10-21 11:43:008.1[facility] RcnpvegFFBKNDCJUD4063-08-91 11:43:20189Okszfgaz CbdezhcVELBKIZJYY5313-90-57 11:43:007.5[facility] OshmskpMJSVAWLGJM2353-79-94 11:43:006.9[facility] QgweeyoWVNPIWUCIF6015-47-89 11:43:002.23[facility] UJAMKINRRR7435-86-29 11:43:0034.0[facility] WnkkhylQODRNZRBQD1990-18-02 11:43:00 18.2[facility] EgfwbxxMDFTJHZDZS9308-91-54 11:43:0098.5[facility]annHEMATOLOGY 2017-10-21 11:43:00* Test Item Value Reference Range Interpretation Comments MCH (test code = MCH) 33.4 pg 27.0-31.0 [facility] ZphcxmuNCKIULGHAZ7437-13-37 11:43:0021.9[facility]annHEMATOLOGY 2017-10-21 11:43:000.1[facility] HyinxutAGSZBGRVSQ6176-02-65 11:43:000.8[facility] QmjygxiALXRKFXAWO3368-38-97 11:43:000.4[facility] UkbrqwfUOPFIYCTQK8844-88-51 11:43:004.4[facility] DrkfeyoMHLVMJNSXC2686-88-08 11:43:001.1[facility] RPWLRIRDGS2066-66-45 11:43:005.8[facility] CquhvdfRPSPPXLUZU5552-06-26 11:43:00 16.4[facility] UegefxmNMFWNGXCRE0573-56-44 11:43:0012.2[facility]annHEMATOLOGY 2017-10-21 11:43:0064.7[facility] OqetytsQNWBKSENMW0117-51-36 11:43:000.9[facility] PuudhiwTTMAHXQBIL6509-25-53 00:07:0023.2[facility] AzfxzlxCFSPQLDWYD4614-33-99 00:07:007.9[facility]annCHEM TJLDO6438-65-36 14:16:008.4[facility]annCHE[facility] RUEUZ6062-31-14 14:16:76679Xlejfbrj HermannCHEM MAQBH1757-73-42 14:16:0023 [facility] QJDXG0370-93-10 14:16:004.2[facility]annCHEM PANEL 2017-10-20 14:16:02232Fwkcrehi HermannCHEM CFVAI3983-78-41 14:16:0099[facility] FRSQC5875-61-33 14:16:0031[facility]annCHE[facility] WIHSV2482-70-64 14:16:0016[facility] KGJXB8535-27-35 14:16:002.67[facility]CHE[facility] TJOVF4182-21-02 14:16:0011.2[facility] ExovvfeTJSRGRWNLN6045-31-36 14:16:008.6 [facility] CuzkdfzYXOPELSPFR6449-36-53 14:16:0026.0[facility] HermannELECTROLYTES 2017-10-19 10:53:0014.3[facility] YmsrglmLICSXOOUAJCA5322-59-94 10:53:007.9 [facility] HzrejtvZOPXAPAXJHDQ9743-36-40 10:53:002.4[facility] HermannELECTROLYTES 2017-10-19 10:53:004.3[facility] RsuuizlGNKGTPPNHUEL4891-88-81 10:53:0031[facility] KskjnsjZJBRXZLNMOVQ1228-14-16 10:53:60799Keqgdmyl MgbauguPKTKVKNIENHY4304-99-12 10:53:24825Nmlmjcej WwlppmiZSROJVCOUNMW1712-17-98 10:53:0030[facility] DXNZDIKUXHYB5538-29-40 10:53:0075[facility] DddwwhcWDJPYRXPEOFX9530-65-81 10:53:00 13[facility] LnfhotrBNNRHKLCQOMW3932-00-14 10:53:003.5[facility] HermannELECTROLYTES 2017-10-19 10:53:003.19[facility] HivugwoPWVESQHZTI1286-59-03 10:53:005.6[facility] ClvgkibJYRDGRUQPC7715-02-35 10:53:001.0[facility] CebsaeuDIPAVDCWTZ2290-82-10 10:53:000.6[facility] MpancwyOCEVBAXDVB5706-17-13 10:53:000.8[facility] FMGYDDHWWK4063-01-22 10:53:000.1[facility] IqfnqdiQCSJXVKZVJ8559-02-00 10:53:000.8 [facility] HrhzwkoGXHRDRMBXK0305-45-49 10:53:0076.5[facility] HermannHEMATOLOGY 2017-10-19 10:53:0010.6[facility] SbxryojBNKLKUNLPL9719-67-58 10:53:0011.3[facility] AbnzrvsDHVYCGVKVG9915-00-44 10:53:72512Hzmwrxuh EdxvhdtQXNWZHPZZX1771-24-80 10:53:007.9[facility] BhqczxyAZDCDBLYAV5026-36-90 10:53:007.4[facility] DXBRTJGHBJ9910-86-09 10:53:002.52[facility] EciadbrJTGSKRAFNT4738-13-90 10:53:00 97.7[facility] FkbuydqLQNFVYNNAN7850-31-03 10:53:0034.1[facility]annHEMATOLOGY 2017-10-19 10:53:0020.2[facility] QyuzcgpAHUFGYNXNC7320-55-87 10:53:00* Test Item Value Reference Range Interpretation Comments MCH (test code = MCH) 33.3 pg 27.0-31.0 [facility]CHE[facility] WJARB4530-81-39 15:43:002.4[facility]annCHEM PANEL 2017-10-18 15:43:001.13[facility]annCHEM HJKJO9498-43-30 15:43:007.8[facility]annCHEM FLWNM5516-65-51 15:43:64340Mdvvemid HermannCHEM BRWPM2886-18-63 15:43:0018.0[facility]annCHEM MSTYX5503-75-40 15:43:0023.0[facility] CHEM SOMEV3866-90-79 15:43:62670Nisguhop HermannCHEM LUEMH0694-04-09 15:43:0025 [facility] BCCDC7822-00-12 15:43:003.6[facility]annCHEM PANEL 2017-10-18 15:43:0031[facility]annCHEM HEYVE1091-82-85 15:43:0094[facility] HermannBLOOD BANK JVRZNUZ6857-10-88 13:16:00Negative (10/18/17 7:16 AM)[facility]annBLOOD BANK ZQYKYGO9567-23-24 12:54:00Product available 1(10/18/17 6:54 AM) [facility] CfzqzjnUNGKGXZWQA8293-55-06 12:29:008.8[facility] HermannHEMATOLOGY 2017-10-18 12:29:002.5[facility] JyqrukiSPITLQSQTC6961-76-53 12:29:0025[facility] VdqlpcqVXTUVOGMLZ2178-59-85 12:29:0036[facility] JrabkcrSMLGGFGSVL3101-24-17 12:29:60078Srunmgnw JexirooPXJTBXJCIS7545-65-41 12:29:0014.0[facility] HHLWPFCBVW2177-53-58 12:29:0026.0[facility] YpfytfaBMMHBMPPOZ2700-37-59 12:29:00 139[facility] QogukugSVLPLJGHWI9302-30-28 12:29:0093[facility]annHEMATOLOGY 2017-10-18 12:29:003.8[facility] TbesnamMRWOAWPAWM6210-30-10 12:29:001.13[facility] OyomnirIVLNGKSHKZTF3083-88-45 12:18:0012.0[facility] DuoxgwfTRSSRYXYNEKF0429-40-51 12:18:0037[facility] WrmfehiLZWMQHFJKPJZ5098-91-13 12:18:002.4[facility] OYKILGRSFBRI7886-14-99 12:18:0039[facility] QiizrqbGENKJLNKJCQI8728-37-50 12:18:00 95[facility] XnetmymEXPOXGGYVOWB9685-18-83 12:18:005.9[facility] HermannELECTROLYTES 2017-10-18 12:18:27771Stcmbbav AhyvlfmBKHTHOWSTSSX7131-92-83 12:18:001.10 [facility] EepfpflOGIGBIEHCSDW5833-70-05 12:18:009.9[facility] HermannELECTROLYTES 2017-10-18 12:18:0029.0[facility] XsrseibVEMAPVIFLQQI9793-17-00 12:18:42702 [facility] HbhhotpJVCUMVWGKH2521-02-75 10:10:008.4[facility]annHEMATOLOGY 2017-09-27 10:10:0025.0[facility] WyqtftpAWVUQJQQSW7627-81-60 17:44:00Negative *NA*(09/26/17 11:44 AM)[facility] MlubinjIDNHTTBXPQ2299-49-14 17:44:0070.3[facility]annCHEM UZXDL4570-85-51 11:30:0041[facility]annCHE[facility] XIXDG5864-74-22 11:30:0028[facility]annCHEM TFTPI5270-66-95 11:30:007.9[facility]annCHE[facility] AYUHC7752-31-09 11:30:15641Bwhcabtv HermannCHEM VKGVR2782-01-62 11:30:68332 [facility]CHE[facility] XBYQE9047-54-76 11:30:004.4[facility]annCHEM PANEL 2017-09-26 11:30:008[facility]annCHE[facility] USLDH0614-41-15 11:30:004.93[facility]annCHE[facility] BKRWF3144-91-65 11:30:0088[facility]annCHE[facility] XRSCQ3448-79-41 11:30:0015.4[facility]annCHEM YLBRJ2649-68-09 11:30:00* Test Item Value Reference Range Interpretation Comments B/C Ratio (test code = B/C Ratio) 8 1 6-25 [facility]CHE[facility] CLJYU4188-29-07 11:30:005.4[facility]annCHEM PANEL 2017-09-26 11:30:0091[facility]annCHEM GEXYL6885-07-29 11:30:001.0[facility]annCHEM FIAOT6392-55-56 11:30:0028[facility]annCHE[facility] CMWWY8902-79-49 11:30:003.1[facility]annCHEM PGPMZ1032-19-15 11:30:007.9[facility]annCHEM UETDU0782-74-58 11:30:004.4[facility]annCHEM LKPEK3479-70-64 11:30:13106 [facility]CHE[facility] UIWZL2829-81-73 11:30:0041[facility]annCHEM PANEL 2017-09-26 11:30:90517Enrdythn HermannCHEM ZRLBY0723-32-65 11:30:008[facility]annCHE[facility] GLMXE5551-06-68 11:30:0011[facility]annCHE[facility] STKLE3049-72-68 11:30:0020[facility]annCHE[facility] GUZGP8008-66-50 11:30:0088[facility]annCHEM HINCE6895-07-45 11:30:004.93[facility]annCHEM PEAPF9744-90-87 11:30:002.3 [facility]CHE[facility] IXFKC5373-34-76 11:30:00* Test Item Value Reference Range Interpretation Comments A/G Ratio (test code = A/G Ratio) 1.3 1 0.7-1.6 [facility]CHE[facility] NNPSD8086-79-46 11:30:0015.4[facility]annHEMATOLOGY 2017-09-26 11:30:008.6[facility] OfuidrpABFXJJJONV8883-57-70 11:30:0025.7[facility] OchikywWUBETEXADC6732-40-41 11:30:008.6[facility] ZtpveprBCAJYJRRBB4178-01-49 11:30:002.53[facility] AateocwDJMBCXFHWN7541-38-91 11:30:0025.7[facility] MKQQFJQIIE4843-25-74 11:30:00* Test Item Value Reference Range Interpretation Comments MCH (test code = MCH) 34.0 pg 27.0-31.0 [facility] FpjtpytFUUUFEDSMT0126-96-65 11:30:40931.4[facility] HermannHEMATOLOGY 2017-09-26 11:30:0033.6[facility] CrzkzxyEDOLBJFPNF6735-87-22 11:30:97525Znxjfxhc PxkifgiDRTEOMUXHW0727-67-77 11:30:0015.7[facility] RvhdlamPBKPCTSAUF5470-63-89 11:30:007.9[facility] LmljtfdLSWVEUUIMR3349-70-45 11:30:009.7[facility] PPCVMJCXQB8568-44-88 11:30:000.1[facility] OkxdigvSWITJBHIHM8879-13-14 11:30:000.1 [facility] SqlsczfAOPXJPQMSI9010-86-99 11:30:0084.2[facility] HermannHEMATOLOGY 2017-09-26 11:30:000.6[facility] OssmdjoKVFTEWXWVW1884-03-74 11:30:000.6[facility] DuqjvxpSWIXTOKUTK6235-35-95 11:30:000.8[facility] EozercoMKFKSBBFIY1741-61-35 11:30:000.emorial QaiwkkyZBXVGERGWZ2639-02-62 11:30:008.2[facility] DNTASCZANC4952-69-93 11:30:006.2[facility] FnwikpjSEEJRQUNOR0909-00-85 11:30:008.4 [facility]annCHE[facility] GRKSZ6084-69-59 16:25:009[facility]annCHEM PANEL 2017-09-25 16:25:0037.0[facility]annCHEM RWNTQ5880-68-91 16:25:0012.6[facility]annCHEM PIPMV6681-10-71 16:25:0017.0[facility]annCHEM JVQAL5126-97-98 16:25:004.3[facility]annCHE[facility] NVQHH7068-95-44 16:25:001.22[facility]annCHE[facility] LVJGD4024-28-33 16:25:0099[facility]annCHEM OHEQZ2512-91-24 16:25:0094 [facility]CHE[facility] IKRNJ6743-75-69 16:25:0034[facility]annCHEM PANEL 2017-09-25 16:25:0034[facility]annCHE[facility] QPZSN0399-09-61 16:25:004.4[facility]annCHEM LKGDG3074-31-19 16:25:26064Asxngveh IcthmypJRYQMJNJNF0883-80-48 16:21:00* Test Item Value Reference Range Interpretation Comments PT (test code = PT) 12.9 s 12.0-14.7 [facility]KIWN1816-89-85 16:21:00* Test Item Value Reference Range Interpretation Comments INR (test code = INR) 0.97 1 0.85-1.17 [facility]FicenawZQILUAVIVG2105-61-71 16:21:00* Test Item Value Reference Range Interpretation Comments PTT (test code = PTT) 32.6 s 22.9-35.8 [facility] GRCWLLL6680-96-82 16:20:00Negative (09/25/17 10:20 AM) [facility] CenterannBACTERIAL - LTQKHDKY2547-20-32 18:20:00Negative (09/20/17 12:20 PM)[facility][U] XRAY PELVIS MIN 3 S [id number] 08:54:00Images acquired, not reported on this accession number.[facility] [U] XRAY PELVIS MIN 3 S [id number] 10:14:00Images acquired, not reported on this accession number.[facility] Jenn RykertOOD BANK RESULTS 2017-07-03 14:53:00Product available (07/03/17 8:53 AM)[facility] NTSYOIPGBQAR9379-21-48 13:15:0015.6[facility] BhoepexZXWCSBBKIAYQ2218-06-73 13:15:009[facility] EmepcbuYKAAIRDOLPUR9206-80-88 13:15:004.6[facility] WWAQBRWAVLDX4077-36-98 13:15:0021[facility] KfcupsmCYMDRRUIOOHQ3173-74-31 13:15:00 101[facility] RmnfoceVKMNUOSBONRI4034-16-63 13:15:008.7[facility] PDTQJVKEDLYU9116-27-30 13:15:18781Eduspczx HtsdocyWWFDMKJBRVBJ4884-10-91 13:15:004.56[facility] EonjwvsTVGMNTQMUKSR1783-57-85 13:15:0079[facility] RUTKSVIHWEOF9501-69-95 13:15:0091[facility] QsaxbhsGPJZYFORBS0878-04-83 13:15:00 0.7[facility] ZwlwweiDLEXOBEQUH2155-75-76 13:15:000.1[facility]annHEMATOLOGY 2017-07-03 13:15:004.9[facility] EpmtvmxVZMAZUIQTG8727-68-51 13:15:000.9[facility] CoymdvbZAMOWBUNTI5610-24-34 13:15:001.1[facility] ZgcvutyJODBYWPJAU9350-60-60 13:15:000.3[facility] VtbmhfoYKWVWFNGOQ0841-76-85 13:15:0015.2[facility] FRAODVSKCU9340-73-54 13:15:0067.9[facility] MvrciubPGUZIKIYNP4305-46-87 13:15:00 12.5[facility] OxntopuBTHGBPXKRW7530-94-94 13:15:003.7[facility]annHEMATOLOGY 2017-07-03 13:15:007.4[facility] RfnhqmvXFEXIHCSID3147-61-83 13:15:91688Hzafcmpm AtdfwzkDADEUAZBCM8644-15-53 13:15:0092.0[facility] VlsndunFMDOGNAEKN7154-88-95 13:15:006.9[facility] TpjeubcGAMWNUKQAN0273-75-29 13:15:002.19[facility] WCBJEOLASI2064-96-36 13:15:007.3[facility] TaslgebYZNFNGFJAN6584-01-28 13:15:00 18.7[facility] BwexcnbVGLWEZCOOW2454-96-99 13:15:0034.2[facility]annHEMATOLOGY 2017-07-03 13:15:00* Test Item Value Reference Range Interpretation Comments MCH (test code = MCH) 31.5 pg 27.0-31.0 [facility] KrvnusgHFXKBOPWNT5141-50-43 13:15:0020.2[facility] HermannCHEM PANEL 2017-07-02 10:41:009[facility]annCHEM DYLWY1916-50-20 10:41:008.5[facility]annCHEM HGBPD1010-03-37 10:41:004.3[facility]annCHEM SZIAX3024-24-42 10:41:88457Bluxiqpe HermannCHEM VTABY5032-86-60 10:41:004.23[facility]annCHEM JFBCT5875-22-96 10:41:0064[facility]annCHE[facility] AIYGL0151-80-55 10:41:99307 [facility]annCHE[facility] BXOBA0096-24-67 10:41:73505Aychtsli HermannCHEM PANEL 2017-07-02 10:41:0020[facility]annCHEM VVFEH8697-06-61 10:41:0019.3[facility] GbeepwjKVUVTCWJCA3569-70-18 10:41:0019.3[facility] HiifiodHCHHKVROLA2354-83-57 10:41:85366Lysxfekm ZnrsarhRNWDOUSVDO7742-87-46 10:41:008.0[facility] AUENCQVPEN1850-37-06 10:41:0091.7[facility] KfpzlduLMHCXNJTTN0974-24-62 10:41:00* Test Item Value Reference Range Interpretation Comments MCH (test code = MCH) 31.3 pg 27.0-31.0 [facility] IjiwrwxMVLBSFYLUM9352-76-36 10:41:0034.1[facility]annHEMATOLOGY 2017-07-02 10:41:0021.1[facility] JrmgyeiSTZFTYSBOC6206-68-67 10:41:007.8[facility] PocymowAARWHADFFQ6890-81-46 10:41:002.30[facility] SeiydtrUQBXQPYAEX2455-96-50 10:41:007.2[facility] PyzjvsbVZNXBOWUKW8822-07-80 10:41:0015.0[facility] YXELEXCKXJ9659-88-16 10:41:0011.9[facility] PvkjjbdQHBBTDUJSQ7200-66-67 10:41:00 3.3[facility] LulfviwSBAQXDQHTW3775-03-80 10:41:0069.3[facility]annHEMATOLOGY 2017-07-02 10:41:000.5[facility] SuynqwzRYQDFIMNFN0070-09-81 10:41:005.4[facility] DitphcuPUKUTOPLLV8277-40-77 10:41:000.9[facility] JiehlwoEAKUXVADVK6383-07-55 10:41:000.3[facility] UoedlioJUZYPYOKVL1630-59-68 10:41:001.2[facility] HermannCHEM GYBCN3752-35-80 09:00:0012[facility]annCHEM VNRGJ2512-18-48 09:00:48237 [facility]annCHE[facility] BZOVN1819-61-85 09:00:0043[facility]annCHEM PANEL 2017-07-01 09:00:17319Btqelwwx HermannCHEM RGEGO8362-57-51 09:00:003.9[facility]annCHEM HUXOX9641-42-44 09:00:0026[facility]annCHEM PUOUF7014-78-20 09:00:0011.9[facility]annCHEM PVZMU8567-55-40 09:00:19890Xpuysvwu HermannCHEM ULCXR0233-76-90 09:00:008.6[facility]annCHEM WXFBW5708-86-06 09:00:003.32 [facility] MqbgollUEROAPXAVI9379-63-36 09:00:004.5[facility]annHEMATOLOGY 2017-07-01 09:00:001.0[facility] RpsjealONLOILDMKU5356-78-53 09:00:000.2[facility] XckzqvxYCUUJIJBBG4871-76-36 09:00:000.7[facility] YpbzjofIVMZCHIWLZ5175-40-40 09:00:001.2[facility] ZrssracDLZDPXIGHU6530-25-10 09:00:0017.2[facility] UZAITVORKF6368-27-96 09:00:003.1[facility] XbmuezlNERQJFZWLL0414-21-34 09:00:00 64.3[facility] YflwlibITJWBEJKUF2117-07-81 09:00:0014.7[facility]annHEMATOLOGY 2017-07-01 09:00:000.1[facility] KaiernrJGOVQTHCUB6247-19-99 09:00:0020.6[facility] LmwbuxnZZKKURDZHB3371-30-05 09:00:74096Zdyquueg AmolcviUKUQZYRBSQ8671-48-19 09:00:008.4[facility] WihrfohNEKDNHKKJQ0643-01-94 09:00:0034.7[facility] XGPSWQBZLX8965-68-74 09:00:00* Test Item Value Reference Range Interpretation Comments MCH (test code = MCH) 32.0 pg 27.0-31.0 [facility] BtxbhrjNBJMJGYBXR7964-05-51 09:00:0092.0[facility]annHEMATOLOGY 2017-07-01 09:00:0022.8[facility] WzeqaisCMTGKBLQII9442-67-61 09:00:006.9[facility] HfkgcfaVULQQYMBPK0913-90-28 09:00:002.47[facility] JftgchhENFLIIBULE3370-22-96 09:00:007.9[facility] MCYMTTK2756-22-67 12:53:00Negative (06/30/17 7:53 AM)[facility] BFXRFBI3700-54-56 12:39:00Product available (06/30/17 7:39 AM)[facility] GXRXXNQ1989-53-90 11:20:00 Negative (06/30/17 6:20 AM)[facility]annANEMIA HTVHE1429-66-86 07:33:0031 [facility]annANEMIA CXION5342-48-51 07:33:0057[facility]annANEMIA STUDY 2017-06-29 07:33:0083[facility]annANEMIA ZBAZO0994-83-95 07:33:0026[facility]annANEMIA NZZAG4242-05-61 07:33:217870Gcuepkdo HermannCHEM PEIEO3794-43-66 05:51:007.1[facility]annCHEM ONEVC1993-03-20 05:51:002.0[facility]annCHEM MRTRS5564-79-08 06:26:005.6[facility]annCHEM GQGRC0447-61-19 06:26:002.1 [facility] UfvmjmbRINSYQPFWA5811-55-90 06:26:001.06[facility]annHEMATOLOGY 2017-06-27 06:26:00* Test Item Value Reference Range Interpretation Comments PT (test code = PT) 13.8 s 12.0-14.7 [facility] UyvcvloHAUCTUPSYY1395-68-40 06:26:00* Test Item Value Reference Range Interpretation Comments PTT (test code = PTT) 49.6 s 22.9-35.8 [facility] CenterSkwyzyqHDYPDOUKGI1306-25-07 06:26:001+ *ABN*(06/27/17 1:26 AM)[facility] HjkwgueQYMFZHTBPQ3679-87-09 06:26:000.1[facility]annPARATHYROID PROFILE 2017-06-27 06:26:000.98[facility] HermannPARATHYROID JENHQRA1145-27-34 06:26:00 0.98[facility]BL[facility] BRWCBAN1602-61-39 15:14:00Product available (06/26/17 10:14 AM)[facility] ZIWTZID3770-97-85 15:14:00Product available (06/26/17 10:14 AM)[facility] VENNOHI6905-69-72 06:23:00Negative (06/26/17 1:23 AM)[facility]annCHEM LZYPZ7202-61-38 06:23:00 5.6[facility] HermannCHEM VEIPA9216-67-76 06:23:002.2[facility]annCHEM PANEL 2017-06-26 06:23:000.9[facility]annCHEM QSLFY9912-94-83 06:23:0021[facility]annCHEM DMRIK8250-12-32 06:23:0020[facility]annCHEM QODIQ2511-64-52 06:23:000.5[facility]annCHEM XVNJN0697-49-07 06:23:0088[facility]annCHEM FSPTF3927-73-59 06:23:003.2[facility]annCHEM ZZMZQ3121-57-94 06:23:0010 [facility]annCHEM OPHDH6500-53-20 06:23:002.8[facility]annCHEM PANEL 2017-06-26 06:23:006.0[facility] SsbwsvcOASAWZZOKZ8116-92-85 06:23:001+ *ABN*(06/26/17 1:23 AM)[facility] ApcyaqpXBMGADMYOJ9595-24-33 06:23:00* Test Item Value Reference Range Interpretation Comments PTT (test code = PTT) 45.8 s 22.9-35.8 [facility] EfqmpnmDLXIXMCNFG5387-60-97 06:23:001.09[facility]annHEMATOLOGY 2017-06-26 06:23:00* Test Item Value Reference Range Interpretation Comments PT (test code = PT) 14.1 s 12.0-14.7 [facility]annPARATHYROID QLDDZAH5354-86-17 06:23:001.05[facility] PARATHYROID OBBYOYG0167-60-61 06:23:001.09[facility]annBL[facility]OD BANK RESULTS 2017-06-25 12:31:00Product available (06/25/17 7:31 AM)[facility] LMTLKUFQNZ3874-80-61 08:00:001+ *ABN*(06/25/17 3:00 AM)[facility] UDINTRXXEB2867-24-23 14:21:00Negative *NA*(06/24/17 9:21 AM)[facility] PEVHFNYGYK8384-48-94 14:21:00Negative *NA*(06/24/17 9:21 AM)[facility] HBWPTPNLUC2913-02-11 14:21:35041.8[facility] IacvljdVCDAXPACFA3738-08-27 14:21:00 Negative *NA*(06/24/17 9:21 AM)[facility] JtyyxyeAVTRCJIZBD0328-55-08 14:21:00 Negative *NA*(06/24/17 9:21 AM)[facility] NkqllkcZJKXJDJRKF4268-70-38 14:21:00 Negative *NA*(06/24/17 9:21 AM)[facility] PgtqbjjZTNDJQSUQL1632-11-80 14:21:00 Negative *NA*(06/24/17 9:21 AM)[facility] HnfypyiVNGDNRHAJH1192-08-72 14:21:00 Negative *NA*(06/24/17 9:21 AM)[facility] DxssnpmBLQODMEEMQ4020-84-35 14:21:00 Negative *NA*(06/24/17 9:21 AM)[facility]annSPECIAL IGJIMUBXO6299-72-57 11:10:005.5[facility]annBL[facility] LPZVIAX6072-34-26 22:47:00Negative (06/23/17 5:47 PM)[facility] HermannCHEM JDOSH8107-12-95 22:47:0010[facility] HermannCHEM GWOHR6485-67-45 22:47:0098[facility] HermannCHEM PFMEP9680-83-92 22:47:0033[facility] HermannCHEM LRYJJ1687-45-72 22:47:000.5[facility] HermannCHEM UIHUV1707-65-73 22:47:36534Uxghzrbs HermannCHEM NYHRM7113-48-35 22:47:0030 [facility]annCHEM SKKOB4779-52-87 22:47:0029[facility]annCHEM PANEL 2017-06-23 22:47:86992Gvwecosv HermannCHEM GSWYA4523-05-24 22:47:004.6[facility] BOQKN1017-44-55 22:47:004.2[facility]annCHE[facility] VNAUG5546-24-07 22:47:009.2[facility]ann[facility] PHNDL0244-65-92 22:47:008.1[facility]ann[facility] IYNCX6045-87-26 22:47:39178Pqbtufyj HermannCHEM JVWVB8557-04-11 22:47:004.12 [facility] OSCWP8236-44-09 22:47:0045[facility]annCHE[facility] PANEL 2017-06-23 22:47:003.9[facility]ann[facility] MSUUX8305-88-89 22:47:0011[facility] LZYTK6167-19-07 22:47:001.1[facility]ann[facility] KIFXK7122-96-93 22:47:0011.6[facility] LizsqjhPXIQUIQUGZ9995-06-49 22:47:000.9[facility] MASXLZAZSR7427-79-43 22:47:0013.2[facility] PqvvpzfJDITAPCDTR5632-89-94 22:47:00 1.3[facility] WudjafrFXXZSWDXYO5189-17-42 22:47:005.9[facility]annHEMATOLOGY 2017-06-23 22:47:000.6[facility] ZvjfhdpUISWKSWWWN2892-48-32 22:47:000.5[facility] LjhndzgPIVYZCWIYP2956-16-30 22:47:0084.6[facility] DrcrsxhDKRXUKAVPF9537-94-57 22:47:008.4[facility] GkwkgebZWKGHAYNXR3598-06-99 22:47:002+ *ABN*(06/23/17 5:47 PM)[facility] QtedpgqSGAVJGOUEN6228-85-80 22:47:000.1[facility]annHEMATOLOGY 2017-06-23 22:47:000.1[facility] RbrqqdvNAVKSBFEVN3820-79-22 22:47:00* Test Item Value Reference Range Interpretation Comments PT (test code = PT) 13.4 s 12.0-14.7 [facility] YlschzcJTRIBOKOIE9729-61-42 22:47:00* Test Item Value Reference Range Interpretation Comments PTT (test code = PTT) 32.9 s 22.9-35.8 [facility] RftmbrgTRXHRUNPYD9571-20-57 22:47:001.02[facility]ann[facility]MATOLOGY 2017-06-23 22:47:24579Hptqdfql ZudbjhzRPOURMTXIL2879-04-35 22:47:0015.2[facility] VyglaqnJHOYYWHTAB5813-72-70 22:47:00* Test Item Value Reference Range Interpretation Comments MCH (test code = MCH) 36.0 pg 27.0-31.0 [facility] IikkaulFEWXOEPOJU5343-24-78 22:47:32451.7[facility]annHEMATOLOGY 2017-06-23 22:47:0034.0[facility] FgvpsilAMFKVMIIJB1846-12-59 22:47:0034.9[facility] SwkhswnYAPHTBOXRC3374-74-27 22:47:0011.9[facility] ZxdowbcSNXOGYHBMY2105-59-37 22:47:0015.7[facility] ZmyeftbTGBUXYCMNV7109-32-12 22:47:003.31[facility] DVRACQBJUE7289-79-18 22:47:008.1[facility] AND HZSHK3307-99-22 22:47:69450Kfkfmjkq HermannURINE AND BJSEN4997-89-53 22:47:00>182[facility] WGDTF4075-33-12 22:47:00Large *ABN*(06/23/17 5:47 PM)[facility] SBNJY0419-96-74 22:47:00Moderate *ABN*(06/23/17 5:47 PM) [facility] YQCWF2154-48-09 22:47:00Negative (06/23/17 5:47 PM) [facility] OWGKD5138-36-94 22:47:007.0[facility] XLVZR3492-97-59 22:47:00Negative *NA*(06/23/17 5:47 PM)[facility] OSFXT3831-75-51 22:47:001.013[facility] JONGT8461-49-02 22:47:00 Marked *ABN*(06/23/17 5:47 PM)[facility]
--- NOTE | 2020-07-29 18:59 | Emergency Department Note ---
History of Present Illnes History of Present Illness Chief Complaint: General Medicine Complaints History of Present Illness This is a 85 year old female IN FROM HOME WITH NO COMPLAINTS; STATES THAT SHE WAS WORKING WITH [employer] TODAY AND THEY STATED THAT HER BLOOD PRESSURE WAS TOO LOW - VSS UPON ARRIVAL, BP 125/57. PATIENT ALERT AND ORIENTED, RESP EVEN AND NONLABORED, APPEARS IN NO DISTRESS, DENIES PAIN . 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 Mode: [place] Required: No Onset (how long ago): hour(s) (1) Location: NONE Quality: REPORTED LOW BLOOD PRESSURE BY [employer] Radiation: Reports non-radiation Severity: unable to specify Onset quality: unable to specify Duration (how long): hour(s) (1) Timing of current episode: unable to specify Progression: resolved Chronicity: new Context: Denies recent illness Relieving factors: none Exacerbating factors: none Associated symptoms: Reports denies other symptoms Treatments prior to arrival: none Past Medical/Family History Physician Review I have reviewed the patient's past medical and family history. Any updates have been documented here. Past Medical History Recent Fever: No Clinical Suspicion of Infectio: No New/Unexplained Change in Ment: No Past Medical History: Diabetes, ESRD, Hemodyalisis, Hyperlipedemia, Chronic Kidney Disease Other Medical History: CHRONIC RENAL DIESEASE HYPERLIPIDEMIA ALOPECIA DIABETIC RETIOPATHY DIASTOLIC HEARTH FAILURE DEPENDENT EDEMA CHOLECTYSTITIS LUMBAR DISC DISEASE OSTEOPORSIS HEPATIC ABSCESS CHRONIC BACK PAIN Past Surgical History: Cholecysctectomy Other Surgery: BACK RIGHT FOOT KNEE SURGERY Social History Smoking Cessation: Never Smoker Counseling Performed: No Alcohol Use: None Any Illegal Drug Use: No Physically hurt or threatened: No Other Last Tetanus: <5 YEARS Any Pre-Existing Lines (PICC,: No Review of Systems Review of Systems Constitutional: Reports no symptoms EENTM: Reports no symptoms Cardiovascular: Reports no symptoms Respiratory: Reports no symptoms Gastrointestinal: Reports no symptoms Genitourinary: Reports no symptoms Musculoskeletal: Reports no symptoms Integumentary: Reports no symptoms Neurological: Reports no symptoms Psychological: Reports no symptoms Endocrine: Reports no symptoms Hematological/Lymphatic: Reports no symptoms Physical Exam Related Data Allergies: Coded Allergies: ibuprofen (Verified Allergy, Unknown, KIDNEY DOCTOR TOLD HER NOT TO TAKE, 07/29/20) Triage Vital Signs Vital Signs Date Time Temp Pulse Resp B/P (MAP) Pulse Ox O2 Delivery O2 Flow Rate FiO2 12/2/20 17:57 98.8 61 18 125/57 98 Room Air Vital signs reviewed: Yes Physical Exam CONSTITUTIONAL Constitutional: Present well-developed, Present well-nourished; Absent distressed HENT HENT: Present normocephalic, Present atraumatic, Present oropharynx clear/moist, Present nose normal HENT L/R: Present left ext ear normal, Present right ext ear normal EYES Eyes: Reports PERRL, Reports conjunctivae normal NECK Neck: Present ROM normal PULMONARY Pulmonary: Present effort normal, Present breath sounds normal CARDIOVASCULAR Cardiovascular: Present regular rhythm, Present heart sounds normal, Present capillary refill normal, Present normal rate GASTROINTESTINAL Abdominal: Present soft, Present nontender, Present bowel sounds normal GENITOURINARY Genitourinary: Present exam deferred SKIN Skin: Present warm, Present dry MUSCULOSKELETAL Musculoskeletal: Present ROM normal NEUROLOGICAL Neurological: Present alert, Present oriented x 3, Present no gross motor or s ensory deficits PSYCHOLOGICAL Psychological: Present mood/affect normal, Present judgement normal Procedures 12 Lead ECG Interpretation ECG Interpretation : ECG: ECG 1 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: Interpreted by ED physician Date: Jul 29, 2020 Time: 18:41 Rhythm: sinus bradycardia Rate: bradycardia BPM: 58 QRS axis: left ST segments normal: Yes T waves normal: Yes Other findings: LVH Clinical Impression: abnormal ECG Assessment & Plan Medical Decision Making MDM PT WITH REPORTED LOW BLOOD PRESSURE, PT DENIES ANY SYMPTOMS ORTHOSTATIC VITALS NORMAL Assessment & Plan Final Impression: (1) Blood pressure check Depart Disposition: HOME, SELF-CARE Last Vital Signs Date Time Temp Pulse Resp B/P (MAP) Pulse Ox O2 Delivery O2 Flow Rate FiO2 07/29/20 18:50 58 07/29/20 17:57 98.8 18 125/57 98 Room Air Home Meds Reported Medications Irbesartan/Hydrochlorothiazide (AVALIDE 300-12.5 MG TABLET) 1 Each Tablet, 1 TAB PO DAILY 10/26/14 Metoprolol Tartrate (METOPROLOL TARTRATE) 50 Mg Tablet, 50 MG PO BID, TAB 10/26/14 Ca Cmb No.1/Vit D3/B-6/Fa/B12 (VITAMIN D3 1,000 UNIT TABLET) 1 Each Tablet, 2000 UNITS PO RDAILY 07/27/13 Nifedipine (NIFEDIPINE ER) 60 Mg Tablet.er, 60 MG PO BID 07/27/13 Furosemide (LASIX) 40 Mg Tablet, 40 MG PO RDAILY 07/27/13 Clonidine Hcl (CLONIDINE HCL) 0.1 Mg Tablet, 0.1 MG PO TID 07/27/13 Calcium Carbonate/Vitamin D3 (CALTRATE 600 + D CHEWABLE TAB) 1 Each Tab.chew, 3 TAB PO RDAILY 07/27/13 Aspirin (ASPIR 81) 81 Mg Tablet.dr, 81 MG PO RDAILY 07/27/13 Hum Insulin Nph/Reg Insulin Hm (HUMULIN 70-30 PEN) 100 Unit/1 Ml Insuln.pen, 50 UNIT SQ AM 07/27/13 Hum Insulin Nph/Reg Insulin Hm (HUMULIN 70-30 PEN) 100 Unit/1 Ml Insuln.pen, 15 UNITS SQ 07/27/13 Hum Insulin Nph/Reg Insulin Hm (HUMULIN 70-30 PEN) 100 Unit/1 Ml Insuln.pen, 7 UNITS SQ BEDTIME 07/27/13 Atorvastatin Calcium (LIPITOR) 40 Mg Tablet, 40 MG PO RDAILY, 0 Refills 05/07/13 Multivitamin/Iron/Folic Acid (Centrum Complete Multivit Tab) 1 Each Tablet, 0 Refills 10/04/11 TORITO HINTON MD Jul 29, 2020 18:59
[2020-07-29 19:19] VITALS: BP 133/38
== END 2020-07-29 19:44 | disposition home or self-care (01) ==
LOC: ER 17:53
DX: I95.9 Hypotension, unspecified (principal); R94.31 Abnormal electrocardiogram [ECG] [EKG]; E11.22 Type 2 diabetes mellitus with diabetic chronic kidney disease; N18.6 End stage renal disease; Z99.2 Dependence on renal dialysis; L65.9 Nonscarring hair loss, unspecified
CPT/HCPCS: 99282

== ENCOUNTER 2021-06-06 03:05 | Inpatient (IN) | payer MEDICARE, BC ==
[~2021-06-06] VITALS: Ht 165.1 cm; Wt 78.5 kg
[2021-06-06] VITALS (7 sets, daily range): BP systolic 115–152; BP diastolic 43–66
[2021-06-06] MEDS ORDERED: ONDANSETRON HCL INJ 2MG/ML 2ML 2 MG/ML VIAL IV STA (03:22)
[2021-06-06] MEDS ORDERED: Morphine 2mg Syringe 2 MG/ML SYR IV STA (03:22)
[2021-06-06 03:24] LABS: BASOPHILS # (AUTO) 0.1 (0.0-0.1); BASOPHILS % 0.6 % (0.0-1.0); EOSINOPHILS # (AUTO) 0.1 (0.0-0.4); EOSINOPHILS % 0.6 % (0.0-6.0); HEMATOCRIT 35.9 % (34.2-44.1); HEMOGLOBIN 11.3 g/dL (12.0-16.0); LYMPHOCYTES % 8.7 % (18.0-39.1); MEAN CORPUSCULAR HEMOGLOBIN 34.5 pg (28-32); MEAN CORPUSCULAR HGB CONC 31.5 g/dL (31-35); MEAN CORPUSCULAR VOLUME 109.5 fL (81-99); MONOCYTES # (AUTO) 0.9 (0.2-0.8); MONOCYTES % 7.3 % (4.4-11.3); NEUTROPHILS # (AUTO) 9.6 (2.1-6.9); NEUTROPHILS % 82.5 % (38.7-80.0); PLATELET COUNT 261 x10e3/uL (140-360); RED BLOOD COUNT 3.28 x10e6/uL (3.6-5.1); RED CELL DISTRIBUTION WIDTH 15.6 % (11.7-14.4)
[2021-06-06 03:41] LABS: ALBUMIN 3.9 g/dL (3.5-5.0); ALBUMIN/GLOBULIN RATIO 1.3 (0.8-2.0); ANION GAP 21.2 mmol/L (8-16); CALCIUM 8.9 mg/dL (8.4-10.2); CREATININE, SERUM 6.15 mg/dL (0.57-1.11); POTASSIUM 4.2 mmol/L (3.5-5.1)
[2021-06-06 03:42] LABS: AMYLASE 68 U/L (25-125); LIPASE 30 U/L (8-78)
[2021-06-06 03:48] LABS: CREATINE KINASE MB 1.1 ng/mL (0-5.0)
[2021-06-06] MEDS ORDERED: SODIUM CHLORIDE FLUSH 10 ML SYR INJ PRN (05:00)
[2021-06-06] MEDS ORDERED: DEXTROSE 50% SYRINGE 50 ML IV PRN (05:00)
[2021-06-06] MEDS: INSULIN REGULAR, HUMAN 100 UNIT/1 ML SQ SCH ×4 (07:30→21:00)
[2021-06-06] MEDS ORDERED: LACTULOSE SYRUP 20 GM/30 ML UDC PO PRN (09:45)
[2021-06-06] MEDS ORDERED: BISACODYL 10 MG SUPP PR PRN (09:45)
[2021-06-06] MEDS ORDERED: HYDRALAZINE HCL 20 MG/ML VIAL IV PRN (09:45)
[2021-06-06] MEDS: METOPROLOL TARTRATE 50 MG TAB PO SCH ×2 (10:31→16:06)
[2021-06-06] MEDS: CEFTRIAXONE 1 GM in SODIUM CHLORIDE 0.9% 50ML 50 ML IV SCH (10:31)
[2021-06-06] MEDS: SENNA-S TABLET PO SCH ×2 (10:31→16:07)
[2021-06-06] MEDS: APIXAB 2.5 MG TABLET PO SCH ×2 (10:31→16:08)
[2021-06-06] MEDS: NIFEDIPINE CR 30 MG TAB PO SCH ×2 (10:31→16:07)
[2021-06-06] MEDS: FUROSEMIDE 40 MG TAB PO SCH (10:31)
[2021-06-06] MEDS: CLONIDINE HCL 0.1 MG TAB PO SCH ×2 (15:00→21:00)
[2021-06-06] MEDS: ATORVASTATIN 40 MG TAB PO SCH (21:00)
[2021-06-07] VITALS (8 sets, daily range): BP systolic 97–130; BP diastolic 49–100
[2021-06-07 05:01] LABS: BASOPHILS # (AUTO) 0.1 (0.0-0.1); BASOPHILS % 0.5 % (0.0-1.0); EOSINOPHILS # (AUTO) 0.1 (0.0-0.4); EOSINOPHILS % 0.7 % (0.0-6.0); HEMATOCRIT 30.8 % (34.2-44.1); HEMOGLOBIN 9.4 g/dL (12.0-16.0); LYMPHOCYTES % 9.6 % (18.0-39.1); MEAN CORPUSCULAR HEMOGLOBIN 34.2 pg (28-32); MEAN CORPUSCULAR HGB CONC 30.5 g/dL (31-35); MONOCYTES % 9.7 % (4.4-11.3); NEUTROPHILS # (AUTO) 7.8 (2.1-6.9); NEUTROPHILS % 79.2 % (38.7-80.0); PLATELET COUNT 212 x10e3/uL (140-360); RED BLOOD COUNT 2.75 x10e6/uL (3.6-5.1); RED CELL DISTRIBUTION WIDTH 15.7 % (11.7-14.4)
[2021-06-07 05:38] LABS: ALBUMIN/GLOBULIN RATIO 1.2 (0.8-2.0); ANION GAP 16.4 mmol/L (8-16); CALCIUM 8.3 mg/dL (8.4-10.2); CREATININE, SERUM 5.43 mg/dL (0.57-1.11); MAGNESIUM 2.4 MG/DL (1.3-2.1); PHOSPHORUS 4.5 MG/DL (2.3-4.7); POTASSIUM 4.4 mmol/L (3.5-5.1)
[2021-06-07] MEDS: INSULIN REGULAR, HUMAN 100 UNIT/1 ML SQ SCH ×4 (07:30→21:00)
[2021-06-07] MEDS ORDERED: CEFTRIAXONE 1 GM VIAL ONE (07:45)
[2021-06-07] MEDS: CEFTRIAXONE 1 GM in SODIUM CHLORIDE 0.9% 50ML 50 ML IV SCH (08:05)
[2021-06-07] MEDS: FUROSEMIDE 40 MG TAB PO SCH (08:06)
[2021-06-07] MEDS: APIXAB 2.5 MG TABLET PO SCH ×2 (08:06→16:31)
[2021-06-07] MEDS: SENNA-S TABLET PO SCH ×2 (08:06→16:32)
[2021-06-07] MEDS: METOPROLOL TARTRATE 50 MG TAB PO SCH ×2 (08:45→16:26)
[2021-06-07] MEDS: NIFEDIPINE CR 30 MG TAB PO SCH ×2 (08:45→16:27)
[2021-06-07] MEDS: CLONIDINE HCL 0.1 MG TAB PO SCH ×3 (08:45→21:00)
[2021-06-07] MEDS: ASPIRIN 81 MG CHEW TAB PO SCH (10:30)
[2021-06-07] MEDS: ATORVASTATIN 40 MG TAB PO SCH (21:17)
[2021-06-08] VITALS: BP 115/35
[2021-06-08 04:00] VITALS: BP 140/51
[2021-06-08] MEDS ORDERED: SODIUM CHLORIDE 0.9% 1000ML 2,000 ML ONE (07:18)
[2021-06-08] MEDS: INSULIN REGULAR, HUMAN 100 UNIT/1 ML SQ SCH ×5 (07:30→21:04)
[2021-06-08 07:44] VITALS: BP 115/45
[2021-06-08] MEDS: CLONIDINE HCL 0.1 MG TAB PO SCH ×3 (08:04→21:02)
[2021-06-08 08:05] VITALS: BP 115/45
[2021-06-08] MEDS ORDERED: ACETAMINOPHEN 325 MG TAB PO PRN (08:45)
[2021-06-08] MEDS: SENNA-S TABLET PO SCH ×3 (09:00→16:47)
[2021-06-08] MEDS: NIFEDIPINE CR 30 MG TAB PO SCH ×3 (09:00→16:47)
[2021-06-08] MEDS: ASPIRIN 81 MG CHEW TAB PO SCH ×2 (09:00→11:55)
[2021-06-08] MEDS: METOPROLOL TARTRATE 50 MG TAB PO SCH ×3 (09:00→16:48)
[2021-06-08] MEDS: APIXAB 2.5 MG TABLET PO SCH ×3 (09:00→16:47)
[2021-06-08] MEDS: FUROSEMIDE 40 MG TAB PO SCH ×2 (09:00→11:55)
[2021-06-08] MEDS: CEFTRIAXONE 1 GM in SODIUM CHLORIDE 0.9% 50ML 50 ML IV SCH ×2 (09:00→11:55)
[2021-06-08] MEDS ORDERED: SODIUM CHLORIDE 0.9% 50ML 50 ML ONE (12:21)
[2021-06-08] MEDS ORDERED: ONDANSETRON HCL INJ 2MG/ML 2ML 2 MG/ML VIAL IV PRN (18:00)
[2021-06-08 20:00] VITALS: BP 144/55
[2021-06-08] MEDS: ATORVASTATIN 40 MG TAB PO SCH (21:04)
[2021-06-09] VITALS: BP 111/39
[2021-06-09 04:00] VITALS: BP 114/39
[2021-06-09] MEDS: INSULIN REGULAR, HUMAN 100 UNIT/1 ML SQ SCH (07:30)
[2021-06-09 08:14] VITALS: BP 116/43
[2021-06-09] MEDS: ASPIRIN 81 MG CHEW TAB PO SCH (08:28)
[2021-06-09] MEDS: FUROSEMIDE 40 MG TAB PO SCH (08:30)
[2021-06-09] MEDS: CEFTRIAXONE 1 GM in SODIUM CHLORIDE 0.9% 50ML 50 ML IV SCH (08:30)
[2021-06-09] MEDS: APIXAB 2.5 MG TABLET PO SCH (08:31)
[2021-06-09] MEDS: METOPROLOL TARTRATE 50 MG TAB PO SCH (08:31)
[2021-06-09] MEDS: SENNA-S TABLET PO SCH (08:31)
[2021-06-09] MEDS: NIFEDIPINE CR 30 MG TAB PO SCH (08:31)
[2021-06-09] MEDS: CLONIDINE HCL 0.1 MG TAB PO SCH (08:31)
[2021-06-09] MEDS ORDERED: ONDANSETRON HCL 4 MG ORAL DISINTEGRATING TAB PO PRN (09:15)
[2021-06-09 09:21] VITALS: BP 116/43
== END 2021-06-09 10:55 | disposition home health service (06) | DRG 177 ==
LOC: ER 03:10 → ERHOLD 05:55 → IMCU 07:24 → MED/SURG3 06-07 19:52
PROVIDERS: ADMIT Internal Medicine; ATTEND Internal Medicine
PROC: 5A1D70Z Performance of Urinary Filtration, Intermittent, Less than 6 Hours Per Day (ICD-10-PCS; principal; 2021-06-06)
PROC: 8E0ZXY6 Isolation (ICD-10-PCS; 2021-06-06)
DX: U07.1 COVID-19 (principal); N18.6 End stage renal disease; J12.82 Pneumonia due to coronavirus disease 2019; J69.0 Pneumonitis due to inhalation of food and vomit; I13.2 Hypertensive heart and chronic kidney disease with heart failure and with stage 5 chronic kidney disease, or end stage renal disease; N39.0 Urinary tract infection, site not specified; N13.30 Unspecified hydronephrosis; I50.32 Chronic diastolic (congestive) heart failure; Z99.2 Dependence on renal dialysis; Z91.15 Patient's noncompliance with renal dialysis; D64.9 Anemia, unspecified; M81.0 Age-related osteoporosis without current pathological fracture; E11.22 Type 2 diabetes mellitus with diabetic chronic kidney disease; K59.00 Constipation, unspecified; Z96.643 Presence of artificial hip joint, bilateral
CPT/HCPCS: 36415; 71045; 74176; 80053; 82150; 82550; 82553; 82948; 83690; 83735; 84100; 84484; 85025; 86705; 86706; 87340; 93005; 96372; 99251; 99284; J0696; J1817; J2270; J2405; J7030; U0002